=== PATIENT | male | born 1950 | race Caucasian/White ===

== ENCOUNTER → 2018-04-26 03:20 | Outpatient (CLI) | payer MEDICARE, BC, SELFPAY ==
[2018-04-26 08:28] LABS: ALT 39 U/L (12-78); AST 23 U/L (15-37); Albumin 3.5 g/dL (3.4-5.0); Alkaline Phosphatase 59 U/L (46-116); BUN 35 mg/dL (7-18); Bilirubin, Total 0.4 mg/dL (0.2-1.0); CREATININE 1.51 mg/dL (0.70-1.30); Calcium 8.7 mg/dL (8.5-10.1); Chloride 101 mmol/L (98-107); Estimated GFR 46.18 (mL/min/1.73m2); Glucose 217 mg/dL (70-100); Lipase 428 U/L (73-393); Sodium 137 mmol/L (136-145); Total Protein 6.6 g/dL (6.4-8.2)
== END ==
DX: E11.65 Type 2 diabetes mellitus with hyperglycemia (principal); E66.9 Obesity, unspecified; I10 Essential (primary) hypertension; K85.90 Acute pancreatitis without necrosis or infection, unspecified
CPT/HCPCS: 36415; 80053; 83690

== ENCOUNTER 2018-06-19 02:03 | Outpatient (CLI) | payer MEDICARE, BC, SELFPAY ==
[2018-06-19 08:38] LABS: Hemoglobin A1C 8.1 % (4.5-6.2)
== END 2018-06-19 02:23 ==
DX: E11.9 Type 2 diabetes mellitus without complications (principal)
CPT/HCPCS: 36415; 83036

== ENCOUNTER 2018-09-10 13:44 | Emergency (ER) | payer OTHER, MEDICARE, BC, SELFPAY ==
[2018-09-10 13:46] VITALS: BP 146/78; PULSE 76; RESP 16; TEMP 36.6; O2SAT 97
--- NOTE | 2018-09-10 13:51 | W.ED.GENAD ---
Discharge Plan Disposition Patient Disposition: HOME Condition: Stable Discharge Details Chief Complaint: Chest/Rib Clinical Impression: Left rib fracture, Closed fracture of greater tuberosity of left humerus Primary Care Provider: Sugar Kaur ED Provider: Zac Brian Home Meds and New Rx's Prescriptions: Continued pen needle, diabetic [Comfort EZ Pen [place]] 31 gauge x 1/4 needle .ROUTE .MEDSUPPLY Qty: 90 RF: 4 CPAP RF: 0 lancets [OneTouch Delica Lancets] 1 EACH misc 1 ea Miscellaneous AC& HS Qty: 400 RF: 4 amlodipine 5 MG tablet 5 mg PO DAILY RF: 0 blood sugar diagnostic [OneTouch Ultra Test] 1 EACH strip 1 strip Miscellaneous AC&HS Qty: 400 RF: 4 metformin 850 MG tablet 1 - 2 tab PO BID Qty: 270 RF: 4 paroxetine HCl 20 MG tablet 20 tab PO DAILY Qty: 90 RF: 4 losartan 100 MG tablet 100 mg PO DAILY Qty: 90 RF: 4 hydrochlorothiazide 12.5 MG tablet 12.5 mg PO DAILY Qty: 90 RF: 4 atorvastatin 80 MG tablet 80 mg PO PM Qty: 90 RF: 3 Xarelto 20 MG tablet 20 mg PO DAILY Qty: 30 RF: 11 Basaglar KwikPen U-100 Insulin 100 UNIT/1 ML insulin pen 60 - 80 unit SQ HS Qty: 3 RF: 3 metoprolol succinate 25 mg tablet extended release 24 hr 25 mg PO DAILY Qty: 90 RF: 3 nitroglycerin [Nitrostat] 0.4 MG tablet, sublingual 0.4 mg Sublingual Q5 MIN PRN X3 PRNQty: 100 RF: 0 Discharge Instructions Instructions: Arm Fracture in Adults (ED), Rib Fracture (ED) Additional Instructions: Your left shoulder xray showed a small broken bone. Your xray of your chest showed a possible broken 9th rib on the left Use the incentive spirometer every 1-2 hours while awake, this helps prevent pneumonias you can take 1000mg tylenol every 6 hours for pain as needed call orthopedics tomorrow for an appointment if you have severe worsening pain, difficulty breathing, headaches or abdominal pain return to the emergency department Referrals: Joshua Cuenca MD [ [facility] STAFF PHYSICIAN] - Medical Decision Making 67 yo male with hx of DM, afib on xarelto, who comes in with chief complaint of left upper arm pain, left sided chest pain after a fall. He states around 530am he slipped on ice and fell from standing landing on his outstretched left arm and left chest. Denies hitting head and has not had any vomit, headache, neck pain. He has no c spine pain even on rom. He has let upper humerus pain and limited rom due to the pain of the left shoulder. No pain on palpation of the elbow, forearm, wrist or hand. Has left lower chest wall discomfort on exam without findings of trauma, and has clera lungs. Has full rom of the left knee and walking without a limp, doubt fx and do not feel xray of knee indicated. Will xray the left shoulder and chest to eval for fx/dislocation. Given his fall happened 10 hours ago and has not had any headache do not feel head imaging indicated and has no neck pain even on rom so do not feel imaging of c spine indicated at this time xray shows left greater tuberosity fx, and ?9th rib fx. He was placed in a sling, he declines any pain medication at this time. Will have him f/u with ortho and return precautions given. Differential Diagnosis sprain, contusion, fx Imaging Data Radiologic Study: Attestation: I personally reviewed and interpreted this imaging study as follows: Imaging: X-Ray Radiologist's impression: Exam(s) a RAD:XR chest 2V PA & lateral a RAD:XR shoulder LT complete 2+V SYMPTOMS/DIAGNOSIS: LEFT-SIDED CHEST PAIN AND SHOULDER PAIN S/P FALL PA AND LATERAL CHEST: Comparison is made with March,. The heart is mildly enlarged, unchanged. The aorta appears normal in diameter. The lungs are clear. No pneumothorax is seen. There is a question of a nondisplaced fracture of the left 9th rib. The spine appears intact. IMPRESSION: Question of a left 9th rib fracture. No evidence of pneumothorax. LEFT SHOULDER: There is a nondisplaced fracture of the greater tuberosity. No additional fractures are seen. There is spurring at the AC joint. The AC joint is not widened. There are degenerative changes of the glenohumeral joint. IMPRESSION: Nondisplaced fracture of the greater tuberosi HPI General Mode of arrival: ambulatory. Date/Time Provider Initiated Documentation: 09/10/18 13:47. Limitations to Documentation: no limitations. Information obtained by: patient. History of Present Illness 67 year old M presents to the emergency department with the chief complaint of left arm pain, described as moderate, with intensity rated at 5. Quality is described as aching, and is localized to the left and upper extremity. Patient reports no radiation. Patient started experiencing this hour(s) (10) and it has been constant. Rest improves symptom(s), Movement worsens symptoms . Patient notes denies cough, diaphoresis and fever/chills. Patient did receive the following treatments prior to arrival, none Related Data Home Medications Medication Instructions Recorded Confirmed Cpap 09/26/13 06/24/18 lancets [OneTouch Delica Lancets] #400 ea 11/27/15 06/24/18 amlodipine 5 mg PO DAILY 06/14/17 09/10/18 blood sugar diagnostic [OneTouch #400 strip 08/23/17 06/24/18 Ultra Test] hydrochlorothiazide 12.5 mg PO DAILY #90 tab-cap 12/11/17 09/10/18 losartan 100 mg PO DAILY #90 tab-cap 12/11/17 09/10/18 metformin 1 - 2 tab PO BID #270 tab 12/11/17 09/10/18 paroxetine HCl 20 tab PO DAILY #90 tab 12/11/17 09/10/18 atorvastatin 80 mg PO PM #90 tab 01/10/18 09/10/18 Xarelto 20 mg PO DAILY #30 tab-cap 02/20/18 09/10/18 nitroglycerin [Nitrostat] 0.4 mg SUBLINGUAL Q5 MIN PRN X3 04/10/18 09/10/18 PRN #100 tab Shellieaglar RooseveltikPen U-100 Insulin 60 - 80 unit SQ HS #3 box 04/22/18 09/10/18 pen needle, diabetic 31 gauge x #90 each 06/24/18 06/24/18 1/4 metoprolol succinate ER 25 mg 25 mg PO DAILY #90 tab 09/05/18 09/10/18 tablet,extended release 24 hr Previous Rx's Medication Instructions Recorded blood sugar diagnostic [OneTouch #400 strip 08/23/17 Ultra Test] hydrochlorothiazide 12.5 mg PO DAILY #90 tab-cap 12/11/17 losartan 100 mg PO DAILY #90 tab-cap 12/11/17 metformin 1 - 2 tab PO BID #270 tab 12/11/17 paroxetine HCl 20 tab PO DAILY #90 tab 12/11/17 atorvastatin 80 mg PO PM #90 tab 01/10/18 Xarelto 20 mg PO DAILY #30 tab-cap 02/20/18 nitroglycerin [Nitrostat] 0.4 mg SUBLINGUAL Q5 MIN PRN X3 04/10/18 PRN #100 tab Basaglar KwikPen U-100 Insulin 60 - 80 unit SQ HS #3 box 04/22/18 pen needle, diabetic 31 gauge x #90 each 06/24/1808/30 metoprolol succinate ER 25 mg 25 mg PO DAILY #90 tab 09/05/18 tablet,extended release 24 hr Allergies Allergy/AdvReac Type Severity Reaction Status Date / Time No Known Allergies Allergy Unverified 09/10/18 14:01 General Stated Complaint: Chest/Rib MOJGAN: 3 Review of Systems Review of Systems All systems reviewed & are unremarkable except as noted in HPI and below Constitutional Denies chills, Denies fever(s) and Denies weakness Eyes Denies loss of vision Cardiovascular Denies dyspnea Respiratory Denies dyspnea Gastrointestinal Denies abdominal pain, Denies nausea and Denies vomiting Musculoskeletal Denies joint swelling Integumentary/Breasts Denies rash Neurologic Denies loss of vision and Denies weakness [facility] Surgical History Ankle Surgery Appendectomy Tonsillectomy Trigger Finger release Family History Mother Essential hypertension Neoplasm Father Alcohol abuse Essential hypertension Heart disease Hyperlipidemia Stroke Asthma Sister Essential hypertension Stroke Sister Essential hypertension Depression Hyperlipidemia Sister Substance abuse Essential hypertension Depression Hyperlipidemia Sister No problems noted. Sister Essential hypertension Hyperlipidemia Brother Substance abuse Alcohol abuse Essential hypertension Heart disease Hyperlipidemia Brother Substance abuse Alcohol abuse Hyperlipidemia Neoplasm Brother Substance abuse Essential hypertension Hyperlipidemia Grandfather Heart disease Hyperlipidemia Asthma Grandfather Heart disease Asthma Grandmother Diabetes Essential hypertension Heart disease Hyperlipidemia Grandmother Neoplasm Son Essential hypertension Hyperlipidemia Son Essential hypertension Hyperlipidemia Sister Essential hypertension Brother No problems noted. Social History Smoking/Tobacco Use Status: Former Tobacco Use Exam Const General: no acute distress Orientation: alert HENMT Head: normal to inspection Ears: external ears normal General nose exam: external nose normal Mouth: moist mucous membranes Eyes General: appearance normal, both eyes and all related structures Neck Neck: normal visual inspection Chest Chest: normal inspection of the chest Resp Effort & Inspection: normal respiratory effort and able to speak in complete sentences Cardio Rate: regular rate Skin General skin exam: no rashes or lesions noted Neuro General: alert and oriented x3 Extrem General: normal to inspection Psych Mental Status: mental status grossly normal Course Vital Signs Temperature 36.6 C 09/10/18 13:46 Pulse 76 09/10/18 13:46 Respiratory Rate 16 09/10/18 13:46 Blood Pressure 146/78 H 09/10/18 13:46 Pulse Oximetry 97 09/10/18 13:46 Temperature 36.6 C 09/10/18 13:46 Temperature Source Skin 09/10/18 13:46 Pulse 76 09/10/18 13:46 Respiratory Rate 16 09/10/18 13:46 Blood Pressure 146/78 H 09/10/18 13:46 Pulse Oximetry 97 09/10/18 13:46 Oxygen Delivery Method Room Air 09/10/18 13:46 Oxygen Flow Rate 0 09/10/18 13:46 Pain Level 3 09/10/18 13:46
--- NOTE | 2018-09-10 13:54 | DI.RAD_ITS ---
SYMPTOMS/DIAGNOSIS: LEFT-SIDED CHEST PAIN AND SHOULDER PAIN S/P FALL PA AND LATERAL CHEST: Comparison is made with March,. The heart is mildly enlarged, unchanged. The aorta appears normal in diameter. The lungs are clear. No pneumothorax is seen. There is a question of a nondisplaced fracture of the left 9th rib. The spine appears intact. IMPRESSION: Question of a left 9th rib fracture. No evidence of pneumothorax. LEFT SHOULDER: There is a nondisplaced fracture of the greater tuberosity. No additional fractures are seen. There is spurring at the AC joint. The AC joint is not widened. There are degenerative changes of the glenohumeral joint. IMPRESSION: Nondisplaced fracture of the greater tuberosity.
--- NOTE | 2018-09-10 14:18 | NUR.NOTE ---
pt stated that he fell this am before work hurting his left ribs knee and shoulder pain. pt stated every thing is working except for left shoulder pt stated limited movement Nursing Note:
[2018-09-10 14:26] VITALS: BP 135/85; PULSE 71; RESP 16; TEMP 37; O2SAT 95
[2018-09-10 14:37] VITALS: BP 135/85; PULSE 71; RESP 16; TEMP 37; O2SAT 95
== END 2018-09-10 14:42 | disposition home or self-care (01) ==
PROVIDERS: Emergency Provider Emergency Medicine
DX: S22.32XA Fracture of one rib, left side, initial encounter for closed fracture (principal); S42.255A Nondisplaced fracture of greater tuberosity of left humerus, initial encounter for closed fracture; E11.9 Type 2 diabetes mellitus without complications; I48.91 Unspecified atrial fibrillation; W00.0XXA Fall on same level due to ice and snow, initial encounter; Z79.01 Long term (current) use of anticoagulants
CPT/HCPCS: 99284; 71046; 73030; L3650

== ENCOUNTER 2018-09-23 10:07 | Outpatient (CLI) | payer MEDICARE, BC, SELFPAY ==
--- NOTE | 2018-09-23 10:01 | DI.RAD_ITS ---
SYMPTOM/DIAGNOSIS: F/U LT GREATER TUB FX LEFT SHOULDER: Comparison is made with 2018. There has been no change in the fracture fragments seen at the greater tuberosity. Degenerative changes of the glenohumeral joint and AC joint are again noted. No new abnormalities are seen.
== END 2018-09-23 10:27 ==
PROVIDERS: Visit Provider Student in an Organized Health Care Education/Training Program
DX: S42.255A Nondisplaced fracture of greater tuberosity of left humerus, initial encounter for closed fracture (principal); M19.012 Primary osteoarthritis, left shoulder; W19.XXXA Unspecified fall, initial encounter
CPT/HCPCS: 99203; 99214; 73030

== ENCOUNTER 2018-09-26 01:50 | Outpatient (CLI) | payer MEDICARE, BC, SELFPAY | END 2018-09-26 02:10 | DX: E11.9 Type 2 diabetes mellitus without complications (principal) | CPT/HCPCS: 36415; 83036 ==

== ENCOUNTER 2018-10-21 10:04 | Outpatient (CLI) | payer MEDICARE, BC, SELFPAY ==
--- NOTE | 2018-10-21 10:02 | DI.RAD_ITS ---
SYMPTOMS/DIAGNOSIS: F/U LT GREATER TUBEROSITY FX LEFT SHOULDER: Comparison is made with [id number]. There has been no change in the alignment of the fracture of the greater tuberosity which is not as well seen on the current exam due to differences in projection.
== END 2018-10-21 10:24 ==
PROVIDERS: Visit Provider Student in an Organized Health Care Education/Training Program
DX: S42.255D Nondisplaced fracture of greater tuberosity of left humerus, subsequent encounter for fracture with routine healing; W19.XXXD Unspecified fall, subsequent encounter
CPT/HCPCS: 99213; 73030

== ENCOUNTER 2018-12-02 09:57 | Outpatient (CLI) | payer MEDICARE, BC, SELFPAY ==
--- NOTE | 2018-12-02 09:55 | DI.RAD_ITS ---
SYMPTOMS/DIAGNOSIS: LT PROXIMAL HUMERUS FRACTURE LEFT SHOULDER: Three views. Comparison 10/21/15. There has been no change in alignment of the fracture involving the greater tuberosity. Degenerative changes are seen in the acromioclavicular joint. No new fracture or dislocation is seen. The soft tissues are unremarkable. IMPRESSION: Stable proximal left humeral fracture.
== END 2018-12-02 10:17 ==
PROVIDERS: Visit Provider Student in an Organized Health Care Education/Training Program
DX: S42.255D Nondisplaced fracture of greater tuberosity of left humerus, subsequent encounter for fracture with routine healing (principal); X58.XXXD Exposure to other specified factors, subsequent encounter
CPT/HCPCS: 99213; 73030

== ENCOUNTER 2018-12-23 02:14 | Outpatient (CLI) | payer MEDICARE, BC, SELFPAY ==
[2018-12-23 07:58] LABS: Hemoglobin A1C 10.2 % (4.5-6.2)
== END 2018-12-23 02:34 ==
DX: E11.9 Type 2 diabetes mellitus without complications (principal)
CPT/HCPCS: 36415; 83036

== ENCOUNTER 2019-01-08 02:12 | Outpatient (CLI) | payer MEDICARE, BC, SELFPAY ==
[2019-01-08 09:15] LABS: COMMENT (LAB VIEW ONLY) 68.06 mg/dL; Microalb ug/mg Crea 662.4 ug/mg Cr
[2019-01-08 10:43] LABS: ALT 39 U/L (12-78); AST 20 U/L (15-37); Albumin 3.5 g/dL (3.4-5.0); Alkaline Phosphatase 75 U/L (46-116); Anion Gap 9.4 mmol/L (3-11); BUN 23 mg/dL (7-18); Bilirubin, Total 0.5 mg/dL (0.2-1.0); CO2 27.6 mmol/L (21.0-32.0); CREATININE 1.34 mg/dL (0.70-1.30); Chloride 100 mmol/L (98-107); Estimated GFR 52.85 (mL/min/1.73m2); Glucose 351 mg/dL (70-100); Lipase 978 U/L (73-393); Potassium 3.8 mmol/L (3.5-5.1); Sodium 137 mmol/L (136-145); Total Protein 6.8 g/dL (6.4-8.2)
== END 2019-01-08 02:32 ==
DX: Z87.19 Personal history of other diseases of the digestive system (principal); D36.9 Benign neoplasm, unspecified site; E11.65 Type 2 diabetes mellitus with hyperglycemia; E11.8 Type 2 diabetes mellitus with unspecified complications; E66.9 Obesity, unspecified; E78.00 Pure hypercholesterolemia, unspecified; E78.5 Hyperlipidemia, unspecified; F33.0 Major depressive disorder, recurrent, mild; I10 Essential (primary) hypertension; I48.91 Unspecified atrial fibrillation; N28.9 Disorder of kidney and ureter, unspecified; G47.33 Obstructive sleep apnea (adult) (pediatric)
CPT/HCPCS: 36415; 80053; 83690; 82043; 82570

== ENCOUNTER 2019-06-20 07:51 | Outpatient (CLI) | payer MEDICARE, BC, SELFPAY ==
[2019-06-20 09:02] LABS: Hemoglobin A1C 9.1 % (4.5-6.2)
[2019-06-20 09:24] LABS: BUN 39 mg/dL (7-18); CREATININE 1.38 mg/dL (0.70-1.30); Chloride 102 mmol/L (98-107); Estimated GFR 51.09 (mL/min/1.73m2); Glucose 221 mg/dL (70-100); Lipase 225 U/L (73-393); Potassium 3.8 mmol/L (3.5-5.1); Sodium 139 mmol/L (136-145)
== END 2019-06-20 08:11 ==
DX: E11.65 Type 2 diabetes mellitus with hyperglycemia (principal); I48.91 Unspecified atrial fibrillation; I10 Essential (primary) hypertension; N28.9 Disorder of kidney and ureter, unspecified
CPT/HCPCS: 36415; 80048; 83690; 83036

== ENCOUNTER 2019-07-26 12:00 | Emergency (ER) | payer MEDICARE, BC, SELFPAY ==
[2019-07-26 12:02] VITALS: BP 154/74; PULSE 93; RESP 18; TEMP 36.1; O2SAT 97
--- NOTE | 2019-07-26 12:07 | W.ED.GENAD ---
Discharge Plan Disposition Patient Disposition: HOME Condition: Good Discharge Details Chief Complaint: EarProblem Clinical Impression: Otitis externa Primary Care Provider: Sugar Kaur ED Provider: Waleska Begum Hamilton Meds and New Rx's Prescriptions: New Ciprodex 0.3-0.1 % drops,suspension 4 drp OT BID 7 Days Qty: 7.5 RF: 0 Continued Ozempic 1 mg/dose (2 mg/1.5 mL) pen injector 0.5 mg SC QWEEK RF: 0 metformin 850 mg tablet 850 mg PO BID Qty: 270 RF: 4 Prevnar 13 (PF) 0.5 mL syringe 0.5 ml IM ONCE Qty: 0.5 RF: 0 (DME) pen needle, diabetic [Comfort EZ Pen [place]] 31 gauge x 1/4 needle See Dose Instructions .ROUTE .MEDSUPPLY Qty: 90 RF: 4 amlodipine 5 mg tablet 5 mg PO DAILY Qty: 90 RF: 3 atorvastatin 80 mg tablet 80 mg PO PM Qty: 90 RF: 3 hydrochlorothiazide 12.5 mg tablet 12.5 mg PO DAILY Qty: 90 RF: 4 losartan 100 mg tablet 100 mg PO DAILY Qty: 90 RF: 4 paroxetine HCl 20 mg tablet 20 mg PO DAILY Qty: 90 RF: 4 Xarelto 20 mg tablet 20 mg PO DAILY Qty: 30 RF: 11 CPAP RF: 0 (DME) lancets [OneTouch Delica Lancets] 1 EACH misc 1 ea Miscellaneous AC& HS Qty: 400 RF: 4 metoprolol succinate 25 mg tablet extended release 24 hr 25 mg PO DAILY Qty: 90 RF: 3 Basaglar KwikPen U-100 Insulin 100 unit/mL (3 mL) insulin pen 60 - 80 unit SC DAILY Qty: 135 RF: 3 (DME) FreeStyle Cecelia 14 Day [place] misc See Dose Instructions .ROUTE .MEDSUPPLY Qty: 1 RF: 0 (DME) FreeStyle [place] 14 Day Sensor kit See Dose Instructions .ROUTE .MEDSUPPLY Qty: 1 RF: 0 (DME) blood sugar diagnostic Strip 1 strip Miscellaneous AC&HS Qty: 400 RF: 4 nitroglycerin [Nitrostat] 0.4 MG tablet, sublingual 0.4 mg Sublingual Q5 MIN PRN X3 PRNQty: 100 RF: 0 Discharge Instructions Instructions: Otitis Externa (ED) Additional Instructions: Encourage hydration. Please use the eardrops as prescribed. Please follow-up with primary care next week for reevaluation. If you develop fevers chills, increased pain or other new/worsening symptoms please seek care urgently once again. Referrals: Sugar Kaur NP [Primary Care Provider] - Medical Decision Making Patient is a 68-year-old male presenting today with chief complaint of 4 days bilateral ear pain. Reports that this started insidiously. No fevers, chills, drainage. Endorses diminished hearing. Denies any other URI symptoms, no congestion, cough, sinus pain. No recent travel. On exam, his external canals appear swollen, left more than right making it difficult to visualize the tympanic membrane. The skin is dry and flaking in the canal also making it difficult to visualize completely. No mastoid tenderness. Patient does have pain with insertion of the otoscope into the external canal. No drainage is noted. Patient appears nontoxic. He has been using Bluetooth headset recently which is likely contributing to his symptoms. He does not use hearing started devices typically. Plan to treat with Ciprodex drops. He was given return precautions. Advise follow-up with primary care next week. I would like him to evaluate the tympanic membrane once the pain is more visible. Questions and concerns were addressed and he is in agreement this plan. HPI General Mode of arrival: ambulatory. Date/Time Provider Initiated Documentation: 07/26/19 12:07. Limitations to Documentation: no limitations. Information obtained by: patient and RN notes reviewed. History of Present Illness 68 year old M presents to the emergency department with the chief complaint of bilateral ear pain, described as moderate, with intensity rated at 6. Quality is described as aching, Patient reports no radiation. Patient started experiencing this day(s) (4) and it has been constant. No relieving factors improve symptom(s), No exacerbating factors reported . Patient notes no other symptoms.. Patient did receive the following treatments prior to arrival, none Related Data Home Medications Medication Instructions Recorded Confirmed Cpap 09/26/13 01/20/19 lancets [OneTouch Delica Lancets] #400 ea 11/27/15 01/20/19 nitroglycerin [Nitrostat] 0.4 mg SUBLINGUAL Q5 MIN PRN X3 04/10/18 07/26/19 PRN #100 tab pen needle, diabetic 31 gauge x #90 each 06/24/18 01/20/1908/30 metoprolol succinate 25 mg 25 mg PO DAILY #90 tab 09/05/18 07/26/19 tablet,extended release 24 hr insulin glargine 100 unit/mL (3 60 - 80 unit SC DAILY #135 ml 11/11/18 07/26/19 mL) subcutaneous pen amlodipine 5 mg tablet 5 mg PO DAILY #90 tab 12/25/18 07/26/19 atorvastatin 80 mg tablet 80 mg PO PM #90 tab 12/25/18 07/26/19 hydrochlorothiazide 12.5 mg tablet 12.5 mg PO DAILY #90 tab-cap 12/25/18 07/26/19 losartan 100 mg tablet 100 mg PO DAILY #90 tab-cap 12/25/18 07/26/19 paroxetine HCl 20 mg tablet 20 mg PO DAILY #90 tab 12/25/18 07/26/19 rivaroxaban 20 mg tablet 20 mg PO DAILY #30 tab-cap 12/25/18 07/26/19 semaglutide 1 mg/dose (2 mg/1.5 0.5 mg SC QWEEK 01/09/19 07/26/19 mL) subcutaneous pen injector metformin 850 mg tablet 850 mg PO BID #270 tab 01/20/19 07/26/19 flash glucose scanning reader #1 each 02/12/19 flash glucose sensor #1 each 02/12/19 blood sugar diagnostic #400 strip 05/08/19 pneumoc 13-carl conj-dip cr(PF) 0.5 0.5 ml IM ONCE #0.5 ml 06/24/19 07/26/19 mL IM syringe ciprofloxacin-dexamethasone 4 drp OT BID 7 Days #7.5 ml 07/26/19 [Ciprodex] Previous Rx's Medication Instructions Recorded nitroglycerin [Nitrostat] 0.4 mg SUBLINGUAL Q5 MIN PRN X3 04/10/18 PRN #100 tab pen needle, diabetic 31 gauge x #90 each 06/24/18 1 metoprolol succinate 25 mg 25 mg PO DAILY #90 tab 09/05/18 tablet,extended release 24 hr insulin glargine 100 unit/mL (3 60 - 80 unit SC DAILY #135 ml 11/11/18 mL) subcutaneous pen amlodipine 5 mg tablet 5 mg PO DAILY #90 tab 12/25/18 atorvastatin 80 mg tablet 80 mg PO PM #90 tab 12/25/18 hydrochlorothiazide 12.5 mg tablet 12.5 mg PO DAILY #90 tab-cap 12/25/18 losartan 100 mg tablet 100 mg PO DAILY #90 tab-cap 12/25/18 paroxetine HCl 20 mg tablet 20 mg PO DAILY #90 tab 12/25/18 rivaroxaban 20 mg tablet 20 mg PO DAILY #30 tab-cap 12/25/18 metformin 850 mg tablet 850 mg PO BID #270 tab 01/20/19 flash glucose sensor #1 each 02/12/19 blood sugar diagnostic #400 strip 05/08/19 pneumoc 13-carl conj-dip cr(PF) 0.5 0.5 ml IM ONCE #0.5 ml 06/24/19 mL IM syringe ciprofloxacin-dexamethasone 4 drp OT BID 7 Days #7.5 ml 07/26/19 [Ciprodex] Allergies Allergy/AdvReac Type Severity Reaction Status Date / Time No Known Allergies Allergy Verified 07/26/19 12:06 General Stated Complaint: EarProblem MOJGAN: 4 Review of Systems Constitutional Constitutional: Reports as per HPI, Denies chills, Denies fatigue, Denies fever(s), Denies headache(s) and Denies lethargy Eyes Eyes: Reports as per HPI, Denies eye discharge and Denies irritation ENT Ears, Nose, Mouth, and Throat: Reports as per HPI and Denies headache(s) Cardiovascular Cardiovascular: Reports as per HPI, Denies chest pain and Denies dyspnea Respiratory Respiratory: Reports as per HPI, Denies chest congestion, Denies cough and Denies dyspnea Gastrointestinal Gastrointestinal: Reports as per HPI, Denies abdominal pain, Denies change in bowel habits, Denies nausea and Denies vomiting Integumentary/Breasts Skin/Breast: Reports as per HPI and Denies rash Neurologic Neurologic: Reports as per HPI and Denies headache(s) Endocrine Endocrine: Denies fatigue [facility] Medical History Atrial fibrillation (Inactive) Atrial fibrillation (Chronic 09/11/17) Coronary artery disease (Chronic) Diverticulosis (Chronic 01/23/17) Fracture of greater tuberosity of left humerus (Resolved 09/10/18) Hypercholesterolemia (Inactive 01/08/09) Hyperlipidemia (Chronic) Hypertension (Chronic) Internal hemorrhoids (Chronic 01/23/17) 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) Obesity (Chronic 07/02/14) Obstructive sleep apnea (Chronic) Polyp of colon (Chronic 04/30/12) 06/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 06/07 repeat colo [facility] tubulovillous adenonma 02/05 FUENTES, TUBULOVILLOUS ADENOMA 2 CM Renal insufficiency, mild (Acute 12/07/15) Rotator cuff tendonitis (Chronic 04/09/15) Tubular adenoma (Chronic 12/15/16) [facility] Type 2 diabetes mellitus with hyperglycemia (Chronic) Surgical History Ankle Surgery Appendectomy Tonsillectomy Trigger Finger release LEFT MIDDLE, RIGHT MIDDLE, RIGHT RING FINGER Social History Smoking/Tobacco Use Status: Former Tobacco Use Quit Date: 01/30/89 Tobacco: How many years used: 22 Alcohol Intake: current Alcohol Intake frequency: holidays/special occasions only Drug use: Never Substance use type: does not use Caregiver/Support person: Yes Household members: spouse Housing: house Communication Needs: None Pets and animals: Yes Pets and animals: dog(s) Sexually active: No Current gender identity: decline to answer What is your relationship status?: How often do you talk on the phone with friends or family?: twice per week How often do you get together with friends or relatives?: once per week How often do you attend voodoo or restorationism services?: decline to answer Do you belong to any clubs or organized social groups?: no Panel score (0-1 are the most socially isolated patients): 2 What type of physical activity do you participate in: none Chuyita/Pentecostal: None Special chuyita needs: No Seatbelt use: always Helmet use: Yes Helmet use: always Drive intox or ride w/intox special education bus driver: No Do you feel safe at home: Yes Do you feel safe in your relationship?: Yes Exam Const General: cooperative, healthy appearing, comfortable, no acute distress, well developed and well groomed Nutritional Appearance: well nourished and overweight Orientation: alert and awake HENMT Head: normal to inspection, normocephalic and atraumatic Ears: hearing grossly normal bilaterally, external ears normal (canal is swollen and skin is flaking bilaterally, L>R, difficult to see TM) and mastoids normal General nose exam: external nose normal and nares normal Face and sinus: normal facial exam, sinuses nontender and face symmetric Mouth: oral mucosae normal, lip normal, tongue normal, oropharynx normal and moist mucous membranes Teeth and gingiva: dentition normal Throat: posterior oropharynx normal, tonsils normal and uvula midline Eyes General: appearance normal, both eyes and all related structures Neck Neck: normal visual inspection, full ROM, no lymphadenopathy and no meningeal signs Resp Effort & Inspection: normal respiratory effort, able to speak in complete sentences and no respiratory distress Auscultation: clear to auscultation bilaterally, no rales, no rhonchi and no wheezes Cardio Rate: regular rate Rhythm: regular rhythm Heart Sounds: S1 normal and S2 normal Skin General skin exam: no rashes or lesions noted Neuro General: alert and awake Cognition: normal cognition Speech: speech normal Gait: normal gait Psych Appearance: grossly normal and well kempt Mental Status: mental status grossly normal Speech and Movement: speech and movement normal Course Vital Signs Vital signs: Vital Signs Temperature 36.1 C L 07/26/19 12:02 Pulse 93 H 07/26/19 12:02 Respiratory Rate 18 07/26/19 12:02 Blood Pressure 154/74 H 07/26/19 12:02 Pulse Oximetry 97 07/26/19 12:02 Temperature 36.1 C L 07/26/19 12:02 Temperature Source Temporal Artery Scan 07/26/19 12:02 Pulse 93 H 07/26/19 12:02 Respiratory Rate 18 07/26/19 12:02 Respiratory Effort Non-Labored 07/26/19 12:04 Blood Pressure 154/74 H 07/26/19 12:02 Blood Pressure Position Sitting 07/26/19 12:02 Pulse Oximetry 97 07/26/19 12:02 Oxygen Delivery Method Room Air 07/26/19 12:02 Oxygen Flow Rate 0 07/26/19 12:02 Pain Level 6 07/26/19 12:02
== END 2019-07-26 12:28 | disposition home or self-care (01) ==
PROVIDERS: Emergency Provider Physician Assistant
DX: H60.503 Unspecified acute noninfective otitis externa, bilateral (principal); I10 Essential (primary) hypertension; E11.9 Type 2 diabetes mellitus without complications; Z79.4 Long term (current) use of insulin
CPT/HCPCS: 99283

== ENCOUNTER 2019-10-09 08:58 | Outpatient (REF) | payer MEDICARE, BC, SELFPAY | END 2019-10-09 09:18 | LOC: LBN 08:58 | PROVIDERS: Visit Provider Otolaryngology | DX: H60.331 Swimmer's ear, right ear (principal) | CPT/HCPCS: 87070 ==

== ENCOUNTER 2019-10-23 12:56 | Outpatient (REF) | payer MEDICARE, BC, SELFPAY ==
--- NOTE | 2019-10-23 08:58 | SKI_PTH ---
PATIENT: Vance Doe LOC: [facility] U#:[id number] AGE/SX: 68/M ROOM: RE10/23/[address]: Vladimir Huang MD : 1950 BED: DIS: 10/23/2019 SPEC #: [id number] RECD: 10/23/19 18:21 STATUS: CHIP REQ #: [id number] KAPIL: 10/23/19 08:[address]: Vladimir Huang DEPT: Surgical Specimen RECD BY: Lizzie Livingtson ENTERED: 10/23/19 18:22 SP TYPE: BRODY CORDON DR: Sugar Kaur APRN Tissues: 1 - SKIN BIOPSY(SHAVE/PUNCH) Procedures: GROSS AND MICRO LEVEL 4 SPECIAL STAIN 1 Comments: [id number]
== END 2019-10-23 13:16 ==
LOC: LBN 12:56
PROVIDERS: Visit Provider Otolaryngology
DX: H61.891 Other specified disorders of right external ear (principal); H93.8X1 Other specified disorders of right ear; H60.01 Abscess of right external ear
CPT/HCPCS: 88305; 88312

== ENCOUNTER 2019-11-03 01:51 | Outpatient (CLI) | payer MEDICARE, BC, SELFPAY ==
[2019-11-03 13:10] LABS: BUN 37 mg/dL (7-18); CREATININE 1.46 mg/dL (0.70-1.30); Estimated GFR 47.87 (mL/min/1.73m2)
== END 2019-11-03 02:11 ==
PROVIDERS: Visit Provider Otolaryngology
DX: Z01.812 Encounter for preprocedural laboratory examination (principal); R69 Illness, unspecified
CPT/HCPCS: 36415; 84520; 82565

== ENCOUNTER 2019-11-06 00:39 | Outpatient (CLI) | payer MEDICARE, BC, SELFPAY ==
[2019-11-06 09:39] LABS: Hemoglobin A1C 9.9 % (3.8-5.6)
== END 2019-11-06 00:59 ==
DX: E11.65 Type 2 diabetes mellitus with hyperglycemia (principal); Z79.4 Long term (current) use of insulin; M86.18 Other acute osteomyelitis, other site; H61.811 Exostosis of right external canal; M79.89 Other specified soft tissue disorders
CPT/HCPCS: 36415; 70480; 83036

== ENCOUNTER 2019-11-06 02:06 | Outpatient (CLI) | payer MEDICARE, BC, SELFPAY ==
--- NOTE | 2019-11-06 13:25 | DI.CT_ITS ---
EXAM: CT TEMPORAL BONE WO TECHNIQUE: Imaging Protocol: Axial computed tomography images with coronal and sagittal reformatted images were created and reviewed CONTRAST MATERIAL: Noncontrast COMPARISON: No exams were available for comparison FINDINGS: There is soft tissue swelling and thickening posterior to the pinna and adjacent to the right mastoi d. There is a soft tissue collection measuring 2.4 x 1.4 by 1.7 cm. There is adjacent destruction o f the inferior aspect of the right mastoid. There is opacification of inferior right mastoid air ce lls. There is some extension of inflammatory tissue into the external auditory canal. There is no e xtension into the middle or inner ear. There is mild sinus mucous retention. Left side is unremarka ble. The visualized portions of the brain are grossly normal. IMPRESSION: Soft tissue swelling around the inferior right mastoid with some bony destruction consistent with ost eomyelitis. DATA REPOSITORY: All CT scans at this facility are submitted to the National Radiology Data Registry (NRDR) Dose Index Registry (DIR) with the [employer] (ACR). RADIATION OPTIMIZATION: All CT scans at this facility use at least one of these dose optimization te chniques: automated exposure control; mA and/or kV adjustment per patient size (includes targeted exa ms where dose is matched to clinical indication); or iterative reconstruction.
== END 2019-11-06 02:26 ==
PROVIDERS: Visit Provider Otolaryngology
DX: M86.18 Other acute osteomyelitis, other site (principal); H61.811 Exostosis of right external canal; M79.89 Other specified soft tissue disorders
CPT/HCPCS: 70480

== ENCOUNTER 2020-01-08 01:48 | Outpatient (CLI) | payer MEDICARE, BC, SELFPAY ==
[2020-01-08 07:52] LABS: Hemoglobin A1C 8.8 % (3.8-5.6)
[2020-01-08 08:15] LABS: ALT 43 U/L (16-63); AST 26 U/L (15-37); Albumin 3.8 g/dL (3.4-5.0); Alkaline Phosphatase 60 U/L (46-116); Anion Gap 8.6 mmol/L (3-11); BUN 39 mg/dL (7-18); Bilirubin, Total 0.6 mg/dL (0.2-1.0); CO2 29.4 mmol/L (21.0-32.0); CREATININE 1.61 mg/dL (0.70-1.30); Calcium 9.1 mg/dL (8.5-10.1); Calculated LDL 69 mg/dL (<100); Chloride 100 mmol/L (98-107); Cholesterol 134 mg/dL (<200); Estimated GFR 42.64 (mL/min/1.73m2); Glucose 245 mg/dL (74-106); HDL Cholesterol 28 mg/dL (40-60); Potassium 4.1 mmol/L (3.5-5.1); Sodium 138 mmol/L (136-145); Triglyceride 189 mg/dL (<150)
== END 2020-01-08 02:08 ==
DX: E11.9 Type 2 diabetes mellitus without complications (principal); I10 Essential (primary) hypertension
CPT/HCPCS: 36415; 80053; 80061; 83036

== ENCOUNTER 2020-02-10 01:47 | Outpatient (CLI) | payer MEDICARE, BC, SELFPAY ==
[2020-02-10 09:32] LABS: COMMENT (LAB VIEW ONLY) 43.24 mg/dL; Microalb ug/mg Crea 388.5 ug/mg Cr
== END 2020-02-10 02:07 ==
DX: E11.65 Type 2 diabetes mellitus with hyperglycemia (principal); Z79.4 Long term (current) use of insulin
CPT/HCPCS: 82043; 82570

== ENCOUNTER 2020-03-03 03:01 | Outpatient (CLI) | payer MEDICARE, BC, SELFPAY ==
[2020-03-03 09:14] LABS: Anion Gap 13.2 mmol/L (3-11); BUN 45 mg/dL (7-18); CO2 22.8 mmol/L (21.0-32.0); Calcium 8.8 mg/dL (8.5-10.1); Chloride 101 mmol/L (98-107); Estimated GFR 42.95 (mL/min/1.73m2); Glucose 249 mg/dL (74-106); Potassium 3.5 mmol/L (3.5-5.1); Sodium 137 mmol/L (136-145)
== END 2020-03-03 03:21 ==
DX: E11.65 Type 2 diabetes mellitus with hyperglycemia (principal); I10 Essential (primary) hypertension; N28.9 Disorder of kidney and ureter, unspecified; Z79.4 Long term (current) use of insulin
CPT/HCPCS: 36415; 80048

== ENCOUNTER 2020-04-22 04:30 | Outpatient (CLI) | payer MEDICARE, BC, SELFPAY ==
[2020-04-22 08:19] LABS: Hemoglobin A1C 9.6 % (3.8-5.6)
[2020-04-22 08:50] LABS: Anion Gap 5.3 mmol/L (3-11); BUN 36 mg/dL (7-18); CO2 28.7 mmol/L (21.0-32.0); CREATININE 1.49 mg/dL (0.70-1.30); Calcium 9.1 mg/dL (8.5-10.1); Chloride 103 mmol/L (98-107); Estimated GFR 46.63 (mL/min/1.73m2); Glucose 360 mg/dL (74-106); Sodium 137 mmol/L (136-145)
== END 2020-04-22 04:50 ==
DX: E11.65 Type 2 diabetes mellitus with hyperglycemia (principal); Z79.4 Long term (current) use of insulin; I48.91 Unspecified atrial fibrillation; N28.9 Disorder of kidney and ureter, unspecified; I10 Essential (primary) hypertension
CPT/HCPCS: 36415; 80048; 83036

== ENCOUNTER 2020-08-13 03:38 | Outpatient (CLI) | payer MEDICARE, BC, SELFPAY ==
[2020-08-13 11:57] LABS: Hemoglobin A1C 9.7 % (<5.7)
== END 2020-08-13 03:58 ==
DX: E11.9 Type 2 diabetes mellitus without complications (principal)
CPT/HCPCS: 36415; 83036

== ENCOUNTER 2021-01-05 03:19 | Outpatient (CLI) | payer MEDICARE, BC, SELFPAY ==
[2021-01-05 09:33] LABS: Hemoglobin A1C 10.2 % (<5.7)
[2021-01-05 11:24] LABS: COMMENT (LAB VIEW ONLY) 76.77 mg/dL
[2021-01-05 11:26] LABS: Microalb ug/mg Crea 711.3 ug/mg Cr
[2021-01-05 11:42] LABS: ALT 49 U/L (16-63); AST 27 U/L (15-37); Albumin 3.9 g/dL (3.4-5.0); Alkaline Phosphatase 60 U/L (46-116); Anion Gap 7.1 mmol/L (3-11); BUN 29 mg/dL (7-18); Bilirubin, Total 0.9 mg/dL (0.2-1.0); CO2 32.9 mmol/L (21.0-32.0); CREATININE 1.5 mg/dL (0.70-1.30); Calcium 9.6 mg/dL (8.5-10.1); Calculated LDL 104 mg/dL (<100); Chloride 101 mmol/L (98-107); Cholesterol 181 mg/dL (<200); Estimated GFR 46.13 (mL/min/1.73m2); Glucose 162 mg/dL (74-106); HDL Cholesterol 32 mg/dL (40-60); Sodium 141 mmol/L (136-145); Total Protein 7.3 g/dL (6.4-8.2); Triglyceride 227 mg/dL (<150)
[2021-01-05 17:26] LABS: PSA, Screening 0.5 ng/mL (0.0-6.5)
== END 2021-01-05 03:20 | disposition home or self-care (01) ==
LOC: LBO 03:19
DX: E11.65 Type 2 diabetes mellitus with hyperglycemia (principal); Z79.4 Long term (current) use of insulin; E03.9 Hypothyroidism, unspecified; E66.9 Obesity, unspecified; N40.0 Benign prostatic hyperplasia without lower urinary tract symptoms; Z12.5 Encounter for screening for malignant neoplasm of prostate
CPT/HCPCS: 36415; 80053; 80061; 84153; 82043; 82570; 83036

== ENCOUNTER 2021-04-05 04:01 | Outpatient (CLI) | payer MEDICARE, BC, SELFPAY ==
[2021-04-05 10:00] LABS: Hemoglobin A1C 8.8 % (<5.7)
== END 2021-04-05 04:02 | disposition home or self-care (01) ==
DX: E11.65 Type 2 diabetes mellitus with hyperglycemia (principal); Z79.4 Long term (current) use of insulin
CPT/HCPCS: 36415; 83036

== ENCOUNTER 2021-07-06 02:52 | Outpatient (CLI) | payer MEDICARE, BC, SELFPAY ==
[2021-07-06 13:51] LABS: Hemoglobin A1C 9.1 % (<5.7)
== END 2021-07-06 02:53 | disposition home or self-care (01) ==
LOC: LBO 02:52
DX: E11.9 Type 2 diabetes mellitus without complications (principal)
CPT/HCPCS: 36415; 83036

== ENCOUNTER 2022-01-11 02:26 | Outpatient (CLI) | payer MEDICARE, BC, SELFPAY ==
[2022-01-11 11:13] LABS: Hemoglobin A1C 9.7 % (<5.7)
== END 2022-01-11 02:27 | disposition home or self-care (01) ==
LOC: LBO 02:26
DX: E11.9 Type 2 diabetes mellitus without complications (principal)
CPT/HCPCS: 36415; 83036

== ENCOUNTER 2022-04-19 02:42 | Outpatient (CLI) | payer MEDICARE, BC, SELFPAY ==
[2022-04-19 08:33] LABS: ALT 37 U/L (16-63); AST 19 U/L (15-37); Albumin 3.7 g/dL (3.4-5.0); Alkaline Phosphatase 72 U/L (46-116); Anion Gap 11.6 mmol/L (3-11); BUN 36 mg/dL (7-18); Bilirubin, Total 0.6 mg/dL (0.2-1.0); CO2 27.4 mmol/L (21.0-32.0); CREATININE 1.4 mg/dL (0.70-1.30); Calcium 8.9 mg/dL (8.5-10.1); Chloride 98 mmol/L (98-107); Cholesterol 172 mg/dL (<200); Estimated GFR 49.82 (mL/min/1.73m2); Glucose 304 mg/dL (74-106); HDL Cholesterol 33 mg/dL (40-60); Potassium 3.7 mmol/L (3.5-5.1); Sodium 137 mmol/L (136-145); Total Protein 7.8 g/dL (6.4-8.2); Triglyceride 580 mg/dL (<150)
[2022-04-19 08:40] LABS: Hemoglobin A1C 9.3 % (<5.7)
[2022-04-19 08:46] LABS: LDL CHOLESTEROL 50 mg/dL (<100)
[2022-04-19 18:28] LABS: Albumin ug/mg Crea 801 (<30); Albumin, Ur 34.7 mg/dL (See Note); Creatinine, Ur 43.3 mg/dL (See Note)
== END 2022-04-19 02:43 | disposition home or self-care (01) ==
LOC: LBO 02:42
DX: I10 Essential (primary) hypertension (principal); E78.5 Hyperlipidemia, unspecified; E11.65 Type 2 diabetes mellitus with hyperglycemia; Z79.4 Long term (current) use of insulin
CPT/HCPCS: 36415; 80053; 80061; 83721; 82043; 82570; 83036

== ENCOUNTER 2022-05-16 01:30 | Outpatient (CLI) | payer MEDICARE, BC, SELFPAY ==
[2022-05-16 13:39] LABS: Anion Gap 8.2 mmol/L (3-11); BUN 25 mg/dL (7-18); CO2 31.8 mmol/L (21.0-32.0); CREATININE 1.4 mg/dL (0.70-1.30); Calcium 9.5 mg/dL (8.5-10.1); Chloride 99 mmol/L (98-107); Glucose 305 mg/dL (74-106); Potassium 4.6 mmol/L (3.5-5.1); Sodium 139 mmol/L (136-145)
== END 2022-05-16 01:31 | disposition home or self-care (01) ==
LOC: LBO 01:30
PROVIDERS: Nurse Practitioner Family
DX: E11.65 Type 2 diabetes mellitus with hyperglycemia (principal); Z79.4 Long term (current) use of insulin
CPT/HCPCS: 36415; 80048

== ENCOUNTER → 2022-07-19 01:07 | Outpatient (CLI) | payer MEDICARE, BC, SELFPAY ==
--- NOTE | 2022-07-19 07:00 | DI.RAD_ITS ---
Exam(s) XR KNEE RT 3V AP,LAT,SANDEEP EXAM: XR KNEE RT 3V AP,LAT,SANDEEP CLINICAL HISTORY: right knee pain,m25.561. TECHNIQUE: 2D digital imaging was performed of the right knee. Three views obtained. AP, lateral an d PA tunnel views were obtained. COMPARISON: No priors for comparison. FINDINGS: BONES: No acute fracture is present. No bony destructive lesion is seen. JOINTS: There is mild narrowing of the medial femoral tibial joint space. There is periarticular spu rring seen at the posterior patella. There is a small joint effusion. SOFT TISSUE: Vascular calcifications are seen in the soft tissues. IMPRESSION: Degenerative changes of the right knee. DATA REPOSITORY: RADIATION DOSE DELIVERED:
--- NOTE | 2022-07-19 07:09 | DI.RAD_ITS ---
Exam(s) XR HIP PELVIS ADULT BL EXAM: XR HIP PELVIS ADULT BL CLINICAL HISTORY: chronic hip pain,M25.552,M25.551. TECHNIQUE: 2D digital imaging was performed of the pelvis and bilateral hips. Three images were obt ained. AP pelvis and lateral views of both hips were obtained. COMPARISON: No exams were available for comparison FINDINGS: BONES: No acute fracture is present. No bony destructive lesion is seen. JOINTS: No dislocation present. There are mild degenerative changes of the hips bilaterally. SOFT TISSUE: Vascular calcifications are present. IMPRESSION: Mild degenerative changes of the hips bilaterally. DATA REPOSITORY: RADIATION DOSE DELIVERED:
== END ==
PROVIDERS: PCP Nurse Practitioner Family; Visit Provider Nurse Practitioner Family
DX: M25.561 Pain in right knee (principal); M25.551 Pain in right hip; M25.552 Pain in left hip; M16.0 Bilateral primary osteoarthritis of hip; M25.461 Effusion, right knee; M17.11 Unilateral primary osteoarthritis, right knee; G89.29 Other chronic pain
CPT/HCPCS: 36415; 73521; 73562; 85025

== ENCOUNTER 2022-07-19 02:56 | Outpatient (CLI) | payer MEDICARE, BC, SELFPAY ==
[2022-07-19 15:50] LABS: Abs Immature Grans 0.05 10^3/uL (0.0-0.06); Absolute Basophil Count 0.12 10^3/uL (0.0-0.2); Absolute Eosinophil Count 0.25 10^3/uL (0.0-0.7); Absolute Lymphocyte Count 2.21 10^3/uL (1.2-3.4); Absolute Monocyte Count 0.64 10^3/uL (0.1-0.8); Absolute Neutrophil Count 4.02 10^3/uL (1.2-6.7); Basophils % 1.6; Eosinophils % 3.4; HCT 40.3 % (40.0-50.0); HGB 13.4 g/dL (13.5-17.5); Immature Grans % 0.7; Lymphocytes % 30.3; MCH 30.4 pg (27.0-33.0); MCHC 33.3 % (32.0-36.0); MCV 91 fL (80-95); MPV 11.1 fL (8.0-11.0); Monocytes % 8.8; Neutrophils % 55.2; Platelet Count 115 10^3/uL (130-400); RBC 4.41 10^6/uL (4.36-5.78); RDW 14.5 % (11.8-14.1); RDW-SD 48.6 fL; WBC 7.29 10^3/uL (4.4-10.8)
== END 2022-07-19 02:57 | disposition home or self-care (01) ==
LOC: LBO 02:56
PROVIDERS: PCP Nurse Practitioner Family; Visit Provider Nurse Practitioner Family
DX: I48.0 Paroxysmal atrial fibrillation (principal); I10 Essential (primary) hypertension
CPT/HCPCS: 36415; 85025

== ENCOUNTER 2022-08-30 05:06 | Outpatient (CLI) | payer MEDICARE, BC, SELFPAY ==
[2022-08-30 13:40] LABS: Abs Immature Grans 0.05 10^3/uL (0.0-0.06); Absolute Basophil Count 0.14 10^3/uL (0.0-0.2); Absolute Eosinophil Count 0.42 10^3/uL (0.0-0.7); Absolute Lymphocyte Count 2.82 10^3/uL (1.2-3.4); Absolute Monocyte Count 0.74 10^3/uL (0.1-0.8); Eosinophils % 5.9; HCT 41.2 % (40.0-50.0); HGB 13.1 g/dL (13.5-17.5); Immature Grans % 0.7; Lymphocytes % 39.9; MCH 29.6 pg (27.0-33.0); MCHC 31.8 % (32.0-36.0); MCV 93 fL (80-95); Monocytes % 10.5; Platelet Count 116 10^3/uL (130-400); RBC 4.42 10^6/uL (4.36-5.78); RDW 14.4 % (11.8-14.1); RDW-SD 49.2 fL; WBC 7.07 10^3/uL (4.4-10.8)
== END 2022-08-30 05:07 | disposition home or self-care (01) ==
PROVIDERS: PCP Nurse Practitioner Family; Visit Provider Nurse Practitioner Family
DX: D69.6 Thrombocytopenia, unspecified (principal)
CPT/HCPCS: 36415; 85025

== ENCOUNTER 2022-10-19 03:01 | Outpatient (CLI) | payer MEDICARE, BC, SELFPAY ==
[2022-10-19 11:56] LABS: Hemoglobin A1C 7.8 % (<5.7)
== END 2022-10-19 03:02 | disposition home or self-care (01) ==
PROVIDERS: PCP Nurse Practitioner Family; Visit Provider Nurse Practitioner Family
DX: E11.9 Type 2 diabetes mellitus without complications (principal)
CPT/HCPCS: 36415; 83036

== ENCOUNTER 2022-11-17 16:20 | Outpatient (REF) | payer MEDICARE, BC, SELFPAY ==
[2022-11-17 15:18] LABS: COMMENT (LAB VIEW ONLY) 77.73 mg/dL
== END 2022-11-17 16:21 | disposition home or self-care (01) ==
LOC: LBN 16:20
PROVIDERS: PCP Nurse Practitioner Family; Visit Provider Nurse Practitioner Family
DX: E11.319 Type 2 diabetes mellitus with unspecified diabetic retinopathy without macular edema (principal)
CPT/HCPCS: 82043; 82570

== ENCOUNTER 2023-01-12 02:23 | Outpatient (CLI) | payer MEDICARE, BC, SELFPAY ==
[2023-01-12 11:19] LABS: HCT 38.3 % (40.0-50.0); HGB 12.8 g/dL (13.5-17.5); MCH 30.7 pg (27.0-33.0); MCHC 33.4 % (32.0-36.0); MCV 92 fL (80-95); MPV 10.5 fL (8.0-11.0); Platelet Count 121 10^3/uL (130-400); RBC 4.17 10^6/uL (4.36-5.78); RDW 14.5 % (11.8-14.1); RDW-SD 49.1 fL
[2023-01-12 12:46] LABS: ALT 42 U/L (16-63); AST 27 U/L (15-37); Albumin 3.7 g/dL (3.4-5.0); Alkaline Phosphatase 50 U/L (46-116); Anion Gap 10.9 mmol/L (3-11); BUN 31 mg/dL (7-18); Bilirubin, Total 0.7 mg/dL (0.2-1.0); CO2 28.1 mmol/L (21.0-32.0); CREATININE 1.5 mg/dL (0.70-1.30); Calcium 9.1 mg/dL (8.5-10.1); Chloride 102 mmol/L (98-107); Estimated GFR 48.85 (mL/min/1.73m2); Glucose 194 mg/dL (74-106); Potassium 3.9 mmol/L (3.5-5.1); Sodium 141 mmol/L (136-145); Total Protein 7.6 g/dL (6.4-8.2)
[2023-01-15 05:48] LABS: Ferritin 125 ng/mL (26-388)
== END 2023-01-12 02:24 | disposition home or self-care (01) ==
PROVIDERS: PCP Nurse Practitioner Family; Visit Provider Nurse Practitioner Family
DX: D69.6 Thrombocytopenia, unspecified (principal); E11.319 Type 2 diabetes mellitus with unspecified diabetic retinopathy without macular edema; N18.30 Chronic kidney disease, stage 3 unspecified; I48.0 Paroxysmal atrial fibrillation
CPT/HCPCS: 36415; 80053; 85027; 82607; 82728; 82746; 83036

== ENCOUNTER 2023-04-17 04:27 | Outpatient (CLI) | payer MEDICARE, BC, SELFPAY ==
[2023-04-17 10:00] LABS: HCT 37.4 % (40.0-50.0); HGB 12.5 g/dL (13.5-17.5); MCH 30.6 pg (27.0-33.0); MCHC 33.4 % (32.0-36.0); MCV 92 fL (80-95); MPV 11.3 fL (8.0-11.0); Platelet Count 119 10^3/uL (130-400); RBC 4.08 10^6/uL (4.36-5.78); RDW 14.6 % (11.8-14.1); RDW-SD 49.4 fL; WBC 6.21 10^3/uL (4.4-10.8)
[2023-04-17 10:41] LABS: Hemoglobin A1C 8.1 % (<5.7)
[2023-04-17 10:53] LABS: Calculated LDL 67 mg/dL (<100); Cholesterol 129 mg/dL (<200); Folate > 20.0 ng/mL (8.6-20.0); HDL Cholesterol 34 mg/dL (40-60); Triglyceride 140 mg/dL (<150); Vitamin B12 717 pg/mL (193-986)
[2023-04-18 09:55] LABS: HIV-1/2 Ag & Ab Screen Negative (Negative)
[2023-04-18 10:15] LABS: Hepatitis C Ab w Rflx HCV PCR Negative (Negative)
== END 2023-04-17 04:28 | disposition home or self-care (01) ==
LOC: LBO 04:27
PROVIDERS: PCP Nurse Practitioner Family; Visit Provider Nurse Practitioner Family
DX: D69.6 Thrombocytopenia, unspecified (principal); D63.8 Anemia in other chronic diseases classified elsewhere; E78.5 Hyperlipidemia, unspecified; E11.319 Type 2 diabetes mellitus with unspecified diabetic retinopathy without macular edema; I25.10 Atherosclerotic heart disease of native coronary artery without angina pectoris; Z11.4 Encounter for screening for human immunodeficiency virus [HIV]; Z11.59 Encounter for screening for other viral diseases
CPT/HCPCS: 36415; 80061; 85027; 86803; 87389; 82607; 82746; 83036

== ENCOUNTER → 2023-06-19 10:21 | Outpatient (BNVA) | payer MEDICARE, BC, SELFPAY | PROVIDERS: PCP Nurse Practitioner Family; Referring Provider Nurse Practitioner Family; Visit Provider Psychiatry & Neurology Neurology | DX: R25.1 Tremor, unspecified (principal); I12.9 Hypertensive chronic kidney disease with stage 1 through stage 4 chronic kidney disease, or unspecified chronic kidney disease; E11.22 Type 2 diabetes mellitus with diabetic chronic kidney disease; N18.9 Chronic kidney disease, unspecified | CPT/HCPCS: 99204 ==

== ENCOUNTER → 2023-12-05 13:56 | Outpatient (BNVA) | payer MEDICARE, BC, SELFPAY | PROVIDERS: PCP Nurse Practitioner Family; Referring Provider Nurse Practitioner Family; Visit Provider Surgery | DX: L91.8 Other hypertrophic disorders of the skin (principal) | CPT/HCPCS: 99213 ==

== ENCOUNTER 2023-12-13 04:51 | Outpatient (CLI) | payer MEDICARE, BC, SELFPAY ==
[2023-12-13 19:10] LABS: PSA, Screening 0.7 ng/mL (<=6.5)
== END 2023-12-13 04:52 | disposition home or self-care (01) ==
PROVIDERS: PCP Nurse Practitioner Family; Visit Provider Nurse Practitioner Family
DX: Z12.5 Encounter for screening for malignant neoplasm of prostate (principal)
CPT/HCPCS: 36415; 84153

== ENCOUNTER → 2024-01-02 09:53 | Outpatient (BNVA) | payer MEDICARE, BC, SELFPAY | PROVIDERS: PCP Nurse Practitioner Family; Referring Provider Nurse Practitioner Family; Visit Provider Surgery | DX: L91.8 Other hypertrophic disorders of the skin (principal) | CPT/HCPCS: 11200 ==

== ENCOUNTER 2024-01-02 10:56 | Outpatient (REF) | payer MEDICARE, BC, SELFPAY ==
--- NOTE | 2024-01-02 10:50 | SKI_PTH ---
PATIENT: Vance Doe LOC: [facility] U#:[id number] AGE/SX: 73/M ROOM: RE01/02/[address]: Leif Ford MD : 1950 BED: DIS: 01/02/2024 SPEC #: [id number] RECD: 01/02/24 12:26 STATUS: CHIP REAngelika #: [id number] KAPIL: 01/02/24 10:[address]: Leif Ford DEPT: Surgical Specimen RECD BY: Lizzie Livingston ENTERED: 01/02/24 12:27 SP TYPE: BRODY CORDON DR: LALITO Singh Tissues: 1 - SKIN BIOPSY(SHAVE/PUNCH) Procedures: GROSS AND MICRO LEVEL 3 Comments: [id number]
== END 2024-01-02 10:57 | disposition home or self-care (01) ==
LOC: LBN 10:56
PROVIDERS: PCP Nurse Practitioner Family; Visit Provider Surgery
DX: L91.8 Other hypertrophic disorders of the skin
CPT/HCPCS: 88304; 88305

== ENCOUNTER → 2024-01-09 09:54 | Outpatient (BNVA) | payer MEDICARE, BC, SELFPAY | PROVIDERS: PCP Nurse Practitioner Family; Referring Provider Nurse Practitioner Family; Visit Provider Physical Therapy Assistant | DX: Z48.02 Encounter for removal of sutures (principal) ==

== ENCOUNTER 2024-01-22 01:33 | Outpatient (CLI) | payer MEDICARE, BC, SELFPAY ==
[2024-01-22 10:27] LABS: Abs Immature Grans 0.05 10^3/uL (0.0-0.06); Absolute Basophil Count 0.12 10^3/uL (0.0-0.2); Absolute Lymphocyte Count 2.14 10^3/uL (1.2-3.4); Absolute Monocyte Count 1.36 10^3/uL (0.1-0.8); Absolute Neutrophil Count 2.69 10^3/uL (1.2-6.7); Basophils % 1.9 %; Eosinophils % 1.5 %; HCT 37.3 % (40.0-50.0); Immature Grans % 0.8 %; Lymphocytes % 33.1 %; MCH 30.2 pg (27.0-33.0); MCHC 32.2 % (32.0-36.0); MCV 94 fL (80-95); MPV 12.1 fL (8.0-11.0); Monocytes % 21.1 %; Neutrophils % 41.6 %; Platelet Count 125 10^3/uL (130-400); RBC 3.98 10^6/uL (4.36-5.78); RDW 14.7 % (11.8-14.1); RDW-SD 50.9 fL; WBC 6.46 10^3/uL (4.4-10.8)
[2024-01-22 11:18] LABS: ALT 47 U/L (16-63); AST 40 U/L (15-37); Albumin 3.4 g/dL (3.4-5.0); Alkaline Phosphatase 56 U/L (46-116); Anion Gap 10.1 mmol/L (3-11); BUN 24 mg/dL (7-18); Bilirubin, Total 0.7 mg/dL (0.2-1.0); CO2 28.9 mmol/L (21.0-32.0); CREATININE 1.4 mg/dL (0.70-1.30); Chloride 99 mmol/L (98-107); Estimated GFR 52.74 (mL/min/1.73m2); Glucose 240 mg/dL (74-106); Sodium 138 mmol/L (136-145); Total Protein 7.3 g/dL (6.4-8.2)
[2024-01-22 15:27] LABS: Hemoglobin A1C 7.2 % (<5.7)
== END 2024-01-22 01:34 | disposition home or self-care (01) ==
LOC: LBO 01:33
PROVIDERS: PCP Nurse Practitioner Family; Visit Provider Nurse Practitioner Family
DX: E11.319 Type 2 diabetes mellitus with unspecified diabetic retinopathy without macular edema (principal); I10 Essential (primary) hypertension; E78.5 Hyperlipidemia, unspecified
CPT/HCPCS: 36415; 80053; 83036; 85025

== ENCOUNTER 2024-04-04 07:22 | Day surgery (SDC) | payer MEDICARE, BC, SELFPAY ==
[2024-04-04 07:52] VITALS: BP 141/73; PULSE 71; RESP 18; TEMP 36.6; O2SAT 97
[2024-04-04] MEDS: Tropicam./Phenyleph. (1/2.5%) 5 ML BTL ×3 (07:58→08:07)
--- NOTE | 2024-04-04 08:01 | ANES.PREOP_ITS ---
General Info Date of Service Date Performed: 04/04/24 Height: 5 ft 11 in Weight: 118.9 kg Body Mass Index (BMI): 36.5 Surgical Procedure: Operation Date: 04/04/24 09:40 Proposed Procedure Side Surgeon p Cataract Extraction with IOL Implant Left Corky Thrasher MD Meds Allergies and Home Medications Allergies Allergy/AdvReac Type Severity Reaction Status Date / Time empagliflozin (From AdvReac Mild Sandra Verified 04/04/24 07:49 Jardiance) infections Home Medication ?Medication ?Instructions ?Recorded lancets 33 gauge (OneTouch Delica #400 ea 11/27/15 Lancets) blood sugar diagnostic (OneTouch #200 ea 10/21/22 Ultra Test strips) mometasone 0.1 % topical ointment 1 applic topical DAILY PRN ear 06/11/23 eczema #45 grams blood-glucose meter,continuous #3 ea 07/02/23 (Dexcom G7 Automatic Coin Machine Mechanic) blood-glucose sensor (Dexcom G7 #9 ea 07/02/23 Sensor device) amlodipine 10 mg tablet 10 mg PO DAILY #90 tabs 07/23/23 atorvastatin 80 mg tablet 80 mg PO DAILY #90 tabs 07/23/23 losartan 100 mg tablet 100 mg PO DAILY #90 tab-caps 07/23/23 metoprolol succinate 25 mg 25 mg PO DAILY #90 tabs 07/23/23 tablet,extended release 24 hr paroxetine HCl 20 mg tablet 20 mg PO DAILY #90 tabs 07/23/23 rivaroxaban 20 mg tablet (Xarelto) 20 mg PO DAILY #90 tab-caps 07/23/23 glipizide 10 mg tablet, extended 20 mg (2 x 10 mg) PO DAILY #180 10/22/23 release 24 hr tabs hydrochlorothiazide 25 mg tablet 25 mg PO DAILY #90 tabs 10/22/23 metformin 1,000 mg tablet 1,000 mg PO BID #180 tabs 10/22/23 multivitamin (One Daily 1 tab PO DAILY 10/22/23 Multivitamin tablet) nitroglycerin 0.4 mg sublingual 0.4 mg sublingual Q5-15M PRN chest 10/22/23 tablet pain #25 tabs pen needle, diabetic 32 gauge x #500 ea 10/22/23 (BD Ultra-Fine Radha Pen Needle) tirzepatide 15 mg/0.5 mL 15 mg (0.5 mL) subcut QWEEK #2 mL 11/14/23 subcutaneous pen injector insulin glargine 100 unit/mL (3 90 unit subcut HS 04/01/24 mL) subcutaneous pen (Basaglar KwikPen U-100 Insulin) Current Visit Medications: Current Medications Generic Name Dose Route Start Last Admin Trade Name Freq PRN Reason Stop Dose Admin Acetaminophen 1,000 mg 04/04/24 06:00 Acetaminophen 500 Mg Tab PO 05/04/24 05:59 Q4H PRN PRN Balanced Salt Solution 500 ml 04/04/24 06:00 Balanced Salt Soln.-Plus 500 Ml Bag OP 05/04/24 05:59 DIRECTED [facility] Miscellaneous Medication 0 ml 04/04/24 06:00 Prednisolone 1%, Moxifloxacin 0.5%, Bromfenac 0.09% 5.6ml Btl OS 05/04/24 05:59 DIRECTED LEANN Miscellaneous Medication 0 ml 04/04/24 06:00 Tropicam./Phenyleph. 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 CKD (chronic kidney disease) stage 3, GFR 30-59 ml/min Chronic N18.30 Peripheral artery disease Chronic I73.9 Hypertension Chronic I10 Hyperlipidemia Chronic E78.5 Major depressive disorder, recurrent Chronic F33.9 Thrombocytopenia Chronic D69.6 Anemia of chronic disease Chronic D63.8 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 Tremor of both hands Chronic R25.1 Sigmoid diverticulosis Chronic K57.30 Obesity (BMI 30-39.9) Chronic E66.9 Medical History Medical History Tubular adenoma of colon On 2019 colonoscopy Myocardial infarction (01/30/89) Surgical History Surgical History Status post ORIF of fracture of ankle Left ankle S/P trigger finger release x4 S/P tonsillectomy S/P appendectomy Tobacco Smoking/Tobacco Use Status: Former Tobacco Use Second hand exposure: Yes Alcohol Alcohol Intake: current Alcohol intake frequency: holidays/special occasions only Alcohol type: beer Substance Use Substance use: Never Substance use type: does not use Vital Signs and Lab Results Vital Signs Most Recent Vital Signs in EMR: Most Recent Vital Signs Temp Pulse Resp BP Pulse Ox 36.6 C 71 18 141/73 H 97 04/04/24 07:52 04/04/24 07:52 04/04/24 07:52 04/04/24 07:52 04/04/24 07:52 Lab Results Blood Type / Crossmatch: No Data to Display Complete Blood Count: No Data to Display Complete Metabolic Panel: No Data to Display Liver Function Panel: No Data to Display Coagulation Panel: No Data to Display Cardiac Panel: No Data to Display Arterial Blood Gas: No Data to Display Venous Blood Gas: No Data to Display Pancreas Panel: No Data to Display Thyroid Panel: No Data to Display Infectious Disease: No Data to Display Blood Cultures: No Data to Display Toxicology Panel: No Data to Display Imaging and Studies Imaging and Studies Study information below may be from another EMR and interpreted by another provider. Please see original notes in EMR for more complete details. Stress Test Summary: Stress results: Maximal heart rate during stress was 176bpm (116% of maximal predicted heart rate). The maximal predicted heart rate was 152bpm. The target heart rate was achieved. The heart rate response to stress is exaggerated. There is a normal resting blood pressure with an appropriate response to stress. The rate-pressure product for the peak heart rate and blood pressure was 44099ab Hg/min. The patient experienced no chest pain during stress. Exercise capacity is reduced (5.5 METS). Stress ECG: EXCERCISE TESTING ENDED IN 3 MINS, 42 SECS DUE TO FATIGUE. MAX HR WAS 176, 115% OF TARGET. HYPERTENSIVE BLOOD PRESSURE RESPONSE, IN RECOVERY MAINLY. METS: 5.47 ECTOPY: OCASSIONAL VEB'S NOTED DURING TESTING, MUCH MORE FREQUENT IN RECOVERY STAGE- AT 2 MINS OF RECOVERY, 3B RUNS OF VT WERE NOTED FREQUENTLY. BY 9 MINS OF RECOVERY, VEB'S WERE BACK TO OCCASIONALLY NOTED. ANGINA: NO REPORTED CHEST PAIN OR PRESSURE. ISCHEMIA: NO ISCHEMIC CHANGES NOTED. FUNCTIONAL CAPACITY: MARKEDLY DIMINISHED CAPACITY. The stress ECG is negative. Frequent ventricular ectopy or aberrantly conducted Afib beats. Hawkins treadmill score: 4. This score predicts a moderate risk of cardiac events. Myocardial perfusion: Imaging information: gated. Image quality reduced due to subdiaphragmatic activity. The left ventricle is mildly dilated. There is a moderate sized, mildly intense, predominantly fixed defect involving the apical anterior and inferior wall(s). . There is a small sized, severely intense, fixed defect involving the apical wall(s). . Overall ischemia: minimal. Ventricular Function (Wall Motion): The calculated left ventricular ejection fraction after stress: 44%. LV global systolic function is mild to moderately reduced. Diffuse left ventricular regional motion abnormalities. There is hypokinesis involving the basal inferoseptal and basal inferior wall(s) of the left ventricle. 04/10/18 Echocardiogram Summary: 04/09/18 STUDY CONCLUSIONS* Impressions: The patient was in atrial fibrillation throughout study. This rhythm can interfere with accurate global and segmental wall motion analysis. Summary: 1. Procedure narrative: Intravenous contrast (Definity) was administered by annmarie to enhance delineation of left ventricular endocardial borders. 2. Left ventricle: The cavity size was normal. Wall thickness was increased in a pattern of mild LVH. Systolic function was normal. The estimated ejection fraction was 55-60%. Mild hypokinesis of the basalinferior and inferoseptal myocardium. 3. Aortic valve: There was trivial regurgitation. 4. Mitral valve: There was mild regurgitation. 5. Left atrium: The atrium was mildly to moderately dilated. 6. Right ventricle: The cavity size was normal. Wall thickness was normal. Systolic function was normal. 7. Right atrium: The atrium was mildly dilated. Anesthesia Assessment and Plan Anesthesia History Personal History: No History of Anesthesia Complications Family History: No Family History of Anesthesia Complications Exercise Tolerance Exercise Tolerance: Metabolic Equivalents>4 Pertinent Negatives Pertinent Negatives: No Symptoms of GERD, No Major Cardiovascular Symptoms or Complaints and No Major Pulmonary Symptoms or Complaints Cardiac & Pulmonary Exam Cardiac Exam: Normal S1/S2 Heart Sounds Pulmonary Exam: Clear Bilateral Breath Sounds Implantable Cardiac Device Does patient have a Pacemaker or an ICD?: No Airway Exam Known Difficult Airway: No Mallampati Class: 2 Mouth Opening: Normal (> 3cm) Thyromental Distance: Greater than 3 cm Neck Range of Motion: Full ROM Neck Circumference: Normal Teeth Condition: Normal Dentition ASA Classification ASA Score: ASA 3 Emergency Case?: No NPO Status NPO Status: NPO Clears >2 hours, Solids >8 hours Anesthesia Plan Resuscitation Status: Full Code Anesthesia Technique: MAC Anesthesia Airway Planned: Natural Airway Monitors Used: Standard Monitors
[2024-04-04 08:21] VITALS: BMI 36.5
[2024-04-04] MEDS: Duovisc Viscoelastic System EACH 1 EACH (09:20)
[2024-04-04] MEDS: Lidocaine 1% Pres-Free 5 ML VIAL (09:20)
[2024-04-04] MEDS: Balanced Salt Soln.-PLUS 500 ML BAG OP (09:22)
[2024-04-04] MEDS: Trypan Blue 0.06% 0.5 ML SYR (09:22)
[2024-04-04] MEDS: Povidone-Iodine Ophth 30 ML BTL (09:22)
[2024-04-04] MEDS: Prednisolone 1%, Moxifloxacin 0.5%, Bromfenac 0.09% 5.6ML BTL OS (09:23)
[2024-04-04] MEDS: Tetracaine 0.5% 4 ML BTL OS (09:23)
--- NOTE | 2024-04-04 09:45 | W.PM.DSUDISC ---
Date of service: 04/04/24 Time of Service: 09:45 Discharge Plan Disposition Patient Disposition: Home Discharge Details Attending Provider: Corky Thrasher Primary Care Provider: Heather Randolph Home Meds and New Rx's Prescriptions: No Action amlodipine 10 mg tablet 10 mg PO DAILY Qty: 90 3RF atorvastatin 80 mg tablet 80 mg PO DAILY Qty: 90 3RF losartan 100 mg tablet 100 mg PO DAILY Qty: 90 3RF metoprolol succinate 25 mg tablet extended release 24 hr 25 mg PO DAILY Qty: 90 3RF paroxetine HCl 20 mg tablet 20 mg PO DAILY Qty: 90 3RF Xarelto 20 mg tablet 20 mg PO DAILY Qty: 90 3RF multivitamin [One Daily Multivitamin] Tablet 1 tab PO DAILY hydrochlorothiazide 25 mg tablet 25 mg PO DAILY Qty: 90 3RF glipizide 10 mg tablet extended release 24hr 20 mg PO DAILY Qty: 180 3RF metformin 1,000 mg tablet 1,000 mg PO BID Qty: 180 3RF (DME) pen needle, diabetic [BD Ultra-Fine Radha Pen Needle] 32 gauge x 5/32 needle See Rx Instructions .Route Qty: 500 4RF Rx Instructions: Use with insulin pen and mounjaro pen nitroglycerin 0.4 mg tablet, sublingual 0.4 mg sublingual Q5-15M PRN (Reason: chest pain) Qty: 25 3RF Rx Instructions: 1 tablet every 5 minutes x 3 doses if needed for chest pain. Seek emergency services if not improving after first dose (DME) lancets [OneTouch Delica Lancets] 1 EACH misc 1 ea Miscellaneous AC& HS Qty: 400 Rx Instructions: DX: E11.65, ADJUSTING INSULINS (DME) OneTouch Ultra Test Strip 1 strip Miscellaneous AC&HS Qty: 200 3RF Rx Instructions: Check blood sugar twice a day mometasone 0.1 % ointment 1 applic topical DAILY PRN (Reason: ear eczema) Qty: 45 0RF (DME) Dexcom G7 Publishing Systems Analyst Misc See Rx Instructions .Route Qty: 3 3RF Rx Instructions: Continuous glucose monitor (DME) Dexcom G7 Sensor Device See Rx Instructions .Route Qty: 9 3RF Rx Instructions: Continuous glucose monitor tirzepatide 15 mg/0.5 mL pen injector 15 mg subcut QWEEK Qty: 2 12RF insulin glargine [Basaglar KwikPen U-100 Insulin] 100 unit/mL (3 mL) insulin pen 90 unit SC HS Discharge Instructions Stand Alone Forms: DSU Post-Op Cataract, Marcus Regalado (DSU) Discharge Orders Discharge Orders: Discharge Order (Routine); Ordered 04/04/24 Ordered By: Corky Thrasher DS: Diagnosis Discharge Diagnosis (1) Posterior subcapsular age-related cataract of left eye: Status: Resolved (2) Cortical age-related cataract, left eye: Status: Resolved (3) Nuclear age-related cataract, left eye: Status: Resolved
--- NOTE | 2024-04-04 09:46 | W.PM.OP ---
Date of service: 04/04/24 Time of Service: 09:46 Operative Note Operative Note DATE OF PROCEDURE: 04/04/24 PRE-OP DIAGNOSIS: Nuclear/cortical/posterior subcapsular cataract, left eye POST-OP DIAGNOSIS: same PROCEDURE: Cataract extraction using phacoemulsification with intraocular lens implant, left eye SURGEON: Corky Thrasher ANESTHESIA TYPE: Local By Surgeon and MAC Refer to Anesthesia Record PATHOLOGY: none sent COMPLICATIONS: None Patient was transported to: same day Patient's condition: stable Implants: Shelton Clareon [id number] Indications: Progressive decreased vision due to cataract, left eye Procedure Description: CATARACT SURGERY OPERATIVE REPORT PREOPERATIVE DIAGNOSIS: Nuclear/cortical/posterior subcapsular cataract, left eye POSTOPERATIVE DIAGNOSIS: Same OPERATION: Cataract extraction using phacoemulsification with posterior chamber intraocular lens implant, left eye. IOL: IOL Check Writer Salesperson/Model: Shelton Clareon [id number] IOL Power: + 19.0 diopters IOL Serial Number: [id number] Optic Diameter: 6.0mm Haptic/Overall Diameter: 13.0mm PHACO INFO: Shelton Channelinsighturion Vision System with OZil and Active Fluidics Cumulative Dispersed Energy (CDE): 10.30 seconds SURGEON: Corky Thrasher MD, SURJIT ANESTHESIA: Monitored Anesthesia Care (MAC), with local sub-tenon's anesthetic infiltration COMPLICATIONS: None SPECIMENS: None INDICATIONS FOR PROCEDURE: The patient is a 73-year-old male with history of diminished visual acuity in his left eye secondary to the development of significant nuclear/cortical/posterior subcapsular cataract. He is significantly symptomatic that he desires cataract surgery in attempt to improve and maximize his vision. The option of cataract surgery was offered to the patient and he wished to proceed. See office notes for detailed information. PROCEDURE: The correct surgical eye was identified and marked as the left eye and the pupil was dilated in the preoperative area using mydriatics and cycloplegics. The dilated pupil size was 7.0 mm. The patient elected to proceed without oral sedation. The patient was brought to the operating room where cardiopulmonary monitoring was instituted and surgical time-out was performed, confirming the correct operative eye and IOL power. Topical anesthesia was administered and ophthalmic povidone-iodine 5% was instilled into the conjunctival fornices. The fran-ocular area was prepped with Betadine 10% solution and draped in the usual sterile fashion for intraocular surgery, including an aperture drape. A Tegaderm transparent film dressing was cut in half and used to cover the lashes and lid margins. Care was taken to sequester the lashes and lid margins under the Tegaderm dressing. A lid speculum was placed between the lids of the operative eye and the Shelton LuxOR Revalia operating microscope was maneuvered into position. Meg scissors were then used to make a conjunctival buttonhole approximately 6mm posterior to the limbus in the inferonasal quadrant. Blunt dissection was carried out to expose bare sclera, and a blunt-tipped sub-tenon?s anesthesia cannula was introduced and passed posteriorly along the globe where non-preserved plain lidocaine was injected into posterior sub-Tenon?s space. A sideport knife was used to make a paracentesis port. Patient blue was injected into the anterior chamber and allowed to sit for 30 seconds. Intraocular phenylephrine/lidocaine was injected into the anterior chamber. The anterior chamber was then filled with viscoelastic. A keratome knife was used construct a two-plane clear corneal tunnel extending 2.0mm into clear cornea. A flap was raised on the anterior capsule and capsulorhexis forceps were used to complete a continuous curvilinear capsulorhexis of 5.0 mm. The anterior capsule was noted to be quite thin with some zonular laxity. Balanced salt solution was then used to perform cortical cleaving hydrodissection and nuclear hydrodelineation until the lens could be freely rotated within the capsular bag. The lens nucleus was then disassembled and removed within the capsular bag and iris plane using phacoemulsification. Residual cortical material was removed using the irrigation/aspiration handpiece. The posterior capsule was carefully polished to remove as much residual lens epithelial cells as safely possible. The capsular bag was then inflated and the anterior chamber deepened with viscoelastic. The lens implant described above was inserted into the capsular bag using the Shelton Autonome Injector. A Kuglen hook was used to dial the IOL into position. Residual viscoelastic was then removed first from posterior to the IOL, then from the anterior chamber using the I/A handpiece. The lens implant was noted to center nicely within the capsular bag. The incisions were stromally hydrated, and the anterior chamber was reformed using BSS. Then 0.5cc of moxifloxacin 1.0mg/ml were injected into the capsular bag and anterior chamber. The incisions were checked with a Weck spear and found to be secure. Several drops of ophthalmic povidone-iodine 5% were then applied to the eye followed by two drops of combination steroid/NSAID/antibiotic solution. The drapes were removed and a clear plastic protective eye shield was placed over the eye. The patient was then returned to Same Day Surgery in stable condition.
[2024-04-04 10:15] VITALS: BP 132/77; PULSE 77; RESP 16; TEMP 36.7; O2SAT 94
--- NOTE | 2024-04-04 10:35 | W.ANESPOSTOP ---
Postoperative Evaluation Date, Time and Location Date Performed: 04/04/24 Time Performed: 10:17 Patient Location: Day Surgery Unit Vital Signs Most Recent Imported Vital Signs: Most Recent Vital Signs Temp Pulse Resp BP Pulse Ox 36.7 C 77 16 132/77 94 04/04/24 10:15 04/04/24 10:15 04/04/24 10:15 04/04/24 10:15 04/04/24 10:15 Pain Score Most Recent Pain Score: Most Recent Pain Score Pain Level 0 04/04/24 10:15 Assessment Mental Status: Awake (Alert & Oriented to Patient Baseline) Airway and Respiratory Function: Patent airway with normal (patient baseline) respiratory exam Cardiovascular Function: Hemodynamically Stable Hydration Status: Adequately Hydrated Nausea & Vomiting: No Nausea or Vomiting Pain: Pt. Denies Any Pain Peripheral Nerve Block: Patient did not receive a nerve block
== END 2024-04-04 10:05 | disposition home or self-care (01) ==
LOC: SUR 07:22
PROVIDERS: PCP Nurse Practitioner Family; Visit Provider Ophthalmology
PROC: (CPT 66984; principal; 2024-04-04 09:30)
DX: H25.042 Posterior subcapsular polar age-related cataract, left eye (principal); H25.012 Cortical age-related cataract, left eye; H25.12 Age-related nuclear cataract, left eye
CPT/HCPCS: 66984; 00123; V2632; J2003

== ENCOUNTER 2024-04-18 06:50 | Day surgery (SDC) | payer MEDICARE, BC, SELFPAY ==
--- NOTE | 2024-04-18 06:59 | ANES.PREOP_ITS ---
General Info Date of Service Date Performed: 04/18/24 Height: 5 ft 11 in Weight: 118.9 kg Body Mass Index (BMI): 36.5 Surgical Procedure: Operation Date: 04/18/24 08:40 Proposed Procedure Side Surgeon p Cataract Extraction with IOL Implant Right Corky Thrasher MD Meds Allergies and Home Medications Allergies Allergy/AdvReac Type Severity Reaction Status Date / Time empagliflozin (From AdvReac Mild Sandra Verified 04/18/24 07:21 Jardiance) infections Home Medication ?Medication ?Instructions ?Recorded lancets 33 gauge (OneTouch Delica #400 ea 11/27/15 Lancets) blood sugar diagnostic (OneTouch #200 ea 10/21/22 Ultra Test strips) mometasone 0.1 % topical ointment 1 applic topical DAILY PRN ear 06/11/23 eczema #45 grams blood-glucose meter,continuous #3 ea 07/02/23 (Dexcom G7 Bleach Packer) blood-glucose sensor (Dexcom G7 #9 ea 07/02/23 Sensor device) amlodipine 10 mg tablet 10 mg PO DAILY #90 tabs 07/23/23 atorvastatin 80 mg tablet 80 mg PO DAILY #90 tabs 07/23/23 losartan 100 mg tablet 100 mg PO DAILY #90 tab-caps 07/23/23 metoprolol succinate 25 mg 25 mg PO DAILY #90 tabs 07/23/23 tablet,extended release 24 hr paroxetine HCl 20 mg tablet 20 mg PO DAILY #90 tabs 07/23/23 rivaroxaban 20 mg tablet (Xarelto) 20 mg PO DAILY #90 tab-caps 07/23/23 glipizide 10 mg tablet, extended 20 mg (2 x 10 mg) PO DAILY #180 10/22/23 release 24 hr tabs hydrochlorothiazide 25 mg tablet 25 mg PO DAILY #90 tabs 10/22/23 metformin 1,000 mg tablet 1,000 mg PO BID #180 tabs 10/22/23 multivitamin (One Daily 1 tab PO DAILY 10/22/23 Multivitamin tablet) nitroglycerin 0.4 mg sublingual 0.4 mg sublingual Q5-15M PRN chest 10/22/23 tablet pain #25 tabs pen needle, diabetic 32 gauge x #500 ea 10/22/23 (BD Ultra-Fine Radha Pen Needle) tirzepatide 15 mg/0.5 mL 15 mg (0.5 mL) subcut QWEEK #2 mL 11/14/23 subcutaneous pen injector insulin glargine 100 unit/mL (3 90 unit subcut HS 04/01/24 mL) subcutaneous pen (Basaglar KwikPen U-100 Insulin) Current Visit Medications: Current Medications Generic Name Dose Route Start Last Admin Trade Name Freq PRN Reason Stop Dose Admin Acetaminophen 1,000 mg 04/18/24 06:00 Acetaminophen 500 Mg Tab PO 05/18/24 05:59 Q4H PRN PRN Balanced Salt Solution 500 ml 04/18/24 06:00 Balanced Salt Soln.-Plus 500 Ml Bag OP 05/18/24 05:59 DIRECTED [facility] Miscellaneous Medication 0 ml 04/18/24 06:00 Prednisolone 1%, Moxifloxacin 0.5%, Bromfenac 0.09% 5.6ml Btl OD 05/18/24 05:59 DIRECTED [facility] Miscellaneous Medication 0 ml 04/18/24 06:00 Tropicam./Phenyleph. (1/2.5%) 10 Ml Btl OD 05/18/24 05:59 DIRECTED [facility] Tetracaine HCl 0 ml 04/18/24 06:00 Tetracaine 0.5% 4 Ml Btl OD 05/18/24 05:59 DIRECTED [facility] PFSH Active Problems Active Problems: Problem Status Onset Code Cortical age-related cataract, right eye Acute H25.011 Nuclear age-related cataract, right eye Acute H25.11 Posterior subcapsular age-related cataract of left eye Resolved H25.042 Cortical age-related cataract, left eye Resolved H25.012 Nuclear age-related cataract, left eye Resolved H25.12 Coronary artery disease Chronic I25.10 Atrial fibrillation Chronic I48.91 Obstructive sleep apnea Chronic G47.33 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 CKD (chronic kidney disease) stage 3, GFR 30-59 ml/min Chronic N18.30 Peripheral artery disease Chronic I73.9 Hypertension Chronic I10 Hyperlipidemia Chronic E78.5 Major depressive disorder, recurrent Chronic F33.9 Thrombocytopenia Chronic D69.6 Anemia of chronic disease Chronic D63.8 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 Tremor of both hands Chronic R25.1 Sigmoid diverticulosis Chronic K57.30 Obesity (BMI 30-39.9) Chronic E66.9 Medical History Medical History Tubular adenoma of colon On 2019 colonoscopy Myocardial infarction (01/30/89) Surgical History Surgical History Status post ORIF of fracture of ankle Left ankle S/P trigger finger release x4 S/P tonsillectomy S/P appendectomy Tobacco Smoking/Tobacco Use Status: Former Tobacco Use Second hand exposure: Yes Alcohol Alcohol Intake: current Alcohol intake frequency: holidays/special occasions only Alcohol type: beer Substance Use Substance use: Never Substance use type: does not use Vital Signs and Lab Results Vital Signs Most Recent Vital Signs in EMR: Temp Pulse Resp BP Pulse Ox 36.3 C L 76 18 129/67 97 04/18/24 07:25 04/18/24 07:25 04/18/24 07:25 04/18/24 07:25 04/18/24 07:25 Lab Results Blood Type / Crossmatch: No Data to Display Complete Blood Count: No Data to Display Complete Metabolic Panel: No Data to Display Liver Function Panel: No Data to Display Coagulation Panel: No Data to Display Cardiac Panel: No Data to Display Arterial Blood Gas: No Data to Display Venous Blood Gas: No Data to Display Pancreas Panel: No Data to Display Thyroid Panel: No Data to Display Infectious Disease: No Data to Display Blood Cultures: No Data to Display Toxicology Panel: No Data to Display Imaging and Studies Imaging and Studies Study information below may be from another EMR and interpreted by another provider. Please see original notes in EMR for more complete details. Stress Test Summary: Stress results: Maximal heart rate during stress was 176bpm (116% of maximal predicted heart rate). The maximal predicted heart rate was 152bpm. The target heart rate was achieved. The heart rate response to stress is exaggerated. There is a normal resting blood pressure with an appropriate response to stress. The rate-pressure product for the peak heart rate and blood pressure was 91580kl Hg/min. The patient experienced no chest pain during stress. Exercise capacity is reduced (5.5 METS). Stress ECG: EXCERCISE TESTING ENDED IN 3 MINS, 42 SECS DUE TO FATIGUE. MAX HR WAS 176, 115% OF TARGET. HYPERTENSIVE BLOOD PRESSURE RESPONSE, IN RECOVERY MAINLY. METS: 5.47 ECTOPY: OCASSIONAL VEB'S NOTED DURING TESTING, MUCH MORE FREQUENT IN RECOVERY STAGE- AT 2 MINS OF RECOVERY, 3B RUNS OF VT WERE NOTED FREQUENTLY. BY 9 MINS OF RECOVERY, VEB'S WERE BACK TO OCCASIONALLY NOTED. ANGINA: NO REPORTED CHEST PAIN OR PRESSURE. ISCHEMIA: NO ISCHEMIC CHANGES NOTED. FUNCTIONAL CAPACITY: MARKEDLY DIMINISHED CAPACITY. The stress ECG is negative. Frequent ventricular ectopy or aberrantly conducted Afib beats. Hawkins treadmill score: 4. This score predicts a moderate risk of cardiac events. Myocardial perfusion: Imaging information: gated. Image quality reduced due to subdiaphragmatic activity. The left ventricle is mildly dilated. There is a moderate sized, mildly intense, predominantly fixed defect involving the apical anterior and inferior wall(s). . There is a small sized, severely intense, fixed defect involving the apical wall(s). . Overall ischemia: minimal. Ventricular Function (Wall Motion): The calculated left ventricular ejection fraction after stress: 44%. LV global systolic function is mild to moderately reduced. Diffuse left ventricular regional motion abnormalities. There is hypokinesis involving the basal inferoseptal and basal inferior wall(s) of the left ventricle. 04/10/18 Echocardiogram Summary: 04/09/18 STUDY CONCLUSIONS* Impressions: The patient was in atrial fibrillation throughout study. This rhythm can interfere with accurate global and segmental wall motion analysis. Summary: 1. Procedure narrative: Intravenous contrast (Definity) was administered by annmarie to enhance delineation of left ventricular endocardial borders. 2. Left ventricle: The cavity size was normal. Wall thickness was increased in a pattern of mild LVH. Systolic function was normal. The estimated ejection fraction was 55-60%. Mild hypokinesis of the basalinferior and inferoseptal myocardium. 3. Aortic valve: There was trivial regurgitation. 4. Mitral valve: There was mild regurgitation. 5. Left atrium: The atrium was mildly to moderately dilated. 6. Right ventricle: The cavity size was normal. Wall thickness was normal. Systolic function was normal. 7. Right atrium: The atrium was mildly dilated. Anesthesia Assessment and Plan Anesthesia History Personal History: No History of Anesthesia Complications Family History: No Family History of Anesthesia Complications Exercise Tolerance Exercise Tolerance: Metabolic Equivalents>4 Pertinent Negatives Pertinent Negatives: No Symptoms of GERD Cardiac & Pulmonary Exam Cardiac Exam: Normal S1/S2 Heart Sounds Pulmonary Exam: Clear Bilateral Breath Sounds Implantable Cardiac Device Does patient have a Pacemaker or an ICD?: No Airway Exam Known Difficult Airway: No Mallampati Class: 2 Mouth Opening: Normal (> 3cm) Thyromental Distance: Greater than 3 cm Neck Range of Motion: Full ROM Neck Circumference: Normal Teeth Condition: Normal Dentition ASA Classification ASA Score: ASA 3 Emergency Case?: No NPO Status NPO Status: NPO Clears >2 hours, Solids >8 hours Anesthesia Plan Resuscitation Status: Full Code Anesthesia Technique: MAC Anesthesia Airway Planned: Natural Airway Monitors Used: Standard Monitors
[2024-04-18] MEDS: Tropicam./Phenyleph. (1/2.5%) 5 ML BTL (07:15)
[2024-04-18 07:25] VITALS: BP 129/67; PULSE 76; RESP 18; TEMP 36.3; O2SAT 97
[2024-04-18 07:41] VITALS: BMI 36.5
[2024-04-18] MEDS: Povidone-Iodine Ophth 30 ML BTL (08:14)
[2024-04-18] MEDS: Tetracaine 0.5% 4 ML BTL OD (08:15)
[2024-04-18] MEDS: Balanced Salt Soln.-PLUS 500 ML BAG OP (08:20)
[2024-04-18] MEDS: Lidocaine 1% Pres-Free 5 ML VIAL (08:20)
[2024-04-18] MEDS: Duovisc Viscoelastic System EACH 1 EACH (08:22)
[2024-04-18] MEDS: Prednisolone 1%, Moxifloxacin 0.5%, Bromfenac 0.09% 5.6ML BTL OD (08:40)
--- NOTE | 2024-04-18 08:43 | PDOC.DSDIS_ITS ---
Date of service: 04/18/24 Time of Service: 08:43 Discharge Plan Disposition Patient Disposition: Home Discharge Details Attending Provider: Corky Thrasher Primary Care Provider: Heather Randolph Home Meds and New Rx's Prescriptions: No Action amlodipine 10 mg tablet 10 mg PO DAILY Qty: 90 3RF atorvastatin 80 mg tablet 80 mg PO DAILY Qty: 90 3RF losartan 100 mg tablet 100 mg PO DAILY Qty: 90 3RF metoprolol succinate 25 mg tablet extended release 24 hr 25 mg PO DAILY Qty: 90 3RF paroxetine HCl 20 mg tablet 20 mg PO DAILY Qty: 90 3RF Xarelto 20 mg tablet 20 mg PO DAILY Qty: 90 3RF multivitamin [One Daily Multivitamin] Tablet 1 tab PO DAILY hydrochlorothiazide 25 mg tablet 25 mg PO DAILY Qty: 90 3RF glipizide 10 mg tablet extended release 24hr 20 mg PO DAILY Qty: 180 3RF metformin 1,000 mg tablet 1,000 mg PO BID Qty: 180 3RF (DME) pen needle, diabetic [BD Ultra-Fine Radha Pen Needle] 32 gauge x 5/32 needle See Rx Instructions .Route Qty: 500 4RF Rx Instructions: Use with insulin pen and mounjaro pen nitroglycerin 0.4 mg tablet, sublingual 0.4 mg sublingual Q5-15M PRN (Reason: chest pain) Qty: 25 3RF Rx Instructions: 1 tablet every 5 minutes x 3 doses if needed for chest pain. Seek emergency services if not improving after first dose (DME) lancets [OneTouch Delica Lancets] 1 EACH misc 1 ea Miscellaneous AC& HS Qty: 400 Rx Instructions: DX: E11.65, ADJUSTING INSULINS (DME) OneTouch Ultra Test Strip 1 strip Miscellaneous AC&HS Qty: 200 3RF Rx Instructions: Check blood sugar twice a day mometasone 0.1 % ointment 1 applic topical DAILY PRN (Reason: ear eczema) Qty: 45 0RF (DME) Dexcom G7 Central Supply Manager Misc See Rx Instructions .Route Qty: 3 3RF Rx Instructions: Continuous glucose monitor (DME) Dexcom G7 Sensor Device See Rx Instructions .Route Qty: 9 3RF Rx Instructions: Continuous glucose monitor tirzepatide 15 mg/0.5 mL pen injector 15 mg subcut QWEEK Qty: 2 12RF insulin glargine [Basaglar KwikPen U-100 Insulin] 100 unit/mL (3 mL) insulin pen 90 unit SC HS Patient Comments: 80 units Discharge Instructions Stand Alone Forms: DSU Post-Op Cataract, Marcus Regalado (DSU) Discharge Orders Discharge Orders: Discharge Order (Routine); Ordered 04/18/24 Ordered By: Corky Thrasher DS: Diagnosis Discharge Diagnosis (1) Cortical age-related cataract, right eye: Status: Resolved (2) Nuclear age-related cataract, right eye: Status: Resolved
--- NOTE | 2024-04-18 08:44 | ROE_ITS ---
Date of service: 04/18/24 Time of Service: 08:44 Operative Note Operative Note DATE OF PROCEDURE: 04/18/24 PRE-OP DIAGNOSIS: Nuclear/cortical cataract, right eye POST-OP DIAGNOSIS: same PROCEDURE: Cataract extraction using phacoemulsification with intraocular lens implant, right eye SURGEON: Corky Thrasher ANESTHESIA TYPE: Local By Surgeon and MAC Refer to Anesthesia Record ESTIMATED BLOOD LOSS: 0 PATHOLOGY: none sent COMPLICATIONS: None Patient was transported to: same day Patient's condition: stable Implants: Shelton Clareon [id number] Indications: Progressive decreased vision due to cataract, right eye Procedure Description: CATARACT SURGERY OPERATIVE REPORT PREOPERATIVE DIAGNOSIS: Nuclear/cortical cataract, right eye POSTOPERATIVE DIAGNOSIS: Same OPERATION: Cataract extraction using phacoemulsification with posterior chamber intraocular lens implant, right eye. IOL: IOL Diesel Pile Hammer Operator/Model: Shelton Clareon [id number] IOL Power: + 19.0 diopters IOL Serial Number: [id number] Optic Diameter: 6.0mm Haptic/Overall Diameter: 13.0mm PHACO INFO: [email or web address] Vision System with OZil and Active Fluidics Cumulative Dispersed Energy (CDE): 7.51 seconds SURGEON: Corky Thrasher MD, SURJIT ANESTHESIA: Monitored Anesthesia Care (MAC), with local sub-tenon's anesthetic infiltration COMPLICATIONS: None SPECIMENS: None INDICATIONS FOR PROCEDURE: The patient is a 73-year-old male with history of diminished visual acuity in both eyes secondary to the development of bilateral nuclear/cortical cataract. He has already undergone cataract surgery in the left eye and is doing well postoperatively. He now presents for cataract surgery in the right eye. See office notes for detailed information. PROCEDURE: The correct surgical eye was identified and marked as the right eye and the pupil was dilated in the preoperative area using mydriatics and cycloplegics. The dilated pupil size was 7.0 mm. The patient elected to proceed without oral sedation. The patient was brought to the operating room where cardiopulmonary monitoring was instituted and surgical time-out was performed, confirming the correct operative eye and IOL power. Topical anesthesia was administered and ophthalmic povidone-iodine 5% was instilled into the conjunctival fornices. The fran-ocular area was prepped with Betadine 10% solution and draped in the usual sterile fashion for intraocular surgery, including an aperture drape. A Tegaderm transparent film dressing was cut in half and used to cover the lashes and lid margins. Care was taken to sequester the lashes and lid margins under the Tegaderm dressing. A lid speculum was placed between the lids of the operative eye and the Shelton LuxOR Revalia operating microscope was maneuvered into position. Meg scissors were then used to make a conjunctival buttonhole approximately 6mm posterior to the limbus in the inferonasal quadrant. Blunt dissection was carried out to expose bare sclera, and a blunt-tipped sub-tenon?s anesthesia cannula was introduced and passed posteriorly along the globe where non- preserved plain lidocaine was injected into posterior sub-Tenon?s space. A sideport knife was used to make a paracentesis port. Intraocular phenylephrine/lidocaine was injected into the anterior chamber. The anterior chamber was then filled with viscoelastic. A keratome knife was used to construct a two--plane clear corneal tunnel extending 2.0mm into clear cornea. A flap was raised on the anterior capsule and capsulorhexis forceps were used to complete a continuous curvilinear capsulorhexis of 5.0 mm. Balanced salt solution was then used to perform cortical cleaving hydrodissection and nuclear hydrodelineation until the lens could be freely rotated within the capsular bag. The lens nucleus was then disassembled and removed within the capsular bag and iris plane using phacoemulsification. Residual cortical material was removed using the I/A handpiece. The posterior capsule was carefully polished to remove as much residual lens epithelial cells as safely possible. The capsular bag was then inflated and the anterior chamber deepened with cohesive viscoelastic. The lens implant described above was inserted into the capsular bag using the Shelton Autonome Injector. A Kuglen hook was used to dial the IOL into position. Residual viscoelastic was then removed first from posterior to the IOL, then from the anterior chamber using the I/A handpiece. The lens implant was noted to center nicely within the capsular bag. The incisions were stromally hydrated, and the anterior chamber was reformed using BSS. Then 0.5cc of moxifloxacin 1.0mg/ml were injected into the capsular bag and anterior chamber. The incisions were checked with a Weck spear and found to be secure. Several drops of ophthalmic povidone-iodine 5% were then applied to the eye followed by two drops of combination steroid/NSAID/antibiotic solution. The drapes were removed and a clear plastic protective eye shield was placed over the eye. The patient was then returned to Same Day Surgery in stable condition.
[2024-04-18 08:45] VITALS: BP 139/76; PULSE 66; RESP 18; TEMP 36.6; O2SAT 96
--- NOTE | 2024-04-18 09:12 | W.ANESPOSTOP ---
Postoperative Evaluation Date, Time and Location Date Performed: 04/18/24 Time Performed: 08:46 Patient Location: Day Surgery Unit Vital Signs Most Recent Imported Vital Signs: Most Recent Vital Signs Temp Pulse Resp BP Pulse Ox 36.6 C 66 18 139/76 96 04/18/24 08:45 04/18/24 08:45 04/18/24 08:45 04/18/24 08:45 04/18/24 08:45 Pain Score Most Recent Pain Score: Most Recent Pain Score Pain Level 0 04/18/24 08:45 Assessment Mental Status: Awake (Alert & Oriented to Patient Baseline) Airway and Respiratory Function: Patent airway with normal (patient baseline) respiratory exam Cardiovascular Function: Hemodynamically Stable Hydration Status: Adequately Hydrated Nausea & Vomiting: No Nausea or Vomiting Pain: Pt. Denies Any Pain Peripheral Nerve Block: Other (Local by Dr. Thrasher)
== END 2024-04-18 08:59 | disposition home or self-care (01) ==
LOC: SUR 06:51
PROVIDERS: PCP Nurse Practitioner Family; Visit Provider Ophthalmology
PROC: (CPT 66984; principal; 2024-04-18 08:30)
DX: H25.011 Cortical age-related cataract, right eye (principal); H25.11 Age-related nuclear cataract, right eye; Z98.42 Cataract extraction status, left eye
CPT/HCPCS: 66984; 00123; V2632; J2003

== ENCOUNTER 2024-04-29 04:40 | Outpatient (CLI) | payer MEDICARE, BC, SELFPAY ==
[2024-04-29 10:45] LABS: Hemoglobin A1C 7.5 % (<5.7)
[2024-04-30 10:50] LABS: HBs Antibody, Quant <3.1 mIU/mL (See Note); Hep B Surface Ab Negative (See Note); Hepatitis B Core Antibody Negative (Negative); Hepatitis B Surface Antigen Negative (Negative)
== END 2024-04-29 04:41 | disposition home or self-care (01) ==
LOC: LBO 04:40
PROVIDERS: PCP Nurse Practitioner Family; Visit Provider Nurse Practitioner Family
DX: Z11.59 Encounter for screening for other viral diseases (principal); E11.319 Type 2 diabetes mellitus with unspecified diabetic retinopathy without macular edema; Z00.00 Encounter for general adult medical examination without abnormal findings
CPT/HCPCS: 36415; 86704; 86706; 87340; 83036

== ENCOUNTER 2024-11-06 13:03 | Outpatient (CLI) | payer MEDICARE, BC, SELFPAY ==
--- NOTE | 2024-11-06 14:22 | DI.RAD_ITS ---
Exam(s) XR TOE LT FIFTH EXAM: XR TOE LT FIFTH CLINICAL HISTORY: S91.115A Laceration w/o foreign body left lesser toe w/o damage to nail. TECHNIQUE: 2D digital imaging was performed. COMPARISON: No exams were available for comparison FINDINGS: BONES: No acute fracture is present. No bony destructive lesion is seen. JOINTS: No dislocation present. SOFT TISSUE: No radiopaque foreign body is identified. There is irregularity of the soft tissue at t he tip of the toe which may represent a laceration. IMPRESSION: No acute fracture, dislocation or foreign body. DATA REPOSITORY: RADIATION DOSE DELIVERED:
== END 2024-11-06 13:23 ==
LOC: DI 13:03
PROVIDERS: PCP Nurse Practitioner Family; Visit Provider Physician Assistant Medical
DX: S91.115A Laceration without foreign body of left lesser toe(s) without damage to nail, initial encounter (principal); X58.XXXA Exposure to other specified factors, initial encounter
CPT/HCPCS: 73660

== ENCOUNTER → 2024-11-21 10:51 | Outpatient (BNVA) | payer MEDICARE, BC, SELFPAY | PROVIDERS: PCP Nurse Practitioner Family; Referring Provider Nurse Practitioner Family; Visit Provider Physical Therapy Assistant | DX: S90.935A Unspecified superficial injury of left lesser toe(s), initial encounter (principal); X58.XXXA Exposure to other specified factors, initial encounter | CPT/HCPCS: 99214; 11042; 97597 ==

== ENCOUNTER → 2024-11-28 13:48 | Outpatient (BNVA) | payer MEDICARE, BC, SELFPAY | PROVIDERS: PCP Nurse Practitioner Family; Referring Provider Nurse Practitioner Family; Visit Provider Physical Therapy Assistant | DX: L97.522 Non-pressure chronic ulcer of other part of left foot with fat layer exposed (principal); E11.9 Type 2 diabetes mellitus without complications; Z51.89 Encounter for other specified aftercare | CPT/HCPCS: 99214 ==

== ENCOUNTER 2024-12-02 15:21 | Outpatient (CLI) | payer MEDICARE, BC, SELFPAY ==
--- NOTE | 2024-12-02 14:45 | DI.RAD_ITS ---
Exam(s) XR TOE LT FIFTH EXAM: XR TOE LT FIFTH CLINICAL HISTORY: Ulcer to tip of 5th toe with fat layer exposed, L97.522; toe injury,. TECHNIQUE: 2D digital imaging was performed. Three views. COMPARISON: CR XR TOE LT FIFTH from 11/06/2024 FINDINGS: BONES: Chronic appearing deformity of the proximal phalanx likely related to an old fracture. No acu te fracture is present. No bony destructive lesion is seen. JOINTS: No dislocation present. SOFT TISSUE: Soft tissue tissue swelling and small ulcer. No abnormal soft tissue air or foreign bod y. Vascular calcifications. IMPRESSION: No evidence of bony erosion or foreign body. DATA REPOSITORY: RADIATION DOSE DELIVERED:
== END 2024-12-02 15:41 ==
LOC: DI 15:22
PROVIDERS: PCP Nurse Practitioner Family; Visit Provider Podiatrist
DX: L97.522 Non-pressure chronic ulcer of other part of left foot with fat layer exposed
CPT/HCPCS: 73660

== ENCOUNTER → 2024-12-03 07:58 | Outpatient (BNVA) | payer MEDICARE, BC, SELFPAY | PROVIDERS: PCP Nurse Practitioner Family; Referring Provider Nurse Practitioner Family; Visit Provider Podiatrist | DX: L97.522 Non-pressure chronic ulcer of other part of left foot with fat layer exposed (principal); I73.89 Other specified peripheral vascular diseases; N18.30 Chronic kidney disease, stage 3 unspecified; E11.319 Type 2 diabetes mellitus with unspecified diabetic retinopathy without macular edema; E11.42 Type 2 diabetes mellitus with diabetic polyneuropathy | CPT/HCPCS: 11042 ==

== ENCOUNTER → 2024-12-31 07:52 | Outpatient (BNVA) | payer MEDICARE, BC, SELFPAY | PROVIDERS: PCP Nurse Practitioner Family; Referring Provider Nurse Practitioner Family; Visit Provider Podiatrist | DX: Z51.89 Encounter for other specified aftercare (principal); L97.522 Non-pressure chronic ulcer of other part of left foot with fat layer exposed; I73.89 Other specified peripheral vascular diseases; N18.30 Chronic kidney disease, stage 3 unspecified; E11.319 Type 2 diabetes mellitus with unspecified diabetic retinopathy without macular edema; E11.42 Type 2 diabetes mellitus with diabetic polyneuropathy | CPT/HCPCS: 11042 ==

== ENCOUNTER → 2025-01-14 07:53 | Outpatient (BNVA) | payer MEDICARE, BC, SELFPAY | PROVIDERS: PCP Nurse Practitioner Family; Referring Provider Nurse Practitioner Family; Visit Provider Podiatrist | DX: Z51.89 Encounter for other specified aftercare; L97.522 Non-pressure chronic ulcer of other part of left foot with fat layer exposed; I73.9 Peripheral vascular disease, unspecified; N18.30 Chronic kidney disease, stage 3 unspecified; E11.319 Type 2 diabetes mellitus with unspecified diabetic retinopathy without macular edema; E11.42 Type 2 diabetes mellitus with diabetic polyneuropathy | CPT/HCPCS: 99213 ==

== ENCOUNTER → 2025-01-27 08:03 | Outpatient (BNVA) | payer MEDICARE, BC, SELFPAY | PROVIDERS: PCP Nurse Practitioner Family; Referring Provider Nurse Practitioner Family; Visit Provider Podiatrist | DX: Z51.89 Encounter for other specified aftercare (principal); L97.522 Non-pressure chronic ulcer of other part of left foot with fat layer exposed; I73.89 Other specified peripheral vascular diseases; N18.30 Chronic kidney disease, stage 3 unspecified; E11.319 Type 2 diabetes mellitus with unspecified diabetic retinopathy without macular edema; E11.42 Type 2 diabetes mellitus with diabetic polyneuropathy | CPT/HCPCS: 11042 ==

== ENCOUNTER 2025-01-27 09:05 | Outpatient (CLI) | payer MEDICARE, BC, SELFPAY ==
[2025-01-27 09:43] LABS: Anion Gap 10.1 mmol/L (3-11); BUN 24 mg/dL (7-18); CO2 28.9 mmol/L (21.0-32.0); CREATININE 1.4 mg/dL (0.70-1.30); Calcium 9.3 mg/dL (8.5-10.1); Chloride 100 mmol/L (98-107); Estimated GFR 52.41 (mL/min/1.73m2); Glucose 193 mg/dL (74-106); Potassium 3.9 mmol/L (3.5-5.1); Sodium 139 mmol/L (136-145)
[2025-01-27 10:00] LABS: Calculated LDL 54 mg/dL (<100); Cholesterol 117 mg/dL (<200); HDL Cholesterol 33 mg/dL (>or=40); Triglyceride 150 mg/dL (<150)
[2025-01-27 19:01] LABS: PSA, Screening 0.6 ng/mL (<=6.5)
== END 2025-01-27 09:06 | disposition home or self-care (01) ==
LOC: LBO 09:06
PROVIDERS: PCP Nurse Practitioner Family; Visit Provider Nurse Practitioner Family
DX: Z13.1 Encounter for screening for diabetes mellitus (principal); Z13.6 Encounter for screening for cardiovascular disorders; Z12.5 Encounter for screening for malignant neoplasm of prostate
CPT/HCPCS: 11042; 36415; 80048; 80061; 84153

== ENCOUNTER → 2025-01-29 10:05 | Outpatient (BNVA) | payer MEDICARE, BC, SELFPAY | PROVIDERS: PCP Nurse Practitioner Family; Referring Provider Nurse Practitioner Family; Visit Provider Physical Therapy Assistant | DX: Z12.11 Encounter for screening for malignant neoplasm of colon (principal); Z86.0101 Personal history of adenomatous and serrated colon polyps | CPT/HCPCS: S0285 ==

== ENCOUNTER 2025-02-09 09:37 | Day surgery (SDC) | payer MEDICARE, BC, SELFPAY ==
--- NOTE | 2025-02-08 20:57 | W.PM.DSUDISC ---
Date of service: 02/09/25 Discharge Plan Disposition Patient Disposition: Home Condition: Good Discharge Details Reason For Visit: screening colonoscopy Attending Provider: Leif Ford Primary Care Provider: Heather Randolph Home Meds and New Rx's Prescriptions: Continued multivitamin [One Daily Multivitamin] Tablet 1 tab PO DAILY amlodipine 10 mg tablet 10 mg PO DAILY Qty: 90 3RF atorvastatin 80 mg tablet 80 mg PO DAILY Qty: 90 3RF (DME) Dexcom G7 Ancillary Services Manager Therapy Misc See Rx Instructions .Route Qty: 3 3RF Rx Instructions: Continuous glucose monitor (DME) Dexcom G7 Sensor Device See Rx Instructions .Route Qty: 9 3RF Rx Instructions: Continuous glucose monitor losartan 100 mg tablet 100 mg PO DAILY Qty: 90 3RF paroxetine HCl 20 mg tablet 20 mg PO DAILY Qty: 90 3RF metoprolol succinate 25 mg tablet extended release 24 hr 25 mg PO DAILY Qty: 90 3RF hydrochlorothiazide 25 mg tablet 25 mg PO DAILY Qty: 90 3RF metformin 1,000 mg tablet 1,000 mg PO BID Qty: 180 3RF tirzepatide 15 mg/0.5 mL pen injector 15 mg subcut QWEEK Qty: 2 12RF glipizide 10 mg tablet extended release 24hr 20 mg PO DAILY Qty: 180 3RF insulin glargine [Basaglar KwikPen U-100 Insulin] 100 unit/mL (3 mL) insulin pen 90 - 100 unit subcut DAILY Qty: 30 12RF (DME) blood-glucose meter [[facility]2 Meter[facility] See Rx Instructions .Route Qty: 1 3RF Rx Instructions: Check blood sugar twice a day nitroglycerin 0.4 mg tablet, sublingual 0.4 mg sublingual Q5-15M PRN (Reason: chest pain) Qty: 25 3RF Rx Instructions: 1 tablet every 5 minutes x 3 doses if needed for chest pain. Seek emergency services if not improving after first dose ketoconazole 2 % cream 1 applic topical DAILY Qty: 120 6RF Rx Instructions: Apply to toenails once daily (DME) lancets [OneTouch Delica Lancets] 1 EACH misc 1 ea Miscellaneous AC& HS Qty: 400 Rx Instructions: DX: E11.65, ADJUSTING INSULINS (DME) OneTouch Ultra Test Strip 1 strip Miscellaneous AC&HS Qty: 200 3RF Rx Instructions: Check blood sugar twice a day mometasone 0.1 % ointment 1 applic topical DAILY PRN (Reason: ear eczema) Qty: 45 0RF (DME) pen needle, diabetic 32 gauge x 5/32 needle See Rx Instructions .Route Qty: 500 4RF Rx Instructions: Use with insulin pen and mounjaro pen urea 40 % lotion 1 applic topical ONCE Held Xarelto 20 mg tablet 20 mg PO DAILY Qty: 90 3RF Hold Instructions: Resume on 02/10/25. Discontinued bisacodyl [Dulcolax (bisacodyl)] 5 mg tablet,delayed release (DR/EC) 5 mg PO ONCE Qty: 4 0RF Rx Instructions: Take per colonoscopy instructions provided by ordering providers office polyethylene glycol 3350 17 gram/dose powder 17 g PO ONCE Qty: 238 0RF Rx Instructions: Take per colonoscopy instructions provided by ordering providers office Discharge Instructions Instructions: Colon polyps, Diverticulosis Additional Instructions: Corky was good seeing you today, and I hope you feel well after the procedure. In total, I found and removed 6 polyps today. All of these polyps will be sent off for testing since polyps, different varieties, we use that information to help guide the timing of future colonoscopies. However, based on the quality of the prep, and the size of the polyps today, my inclination is to probably repeat your colonoscopy about 1 year from now. Just to be safe. The results from the polyp analysis will take about a week or 2 to get back, once I have all that information, my office will be in touch with final recommendations. If you need anything, or have any questions in the meantime, please do not hesitate to call. Incidentally, you also have quite a bit of diverticulosis. These are weak spots in the muscular layer of the colon wall. I have attached some basic information here about colon and rectal polyps, as well as diverticulosis. 1. If tolerated, consume a soft, low fiber diet for 1-2 days. 2[address] Do not drive, drink alcohol, operate machinery, make critical decisions, or do activities that require coordination or balance for 24 hours. 3. Because air was put into your colon during the procedure, expelling air from your rectum (passing gas or farting) is normal. 4. You may not have a bowel movement for 1-3 days because of the colonoscopy prep. This is normal. 5. Go directly to the emergency room if you notice any of the following: Develop chills (warm to touch), or if you have a thermometer and your temperature is above 101 Difficulty breathing or difficultly swallowing Persistent vomiting Severe abdominal pain, other than gas cramps Severe chest pain Black, tarry stools Any bleeding ? exceeding one tablespoon 6. Call your physician if the site where your intravenous was started becomes red, swollen, painful, and warm to touch. 7. Your physician has reviewed your pre-procedure medications. Please continue to take those medications as previously ordered. You will be given specific information/education regarding any changes to your medications before leaving. Activity:: Activity as Tolerated Diet:: As Tolerated Discharge Orders Discharge Orders: Discharge Order (Routine); Ordered 02/08/25 Ordered By: Leif Ford DS: Diagnosis Discharge Diagnosis (1) Encounter for screening colonoscopy: Status: Acute Asessment and Plan: Follow-up on polypectomy results
--- NOTE | 2025-02-08 20:59 | W.COLOREPORT ---
Date of service: 02/09/25 Time of Service: 13:26 Colonoscopy Report Date of procedure: 02/09/25 Pre-op diagnosis general: screening colonoscopy Post-op diagnosis procedure note: other (Colon polyps, diverticulosis) Procedure: colonoscopy with polypectomy Surgeon: Leif Ford Anesthesia Type: General:No Airway Estimated blood loss (mL): 10 Pathology: other (Greater than 1 cm rectal polyp, polyps in the ascending colon, 140 cm, 90 cm x 2, and greater than 1 cm polyp at 40 cm) Complications: None Disposition: same day Indications: Shamar is a 74 year old man who needs a screening colonoscopy Prep: Miralax/Dulcolax Procedure Start Time: 12:02 Procedure End Time: 13:05 Retraction Time: 43 Findings: Extensive sigmoid diverticulosis, Greater than 1 cm rectal polyp, polyps in the ascending colon, 140 cm, 90 cm x 2, and greater than 1 cm polyp at 40 cm Procedure Description: After the induction of anesthesia, are, and with the patient in left lateral decubitus position, I began by performing an external anorectal exam.? Perineum and skin were normal, as was the anal verge.? This was normal. Emorrhoids.? Next, I performed a digital rectal exam.? I did not appreciate any abnormal findings.? Next, I advanced a colonoscope into the rectal vault.? I performed retroflexion. There is a bilobed pedunculated rectal polyp. This is about 1 cm in size. I removed this with a energize snare polypectomy. I continued advancing the colonoscope towards the cecum using combination of irrigation and insufflation. The scope was noted to be in the cecum by identification of the appendiceal orifice and the ileocecal valve. I then began withdrawing the colonoscope using repeated irrigation as necessary for full evaluation of the colonic mucosa. ?Within the ascending colon was a 0.75 cm flat polyp. This was removed with a energize snare polypectomy. Another mostly flat polyp was found around 140 cm from the anal verge. This was also removed with a energize snare polypectomy. At 90 cm from the anal verge were 2 polyps. These were more pedunculated. Each was about 0.5 cm, and each was removed with a energize snare. As mentioned previously, there is extensive sigmoid diverticulosis, making evaluation of the sigmoid segment quite challenging. There was 1 large polyp here, around 40 cm from the anal verge. This was greater than 1 cm in size. And the energized snare was used to resect this completely. Once the scope was withdrawn to the level of the rectum, great care was taken to examine portions of the rectal folds.? Finally, the scope was withdrawn and the patient was brought to the same-day surgery recovery unit as the anesthetic wore off. ?The findings and instructions were shared with the patient prior to discharge. [place] Bowel Prep [place] Bowel Prep Right Colon: 1 Left Colon: 2 Transverse Colon: 2 Total Score: 5
[2025-02-09 09:50] VITALS: BP 142/81; PULSE 74; RESP 18; TEMP 36.3; O2SAT 99
[2025-02-09] MEDS: Lactated Ringers 1,000 ML 80 ML IV (10:24)
--- NOTE | 2025-02-09 10:58 | W.ANESPRE ---
General Info Date of Service Date Performed: 02/09/25 Height: 5 ft 11.25 in Weight: 114.4 kg Body Mass Index (BMI): 34.9 Surgical Procedure: Operation Date: 02/09/25 11:50 Proposed Procedure Side Surgeon akilah Ford MD Meds Allergies and Home Medications Allergies Allergy/AdvReac Type Severity Reaction Status Date / Time empagliflozin (From AdvReac Mild Sandra Verified 02/09/25 09:52 Jardiance) infections Home Medication ?Medication ?Instructions ?Recorded lancets 33 gauge (OneTouch Delica #400 ea 11/27/15 Lancets) blood sugar diagnostic (OneTouch #200 ea 10/21/22 Ultra Test strips) mometasone 0.1 % topical ointment 1 applic topical DAILY PRN ear 06/11/23 eczema #45 grams multivitamin (One Daily 1 tab PO DAILY 10/22/23 Multivitamin tablet) amlodipine 10 mg tablet 10 mg PO DAILY #90 tabs 07/30/24 atorvastatin 80 mg tablet 80 mg PO DAILY #90 tabs 07/30/24 blood-glucose sensor (Dexcom G7 #9 ea 07/30/24 Sensor device) blood-glucose,outside sales account manager,cont #3 ea 07/30/24 (Dexcom G7 Caddymaster) losartan 100 mg tablet 100 mg PO DAILY #90 tabs 07/30/24 metoprolol succinate 25 mg 25 mg PO DAILY #90 tabs 07/30/24 tablet,extended release 24 hr paroxetine HCl 20 mg tablet 20 mg PO DAILY #90 tabs 07/30/24 rivaroxaban 20 mg tablet (Xarelto) 20 mg PO DAILY #90 tabs 07/30/24 blood-glucose meter (OneTouch #1 ea 10/31/24 Ultra2 Meter) glipizide 10 mg tablet, extended 20 mg (2 x 10 mg) PO DAILY #180 10/31/24 release 24 hr tabs hydrochlorothiazide 25 mg tablet 25 mg PO DAILY #90 tabs 10/31/24 insulin glargine 100 unit/mL (3 90 - 100 unit (0.9 - 1 mL) subcut 10/31/24 mL) subcutaneous pen (Basaglar DAILY #30 mL KwikPen U-100 Insulin) metformin 1,000 mg tablet 1,000 mg PO BID #180 tabs 03/07/25 tirzepatide 15 mg/0.5 mL 15 mg (0.5 mL) subcut QWEEK #2 mL 10/31/24 subcutaneous pen injector nitroglycerin 0.4 mg sublingual 0.4 mg sublingual Q5-15M PRN chest 01/26/25 tablet pain #25 tabs ketoconazole 2 % topical cream 1 applic topical DAILY #120 grams 01/27/25 pen needle, diabetic 32 gauge x #500 ea 02/02/25 5/32 urea 40 % lotion 1 applic topical ONCE 02/09/25 Current Visit Medications: Current Medications Generic Name Dose Route Start Last Admin Trade Name Freq PRN Reason Stop Dose Admin Ringer's Solution 1,000 mls @ 80 mls/hr 02/09/25 06:00 02/09/25 10:24 IV 02/09/25 23:59 80 mls/hr INFUSION LEANN Administration IV Miscellaneous Supplies 1 each 02/09/25 06:00 Iv Access IV 02/09/25 23:59 DIRECTED LEANN Ondansetron HCl 4 mg 02/08/25 21:02 Ondansetron 4 Mg/2 Ml Vial IVP 03/10/25 21:01 Q4H PRN PRN Nausea / Vomiting Sodium Chloride 0 ml 02/09/25 06:00 Normal Saline Flush 10 Ml Syr IV 02/09/25 23:59 PRN PRN Sodium Chloride 0 ml 02/09/25 06:00 Normal Saline 10 Ml Vial IJ 02/09/25 23:59 DIRECTED PRN Sterile Water 0 ml 02/09/25 06:00 Water,Injection,Sterile 10 Ml Vial IJ 02/09/25 23:59 DIRECTED PRN PFSH Active Problems Active Problems: Problem Status Onset Code Encounter for screening colonoscopy Acute Z12.11 Type 2 diabetes mellitus with peripheral neuropathy Acute E11.42 Ulcer of left foot with fat layer exposed Acute L97.522 Toe injury Acute S99.929A Obesity (BMI 30-39.9) Chronic E66.9 Tremor of both hands Chronic R25.1 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 Anemia of chronic disease Chronic D63.8 Peripheral artery disease Chronic I73.9 Thrombocytopenia Chronic D69.6 CKD (chronic kidney disease) stage 3, GFR 30-59 ml/min Chronic N18.30 Sigmoid diverticulosis Chronic K57.30 Major depressive disorder, recurrent Chronic F33.9 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 Atrial fibrillation Chronic I48.91 Hyperlipidemia Chronic E78.5 Hypertension Chronic I10 Obstructive sleep apnea Chronic G47.33 Coronary artery disease Chronic I25.10 Medical History Medical History Tubular adenoma of colon On 2019 colonoscopy Myocardial infarction (01/30/89) Surgical History Surgical History History of ankle surgery left S/P colonoscopic polypectomy History of cataract surgery Status post ORIF of fracture of ankle Left ankle S/P trigger finger release x4 S/P tonsillectomy S/P appendectomy Tobacco Smoking/Tobacco Use Status: Former Tobacco Use Passive smoking exposure: Yes Second hand exposure: Yes Alcohol Alcohol Intake: current Alcohol intake frequency: other Alcohol type: beer Substance Use Substance use: Never Substance use type: does not use Vital Signs and Lab Results Vital Signs Most Recent Vital Signs in EMR: Most Recent Vital Signs Temp Pulse Resp BP Pulse Ox 36.3 C L 74 18 142/81 H 99 02/09/25 09:50 02/09/25 09:50 02/09/25 09:50 02/09/25 09:50 02/09/25 09:50 Lab Results Complete Metabolic Panel: Sodium, (136-145) 139 mmol/L 01/27/25, 08:51 Potassium, (3.5-5.1) 3.9 mmol/L 01/27/25, 08:51 Chloride, (98-107) 100 mmol/L 01/27/25, 08:51 Carbon Dioxide, (21.0-32.0) 28.9 mmol/L 01/27/25, 08:51 BUN, (7-18) 24 mg/dL H 01/27/25, 08:51 Creatinine, (0.70-1.30) 1.4 mg/dL H 01/27/25, 08:51 Est GFR (CKD-EPI 2020), (mL/min/1.73m2) 52.41 01/27/25, 08:51 Calcium, (8.5-10.1) 9.3 mg/dL 01/27/25, 08:51 Glucose, (74-106) 193 mg/dL H 01/27/25, 08:51 Hemoglobin A1c, (4.5-5.7) 7.4 % H 01/26/25, 09:43 Imaging and Studies Imaging and Studies Study information below may be from another EMR and interpreted by another provider. Please see original notes in EMR for more complete details. Stress Test Summary: Stress results: Maximal heart rate during stress was 176bpm (116% of maximal predicted heart rate). The maximal predicted heart rate was 152bpm. The target heart rate was achieved. The heart rate response to stress is exaggerated. There is a normal resting blood pressure with an appropriate response to stress. The rate-pressure product for the peak heart rate and blood pressure was 40386zl Hg/min. The patient experienced no chest pain during stress. Exercise capacity is reduced (5.5 METS). Stress ECG: EXCERCISE TESTING ENDED IN 3 MINS, 42 SECS DUE TO FATIGUE. MAX HR WAS 176, 115% OF TARGET. HYPERTENSIVE BLOOD PRESSURE RESPONSE, IN RECOVERY MAINLY. METS: 5.47 ECTOPY: OCASSIONAL VEB'S NOTED DURING TESTING, MUCH MORE FREQUENT IN RECOVERY STAGE- AT 2 MINS OF RECOVERY, 3B RUNS OF VT WERE NOTED FREQUENTLY. BY 9 MINS OF RECOVERY, VEB'S WERE BACK TO OCCASIONALLY NOTED. ANGINA: NO REPORTED CHEST PAIN OR PRESSURE. ISCHEMIA: NO ISCHEMIC CHANGES NOTED. FUNCTIONAL CAPACITY: MARKEDLY DIMINISHED CAPACITY. The stress ECG is negative. Frequent ventricular ectopy or aberrantly conducted Afib beats. Hawkins treadmill score: 4. This score predicts a moderate risk of cardiac events. Myocardial perfusion: Imaging information: gated. Image quality reduced due to subdiaphragmatic activity. The left ventricle is mildly dilated. There is a moderate sized, mildly intense, predominantly fixed defect involving the apical anterior and inferior wall(s). . There is a small sized, severely intense, fixed defect involving the apical wall(s). . Overall ischemia: minimal. Ventricular Function (Wall Motion): The calculated left ventricular ejection fraction after stress: 44%. LV global systolic function is mild to moderately reduced. Diffuse left ventricular regional motion abnormalities. There is hypokinesis involving the basal inferoseptal and basal inferior wall(s) of the left ventricle. 04/10/18 Echocardiogram Summary: 04/09/18 STUDY CONCLUSIONS* Impressions: The patient was in atrial fibrillation throughout study. This rhythm can interfere with accurate global and segmental wall motion analysis. Summary: 1. Procedure narrative: Intravenous contrast (Definity) was administered by annmarie to enhance delineation of left ventricular endocardial borders. 2. Left ventricle: The cavity size was normal. Wall thickness was increased in a pattern of mild LVH. Systolic function was normal. The estimated ejection fraction was 55-60%. Mild hypokinesis of the basalinferior and inferoseptal myocardium. 3. Aortic valve: There was trivial regurgitation. 4. Mitral valve: There was mild regurgitation. 5. Left atrium: The atrium was mildly to moderately dilated. 6. Right ventricle: The cavity size was normal. Wall thickness was normal. Systolic function was normal. 7. Right atrium: The atrium was mildly dilated. Anesthesia Assessment and Plan Anesthesia History Personal History: No History of Anesthesia Complications Family History: No Family History of Anesthesia Complications Exercise Tolerance Exercise Tolerance: Metabolic Equivalents>4 Cardiac & Pulmonary Exam Cardiac Exam: Normal S1/S2 Heart Sounds Pulmonary Exam: Clear Bilateral Breath Sounds Implantable Cardiac Device Does patient have a Pacemaker or an ICD?: No Airway Exam Known Difficult Airway: No Mallampati Class: 2 Mouth Opening: Normal (> 3cm) Thyromental Distance: Greater than 3 cm Neck Range of Motion: Full ROM Neck Circumference: Normal Teeth Condition: Normal Dentition ASA Classification ASA Score: ASA 3 Emergency Case?: No NPO Status NPO Status: NPO Clears >2 hours, Solids >8 hours Anesthesia Plan Resuscitation Status: Full Code Anesthesia Technique: General Anesthesia Airway Planned: Natural Airway Monitors Used: Standard Monitors Preoperative Comments:: 74 yo male for colo. Sig PMHx: CAD/SD (1979', doesn't get chest pain with exertion, does not use his NTG), HTN (amlodipine, metoprolol), a fib (xarelto), SEPIDEH (CPAP), DM2 (neuropathy. glipizide, glargine, metformin, tirzepatide), PAD, CKDIII. Denies GERD. Appropriately NPO, currently hungry. Last dose of Xarelto was Sunday. ECHO: LVEF 55-60% stress: LVEF 44%, moderate reduction of LV fxn. 5 METS. fixed defect.
[2025-02-09 11:07] VITALS: BMI 34.9
--- NOTE | 2025-02-09 12:05 | BOWEL_PTH ---
PATIENT: Vance Doe LOC: [facility] U#:[id number] AGE/SX: 74/M ROOM: RE02/09/[address]: Leif Ford MD : 1950 BED: DIS: 02/09/2025 SPEC #: [id number] RECD: 02/09/25 17:00 STATUS: [facility] #: [id number] KAPIL: 02/09/25 12:[address]: Leif Ford DEPT: Surgical Specimen RECD BY: Lizzie Livingston ENTERED: 02/09/25 17:04 SP TYPE: Bowel OTHR DR: Heather Randolph, LALITO Tissues: 1 - BIOPSY BOWEL 2 - BIOPSY BOWEL 3 - BIOPSY BOWEL 4 - BIOPSY BOWEL 5 - BIOPSY BOWEL 6 - BIOPSY BOWEL Procedures: GROSS AND MICRO LEVEL 4 Comments: [id number]
[2025-02-09 13:13] VITALS: BP 126/77; PULSE 81; RESP 16; TEMP 36.4; O2SAT 95
[2025-02-09 13:43] VITALS: BP 135/78; PULSE 67; RESP 16; TEMP 36.2; O2SAT 98
--- NOTE | 2025-02-09 13:53 | W.ANESPOSTOP ---
Postoperative Evaluation Date, Time and Location Date Performed: 02/09/25 Time Performed: 13:53 Patient Location: Day Surgery Unit Vital Signs Most Recent Imported Vital Signs: Most Recent Vital Signs Temp Pulse Resp BP Pulse Ox 36.2 C L 67 16 135/78 98 02/09/25 13:43 02/09/25 13:43 02/09/25 13:43 02/09/25 13:43 02/09/25 13:43 Pain Score Most Recent Pain Score: Most Recent Pain Score Pain Level 0 02/09/25 13:43 Assessment Mental Status: Awake (Alert & Oriented to Patient Baseline) Airway and Respiratory Function: Patent airway with normal (patient baseline) respiratory exam Cardiovascular Function: Hemodynamically Stable Hydration Status: Adequately Hydrated Nausea & Vomiting: No Nausea or Vomiting Pain: Pt. Denies Any Pain Peripheral Nerve Block: Patient did not receive a nerve block Teaching Patient Teaching: Discussed the importance of using CPAP/BiPAP during any sleep period
== END 2025-02-09 14:02 | disposition home or self-care (01) ==
LOC: SUR 09:37
PROVIDERS: PCP Nurse Practitioner Family; Visit Provider Surgery
PROC: 0DJD8ZZ Inspection of Lower Intestinal Tract, Via Natural or Artificial Opening Endoscopic (ICD-10-PCS; CPT 45378; principal; 2025-02-09 11:45)
DX: Z12.11 Encounter for screening for malignant neoplasm of colon (principal); D12.8 Benign neoplasm of rectum; D12.2 Benign neoplasm of ascending colon; D12.5 Benign neoplasm of sigmoid colon; D12.3 Benign neoplasm of transverse colon; E11.9 Type 2 diabetes mellitus without complications; G47.33 Obstructive sleep apnea (adult) (pediatric); I12.9 Hypertensive chronic kidney disease with stage 1 through stage 4 chronic kidney disease, or unspecified chronic kidney disease; N18.30 Chronic kidney disease, stage 3 unspecified; K57.30 Diverticulosis of large intestine without perforation or abscess without bleeding
CPT/HCPCS: 45385; 88305; J2003; J2704

== ENCOUNTER 2025-02-11 04:39 | Emergency (ER) | payer MEDICARE, BC, SELFPAY ==
[2025-02-11 04:43] VITALS: BP 146/66; PULSE 85; RESP 18; TEMP 36.2; O2SAT 96
--- NOTE | 2025-02-11 04:53 | W.ED.GENAD ---
Discharge Plan Disposition Patient Disposition: Home Discharge Details Clinical Impression: Right-sided epistaxis Primary Care Provider: Heather Randolph ED Provider: Krystian Hawkins [place] Meds and New Rx's Prescriptions: Continued multivitamin [One Daily Multivitamin] Tablet 1 tab PO DAILY amlodipine 10 mg tablet 10 mg PO DAILY Qty: 90 3RF atorvastatin 80 mg tablet 80 mg PO DAILY Qty: 90 3RF (DME) Dexcom G7 Community Outreach Specialist Misc See Rx Instructions .Route Qty: 3 3RF Rx Instructions: Continuous glucose monitor (DME) Dexcom G7 Sensor Device See Rx Instructions .Route Qty: 9 3RF Rx Instructions: Continuous glucose monitor losartan 100 mg tablet 100 mg PO DAILY Qty: 90 3RF paroxetine HCl 20 mg tablet 20 mg PO DAILY Qty: 90 3RF Xarelto 20 mg tablet 20 mg PO DAILY Qty: 90 3RF metoprolol succinate 25 mg tablet extended release 24 hr 25 mg PO DAILY Qty: 90 3RF hydrochlorothiazide 25 mg tablet 25 mg PO DAILY Qty: 90 3RF metformin 1,000 mg tablet 1,000 mg PO BID Qty: 180 3RF tirzepatide 15 mg/0.5 mL pen injector 15 mg subcut QWEEK Qty: 2 12RF glipizide 10 mg tablet extended release 24hr 20 mg PO DAILY Qty: 180 3RF insulin glargine [Basaglar KwikPen U-100 Insulin] 100 unit/mL (3 mL) insulin pen 90 - 100 unit subcut DAILY Qty: 30 12RF (DME) blood-glucose meter [OneTouch Ultra2 Meter] Misc See Rx Instructions .Route Qty: 1 3RF Rx Instructions: Check blood sugar twice a day nitroglycerin 0.4 mg tablet, sublingual 0.4 mg sublingual Q5-15M PRN (Reason: chest pain) Qty: 25 3RF Rx Instructions: 1 tablet every 5 minutes x 3 doses if needed for chest pain. Seek emergency services if not improving after first dose ketoconazole 2 % cream 1 applic topical DAILY Qty: 120 6RF Rx Instructions: Apply to toenails once daily (DME) lancets [OneTouch Delica Lancets] 1 EACH misc 1 ea Miscellaneous AC& HS Qty: 400 Rx Instructions: DX: E11.65, ADJUSTING INSULINS (DME) OneTouch Ultra Test Strip 1 strip Miscellaneous AC&HS Qty: 200 3RF Rx Instructions: Check blood sugar twice a day mometasone 0.1 % ointment 1 applic topical DAILY PRN (Reason: ear eczema) Qty: 45 0RF (DME) pen needle, diabetic 32 gauge x 5/32 needle See Rx Instructions .Route Qty: 500 4RF Rx Instructions: Use with insulin pen and mounjaro pen urea 40 % lotion 1 applic topical ONCE Discharge Instructions Instructions: Nosebleeds ED Additional Instructions: You are seen in the emergency department for your nosebleeding. A topical vasoconstriction agent was used called oxymetazoline. This improves your symptoms. You may use the spray at home as we discussed. If you begin bleeding again. Please use to squirts of the spray and the nasal clamp. Please sit down. If this stops your bleeding you may discontinue the clamp after 10 minutes. If your bleeding continues please return to the emergency department. Please refrain from vigorous activity today. Please continue taking your blood pressure medicine and your blood thinner as previously directed. Please return to the emergency department if you develop recurrent nosebleeding, if you pass out, or if you have any other concerns. Otherwise please follow-up with your primary care provider as needed. Discharge Data Discharge Date/Time-TO BE ENTERED AT DEPARTURE: 02/11/25 06:09 HPI General Date/Time Provider Initiated Documentation: 02/11/25 04:53. HPI Narrative: MDM This is an overall very well-appearing afebrile and not tachycardic 34-year-old male with anterior right epistaxis improved with instillation of topical vasoconstrictor using oxymetazoline. No trauma to suggest benefit from CT scan. Given rivaroxaban use and age with prior history of epistaxis who I am not concerned for coagulopathy. No obvious nasal tumor on exam. No active arterial bleeding to suggest AVM. Patient was monitored in the emergency department using a nasal clamp. 6:02 AM Patient in no recurrent bleeding following oxymetazoline with nasal clamp. He and I discussed that he should take oxymetazoline home and use it as needed if he began bleeding again. We discussed that he use 2 sprays uses nasal clamp onset. If he had continued bleeding he should return to the emergency department. Otherwise if his bleeding stopped he could take off his nasal clamp and continue monitoring at home. He understood his return indications and was discharged with an empiric trial of expectant outpatient management. HPI This is a patient with a history of atrial fibrillation presenting with a nosebleed. The patient experienced a right-sided nosebleed that began at approximately 3:15 a.m., which disrupted his sleep. He reports no trauma to the nose prior to the onset of the nosebleed. He also reports no systemic symptoms such as fever, cough, or trouble breathing. He does not report any current posterior nasal drainage and believes the bleeding may have ceased as he has not needed to replace the rolled-up toilet paper in his nostril every 5 minutes. He has Afrin nasal spray at home but did not use it during this episode. He is currently on anticoagulant therapy for atrial fibrillation. He has a history of recurrent epistaxis on the same side, with a previous episode occurring earlier this year. Despite undergoing nasal cauterization at [facility], the bleeding persisted. Exam General: Well-appearing in no acute distress speaking in complete sentences. Head: Normocephalic, atraumatic. Eye: Extraocular eye movements intact. No conjunctival injection. No scleral icterus. Ear, nose, mouth, throat: Right-sided anterior epistaxis. Minor venous oozing. No posterior oropharynx erythema. Neck: Trachea midline. Cardiovascular: Well-perfused distal extremities. Respiratory: Nonlabored respiration. Gastrointestinal: Nondistended abdomen. Musculoskeletal: No edema. Moving all 4 extremities spontaneously. Skin: Normal for age and race, grossly normal temperature and turgor. No acute rash. Neurologic: Alert and appropriate, no apparent acute deficits. Psychiatric: Mood and manner are appropriate. Grooming and personal hygiene are appropriate. Related Data Home Medications ?Medication ?Instructions ?Recorded ?Confirmed lancets 33 gauge ([employer] Delica #400 ea 11/27/15 01/27/25 Lancets) blood sugar diagnostic ([employer] #200 ea 10/21/22 01/27/25 Ultra Test strips) mometasone 0.1 % topical ointment 1 applic topical DAILY PRN ear 06/11/23 02/11/25 eczema #45 grams multivitamin (One Daily 1 tab PO DAILY 10/22/23 02/11/25 Multivitamin tablet) amlodipine 10 mg tablet 10 mg PO DAILY #90 tabs 07/30/24 02/11/25 atorvastatin 80 mg tablet 80 mg PO DAILY #90 tabs 07/30/24 02/11/25 blood-glucose sensor (Dexcom G7 #9 ea 07/30/24 01/27/25 Sensor device) blood-glucose,electronic equipment repairer,cont #3 ea 07/30/24 01/27/25 (Dexcom G7 Community Outreach Specialist) losartan 100 mg tablet 100 mg PO DAILY #90 tabs 07/30/24 02/11/25 metoprolol succinate 25 mg 25 mg PO DAILY #90 tabs 07/30/24 02/11/25 tablet,extended release 24 hr paroxetine HCl 20 mg tablet 20 mg PO DAILY #90 tabs 07/30/24 02/11/25 rivaroxaban 20 mg tablet (Xarelto) 20 mg PO DAILY #90 tabs 07/30/24 02/11/25 blood-glucose meter (OneTouch #1 ea 10/31/24 01/27/25 Ultra2 Meter) glipizide 10 mg tablet, extended 20 mg (2 x 10 mg) PO DAILY #180 10/31/24 02/11/25 release 24 hr tabs hydrochlorothiazide 25 mg tablet 25 mg PO DAILY #90 tabs 10/31/24 02/11/25 insulin glargine 100 unit/mL (3 90 - 100 unit (0.9 - 1 mL) subcut 10/31/24 02/11/25 mL) subcutaneous pen (Basaglar DAILY #30 mL KwikPen U-100 Insulin) metformin 1,000 mg tablet 1,000 mg PO BID #180 tabs 10/31/24 02/11/25 tirzepatide 15 mg/0.5 mL 15 mg (0.5 mL) subcut QWEEK #2 mL 10/31/24 02/11/25 subcutaneous pen injector nitroglycerin 0.4 mg sublingual 0.4 mg sublingual Q5-15M PRN chest 01/26/25 02/11/25 tablet pain #25 tabs ketoconazole 2 % topical cream 1 applic topical DAILY #120 grams 01/27/25 02/11/25 pen needle, diabetic 32 gauge x #500 ea 02/02/25 5/32 urea 40 % lotion 1 applic topical ONCE 02/09/25 02/11/25 Previous Rx's ?Medication ?Instructions ?Recorded blood sugar diagnostic (OneTouch #200 ea 10/21/22 Ultra Test strips) mometasone 0.1 % topical ointment 1 applic topical DAILY PRN ear 06/11/23 eczema #45 grams amlodipine 10 mg tablet 10 mg PO DAILY #90 tabs 07/30/24 atorvastatin 80 mg tablet 80 mg PO DAILY #90 tabs 07/30/24 blood-glucose sensor (Dexcom G7 #9 ea 07/30/24 Sensor device) blood-glucose,electronic equipment repairer,cont #3 ea 07/30/24 (Dexcom G7 Community Outreach Specialist) losartan 100 mg tablet 100 mg PO DAILY #90 tabs 07/30/24 metoprolol succinate 25 mg 25 mg PO DAILY #90 tabs 07/30/24 tablet,extended release 24 hr paroxetine HCl 20 mg tablet 20 mg PO DAILY #90 tabs 07/30/24 rivaroxaban 20 mg tablet (Xarelto) 20 mg PO DAILY #90 tabs 07/30/24 blood-glucose meter (OneTouch #1 ea 10/31/24 Ultra2 Meter) glipizide 10 mg tablet, extended 20 mg (2 x 10 mg) PO DAILY #180 10/31/24 release 24 hr tabs hydrochlorothiazide 25 mg tablet 25 mg PO DAILY #90 tabs 10/31/24 insulin glargine 100 unit/mL (3 90 - 100 unit (0.9 - 1 mL) subcut 10/31/24 mL) subcutaneous pen (Basaglar DAILY #30 mL KwikPen U-100 Insulin) metformin 1,000 mg tablet 1,000 mg PO BID #180 tabs 10/31/24 tirzepatide 15 mg/0.5 mL 15 mg (0.5 mL) subcut QWEEK #2 mL 10/31/24 subcutaneous pen injector nitroglycerin 0.4 mg sublingual 0.4 mg sublingual Q5-15M PRN chest 01/26/25 tablet pain #25 tabs ketoconazole 2 % topical cream 1 applic topical DAILY #120 grams 01/27/25 pen needle, diabetic 32 gauge x #500 ea 02/02/25 Allergies Allergy/AdvReac Type Severity Reaction Status Date / Time empagliflozin (From AdvReac Mild Sandra Verified 02/11/25 04:47 Jardiance) infections General Stated Complaint: Epistaxis MOJGAN: 3 Course Vital Signs Vital signs: Vital Signs Temperature 36.2 C L 02/11/25 04:43 Pulse 85 02/11/25 04:43 Respiratory Rate 18 02/11/25 04:43 Blood Pressure 146/66 H 02/11/25 04:43 Pulse Oximetry 96 02/11/25 04:43 Temperature 36.2 C L 02/11/25 04:43 Temperature Source Oral 02/11/25 04:43 Pulse 85 02/11/25 04:43 Respiratory Rate 18 02/11/25 04:43 Blood Pressure 146/66 H 02/11/25 04:43 Pulse Oximetry 96 02/11/25 04:43 Pain Level 0 02/11/25 04:43 Procedure Epistaxis Control Date of Procedure: 02/11/25 Time of Procedure: 05:11 Provider that performed the procedure: Krystian Hawkins Patient Consented: Verbally Nose prepped with: oxymetazoline Direct Inspection: yes Clots Removed by: blowing nose Cautery Used: none PFSH All Active Problems (Updated 02/11/25 @ 05:12 by Krystian Hawkins MD) Right-sided epistaxis (Acute) Type 2 diabetes mellitus with peripheral neuropathy (Acute) Ulcer of left foot with fat layer exposed (Acute) Toe injury (Acute) Obesity (BMI 30-39.9) (Chronic) Tremor of both hands (Chronic) [facility] neurology consulted 05/2023, CTM Nail dystrophy (Chronic) Anemia of chronic disease (Chronic) Peripheral artery disease (Chronic) Mild on ABIs Thrombocytopenia (Chronic) CKD (chronic kidney disease) stage 3, GFR 30-59 ml/min (Chronic) Sigmoid diverticulosis (Chronic) Major depressive disorder, recurrent (Chronic) Type 2 diabetes mellitus with retinopathy (Chronic) Atrial fibrillation (Chronic) Hyperlipidemia (Chronic) Hypertension (Chronic) Obstructive sleep apnea (Chronic) CPAP Coronary artery disease (Chronic) Hx of [place] 1988 Medical History (Updated 02/11/25 @ 05:12 by Krystian Hawkins MD) Tubular adenoma of colon On 2019 colonoscopy Myocardial infarction (01/30/89) Surgical History (Updated 02/10/25 @ 08:45 by Stacia Joseph) History of ankle surgery left S/P colonoscopic polypectomy (~01/2025) History of cataract surgery Status post ORIF of fracture of ankle Left ankle S/P trigger finger release x4 S/P tonsillectomy S/P appendectomy Family History Mother Essential hypertension Lung cancer Father Alcohol abuse Essential hypertension Heart disease Hyperlipidemia Stroke Asthma Sister Essential hypertension Stroke Sister Essential hypertension Depression Hyperlipidemia Sister Substance abuse Essential hypertension Depression Hyperlipidemia Sister No problems noted. Sister Essential hypertension Hyperlipidemia Brother Substance abuse Alcohol abuse Essential hypertension Heart disease Hyperlipidemia Brother Substance abuse Alcohol abuse Hyperlipidemia Lung cancer Brother Substance abuse Essential hypertension Hyperlipidemia Maternal Grandfather , TRAIN ACCIDENT at age 55. Heart disease Hyperlipidemia Asthma Paternal Grandfather Heart disease Asthma Maternal Grandmother Diabetes Essential hypertension Heart disease Hyperlipidemia Paternal Grandmother Colon cancer Pancreatic cancer Son Essential hypertension Hyperlipidemia Son Essential hypertension Hyperlipidemia Sister Essential hypertension Brother No problems noted. Social History Smoking/Tobacco Use Status: Former Tobacco Use tobacco type: cigarettes Quit Date: 01/30/89 Pack-years: 66 Tobacco: How many years used: 22 Second Hand Exposure: Yes Smoking risk assessment performed?: Yes Alcohol Intake: current Alcohol Intake frequency: other Alcohol type: beer Drug use: Never Substance use type: does not use Caregiver/Support person: No Household members: spouse Housing: house Communication Needs: None Do you need help understanding health information?: Never Pets and animals: Yes Pets and animals: dog(s) Sexually active: No Do you think of yourself as: straight/heterosexual Current gender identity: male and decline to answer What is your relationship status?: How often do you talk on the phone with friends or family?: three or more times per week How often do you get together with friends or relatives?: once per week How often do you attend judaism or yarsanism services?: decline to answer Do you belong to any clubs or organized social groups?: yes Panel score (0-1 are the most socially isolated patients): 3 What type of physical activity do you participate in: walking Duration: 15-30 minutes/day Frequency: 3-4 times per week Chuyita/Cheondoism: None Special chuyita needs: No Seatbelt use: always Helmet use: Yes Helmet use: always Drive intox or ride w/intox transit driver: No Do you feel safe at home: Yes Do you feel safe in your relationship?: Yes
[2025-02-11] MEDS: Oxymetazolone 0.05% SPRAY 15 ML BTL NS (04:58)
[2025-02-11 05:50] VITALS: BP 139/64; PULSE 72; RESP 18; O2SAT 94
[2025-02-11 06:08] VITALS: RESP 18
== END 2025-02-11 06:09 | disposition home or self-care (01) ==
LOC: ER 05:19
PROVIDERS: Emergency Provider Emergency Medicine; PCP Nurse Practitioner Family
DX: R04.0 Epistaxis (principal)
CPT/HCPCS: 30906

== ENCOUNTER 2025-02-11 08:22 | Emergency (ER) | payer MEDICARE, BC, SELFPAY ==
[2025-02-11 08:28] VITALS: BP 172/82; PULSE 76; RESP 16; TEMP 35.3; O2SAT 100
--- NOTE | 2025-02-11 09:20 | ED.GENADUL_ITS ---
Discharge Plan Disposition Patient Disposition: Home Condition: Good Discharge Details Clinical Impression: Right-sided epistaxis Primary Care Provider: Heather Randolph ED Provider: Waleska Begum Home Meds and New Rx's Prescriptions: Continued multivitamin [One Daily Multivitamin] Tablet 1 tab PO DAILY amlodipine 10 mg tablet 10 mg PO DAILY Qty: 90 3RF atorvastatin 80 mg tablet 80 mg PO DAILY Qty: 90 3RF (DME) Dexcom G7 Appointment Specialist Misc See Rx Instructions .Route Qty: 3 3RF Rx Instructions: Continuous glucose monitor (DME) Dexcom G7 Sensor Device See Rx Instructions .Route Qty: 9 3RF Rx Instructions: Continuous glucose monitor losartan 100 mg tablet 100 mg PO DAILY Qty: 90 3RF paroxetine HCl 20 mg tablet 20 mg PO DAILY Qty: 90 3RF Xarelto 20 mg tablet 20 mg PO DAILY Qty: 90 3RF metoprolol succinate 25 mg tablet extended release 24 hr 25 mg PO DAILY Qty: 90 3RF hydrochlorothiazide 25 mg tablet 25 mg PO DAILY Qty: 90 3RF metformin 1,000 mg tablet 1,000 mg PO BID Qty: 180 3RF tirzepatide 15 mg/0.5 mL pen injector 15 mg subcut QWEEK Qty: 2 12RF glipizide 10 mg tablet extended release 24hr 20 mg PO DAILY Qty: 180 3RF insulin glargine [Basaglar KwikPen U-100 Insulin] 100 unit/mL (3 mL) insulin pen 90 - 100 unit subcut DAILY Qty: 30 12RF (DME) blood-glucose meter [OneTouch Ultra2 Meter] Misc See Rx Instructions .Route Qty: 1 3RF Rx Instructions: Check blood sugar twice a day nitroglycerin 0.4 mg tablet, sublingual 0.4 mg sublingual Q5-15M PRN (Reason: chest pain) Qty: 25 3RF Rx Instructions: 1 tablet every 5 minutes x 3 doses if needed for chest pain. Seek emergency services if not improving after first dose ketoconazole 2 % cream 1 applic topical DAILY Qty: 120 6RF Rx Instructions: Apply to toenails once daily (DME) lancets [OneTouch Delica Lancets] 1 EACH misc 1 ea Miscellaneous AC& HS Qty: 400 Rx Instructions: DX: E11.65, ADJUSTING INSULINS (DME) OneTouch Ultra Test Strip 1 strip Miscellaneous AC&HS Qty: 200 3RF Rx Instructions: Check blood sugar twice a day mometasone 0.1 % ointment 1 applic topical DAILY PRN (Reason: ear eczema) Qty: 45 0RF (DME) pen needle, diabetic 32 gauge x 5/32 needle See Rx Instructions .Route Qty: 500 4RF Rx Instructions: Use with insulin pen and mounjaro pen urea 40 % lotion 1 applic topical ONCE Discharge Instructions Instructions: Nosebleeds ED Additional Instructions: The area that was bleeding has been cauterized today. Please try to prevent nasal trauma to the area such as picking or sneezing. With your CPAP, your recurrent nose bleeds are likely associated with dry mucous membranes. I encourage you to try nasal saline or [place] gel spray (non-medicated) prior to bed and when you wake to moisten the nose. You can use this throughout the day if needed. If you have recurrent bleed, please use the Afrin and nasal clamp as previously advised. If you have persistent bleeding, please seek care emergently once again. Please follow up with primary care in 1 week for reevaluation. Referrals: Heather Randolph NP [Primary Care Provider, Medicine] Discharge Data Discharge Date/Time-TO BE ENTERED AT DEPARTURE: 02/11/25 10:06 [facility] General Date/Time Provider Initiated Documentation: 02/11/25 08:30 . Limitations to Documentation: no limitations . Information obtained by: patient, RN notes reviewed and old records reviewed . History of Present Illness 74 year old M presents to the emergency department with the chief complaint of recurrent right sided epistaxis, described as mild, Patient started experiencing this hour(s) and it has been intermittent. other things that improve symptom(s), (clamp) No exacerbating factors reported . Patient notes no other symptoms.. Patient did receive the following treatments prior to arrival, other (afrin and nasal clamp) Related Data Home Medications ?Medication ?Instructions ?Recorded ?Confirmed lancets 33 gauge (OneTouch Delica #400 ea 11/27/15 Lancets) blood sugar diagnostic (Night ZookeeperTouch #200 ea 10/21/2201/25 Ultra Test strips) mometasone 0.1 % topical ointment 1 applic topical MACKENZIE LY PRN ear 06/11/23 02/11/25 eczema #45 grams multivitamin (One Daily 1 tab PO DAILY 10/22/2301/25 Multivitamin tablet) amlodipine 10 mg tablet 10 mg PO DAILY #90 tabs 12/1802/11/25 atorvastatin 80 mg tablet 80 mg PO DAILY #90 tabs 12/1802/11/25 blood-glucose sensor (Dexcom G7 #9 ea 07/30/24 5 Sensor device) blood-glucose,emergency management consultant,cont #3 ea 07/30/24 02/11/25 (Dexcom G7 Appointment Specialist) losartan 100 mg tablet 100 mg PO DAILY #90 tabs 12/1802/11/25 metoprolol succinate 25 mg 25 mg PO DAILY #90 tabs 12/1802/11/25 tablet,extended release 24 hr paroxetine HCl 20 mg tablet 20 mg PO DAILY #90 tabs 02/11/25 rivaroxaban 20 mg tablet (Xarelto) 20 mg PO DAILY #90 tabs 07/30/24 02/11/25 blood-glucose meter (OneTouch #1 ea 10/31/24 02/11/25 Ultra2 Meter) glipizide 10 mg tablet, extended 20 mg (2 x 10 mg) PO DAILY #180 10/31/24 02/11/25 release 24 hr tabs hydrochlorothiazide 25 mg tablet 25 mg PO DAILY #90 ta bs 10/31/24 02/11/25 insulin glargine 100 unit/mL (3 90 - 100 unit (0.9 - 1 mL) subcut 10/31/24 02/11/25 mL) subcutaneous pen (Basaglar DAILY #30 mL KwikPen U-100 Insulin) metformin 1,000 mg tablet 1,000 mg PO BID #180 tabs 02/11/25 tirzepatide 15 mg/0.5 mL 15 mg (0.5 mL) subcut QWEEK #2 mL 10/31/24 02/11/25 subcutaneous pen injector nitroglycerin 0.4 mg sublingual 0.4 mg sublingual Q5-1 5M PRN chest 01/26/25 02/11/25 tablet pain #25 tabs ketoconazole 2 % topical cream 1 applic topical DAILY #120 grams 01/27/25 02/11/25 pen needle, diabetic 32 gauge x #500 ea 02/02/2502/11 urea 40 % lotion 1 applic topical ONCE 02/11/25 Previous Rx's ?Medication ?Instructions ?Recorded blood sugar diagnostic (OneTouch #200 ea 10/21/22 Ultra Test strips) mometasone 0.1 % topical ointment 1 applic topical MACKENZIE LY PRN ear 06/11/23 eczema #45 grams amlodipine 10 mg tablet 10 mg PO DAILY #90 tabs 12/18 atorvastatin 80 mg tablet 80 mg PO DAILY #90 tabs 12/18 blood-glucose sensor (Dexcom G7 #9 ea 07/30/24 Sensor device) blood-glucose,emergency management consultant,cont #3 ea 07/30/24 (Dexcom G7 Appointment Specialist) losartan 100 mg tablet 100 mg PO DAILY #90 tabs 12/18 metoprolol succinate 25 mg 25 mg PO DAILY #90 tabs 12/18 tablet,extended release 24 hr paroxetine HCl 20 mg tablet 20 mg PO DAILY #90 tabs rivaroxaban 20 mg tablet (Xarelto) 20 mg PO DAILY #90 tabs 07/30/24 blood-glucose meter (OneTouch #1 ea 10/31/24 Ultra2 Meter) glipizide 10 mg tablet, extended 20 mg (2 x 10 mg) PO DAILY #180 10/31/24 release 24 hr tabs hydrochlorothiazide 25 mg tablet 25 mg PO DAILY #90 ta bs 10/31/24 insulin glargine 100 unit/mL (3 90 - 100 unit (0.9 - 1 mL) subcut 10/31/24 mL) subcutaneous pen (Basaglar DAILY #30 mL KwikPen U-100 Insulin) metformin 1,000 mg tablet 1,000 mg PO BID #180 tabs tirzepatide 15 mg/0.5 mL 15 mg (0.5 mL) subcut QWEEK #2 mL 10/31/24 subcutaneous pen injector nitroglycerin 0.4 mg sublingual 0.4 mg sublingual Q5-1 5M PRN chest 01/26/25 tablet pain #25 tabs ketoconazole 2 % topical cream 1 applic topical DAILY #120 grams 01/27/25 pen needle, diabetic 32 gauge x #500 ea 02/02/25 Allergies Allergy/AdvReac Type Severity Reaction Status Date / Time empagliflozin (From AdvReac Mild Sandra Verified 02/11/25 08:32 Jardiance) infections General Stated Complaint: Recheck MOJGAN: 4 Review of Systems Constitutional Constitutional: Reports as per HPI and Denies fever(s) ENT Ears, Nose, Mouth, and Throat: Reports as per HPI and Denies bleeding gums Cardiovascular Cardiovascular: Reports as per HPI, Denies chest pain and Denies dyspnea Respiratory Respiratory: Reports as per HPI, Denies hemoptysis and Denies dyspnea Gastrointestinal Gastrointestinal: Reports as per HPI, Denies melena and Denies hematochezia Integumentary/Breasts Skin/Breast: Denies unusual bruising Hematologic/Lymphatic Hematologic/Lymphatic: Reports as per HPI, Denies easy bleeding and Denies easy bruising Exam Const General: cooperative, healthy appearing, comfortable, no acute distress and well developed Nutritional Appearance: average body habitus and well nourished Orientation: alert and awake [facility] General nose exam: external nose normal, no nasal polyps and epistaxis on the right anterior source (able to visualize small vessel along the septum) and dried blood present; no posterior source noted; not on the left Face and sinus: normal facial exam, sinuses nontender and no edema Eyes General: appearance normal, both eyes and all related structures Resp Effort & Inspection: normal respiratory effort, able to speak in complete sentences and no respiratory distress Cardio Rate: regular rate Rhythm: regular rhythm Skin General skin exam: no rashes or lesions noted Neuro General: patient alert and patient awake Cognition: normal cognition Speech: speech normal Gait: normal gait Course Vital Signs Vital signs: Vital Signs Temperature 35.3 C L 02/11/25 08:28 Pulse 76 02/11/25 08:28 Respiratory Rate 16 02/11/25 08:28 Blood Pressure 172/82 H 02/11/25 08:28 Pulse Oximetry 100 02/11/25 08:28 Temperature 35.3 C L 02/11/25 08:28 Pulse 76 02/11/25 08:28 Respiratory Rate 16 02/11/25 08:28 Blood Pressure 172/82 H 02/11/25 08:28 Blood Pressure Position Sitting 02/11/25 08:28 Pulse Oximetry 100 02/11/25 08:28 Oxygen Delivery Method Room Air 02/11/25 08:28 Oxygen Flow Rate 0 02/11/25 08:28 Medical Decision Making Patient is a pleasant 74-year-old anticoagulated gentleman presenting with chief complaint of epistaxis. He was seen here this morning about 4 hours prior to arrival for the same. At that time, he was treated with Afrin and clamp, sent home with the same. Developed recurrent bleeding shortly after leaving. Used the Afrin and clamp once again. left clamp on for 30 minutes and still had difficulty controlling bleed. Remains in the right nares, atraumatic. On exam, patient appears nontoxic. He does have a clamp on is not actively bleeding through the clamp, no evidence to suggest posterior bleed such as blood in the posterior oropharynx although patient does state that he did spit out bloody sputum earlier. He is not hypotensive or tachycardic to suggest significant blood loss. Does sound like he quickly was able to control this despite not having any lasting control. Exam in the nose reveals a small anterior bleed consistent with a vessel at Dany box plexus. Hemodynamics and exam are not consistent with large volume blood loss. Patient I discussed risk and benefits of using silver nitrate to help with hemostasis in the observed area and patient agreed. He reports that he has had this done in the past. Bleeding was able to be controlled with 2 silver nitrate sticks. Will continue observe the patient. If this is insufficient, we discussed using Gelfoam and TXA. If possible, patient would like to avoid larger packing. After cauterizing the visible bleeding vessel, bleeding has stopped, remains controlled almost one hour into stay. This is despite patient sneezing and drinking. He feels comfortable to go home at this time with continued plan for afrin and clamp should this recur. Return precautions discussed. All of his questions and concerns were addressed, he is in agreement with this plan. [facility] All Active Problems (Updated 02/11/25 @ 09:54 by JANEEN Cho) Right-sided epistaxis (Acute) Type 2 diabetes mellitus with peripheral neuropathy (Acute) Ulcer of left foot with fat layer exposed (Acute) Toe injury (Acute) Obesity (BMI 30-39.9) (Chronic) Tremor of both hands (Chronic) [facility] neurology consulted 05/2023, CTM Nail dystrophy (Chronic) Anemia of chronic disease (Chronic) Peripheral artery disease (Chronic) Mild on ABIs Thrombocytopenia (Chronic) CKD (chronic kidney disease) stage 3, GFR 30-59 ml/min (Chronic) Sigmoid diverticulosis (Chronic) Major depressive disorder, recurrent (Chronic) Type 2 diabetes mellitus with retinopathy (Chronic) Atrial fibrillation (Chronic) Hyperlipidemia (Chronic) Hypertension (Chronic) Obstructive sleep apnea (Chronic) CPAP Coronary artery disease (Chronic) Hx of [place] 1988 Medical History (Updated 02/11/25 @ 09:54 by JANEEN Cho) Tubular adenoma of colon On 2019 colonoscopy Myocardial infarction (01/30/89) Surgical History (Updated 02/10/25 @ 08:45 by Stacia Joseph) History of ankle surgery left S/P colonoscopic polypectomy (~01/2025) History of cataract surgery Status post ORIF of fracture of ankle Left ankle S/P trigger finger release x4 S/P tonsillectomy S/P appendectomy Family History Mother Essential hypertension Lung cancer Father Alcohol abuse Essential hypertension Heart disease Hyperlipidemia Stroke Asthma Sister Essential hypertension Stroke Sister Essential hypertension Depression Hyperlipidemia Sister Substance abuse Essential hypertension Depression Hyperlipidemia Sister No problems noted. Sister Essential hypertension Hyperlipidemia Brother Substance abuse Alcohol abuse Essential hypertension Heart disease Hyperlipidemia Brother Substance abuse Alcohol abuse Hyperlipidemia Lung cancer Brother Substance abuse Essential hypertension Hyperlipidemia Maternal Grandfather , TRAIN ACCIDENT at age 55. Heart disease Hyperlipidemia Asthma Paternal Grandfather Heart disease Asthma Maternal Grandmother Diabetes Essential hypertension Heart disease Hyperlipidemia Paternal Grandmother Colon cancer Pancreatic cancer Son Essential hypertension Hyperlipidemia Son Essential hypertension Hyperlipidemia Sister Essential hypertension Brother No problems noted. Social History Smoking/Tobacco Use Status: Former Tobacco Use tobacco type: cigarettes Quit Date: 01/30/89 Pack-years: 65 Tobacco: How many years used: 22 Second Hand Exposure: Yes Smoking risk assessment performed?: Yes Alcohol Intake: current Alcohol Intake frequency: other Alcohol type: beer Drug use: Never Substance use type: does not use Caregiver/Support person: No Household members: spouse Housing: house Communication Needs: None Do you need help understanding health information?: Never Pets and animals: Yes Pets and animals: dog(s) Sexually active: No Do you think of yourself as: straight/heterosexual Current gender identity: male and decline to answer What is your relationship status?: How often do you talk on the phone with friends or family?: three or more times per week How often do you get together with friends or relatives?: once per week How often do you attend confucianism or pentecostalism services?: decline to answer Do you belong to any clubs or organized social groups?: yes Panel score (0-1 are the most socially isolated patients): 3 What type of physical activity do you participate in: walking Duration: 15-30 minutes/day Frequency: 3-4 times per week Chuyita/Baptist: None Special chuyita needs: No Seatbelt use: always Helmet use: Yes Helmet use: always Drive intox or ride w/intox rear load truck driver: No Do you feel safe at home: Yes Do you feel safe in your relationship?: Yes
[2025-02-11] MEDS: Silver Nitrate Stick 1 EACH TP (10:05)
== END 2025-02-11 10:06 | disposition home or self-care (01) ==
PROVIDERS: Emergency Provider Physician Assistant; PCP Nurse Practitioner Family
DX: R04.0 Epistaxis (principal); E11.22 Type 2 diabetes mellitus with diabetic chronic kidney disease; I12.9 Hypertensive chronic kidney disease with stage 1 through stage 4 chronic kidney disease, or unspecified chronic kidney disease; N18.30 Chronic kidney disease, stage 3 unspecified; I25.10 Atherosclerotic heart disease of native coronary artery without angina pectoris; I25.2 Old myocardial infarction; I48.91 Unspecified atrial fibrillation; E11.40 Type 2 diabetes mellitus with diabetic neuropathy, unspecified; Z79.01 Long term (current) use of anticoagulants; Z79.4 Long term (current) use of insulin; Z79.84 Long term (current) use of oral hypoglycemic drugs
CPT/HCPCS: 30906; 99283

== ENCOUNTER 2025-02-19 11:27 | Inpatient (IN) | payer MEDICARE, BC, SELFPAY ==
[2025-02-19] VITALS (28 sets, daily range): BP systolic 112–144; BP diastolic 58–92; PULSE 78–108; RESP 18–35; TEMP 31–36.9; O2SAT 80–97
--- NOTE | 2025-02-19 11:30 | RT.EKG_ITS ---
APPROVED REPORT Exam: Resting ECG Reason for Exam: Dyspnea Patient Location: E HR:98 bpm ECG Measurements Heart Rate 98 AXIS NE [id number] P [id number] QRSd 106 QRS 28 QT 369 T 189 QTc 471 Conclusion Atrial fibrillation...V-rate 82-116, irreg A-activity Repol abnrm suggests ischemia, lateral leads...ST dep, T neg, I aVL V5 V6
--- NOTE | 2025-02-19 11:45 | ED.GENADUL_ITS ---
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[facility] [place] .Route Qty: 3 3RF Rx Instructions: Continuous glucose monitor (DME) Dexcom G7 Sensor Device See Rx Instructions .Route Qty: 9 3RF Rx Instructions: Continuous glucose monitor losartan 100 mg tablet 100 mg PO DAILY Qty: 90 3RF paroxetine HCl 20 mg tablet 20 mg PO DAILY Qty: 90 3RF Xarelto 20 mg tablet 20 mg PO DAILY Qty: 90 3RF metoprolol succinate 25 mg tablet extended release 24 hr 25 mg PO DAILY Qty: 90 3RF hydrochlorothiazide 25 mg tablet 25 mg PO DAILY Qty: 90 3RF metformin 1,000 mg tablet 1,000 mg PO BID Qty: 180 3RF tirzepatide 15 mg/0.5 mL pen injector 15 mg subcut QWEEK Qty: 2 12RF glipizide 10 mg tablet extended release 24hr 20 mg PO DAILY Qty: 180 3RF insulin glargine [Basaglar KwikPen U-100 Insulin] 100 unit/mL (3 mL) insulin pen 90 - 100 unit subcut DAILY Qty: 30 12RF (DME) blood-glucose meter [ABFIT ProductsTouch Ultra2 Meter] [facility] [place] .Route Qty: 1 3RF Rx Instructions: Check blood sugar twice a day nitroglycerin 0.4 mg tablet, sublingual 0.4 mg sublingual Q5-15M PRN (Reason: chest pain) Qty: 25 3RF Patient Comments: never needed Rx Instructions: 1 tablet every 5 minutes x 3 doses if needed for chest pain. Seek emergency services if not improving after first dose ketoconazole 2 % cream 1 applic topical DAILY Qty: 120 6RF Rx Instructions: Apply to toenails once daily (DME) lancets [OneTouch Delica Lancets] 1 EACH misc 1 ea Miscellaneous AC& HS Qty: 400 Rx Instructions: DX: E11.65, ADJUSTING INSULINS (DME) OneTouch Ultra Test Strip 1 strip Miscellaneous AC&HS Qty: 200 3RF Rx Instructions: Check blood sugar twice a day mometasone 0.1 % ointment 1 applic topical DAILY PRN (Reason: ear eczema) Qty: 45 0RF (DME) pen needle, diabetic 32 gauge x 5/32 needle See Rx Instructions .Route Qty: 500 4RF Rx Instructions: Use with insulin pen and mounjaro pen urea 40 % lotion 1 applic topical ONCE HPI General Date/Time Provider Initiated Documentation: 02/19/25 11:36 . HPI Narrative: 74-year-old male with a past medical history of previous tobacco abuse, myocardial infarction's without stenting in the 80s, atrial fibrillation on xarelto, high cholesterol, hypertension, diabetes mellitus, chronic kidney disease, presents today for shortness of breath. Patient states that for the last week or 2 he has had mild worsening shortness of breath, usually exertional. No associated chest pain. And then for the last 6 hours after waking up he was notably short of breath, both at rest and with exertion. He does not use supplemental oxygen at baseline. He has felt slightly dizzy. He admits to cough, runny nose, upper respiratory-like symptoms, mild productivity with his cough. He denies any hemoptysis. He does admit to swelling and edema in his lower extremities which he states is slightly worse compared to normal. No other complaints at this time. Related Data Home Medications ?Medication ?Instructions ?Recorded ?Confirmed lancets 33 gauge (OneTouch Delica #400 ea 11/27/15 Lancets) blood sugar diagnostic (OneTouch #200 ea 10/21/2201/26 Ultra Test strips) mometasone 0.1 % topical ointment 1 applic topical MACKENZIE LY PRN ear 06/11/23 02/19/25 eczema #45 grams multivitamin (One Daily 1 tab PO DAILY 10/22/2301/26 Multivitamin tablet) amlodipine 10 mg tablet 10 mg PO DAILY #90 tabs 12/0 12/1802/19/25 atorvastatin 80 mg tablet 80 mg PO DAILY #90 tabs 12/0 12/1802/19/25 blood-glucose sensor (Dexcom G7 #9 ea 07/30/24 5 Sensor device) blood-glucose,catering truck driver,cont #3 ea 07/30/24 02/19/25 (Dexcom G7 Construction Supervisor/Carpenter) losartan 100 mg tablet 100 mg PO DAILY #90 tabs 12/1802/19/25 metoprolol succinate 25 mg 25 mg PO DAILY #90 tabs 12/1802/19/25 tablet,extended release 24 hr paroxetine HCl 20 mg tablet 20 mg PO DAILY #90 tabs 02/19/25 rivaroxaban 20 mg tablet (Xarelto) 20 mg PO DAILY #90 tabs 07/30/24 02/19/25 blood-glucose meter (Flypaduch #1 ea 10/31/24 02/19/25 Ultra2 Meter) glipizide 10 mg tablet, extended 20 mg (2 x 10 mg) PO DAILY #180 10/31/24 02/19/25 release 24 hr tabs hydrochlorothiazide 25 mg tablet 25 mg PO DAILY #90 ta bs 10/31/24 02/19/25 insulin glargine 100 unit/mL (3 90 - 100 unit (0.9 - 1 mL) subcut 10/31/24 02/19/25 mL) subcutaneous pen (Basaglar DAILY #30 mL KwikPen U-100 Insulin) metformin 1,000 mg tablet 1,000 mg PO BID #180 tabs 02/19/25 tirzepatide 15 mg/0.5 mL 15 mg (0.5 mL) subcut QWEEK #2 mL 10/31/24 02/19/25 subcutaneous pen injector nitroglycerin 0.4 mg sublingual 0.4 mg sublingual Q5-1 5M PRN chest 01/26/25 02/19/25 tablet pain #25 tabs ketoconazole 2 % topical cream 1 applic topical DAILY #120 grams 01/27/25 02/19/25 pen needle, diabetic 32 gauge x #500 ea 02/02/2502/19 urea 40 % lotion 1 applic topical ONCE 02/19/25 Previous Rx's ?Medication ?Instructions ?Recorded blood sugar diagnostic (ABFIT ProductsTouch #200 ea 02/25/23 Ultra Test strips) mometasone 0.1 % topical ointment 1 applic topical MACKENZIE LY PRN ear 06/11/23 eczema #45 grams amlodipine 10 mg tablet 10 mg PO DAILY #90 tabs 12/18 atorvastatin 80 mg tablet 80 mg PO DAILY #90 tabs 12/18 blood-glucose sensor (Dexcom G7 #9 ea 07/30/24 Sensor device) blood-glucose,catering truck driver,cont #3 ea 07/30/24 (Dexcom G7 Construction Supervisor/Carpenter) losartan 100 mg tablet 100 mg PO DAILY #90 tabs 12/18 metoprolol succinate 25 mg 25 mg PO DAILY #90 tabs 12/18 tablet,extended release 24 hr paroxetine HCl 20 mg tablet 20 mg PO DAILY #90 tabs rivaroxaban 20 mg tablet (Xarelto) 20 mg PO DAILY #90 tabs 07/30/24 blood-glucose meter (OneTouch #1 ea 10/31/24 Ultra2 Meter) glipizide 10 mg tablet, extended 20 mg (2 x 10 mg) PO DAILY #180 10/31/24 release 24 hr tabs hydrochlorothiazide 25 mg tablet 25 mg PO DAILY #90 ta bs 10/31/24 insulin glargine 100 unit/mL (3 90 - 100 unit (0.9 - 1 mL) subcut 10/31/24 mL) subcutaneous pen (Basaglar DAILY #30 mL KwikPen U-100 Insulin) metformin 1,000 mg tablet 1,000 mg PO BID #180 tabs tirzepatide 15 mg/0.5 mL 15 mg (0.5 mL) subcut QWEEK #2 mL 10/31/24 subcutaneous pen injector nitroglycerin 0.4 mg sublingual 0.4 mg sublingual Q5-1 5M PRN chest 01/26/25 tablet pain #25 tabs ketoconazole 2 % topical cream 1 applic topical DAILY #120 grams 01/27/25 pen needle, diabetic 32 gauge x #500 ea 02/02/25 Allergies Allergy/AdvReac Type Severity Reaction Status Date / Time empagliflozin (From AdvReac Mild Sandra Verified 02/19/25 12:00 Jardiance) infections General Stated Complaint: RespSymp MOJGAN: 3 Exam Narrative Exam Narrative: 1.Const: Well-nourished, Well-developed, appearing stated age 2.Eyes: PERRL, no conjunctival injection, and symmetrical lids. 3.ENT: Atraumatic external nose and ears. Moist MM. Neck: Symmetric, trachea midline, No thyromegaly. 4.CVS: +S1/S2, Peripheral pulses 2+ and equal in all extremities. Brisk capillary refill in all extremities. 5.RESP: Unlabored respiratory effort. Slightly diminished breath sounds 6.GI: Soft, Nontender/Nondistended, No hepatosplenomegaly. No guarding or rebound. 7.MSK: Normocephalic/Atraumatic, Extremities w/o deformity or ttp No cyanosis or clubbing, Normal movement of all extremities, plus +2 edema 8.Skin: Warm, Dry. No rashes or lesions. 9.Neuro: nut sheller II-XII grossly intact. Sensation grossly intact, no focal neurologic deficits. 10.Psych: (AAO) x3. Appropriate mood and affect Course Vital Signs Vital signs: Vital Signs Temperature 36.9 C 02/19/25 11:30 Pulse 90 02/19/25 11:30 Respiratory Rate 18 02/19/25 11:30 Blood Pressure 144/77 H 02/19/25 11:30 Pulse Oximetry 97 02/19/25 11:30 Temperature 36.9 C 02/19/25 11:33 Pulse 90 02/19/25 11:33 Respiratory Rate 18 02/19/25 11:33 Blood Pressure 144/77 H 02/19/25 11:33 Pulse Oximetry 88 L 02/19/25 11:44 Oxygen Delivery Method Room Air 02/19/25 11:44 Oxygen Flow Rate 0 02/19/25 11:44 Pain Level 0 02/19/25 11:33 Procedure EJ/Peripheral IV/Phlebotomy Date of Procedure: 02/19/25 Time of Procedure: 12:19 Indication: Nursing/tech could not get IV and Difficult IV access Skin Cleansed in Sterile Fashion: Yes Laterality: Right Insertion Site: Brachial Size & Type: 18 ga. Number ofAttempts(See previous attempts in note section): 1 Dressing: IV Dressing Placed and Tegaderm Applied Ultrasound: Used/Image Saved Estimated Blood Loss: minimal Reason for Blood Draw by Provider: RN/lab unable and MD to place line Obtained Bloods via: peripheral vein stick Estimated cc's Blood Obtained: 10 Procedure Tolerated: No Complications and Patient tolerated well Procedure Outcome: Successful Medical Decision Making 74-year-old male with a past medical history of previous tobacco abuse, myocardial infarction's without stenting in the 80s, atrial fibrillation on xarelto, high cholesterol, hypertension, diabetes mellitus, chronic kidney disease, presents today for shortness of breath. Patient states that for the last week or 2 he has had mild worsening shortness of breath, usually exertional. No associated chest pain. And then for the last 6 hours after waking up he was notably short of breath, both at rest and with exertion. He does not use supplemental oxygen at baseline. He has felt slightly dizzy. He admits to cough, runny nose, upper respiratory-like symptoms, mild productivity with his cough. He denies any hemoptysis. He does admit to swelling and edema in his lower extremities which he states is slightly worse compared to normal. No other complaints at this time. Exam demonstrates a well-appearing male, +2 pitting edema both lower extremities, slightly diminished breath sounds, oxygen is between 86 and 89%. Lung sounds demonstrate no rhonchi or wheeze otherwise though. Concern for potential congestive heart failure, less likely pneumonia. Will get x-ray, give 20 of Lasix, PE unlikely given his continued Eliquis use. Pneumothorax and COPD exacerbation less likely given lung findings. Will monitor closely and reassess. 2:51 PM Laboratory workup returned, patient has a white count of 18, moderate left shift, no bandemia. VBG relatively stable, electrolytes stable, proBNP is high at 4250, initial troponin is 1500, repeat troponin is now 1800. COVID flu and RSV are negative. Chest x-ray shows evidence of right-sided pneumonia. Due to the concern for community-acquired pneumonia patient will be given ceftriaxone and doxycycline. With the climbing troponin, we will heparinize the patient and hold his Xarelto. Patient remains around 88% on 2 to 3 L of supplemental oxygen. We will transition to humidified warmed high flow for a small amount of additional PEEP and increased oxygen benefit. I did contact [facility] cardiology and discussed the case with Dr. Schwab, she agrees with the assessment and plan and recommends transfer. They are currently holding for 24 to 48 hours, with an expected bed availability on Sunday. In the meantime we will admit here, continue heparinization, and plan for echo if available. Discussed the case with hospitalist Dr. Dahl, he agrees with the assessment and plan. I have extensively reviewed the treatment plan with the patient. I have addressed all patient concerns at this time. I have also discussed the plan with the admitting physician and they agree with the current assessment and plan and have agreed to assume responsibility for the patient. All parties demonstrate verbal understanding and agreement with our assessment and plan at this time. The documentation in this chart was dictated using CompleteSet dictation software. Please excuse any dictation errors. FINDINGS: LUNGS: There is an infiltrate in the right mid and lower lung jimenez. There is minimal blunting at the costophrenic angle consistent with tiny effusion. Left lung appears grossly clear. HEART: Normal size. AORTA: Normal diameter. BONES: Unremarkable for age. Soft tissues: Unremarkable. IMPRESSION: Right-sided pneumonia. Critical Care Time Critical Care Time Critical Care Time: Yes Total Critical Care Time: 45 Attestation: Upon my evaluation, this patient had a high probability of imminent or life- threatening deterioration, which required my direct attention, intervention, and personal management. I have personally provided 45 minutes of critical care time exclusive of time spent on separately billable procedures. Time includes review of laboratory data, radiology results, discussion with consultants, and mo nitoring for potential decompensation. Interventions were performed as documented. PFSH All Active Problems (Updated 02/19/25 @ 14:57 by Spike Redman DO) Acute hypoxic respiratory failure (Acute) Community acquired pneumonia (Acute) Non-ST elevation MT (NSTEMI) (Acute) Right-sided epistaxis (Acute) Type 2 diabetes mellitus with peripheral neuropathy (Acute) Ulcer of left foot with fat layer exposed (Acute) Toe injury (Acute) Obesity (BMI 30-39.9) (Chronic) Tremor of both hands (Chronic) [facility] neurology consulted 05/2023, CTM Nail dystrophy (Chronic) Anemia of chronic disease (Chronic) Peripheral artery disease (Chronic) Mild on ABIs Thrombocytopenia (Chronic) CKD (chronic kidney disease) stage 3, GFR 30-59 ml/min (Chronic) Sigmoid diverticulosis (Chronic) Major depressive disorder, recurrent (Chronic) Type 2 diabetes mellitus with retinopathy (Chronic) Atrial fibrillation (Chronic) Hyperlipidemia (Chronic) Hypertension (Chronic) Obstructive sleep apnea (Chronic) CPAP Coronary artery disease (Chronic) Hx of MT 1988 Medical History (Updated 02/19/25 @ 14:57 by Spike Redman DO) Tubular adenoma of colon On 2020 colonoscopy Myocardial infarction (01/30/89) Surgical History (Updated 02/10/25 @ 08:45 by Stacia Joseph) History of ankle surgery left S/P colonoscopic polypectomy (~01/2025) History of cataract surgery Status post ORIF of fracture of ankle Left ankle S/P trigger finger release x4 S/P tonsillectomy S/P appendectomy Family History Mother Essential hypertension Lung cancer Father Alcohol abuse Essential hypertension Heart disease Hyperlipidemia Stroke Asthma Sister Essential hypertension Stroke Sister Essential hypertension Depression Hyperlipidemia Sister Substance abuse Essential hypertension Depression Hyperlipidemia Sister No problems noted. Sister Essential hypertension Hyperlipidemia Brother Substance abuse Alcohol abuse Essential hypertension Heart disease Hyperlipidemia Brother Substance abuse Alcohol abuse Hyperlipidemia Lung cancer Brother Substance abuse Essential hypertension Hyperlipidemia Maternal Grandfather , TRAIN ACCIDENT at age 55. Heart disease Hyperlipidemia Asthma Paternal Grandfather Heart disease Asthma Maternal Grandmother Diabetes Essential hypertension Heart disease Hyperlipidemia Paternal Grandmother Colon cancer Pancreatic cancer Son Essential hypertension Hyperlipidemia Son Essential hypertension Hyperlipidemia Sister Essential hypertension Brother No problems noted. Social History Smoking/Tobacco Use Status: Former Tobacco Use tobacco type: cigarettes Quit Date: 01/30/89 Pack-years: 66 Tobacco: How many years used: 22 Second Hand Exposure: Yes Smoking risk assessment performed?: Yes Alcohol Intake: current Alcohol Intake frequency: other Alcohol type: beer Drug use: Never Substance use type: does not use Caregiver/Support person: No Household members: spouse Housing: house Communication Needs: None Do you need help understanding health information?: Never Pets and animals: Yes Pets and animals: dog(s) Sexually active: No Do you think of yourself as: straight/heterosexual Current gender identity: male and decline to answer What is your relationship status?: How often do you talk on the phone with friends or family?: three or more times per week How often do you get together with friends or relatives?: once per week How often do you attend synagogue or orthodoxy services?: decline to answer Do you belong to any clubs or organized social groups?: yes Panel score (0-1 are the most socially isolated patients): 3 What type of physical activity do you participate in: walking Duration: 15-30 minutes/day Frequency: 3-4 times per week Chuyita/Temple: None Special chuyita needs: No Seatbelt use: always Helmet use: Yes Helmet use: always Drive intox or ride w/intox lumber stacker driver: No Do you feel safe at home: Yes Do you feel safe in your relationship?: Yes
[2025-02-19] MEDS: Furosemide 20 MG/2 ML VIAL IVP (12:31)
[2025-02-19 12:35] LABS: BE (Venous) -3 mmol/L (-2-3); HCO3 (Venous) 22 mmol/L (23-28); O2 Sat (Venous) 67 %; TCO2 (Venous) 21 mmol/L (24-29); pCO2 (Venous) 33 mmHg (41-51); pH (Venous) 7.42 (7.31-7.41); pO2 (Venous) 38 mmHg
[2025-02-19 12:36] LABS: HCT 27.6 % (40.0-50.0); HGB 8.9 g/dL (13.5-17.5); MCH 26.6 pg (27.0-33.0); MCHC 32.2 % (32.0-36.0); MCV 82 fL (80-95); MPV 12.3 fL (8.0-11.0); Platelet Count 204 10^3/uL (130-400); RBC 3.35 10^6/uL (4.36-5.78); RDW 21.3 % (11.8-14.1); WBC 18.02 10^3/uL (4.4-10.8)
[2025-02-19 12:51] LABS: INR 1.7 (0.9-1.1); PTT Activated 41.7 sec (20.6-30.2); Prothrombin Time 16.6 sec (9.1-11.1)
--- NOTE | 2025-02-19 12:56 | DI.RAD_ITS ---
Exam(s) XR PORTABLE CHEST AP EXAM: XR PORTABLE CHEST AP CLINICAL HISTORY: SOB, suspect CHF TECHNIQUE: 2D digital imaging was performed. COMPARISON: CR XR CHEST 2V PA LATERAL from 09/10/2018 CR XR shoulder LT complete 2+V from 09/10/2018 FINDINGS: LUNGS: There is an infiltrate in the right mid and lower lung jimenez. There is minimal blunting at the costophrenic angle consistent with tiny effusion. Left lung appears grossly clear. HEART: Normal size. AORTA: Normal diameter. BONES: Unremarkable for age. Soft tissues: Unremarkable. IMPRESSION: Right-sided pneumonia. DATA REPOSITORY: RADIATION DOSE DELIVERED:
[2025-02-19 13:06] LABS: ALT 46 U/L (16-63); AST 51 U/L (15-37); Albumin 2.7 g/dL (3.4-5.0); Alkaline Phosphatase 60 U/L (46-116); Anion Gap 11.9 mmol/L (3-11); BUN 43 mg/dL (7-18); CO2 22.1 mmol/L (21.0-32.0); CREATININE 1.6 mg/dL (0.70-1.30); Calcium 7.9 mg/dL (8.5-10.1); Chloride 100 mmol/L (98-107); Estimated GFR 44.65 (mL/min/1.73m2); Glucose 261 mg/dL (74-106); NT-proBNP 4250 pg/mL (<300); Potassium 3.4 mmol/L (3.5-5.1); Sodium 134 mmol/L (136-145); Total Protein 6.3 g/dL (6.4-8.2)
[2025-02-19 13:10] LABS: Absolute Eosinophil Count 0.18 10^3/uL (0.0-0.7); Absolute Monocyte Count 2.88 10^3/uL (0.1-0.8); Absolute Neutrophil Count 12.25 10^3/uL (1.2-6.7); Atypical Lymphocytes % 0 %; Bands % 0 %; Troponin I 1593 ng/L (<or=76)
[2025-02-19 13:11] LABS: Anisocytosis 2+; Diff Comment Manual Differential; Hypochromasia 1+; Polychromasia Present
[2025-02-19 13:18] LABS: COVID-19 PCR Negative (Negative); Influenza A PCR Negative (Negative); Influenza B PCR Negative (Negative); RSV PCR Negative (Negative)
[2025-02-19 13:35] LABS: Source Nasopharynx
[2025-02-19] MEDS: Aspirin 81 MG CHEW 324 MG CH (13:36)
[2025-02-19 14:36] LABS: Troponin I 1806 ng/L (<or=76)
[2025-02-19] MEDS: DOXYCYCLINE 100 MG in Normal Saline 100 ML IVPB (14:38)
[2025-02-19] MEDS: cefTRIAXone 2 GM/50 ML BAG IVPB (14:38)
[2025-02-19] MEDS: Heparin in 0.45% NaCl 25,000 UNIT/250 ML BAG 10 UNIT IVINF (15:07)
--- NOTE | 2025-02-19 15:14 | W.PM.HP.N ---
Date of service: 02/19/25 Time of Service: 15:15 Assessment and Plan Assessment and plan (1) Non-ST elevation MS (NSTEMI): Status: Acute Assessment and plan: Significant elevation of troponin associated with SOB/hypoxia in setting of pneumonia EKG c/w some ischemia, but no STEMI Level of troponin elevation hard to attribute to his breathing, as he is not uncomfortable at rest. I agree with concern for ACS/unstable plaque component He is on heparin, loaded on aspirin, holding DOAC, already on high intensity statin. No clopidogrel. Admit to [facility] pending bed at for catheterization. (2) Community acquired pneumonia: Status: Acute Assessment and plan: Presenting symptoms, CXR are all attributable to his pneumonia. Started on ceftriaxone and doxy, will continue. (3) Acute hypoxic respiratory failure: Status: Acute Assessment and plan: Secondary to pneumonia STEMI and worse anemia may also be contributing. Had been stable on airvo at 40%, but dropped with increased activity after my exam around 5:30pm. Some rales in both bases (not just right) at that point, decided to give 40mg IV furosemide. If this isn't helping, consider CPAP/BiPAP (4) Atrial fibrillation: Status: Chronic Assessment and plan: Holding rivaroxaban on heparin drip continue metoprolol (5) Type 2 diabetes mellitus with peripheral neuropathy: Status: Acute Assessment and plan: Reasonable control with A1c 7.4% on 01/27/25. He didn't get a contrast study, will continue outpatient meds including metformin for now. However change glipizide to short acting as he is also on glargine. Cut glargine dose by ~25% as he will be on controlled diet here. ISS prn. He is on GLP-1 as appropriate for patient with CAD. He may benefit from SGLT2i, He does have PAD but mild. Would benefit CKD and obesity. (6) CKD (chronic kidney disease) stage 3, GFR 30-59 ml/min: Status: Chronic Assessment and plan: Near baselin GFR, follow (7) Anemia: Status: Chronic Assessment and plan: I am concerned about the drop in H/h from previous baseline mild anemia. By history Will follow h/h this evening. occult blood stools, start on PPI to prevent gastric bleed. (8) Hyperlipidemia: Status: Chronic Assessment and plan: LDL <70, lipids at goal when tested 01/27/25 (9) Hypertension: Status: Chronic Assessment and plan: continue outpatient therapy (10) Obesity (BMI 30-39.9): Status: Chronic Assessment and plan: on GLP-1/GIP (11) Elevated AST (SGOT): Status: Acute Assessment and plan: Noted in past year. EtOH level negative today. With chronic low platelets (though normal today with acute infection), risk factors for MASLD, I am concerned he may have advanced liver fibrosis/cirrhosis. He should have elastography on outpatient f/u. (12) Major depressive disorder, recurrent: Status: Chronic (13) Obstructive sleep apnea: Status: Chronic Assessment and plan: home CPAP (14) DVT prophylaxis: Status: Acute Assessment and plan: on heparin drip (15) Discharge planning issues: Status: Acute Assessment and plan: He has been accepted to cardiology for non-emergent catheterization, likely 02/21 History of Present Illness History of Present Illness Chief Complaint: SOB, cough Narrative: 74 yo M with CAD, type 2 DM, CKD3a, SEPIDEH, atrial fibrillation on rivaroxaban, HTN who presented with about a week of runny nose, sore throat, and cough with 2-3 days of worsening dyspnea on exertion. Symptoms started about a week ago with some sore throat and runny nose. He has had a cough that is productive of thick sputum orangish sputum, no blood. For the past 2-3 days he has become increasingly short of breath. It is worse with exertion, especially climbing stairs, but he is SOB even walking from room to room. This brought him in today. He has felt a little lightheaded at times with his symptoms. No chest pain or pressure, no pain in neck/arm/back/shoulder. No nausea or diaphoresis. He hasn't had fevers or chills. No abdominal pain or diarrhea. Of note he had a colonscopy 02/09 during which 6 polyps were removed. He had blood in his stool for a week after this. He also had a bad nose bleed 02/11 that needed cautery. No bleeding noted in the past few days. Review of Systems All systems reviewed & are unremarkable except as noted in HPI and below PFSH All Active Problems Discharge planning issues (Acute) DVT prophylaxis (Acute) Elevated AST (SGOT) (Acute) Anemia (Chronic) Acute hypoxic respiratory failure (Acute) Community acquired pneumonia (Acute) Non-ST elevation MS (NSTEMI) (Acute) Right-sided epistaxis (Acute) Type 2 diabetes mellitus with peripheral neuropathy (Acute) Ulcer of left foot with fat layer exposed (Acute) Toe injury (Acute) Obesity (BMI 30-39.9) (Chronic) Tremor of both hands (Chronic) [facility] neurology consulted 05/2023, CTM Nail dystrophy (Chronic) Anemia of chronic disease (Chronic) Peripheral artery disease (Chronic) Mild on ABIs Thrombocytopenia (Chronic) CKD (chronic kidney disease) stage 3, GFR 30-59 ml/min (Chronic) Sigmoid diverticulosis (Chronic) Major depressive disorder, recurrent (Chronic) Type 2 diabetes mellitus with retinopathy (Chronic) Atrial fibrillation (Chronic) Hyperlipidemia (Chronic) Hypertension (Chronic) Obstructive sleep apnea (Chronic) CPAP Coronary artery disease (Chronic) Hx of MS 1988 Medical History Myocardial infarction (01/30/89) Tubular adenoma of colon On 2019 colonoscopy Surgical History History of ankle surgery left S/P colonoscopic polypectomy (~01/2025) History of cataract surgery Status post ORIF of fracture of ankle Left ankle S/P trigger finger release x4 S/P tonsillectomy S/P appendectomy Family History Mother Essential hypertension Lung cancer Father Alcohol abuse Essential hypertension Heart disease Hyperlipidemia Stroke Asthma Sister Essential hypertension Stroke Sister Essential hypertension Depression Hyperlipidemia Sister Substance abuse Essential hypertension Depression Hyperlipidemia Sister No problems noted. Sister Essential hypertension Hyperlipidemia Brother Substance abuse Alcohol abuse Essential hypertension Heart disease Hyperlipidemia Brother Substance abuse Alcohol abuse Hyperlipidemia Lung cancer Brother Substance abuse Essential hypertension Hyperlipidemia Maternal Grandfather , TRAIN ACCIDENT at age 55. Heart disease Hyperlipidemia Asthma Paternal Grandfather Heart disease Asthma Maternal Grandmother Diabetes Essential hypertension Heart disease Hyperlipidemia Paternal Grandmother Colon cancer Pancreatic cancer Son Essential hypertension Hyperlipidemia Son Essential hypertension Hyperlipidemia Sister Essential hypertension Brother No problems noted. Social History (Updated 02/19/25 @ 18:01 by Krystian Correia) Smoking/Tobacco Use Status: Former Tobacco Use tobacco type: cigarettes Quit Date: 01/30/89 Pack-years: 66 Tobacco: How many years used: 22 Second Hand Exposure: Yes Smoking risk assessment performed?: Yes Alcohol Intake: current Alcohol Intake frequency: other Alcohol type: beer Details: non recently Drug use: Never Substance use type: does not use Caregiver/Support person: No Household members: spouse Housing: house Communication Needs: None Do you need help understanding health information?: Never Pets and animals: Yes Pets and animals: dog(s) Sexually active: No Do you think of yourself as: straight/heterosexual Current gender identity: male and decline to answer What is your relationship status?: How often do you talk on the phone with friends or family?: three or more times per week How often do you get together with friends or relatives?: once per week How often do you attend latter day or hoahaoism services?: decline to answer Do you belong to any clubs or organized social groups?: yes Panel score (0-1 are the most socially isolated patients): 3 What type of physical activity do you participate in: walking Duration: 15-30 minutes/day Frequency: 3-4 times per week Chuyita/Adventist: None Special chuyita needs: No Seatbelt use: always Helmet use: Yes Helmet use: always Drive intox or ride w/intox mixer driver: No Do you feel safe at home: Yes Do you feel safe in your relationship?: Yes Additional Social history: Lives with Mary on [address] in [facility] Allergies and Home Medications Allergies Allergy/AdvReac Type Severity Reaction Status Date / Time empagliflozin (From AdvReac Mild Sandra Verified 02/19/25 12:00 Jardiance) infections Home Medications ?Medication ?Instructions ?Recorded ?Confirmed ?Type lancets 33 gauge (OneTouch Delica #400 ea 11/27/15 02/19/25 History Lancets) blood sugar diagnostic (Topsy LabsTouch #200 ea 10/21/22 02/19/25 Rx Ultra Test strips) mometasone 0.1 % topical ointment 1 applic topical DAILY PRN ear 06/11/23 02/19/25 Rx eczema #45 grams multivitamin (One Daily 1 tab PO DAILY 10/22/23 02/19/25 History Multivitamin tablet) amlodipine 10 mg tablet 10 mg PO DAILY #90 tabs 12/04/24 06/26/25 Rx atorvastatin 80 mg tablet 80 mg PO DAILY #90 tabs 07/30/24 02/19/25 Rx blood-glucose sensor (Dexcom G7 #9 ea 07/30/24 02/19/25 Rx Sensor device) blood-glucose,service order clerk,cont #3 ea 07/30/24 02/19/25 Rx (Dexcom G7 Services Tech) losartan 100 mg tablet 100 mg PO DAILY #90 tabs 07/30/24 02/19/25 Rx metoprolol succinate 25 mg 25 mg PO DAILY #90 tabs 07/30/24 02/19/25 Rx tablet,extended release 24 hr paroxetine HCl 20 mg tablet 20 mg PO DAILY #90 tabs 07/30/24 02/19/25 Rx rivaroxaban 20 mg tablet (Xarelto) 20 mg PO DAILY #90 tabs 07/30/24 02/19/25 Rx blood-glucose meter (OneTouch #1 ea 10/31/24 02/19/25 Rx Ultra2 Meter) glipizide 10 mg tablet, extended 20 mg (2 x 10 mg) PO DAILY #180 10/31/24 02/19/25 Rx release 24 hr tabs hydrochlorothiazide 25 mg tablet 25 mg PO DAILY #90 tabs 10/31/24 02/19/25 Rx insulin glargine 100 unit/mL (3 90 - 100 unit (0.9 - 1 mL) subcut 10/31/24 02/19/25 Rx mL) subcutaneous pen (Basaglar DAILY #30 mL KwikPen U-100 Insulin) metformin 1,000 mg tablet 1,000 mg PO BID #180 tabs 10/31/24 02/19/25 Rx tirzepatide 15 mg/0.5 mL 15 mg (0.5 mL) subcut QWEEK #2 mL 10/31/24 02/19/25 Rx subcutaneous pen injector nitroglycerin 0.4 mg sublingual 0.4 mg sublingual Q5-15M PRN chest 01/26/25 02/19/25 Rx tablet pain #25 tabs ketoconazole 2 % topical cream 1 applic topical DAILY #120 grams 01/27/25 02/19/25 Rx pen needle, diabetic 32 gauge x #500 ea 02/02/25 02/19/25 Rx urea 40 % lotion 1 applic topical ONCE 02/09/25 02/19/25 History Exam Narrative Exam Narrative: GEN: Alert and oriented x 4, pleasant and cooperative, gives linear history. No acute distress at rest sitting up in bed with Airvo in nose at 40% FiO2 HEENT: Head atraumatic. Conjunctiva clear, no icterus. PEERL, EOMI. no rhinorrhea. MMM, OP benign. Neck is supple with no masses or lymphadenopathy, trachea midline LUNGS: Breathing in 20s, but appears comfortable, rales right mid lung field with slight wheeze in that area. CV: RRR with no murmurs, gallops, or rubs. ABD: active bowel sounds, soft, nontender and nondistended. No masses. EXT: no cyanosis, clubbing. Warm. 2+ pitting edema jose guadalupe LE MSK: No joint redness or swelling NEURO: CN 2-12 grossly intact. Normal movement of 4 extremities. Normal speech and coordination. No tremor SKIN: No rashes or open wounds. Venous stasis changes in lower legs PSYCH: normal mood and affect, normal thought process Results Imaging Chest x-ray: report reviewed (Right-sided pneumonia.) and image reviewed EKG: report reviewed (Atrial fibrillation...V-rate 82-116, irreg A-activity Repol abnrm suggests ischemia, lateral leads...ST dep, T neg, I aVL V5 V6) Labs 02/19/25 12:28 02/19/25 12:28 Labs: Laboratory Results - last 24 hr 02/19/25 02/19/25 02/19/25 11:59 12:28 12:28 WBC 18.02 H RBC 3.35 L Hgb 8.9 L Hct 27.6 L MCV 82 MCH 26.6 L MCHC 32.2 RDW 21.3 H Plt Count 204 MPV 12.3 H Immature Gran % 0.0 Neutrophils % 68.0 Band Neutrophils % 0 Lymphocytes % 15.0 Atypical Lymphs % 0 Monocytes % 16.0 Eosinophils % 1.0 Basophils % 0.0 Nucleated RBC % 0.0 Absolute Neutrophils 12.25 H Absolute Lymphocytes 2.70 Absolute Monocytes 2.88 H Absolute Eosinophils 0.18 Absolute Basophils 0.00 RBC Morphology See Below Polychromasia Present Hypochromasia 1+ Anisocytosis 2+ PT 16.6 H INR 1.7 H APTT 41.7 H VBG pH 7.42 H VBG pCO2 33 L VBG pO2 38 VBG HCO3 22 L VBG Total CO2 21 L VBG O2 Saturation 67 VBG Base Excess -3 L Sodium 134 L Potassium 3.4 L Chloride 100 Carbon Dioxide 22.1 Anion Gap 11.9 H BUN 43 H Creatinine 1.6 H Est GFR (CKD-EPI 2020) 44.65 Glucose 261 H Calcium 7.9 L Total Bilirubin 1.0 AST 51 H ALT 46 Alkaline Phosphatase 60 Troponin I 1593 H* NT-Pro-B Natriuret Pep 4250 H Cancelled Total Protein 6.3 L Albumin 2.7 L COVID-19 Source Nasopharynx SARS-CoV-2 (PCR) Negative Influenza Type A (PCR) Negative Influenza Type B (PCR) Negative RSV (PCR) Negative 02/19/25 02/19/25 13:39 17:00 WBC RBC Hgb Cancelled Hct Cancelled MCV MCH MCHC RDW Plt Count MPV Immature Gran % Neutrophils % Band Neutrophils % Lymphocytes % Atypical Lymphs % Monocytes % Eosinophils % Basophils % Nucleated RBC % Absolute Neutrophils Absolute Lymphocytes Absolute Monocytes Absolute Eosinophils Absolute Basophils RBC Morphology Polychromasia Hypochromasia Anisocytosis PT INR APTT VBG pH VBG pCO2 VBG pO2 VBG HCO3 VBG Total CO2 VBG O2 Saturation VBG Base Excess Sodium Potassium Chloride Carbon Dioxide Anion Gap BUN Creatinine Est GFR (CKD-EPI 2020) Glucose Calcium Total Bilirubin AST ALT Alkaline Phosphatase Troponin I 1806 H* NT-Pro-B Natriuret Pep Total Protein Albumin COVID-19 Source SARS-CoV-2 (PCR) Influenza Type A (PCR) Influenza Type B (PCR) RSV (PCR) Last Vital Signs Temp 36.9 C 02/19/25 11:33 Pulse 90 02/19/25 15:01 Resp 31 H 02/19/25 15:01 BP 122/68 02/19/25 15:01 Pulse Ox 91 L 02/19/25 15:01 Time Spent Time spent with Patient: >75 minutes Time was spent: preparing to see the patient(eg.review tests), obtaining and/or reviewing separately otained hiistory, ordering medications,tests, procedures, referring, communicating with other health healthcare administration intern, indepentently interpreting results, counseling the patient and care coordination
[2025-02-19 15:26] LABS: Lab Add On Test DONE
--- NOTE | 2025-02-19 15:33 | W.PC.ACHO ---
Registration Status: REG ER Primary Language: Preferred Language: Slovenian ED Information & Data Chief Complaint RespSymp 02/19/25 11:48 Triage Note pt started feeling SOB on 02/19/25 11:30 sunday and has gotten worse since. walking makes him extremely SOB. pt reporting cough and post nasal drip had a heart attack in the 80 's, but reports no toher cardiac hx. Medical / Surgical History (Last Reviewed 02/09/25 @ 10:12 by Yolis Morales RN) Tubular adenoma of colon Myocardial infarction (01/30/89) (Last Updated 02/10/25 @ 08:45 by Stacia Joseph) History of ankle surgery S/P colonoscopic polypectomy (~01/2025) History of cataract surgery Status post ORIF of fracture of ankle S/P trigger finger release S/P tonsillectomy S/P appendectomy Most Recent Vital Signs Temperature 36.9 C 02/19/25 11:33 Pulse 90 02/19/25 15:01 Pulse 89 02/19/25 15:01 Respiratory Rate 31 H 02/19/25 15:01 Respiratory Effort Short of Breath 02/19/25 12:37 Respiratory Depth Shallow 02/19/25 12:37 Blood Pressure 122/68 02/19/25 15:01 Blood Pressure Mean 85 02/19/25 15:01 Pulse Oximetry 91 L 02/19/25 15:01 Oxygen Delivery Method Room Air 02/19/25 11:44 Oxygen Flow Rate 45 02/19/25 13:46 Fraction of Inspired Oxygen (FIO2) 41 02/19/25 13:46 Pain Level 0 02/19/25 11:33 Comment Hi flow O2 02/19/25 14:30 Allergies empagliflozin (From Jardiance) Adverse Reaction (Mild, Verified 02/19/25 12:00) Sandra infections Yeast infections Active Medications Generic Name Dose Route Start Last Admin Trade Name Freq PRN Reason Stop Dose Admin Heparin Sodium/Sodium Chloride 25,000 unit in 250 mls @ 0 mls/hr 02/19/25 14:30 02/19/25 15:07 IVINF 10 mls/hr INFUSION LEANN 10 mls/hr Protocol Administration Per Protocol IV IV Catheter Type [Right Upper Saline Lock arm] IV Catheter Gauge [Right Upper 18 arm] Diet Orders Category Date Time Status Diabetes Consistent CHO/Heart Healthy [DIET] Nutrition 02/19/25 Dinner Active Diagnostics 02/19/25 02/19/25 02/19/25 Range/Units 19:00 17:00 15:09 WBC (4.4-10.8) 10^3/uL RBC (4.36-5.78) 10^6/uL Hgb Pending Cancelled (13.5-17.5) g/dL Hct Pending Cancelled (40.0-50.0) % MCV (80-95) fL MCH (27.0-33.0) pg MCHC (32.0-36.0) % RDW (11.8-14.1) % Plt Count (130-400) 10^3/uL MPV (8.0-11.0) fL Immature Gran % % Neutrophils % % Band Neutrophils % % Lymphocytes % % Atypical Lymphs % % Monocytes % % Eosinophils % % Basophils % % Nucleated RBC % (0.0-0.3) % Absolute Neutrophils (1.2-6.7) 10^3/uL Absolute Lymphocytes (1.2-3.4) 10^3/uL Absolute Monocytes (0.1-0.8) 10^3/uL Absolute Eosinophils (0.0-0.7) 10^3/uL Absolute Basophils (0.0-0.2) 10^3/uL RBC Morphology Polychromasia Hypochromasia Anisocytosis PT (9.1-11.1) sec INR (0.9-1.1) APTT (20.6-30.2) sec VBG pH (7.31-7.41) VBG pCO2 (41-51) mmHg VBG pO2 mmHg VBG HCO3 (23-28) mmol/L VBG Total CO2 (24-29) mmol/L VBG O2 Saturation % VBG Base Excess (-2-3) mmol/L Sodium (136-145) mmol/L Potassium (3.5-5.1) mmol/L Chloride (98-107) mmol/L Carbon Dioxide (21.0-32.0) mmol/L Anion Gap (3-11) mmol/L BUN (7-18) mg/dL Creatinine (0.70-1.30) mg/dL Est GFR (CKD-EPI 2020) (mL/min/1.73m2) Glucose (74-106) mg/dL Calcium (8.5-10.1) mg/dL Total Bilirubin (0.2-1.0) mg/dL AST (15-37) U/L ALT (16-63) U/L Alkaline Phosphatase (46-116) U/L Troponin I Pending Pending (<or=76) ng/L NT-Pro-B Natriuret Pep (<300) pg/mL Total Protein (6.4-8.2) g/dL Albumin (3.4-5.0) g/dL Ethyl Alcohol COVID-19 Source SARS-CoV-2 (PCR) (Negative) Influenza Type A (PCR) (Negative) Influenza Type B (PCR) (Negative) RSV (PCR) (Negative) Add-On Test Request 02/19/25 02/19/25 02/19/25 Range/Units 13:39 12:28 12:28 WBC 18.02 H (4.4-10.8) 10^3/uL RBC 3.35 L (4.36-5.78) 10^6/uL Hgb 8.9 L (13.5-17.5) g/dL Hct 27.6 L (40.0-50.0) % MCV 82 (80-95) fL MCH 26.6 L (27.0-33.0) pg MCHC 32.2 (32.0-36.0) % RDW 21.3 H (11.8-14.1) % Plt Count 204 (130-400) 10^3/uL MPV 12.3 H (8.0-11.0) fL Immature Gran % 0.0 % Neutrophils % 68.0 % Band Neutrophils % 0 % Lymphocytes % 15.0 % Atypical Lymphs % 0 % Monocytes % 16.0 % Eosinophils % 1.0 % Basophils % 0.0 % Nucleated RBC % 0.0 (0.0-0.3) % Absolute Neutrophils 12.25 H (1.2-6.7) 10^3/uL Absolute Lymphocytes 2.70 (1.2-3.4) 10^3/uL Absolute Monocytes 2.88 H (0.1-0.8) 10^3/uL Absolute Eosinophils 0.18 (0.0-0.7) 10^3/uL Absolute Basophils 0.00 (0.0-0.2) 10^3/uL RBC Morphology See Below Polychromasia Present Hypochromasia 1+ Anisocytosis 2+ PT 16.6 H (9.1-11.1) sec INR 1.7 H (0.9-1.1) APTT 41.7 H (20.6-30.2) sec VBG pH 7.42 H (7.31-7.41) VBG pCO2 33 L (41-51) mmHg VBG pO2 38 mmHg VBG HCO3 22 L (23-28) mmol/L VBG Total CO2 21 L (24-29) mmol/L VBG O2 Saturation 67 % VBG Base Excess -3 L (-2-3) mmol/L Sodium 134 L (136-145) mmol/L Potassium 3.4 L (3.5-5.1) mmol/L Chloride 100 (98-107) mmol/L Carbon Dioxide 22.1 (21.0-32.0) mmol/L Anion Gap 11.9 H (3-11) mmol/L BUN 43 H (7-18) mg/dL Creatinine 1.6 H (0.70-1.30) mg/dL Est GFR (CKD-EPI 2020) 44.65 (mL/min/1.73m2) Glucose 261 H (74-106) mg/dL Calcium 7.9 L (8.5-10.1) mg/dL Total Bilirubin 1.0 (0.2-1.0) mg/dL AST 51 H (15-37) U/L ALT 46 (16-63) U/L Alkaline Phosphatase 60 (46-116) U/L Troponin I 1806 H* 1593 H* (<or=76) ng/L NT-Pro-B Natriuret Pep Cancelled 4250 H (<300) pg/mL Total Protein 6.3 L (6.4-8.2) g/dL Albumin 2.7 L (3.4-5.0) g/dL Ethyl Alcohol Pending COVID-19 Source SARS-CoV-2 (PCR) (Negative) Influenza Type A (PCR) (Negative) Influenza Type B (PCR) (Negative) RSV (PCR) (Negative) Add-On Test Request DONE 02/19/25 Range/Units 11:59 WBC (4.4-10.8) 10^3/uL RBC (4.36-5.78) 10^6/uL Hgb (13.5-17.5) g/dL Hct (40.0-50.0) % MCV (80-95) fL MCH (27.0-33.0) pg MCHC (32.0-36.0) % RDW (11.8-14.1) % Plt Count (130-400) 10^3/uL MPV (8.0-11.0) fL Immature Gran % % Neutrophils % % Band Neutrophils % % Lymphocytes % % Atypical Lymphs % % Monocytes % % Eosinophils % % Basophils % % Nucleated RBC % (0.0-0.3) % Absolute Neutrophils (1.2-6.7) 10^3/uL Absolute Lymphocytes (1.2-3.4) 10^3/uL Absolute Monocytes (0.1-0.8) 10^3/uL Absolute Eosinophils (0.0-0.7) 10^3/uL Absolute Basophils (0.0-0.2) 10^3/uL RBC Morphology Polychromasia Hypochromasia Anisocytosis PT (9.1-11.1) sec INR (0.9-1.1) APTT (20.6-30.2) sec VBG pH (7.31-7.41) VBG pCO2 (41-51) mmHg VBG pO2 mmHg VBG HCO3 (23-28) mmol/L VBG Total CO2 (24-29) mmol/L VBG O2 Saturation % VBG Base Excess (-2-3) mmol/L Sodium (136-145) mmol/L Potassium (3.5-5.1) mmol/L Chloride (98-107) mmol/L Carbon Dioxide (21.0-32.0) mmol/L Anion Gap (3-11) mmol/L BUN (7-18) mg/dL Creatinine (0.70-1.30) mg/dL Est GFR (CKD-EPI 2020) (mL/min/1.73m2) Glucose (74-106) mg/dL Calcium (8.5-10.1) mg/dL Total Bilirubin (0.2-1.0) mg/dL AST (15-37) U/L ALT (16-63) U/L Alkaline Phosphatase (46-116) U/L Troponin I (<or=76) ng/L NT-Pro-B Natriuret Pep (<300) pg/mL Total Protein (6.4-8.2) g/dL Albumin (3.4-5.0) g/dL Ethyl Alcohol COVID-19 Source Nasopharynx SARS-CoV-2 (PCR) Negative (Negative) Influenza Type A (PCR) Negative (Negative) Influenza Type B (PCR) Negative (Negative) RSV (PCR) Negative (Negative) Add-On Test Request Intake and Output - 24 Hour Total 02/19/25 11:27 thru 02/19/25 14:57 Intake Total 150 Output Total 350 Balance -200 Weight 119.295 kg Intake: IV 150 Output: Urine 350 Falls Risk Assessment History of Falls No History 02/19/25 12:37 Contributing Factors No Factors 02/19/25 12:37 Ambulatory Aids Independent 02/19/25 12:37 Tubes/Lines None 02/19/25 12:37 Gait Evaluation No gait disturbance 02/19/25 12:37 Cognition No cognitive impairment 02/19/25 12:37 Fall Total Score 0 02/19/25 12:37 Level of Risk Standard/Low Risk 02/19/25 12:37 v v v v v v v v v Sending and/or Receiving Nurses: Please use comment section below to note any information pertinent to the patient hand-off not included above. Information / Comments: pt transfers to rm [id number] from ED Report received from: Abdon Cain @ [phone]
[2025-02-19 15:44] LABS: Troponin I 1913 ng/L (<or=76)
[2025-02-19 15:47] LABS: ETHANOL BLOOD < 3.0 mg/dL (<10)
--- NOTE | 2025-02-19 16:31 | RESPIRATORY ---
Spoke with patient about SEPIDEH diagnosis and patient advised he has a home CPAP machine through [employer] but unsure of settings. Pt's will bring CPAP tomorrow when she comes back as he hasn't been able to wear it the last 3 nights due to SOB and doesn't think he could handle it tonight.
[2025-02-19] MEDS: metFORMIN 500 MG TAB 1000 MG PO (17:59)
[2025-02-19] MEDS: Furosemide 40 MG/4 ML VIAL IVP (17:59)
[2025-02-19] MEDS: Normal Saline Flush 10 ML SYR ×2 (18:14→22:40)
[2025-02-19] MEDS: Pantoprazole 40 MG VIAL IVP (18:15)
[2025-02-19 21:06] LABS: Troponin I 1546 ng/L (<or=76)
--- NOTE | 2025-02-19 21:49 | DI.RAD_ITS ---
Exam(s) XR PORTABLE CHEST AP EXAM: XR PORTABLE CHEST AP CLINICAL HISTORY: worse hypoxia TECHNIQUE: 2D digital imaging was performed of the chest. One image was obtained. An AP view was obtained. COMPARISON: CR XR PORTABLE CHEST AP from 02/19/2025 FINDINGS: MEDIASTINUM: Normal. HEART: Cardiac silhouette is stable. PULMONARY VASCULATURE: Normal. LUNGS: Slight progression of the pulmonary infiltrates compared to the examination from earlier in the day. PLEURAL SPACE: There is a right pleural effusion. No definite left pleural effusion is seen. No pneumothorax is present. BONE:Within normal limits for the patient's age. OTHER FINDINGS:Normal. IMPRESSION: 1. Slight progression of the pulmonary opacities compared to earlier in the day. This may represent worsening pulmonary edema or pneumonia. 2. The preliminary [facility] report was reviewed. DATA REPOSITORY: RADIATION DOSE DELIVERED:
[2025-02-19] MEDS: Doxycycline Hyclate 100 MG CAP PO (22:17)
--- NOTE | 2025-02-19 22:26 | DI.[facility]_ITS ---
PROCEDURE INFORMATION: Exam: XR Chest Exam date and time: 02/19/2025 9:46 PM Age: 74 years old Clinical indication: Other: Worse hypoxia TECHNIQUE: Imaging protocol: Radiologic exam of the chest. Views: 1 view. COMPARISON: CR XR PORTABLE CHEST AP 02/19/2025 12:42 PM FINDINGS: Lungs: Bilateral pulmonary infiltrates with differential considerations including pulmonary edema and bilateral pneumonia. Pleural spaces: Small pleural effusions. Heart/Mediastinum: Unremarkable. No cardiomegaly. Bones/joints: Unremarkable. IMPRESSION: 1. Pulmonary edema versus bilateral pneumonia. 2. Small pleural effusions. Dictated and Authenticated by: Ayan Tejeda MD. Orderin Masood Boland MD
--- NOTE | 2025-02-19 22:45 | RT.EKG_ITS ---
APPROVED REPORT Exam: Resting ECG Reason for Exam: NSTEMI, worse hypoxia Patient Location: I HR:93 bpm ECG Measurements Heart Rate 93 AXIS [place] [id number] P [id number] QRSd 109 QRS 67 QT 380 T -53 QTc 473 Conclusion Atrial fibrillation...V-rate 68-127, irreg A-activity Artifact in lead(s) I,II,III,aVL,aVF,V3,V4,V5,V6
--- NOTE | 2025-02-19 22:49 | CE_ITS ---
Date of service: 02/19/25 Time of Service: 22:49 Event Note: I have evaluated Mr. Doe multiple times since initial evaluation as his oxygen continues to run around 88% depsite the high flow. He was on BiPAP and was in the low 90s but he doesn't tolerate it well. He continues to deny chest pain and speaking comfortably. On my initial re-evaluation his lungs sounded wetter and I ordered 40mg furosemide IV. This worked better than the previous 20mg and he states he has urinated multiple times since. The x-ray did look more congested. On repeat lung exam now, lungs are more clear, but hypoxia hasn't improved a lot. Fortunately troponins are trending down. I am concerned for anemia contributing to hypoxia. In the setting of STEMI I would use 9 as a transfusion cut off. In acute illness with NSTEMI I'm not sure of idea cut of but will transfuse a unit if hgb trending down below 8.5%. Repea t was actually slightly increased, suggesting no active bleed with anticoagulation. We are moving him to ICU. He is willing to try back on BiPAP with some zolpidem to help him sleep. Now short runs of V-tac noted on tele. Repeat EKG without deveoping STEMI. Time Spent with Patient Time spent in critical care(minutes): 45 Time Spent Included: Coordination of care, Chart review, Documenting critically ill care, Time at immediate bedside and Discussing critically ill care with other medical staff
[2025-02-19 23:30] LABS: HCT 28.8 % (40.0-50.0); HGB 9.1 g/dL (13.5-17.5)
[2025-02-19 23:44] LABS: PTT Activated 37.9 sec (20.6-30.2)
[2025-02-20] VITALS (135 sets, daily range): BP systolic 100–122; BP diastolic 66–96; PULSE 71–113; RESP 13–55; TEMP 31–36.8; O2SAT 82–96
[2025-02-20] MEDS: Zolpidem 5 MG TAB PO (00:32)
[2025-02-20 05:59] LABS: Abs Immature Grans 0.79 10^3/uL (0.0-0.06); Absolute Lymphocyte Count 2.48 10^3/uL (1.2-3.4); HCT 25.7 % (40.0-50.0); HGB 8.2 g/dL (13.5-17.5); MCH 26.4 pg (27.0-33.0); MCHC 31.9 % (32.0-36.0); MCV 83 fL (80-95); MPV 12.1 fL (8.0-11.0); Platelet Count 237 10^3/uL (130-400); RBC 3.11 10^6/uL (4.36-5.78); RDW 21.5 % (11.8-14.1); RDW-SD 62.9 fL; WBC 24.81 10^3/uL (4.4-10.8)
[2025-02-20 06:01] LABS: BE (Venous) -4 mmol/L (-2-3); HCO3 (Venous) 21 mmol/L (23-28); O2 Sat (Venous) 79 %; TCO2 (Venous) 20 mmol/L (24-29); pCO2 (Venous) 34 mmHg (41-51); pH (Venous) 7.39 (7.31-7.41); pO2 (Venous) 47 mmHg
[2025-02-20 06:25] LABS: PTT Activated 64.3 sec (20.6-30.2)
[2025-02-20 06:31] LABS: Absolute Monocyte Count 4.22 10^3/uL (0.1-0.8); Absolute Neutrophil Count 17.62 10^3/uL (1.2-6.7); Anisocytosis 2+; Diff Comment Manual Differential; Hypochromasia 1+
[2025-02-20 06:32] LABS: Polychromasia Present
[2025-02-20 06:37] LABS: Anion Gap 13.5 mmol/L (3-11); BUN 50 mg/dL (7-18); CO2 23.5 mmol/L (21.0-32.0); CREATININE 1.9 mg/dL (0.70-1.30); Calcium 8.8 mg/dL (8.5-10.1); Chloride 90 mmol/L (98-107); Estimated GFR 36.33 (mL/min/1.73m2); Glucose 321 mg/dL (74-106); Magnesium 1.4 mg/dL (1.8-2.4); Potassium 3.9 mmol/L (3.5-5.1); Sodium 127 mmol/L (136-145); TSH (W/Ref FT4) 1.94 uIU/mL (0.36-3.74)
[2025-02-20 06:41] LABS: Troponin I 1493 ng/L (<or=76)
[2025-02-20] MEDS: amLODIPine 10 MG TAB PO (07:45)
[2025-02-20] MEDS: Multivitamin TAB 1 TAB PO (07:45)
[2025-02-20] MEDS: Metoprolol CR 25 MG TABCR PO (07:45)
[2025-02-20] MEDS: hydroCHLOROthiazide 25 MG TAB PO (07:45)
[2025-02-20] MEDS: Atorvastatin 40 MG TAB 80 MG PO (07:46)
[2025-02-20] MEDS: Aspirin 81 MG CHEW PO (07:46)
[2025-02-20] MEDS: Doxycycline Hyclate 100 MG CAP PO (07:46)
[2025-02-20] MEDS: Losartan 50 MG TAB 100 MG PO (07:46)
[2025-02-20] MEDS: PARoxetine 20 MG TAB PO (08:24)
[2025-02-20] MEDS: MAGNESIUM SULFATE 2 GM/50 ML BAG IV_INF (08:24)
[2025-02-20] MEDS: metFORMIN 500 MG TAB 1000 MG PO (08:24)
[2025-02-20] MEDS: glipiZIDE 10 MG TAB PO (08:24)
[2025-02-20] MEDS: Heparin in 0.45% NaCl 25,000 UNIT/250 ML BAG 12.5 UNIT IVINF (08:39)
--- NOTE | 2025-02-20 08:50 | PDOC.CMIN ---
Date of service: 02/20/25 Time of Service: 08:50 Care Management Initial Assmt Initial Assessment Reason for Hospitalization: pneumonia, STEMI Functional Status/Living Situation Patient Presentation: Shamar presented to the ED yesterday morning with c/o worsening shortness of breath over the last week or 2, and yesterday he was notably short of breath, even at rest. He was found to have pneumonia and significantly elevated troponins. He will be transferred to [facility] for a cardiac catheterization when a bed is available. Shamar was sitting up in the bedside chair, visiting with his and son, when CM met with him early this afternoon. He was still wearing high flow nc, but per his RN, he is much improved when sitting in the chair as opposed to even sitting in the bed. Shamar and his family were very pleasant. He is feeling a little anxious about his transfer because he was told it would likely not happen until tomorrow afternoon. Town of Residence: [facility] Resides with: Spouse (Mary) Significant Other/Family: Local (sons Lalo and Antoni and their families.) Natural Supports: family Employment Status: Retired Instrumental Activities of Daily Living (ADLs): Independent Advance Directives Advance Directives: Do you have an Advance Directive: Y 08/20, 18:55 AD On File at [facility]: Y 04/04/24, 08:22 Date Asked AD Date Reviewed 02/11/25 02/11/25, 05:18 COLST On File at [facility] COLST Date Scanned Code Status Resuscitation Status Full Code Insurance Coverage/Financial Issues Insurance: Medicare Part A & B /[facility] Care Team Visit Care Team Role Provider Type Isaías Gomez MD MD [facility] STAFF PHYSICIAN Heather Randolph NP Primary Care Provider NURSE PRACTITIONER Spike Redman DO Emergency Provider [facility] STAFF PHYSICIAN Krystian Correia Admit Provider [facility] STAFF PHYSICIAN Attending Provider Discharge Potential Discharge Needs: Other (transfer to [facility] for cardiac cath) Anticipated Barriers to Discharge: None Identified Patient/Family Education Needs: Review discharge instructions, discuss Ask Me Three Transportation: EMS Plan: Shamar is currently waiting for an available bed at [facility] where he will have a cardiac cath. He has been told by the transfer center that this would not happen before tomorrow afternoon. He will transfer via EMS. CM will continue to follow. Social Determinants of Health Screening Social Determinants of health last assessed in clinic: 02/20/25 Will the Patient Participate in the Screening?: Yes Do you worry about having a steady place to live?: no Problems where you live: no known problems In the past 12 months, have you had to go without electric, gas, oil or water in your home?: no 1. Within the past 12 months, we worried whether our food would run out before we got money to buy more.: Don't know/refused 2. Within the past 12 months, the food we bought just didn't last and we didn't have money to get more.: Don't know/refused Has lack of transportation kept you from medical appointments or from doing things needed for daily living?: no Has anyone in your life made you feel unsafe or unsupported?: no How hard is it for you to pay for the very basics like food, housing, medical care, and heating? Would you say it is:: Not hard at all Do you want help finding or keeping work or a job?: I do not need or want help If for any reason you need help with day-to-day activities such as bathing, preparing meals, shopping, managing finances, etc., do you get the help you need?: I don?t need any help How often do you feel lonely or isolated from those around you?: Never Do you speak a language other than Uzbek at home?: No Does the patient want assistance with any of the above?: No PFSH All Active Problems Discharge planning issues (Acute) DVT prophylaxis (Acute) Elevated AST (SGOT) (Acute) Anemia (Chronic) Acute hypoxic respiratory failure (Acute) Community acquired pneumonia (Acute) Non-ST elevation [place] (NSTEMI) (Acute) Right-sided epistaxis (Acute) Type 2 diabetes mellitus with peripheral neuropathy (Acute) Ulcer of left foot with fat layer exposed (Acute) Toe injury (Acute) Obesity (BMI 30-39.9) (Chronic) Tremor of both hands (Chronic) [facility] neurology consulted 05/2023, CTM Nail dystrophy (Chronic) Anemia of chronic disease (Chronic) Peripheral artery disease (Chronic) Mild on ABIs Thrombocytopenia (Chronic) CKD (chronic kidney disease) stage 3, GFR 30-59 ml/min (Chronic) Sigmoid diverticulosis (Chronic) Major depressive disorder, recurrent (Chronic) Type 2 diabetes mellitus with retinopathy (Chronic) Atrial fibrillation (Chronic) Hyperlipidemia (Chronic) Hypertension (Chronic) Obstructive sleep apnea (Chronic) CPAP Coronary artery disease (Chronic) Hx of [place] 1988 Medical History Myocardial infarction (01/30/89) Tubular adenoma of colon On 2019 colonoscopy Surgical History History of ankle surgery left S/P colonoscopic polypectomy (~01/2025) History of cataract surgery Status post ORIF of fracture of ankle Left ankle S/P trigger finger release x4 S/P tonsillectomy S/P appendectomy Family History Mother Essential hypertension Lung cancer Father Alcohol abuse Essential hypertension Heart disease Hyperlipidemia Stroke Asthma Sister Essential hypertension Stroke Sister Essential hypertension Depression Hyperlipidemia Sister Substance abuse Essential hypertension Depression Hyperlipidemia Sister No problems noted. Sister Essential hypertension Hyperlipidemia Brother Substance abuse Alcohol abuse Essential hypertension Heart disease Hyperlipidemia Brother Substance abuse Alcohol abuse Hyperlipidemia Lung cancer Brother Substance abuse Essential hypertension Hyperlipidemia Maternal Grandfather , TRAIN ACCIDENT at age 55. Heart disease Hyperlipidemia Asthma Paternal Grandfather Heart disease Asthma Maternal Grandmother Diabetes Essential hypertension Heart disease Hyperlipidemia Paternal Grandmother Colon cancer Pancreatic cancer Son Essential hypertension Hyperlipidemia Son Essential hypertension Hyperlipidemia Sister Essential hypertension Brother No problems noted. Social History (Updated 02/19/25 @ 18:01 by Krystain Correia) Smoking/Tobacco Use Status: Former Tobacco Use tobacco type: cigarettes Quit Date: 01/30/89 Pack-years: 66 Tobacco: How many years used: 22 Second Hand Exposure: Yes Smoking risk assessment performed?: Yes Alcohol Intake: current Alcohol Intake frequency: other Alcohol type: beer Details: non recently Drug use: Never Substance use type: does not use Caregiver/Support person: No Household members: spouse Housing: house Communication Needs: None Do you need help understanding health information?: Never Pets and animals: Yes Pets and animals: dog(s) Sexually active: No Do you think of yourself as: straight/heterosexual Current gender identity: male and decline to answer What is your relationship status?: How often do you talk on the phone with friends or family?: three or more times per week How often do you get together with friends or relatives?: once per week How often do you attend mormon or evangelical services?: decline to answer Do you belong to any clubs or organized social groups?: yes Panel score (0-1 are the most socially isolated patients): 3 What type of physical activity do you participate in: walking Duration: 15-30 minutes/day Frequency: 3-4 times per week Chuyita/Orthodox: None Special chuyita needs: No Seatbelt use: always Helmet use: Yes Helmet use: always Drive intox or ride w/intox auto [place]ula[place] driver: No Do you feel safe at home: Yes Do you feel safe in your relationship?: Yes Additional Social history: Lives with Mary on [address] in [facility]
[2025-02-20] MEDS: Insulin Glargine 300 UNITS/3 ML PEN 60 UNITS SC (09:58)
[2025-02-20] MEDS: Insulin Aspart 300 UNITS/3 ML PEN SC ×2 (09:59→12:42)
--- NOTE | 2025-02-20 10:00 | DI.US_ITS ---
APPROVED REPORT EXAM: Comprehensive 2D, Doppler, and color-flow Echocardiogram Patient Location: In-Patient Room/Bed: 221 [employer] Body Artist: Vasiliy Navarro RDCS (AE) Indications: NSTEMI, THOMPSON Other Information Study Quality: Fair Conclusion Technically difficult and limited study Left ventricle is mildly hypertrophied and dilated. Ejection fraction is approximately 25%. Study is not adequate to assess segmental wall motion Normal right ventricular size and function Both atria are moderately enlarged Aortic valve is sclerotic and trileaflet with trace regurgitation Mild mitral annular calcification. Trace to mild mitral regurgitation Ascending aorta measures 3.73 cm Right ventricular systolic pressure could not be estimated due to inadequate tricuspid regurgitation jet Wall motion Left Ventricle Left ventricle is mildly dilated. Left ventricular systolic function is severely decreased. Mild concentric left ventricular hypertrophy. There is global hypokinesis of the left ventricle. There is no ventricular septal defect visualized. LVEF is 25%. Right Ventricle The right ventricle is normal size. The right ventricular systolic function is normal. Atria Left atrium is moderately dilated. Right atrium is moderately dilated. The interatrial septum is intact with no evidence for an atrial septal defect. Aortic Valve The aortic valve is sclerotic. Aortic valve is trileaflet. There is no aortic valvular stenosis. Trace aortic regurgitation. Mitral Valve Mild mitral annular calcification. No evidence of mitral valve stenosis. Trace to mild mitral regurgitation. Tricuspid Valve The tricuspid valve is normal in structure. There is no tricuspid valve stenosis. Trace tricuspid regurgitation. Pulmonic Valve The pulmonary valve is normal in structure. There is no pulmonic valvular stenosis. There is no pulmonic valvular regurgitation. Great Vessels Aortic root is mildly dilated. The ascending aorta is mildly dilated. Aortic arch is not well visualized. The IVC collapses <50% with inspiration. Pericardium There is no pericardial effusion. 2D Dimensions IVSD d PLAX 1.28 cm M: 0.6-1.2 Ao Root d 3.80 cm M: 3.1 - 3.7 LVPW d PLAX 1.19 cm M: 0.6 - 1.2 Ao Asc Diam d 3.73 cm M: 2.6 - 3.4 LVID d PLAX 6.04 cm M: 4.2 - 5.8 LVDs 5.32 cm M: 2.5 - 4.0 LV EF Teichholz 25.3 % FS 11.93 % LV EDV (Teich) 182.7 mL LV ESV (Teich) 136.5 mL Stroke Vol Index (Teich) 19.36 M-Mode TAPSE 1.76 cm (M/F) >1.7 Auto EF LV EDV A4C 142.1 mL LV EDV A2C 87.2 mL LV EDV BP 113.7 mL LV ESV A4C 107.5 mL LV ESV A2C 65.4 mL LV ESV BP 83.5 mL LVEF(%) A4C 24.4 % LVEF(%) A2C 25.0 % LVEF(%) BP 26.5 % LV SV A4C 34.6 ml LV SV A2C 21.8 ml LV SV BP 30.2 ml LV CO A4C 4.3 L/min LV CO A2C 2.5 L/min LV CO BP 3.4 L/min HR A4C 124.56 BPM HR A2C 113.21 BPM LV EDV Index (BP) LA Volume LA Length A4C 6.5 cm LA Length A2C 5.9 cm LA Area A4C s 20.29 cm2 LA Area A2C s 15.84 cm2 LA Vol A4C A-L 54.09 mL LA Vol A2C A-L 36.31 mL LA Vol Biplane A-L 46.5 mL LA Vol/BSA A4C A-L LA Vol/BSA A2C A-L LA Vol/BSA BP A-L 19.5 mL/m2 LA Vol A4C MOD 53.9 mL LA Vol A2C MOD 36.1 mL LA Vol BP MOD 46.1 mL RA Volume RA Area A4C 17.5 cm2 RA ESV A4C (A-L) 46.9mL RA Vol/BSA A4C A-L RA Length A4C 5.6 cm RA ESV A4C (MOD) 44.8mL LV Diastology MV E' medial 0.089 (>0.07 m/s) MV E Vmax 1.14 (0.4-1.3 m/s) MV E/E' MED 12.79 (<14) MV E' lateral 0.121 (>0.1 m/s) MV E/E' LAT 9.40 (<14) MV E' Average 0.105 m/s MV E/E'(average) 10.84 Aortic Valve AoV Vmax 1.68 m/s LVOT Vmax 0.67 m/s AoV Peak Grad 11.4 mmHg LVOT Peak Grad 1.8 mmHg AoV Area (Vmax) 0.95 cm2 LVOT VTI 0.127 m AoV VTI 0.264 m LVOT Mean Grad 0.9 mmHg AoV Mean Selvin. 1.03 m/s LVOT SV 30.39 mL AoV Mean Grad 4.9 mmHg LVOT Diam s 1.70 cm AoV Area (VTI) 1.15 cm2 AV Regurg Peak Gr. 11.35 mmHg Velocity Ratio 0.40 Mitral Valve MV DT 143 (160-240 msec) Pulmonary Valve PV Vmax 0.86 (0.5-1.5 m/s) RVOT Vmax 0.63 m/s PV Peak Grad 2.9 mmHg RVOT Peak Gr. 1.6 mmHg PV Mean Selvin 0.58 m/s RVOT VTI 0.102 m PV Mean Grad 1.5 mmHg RVOT Mean Gr. 0.9 mmHg
[2025-02-20] MEDS: Ketoconazole 2% CREAM 15 GM TUBE TP (10:24)
--- NOTE | 2025-02-20 11:53 | PGE_ITS ---
Date of Service Date of service: 02/20/25 Time of Service: 11:54 Assessment and Plan Assessment and plan (1) Non-ST elevation [place] (NSTEMI): Status: Acute Assessment and plan: -Significant elevation of troponin associated with SOB/hypoxia in setting of pneumonia -EKG c/w some ischemia, but no STEMI -trop peaked at 1913 overnight 02/19, has since been downtrending -started on heparin and ASA, will continue -continue high dose statin -[place]ed [place] [facility] [place] heart cath, bed not available likely until 02/21 (2) Community acquired pneumonia: Status: Acute Assessment and plan: -Presenting symptoms, CXR are all attributable to his pneumonia. -Started on ceftriaxone and doxy, will continue. (3) Acute hypoxic respiratory failure: Status: Acute Assessment and plan: -Secondary to pneumonia -Had been stable on HFNC at 40%, but dropped with increased activity after my exam around 5:30pm 02/19 - Some rales in both bases (not just right) at that point, decided to give 40mg IV furosemide with improvement in work of breathing -HFNC candice kdonw to 40% as of late AM 02/20 (4) Atrial fibrillation: Status: Chronic Assessment and plan: -Holding rivaroxaban on heparin drip -continue metoprolol (5) Type 2 diabetes mellitus with peripheral neuropathy: Status: Acute Assessment and plan: -Reasonable control with A1c 7.4% on 01/27/25. -However change glipizide to short acting as he is also on glargine. Cut glargine dose by ~25% as he will be on controlled diet here. ISS prn. -He is on GLP-1 as appropriate for patient with CAD. -He may benefit from SGLT2i, He does have PAD but mild. Would benefit CKD and obesity. (6) CKD (chronic kidney disease) stage 3, GFR 30-59 ml/min: Status: Chronic Assessment and plan: -Near baselin GFR, follow (7) Anemia: Status: Chronic Assessment and plan: -concerned about the drop in H/h from previous baseline mild anemia. -Hb down to 8.2 AM 02/20 though without signs of bleeding -given concurrent NSTEMI, will transfuse 1U PRBCs and give additional 1x dose 40mg IV lasix with transfusion (8) Hyperlipidemia: Status: Chronic Assessment and plan: -LDL <70, lipids at goal when tested 01/27/25 (9) Hypertension: Status: Chronic Assessment and plan: -continue outpatient therapy (10) Obesity (BMI 30-39.9): Status: Chronic Assessment and plan: -on GLP-1/GIP (11) Elevated AST (SGOT): Status: Acute Assessment and plan: -Noted in past year. -EtOH level negative on admission, alsi with chronic low platelets (though normal today with acute infection); risk factors for MASLD -rec outpatient RUQ US (12) Major depressive disorder, recurrent: Status: Chronic (13) Obstructive sleep apnea: Status: Chronic Assessment and plan: home CPAP (14) DVT prophylaxis: Status: Acute Assessment and plan: on heparin drip Subjective Subjective Interval history since last seen: Patient states that he is feeling better as compared to admission though he continues to experience exertional shortness of breath. Otherwise he understands plan to continue current therapy and transferred to [facility] once a bed is available likely not until tomorrow 02/21/2025. Exam Narrative Exam Narrative: Fatigued but otherwise well-appearing older gentleman sitting up in the chair in no acute distress, high flow nasal cannula in place, heart regular rate rhythm, lungs diffuse crackles throughout bilateral lung jimenez, abdomen obese, soft, nontender, nondistended Objective Last Vital Signs Temp 97.3 F L 02/20/25 10:01 Pulse 72 02/20/25 10:01 Resp 25 H 02/20/25 11:30 BP 105/69 02/20/25 10:01 Pulse Ox 88 L 02/20/25 11:30 Laboratory Results - last 24 hr 02/19/25 02/19/25 02/19/25 11:59 12:28 12:28 WBC 18.02 H RBC 3.35 L Hgb 8.9 L Hct 27.6 L MCV 82 MCH 26.6 L MCHC 32.2 RDW 21.3 H Plt Count 204 MPV 12.3 H Immature Gran % 0.0 Neutrophils % 68.0 Band Neutrophils % 0 Lymphocytes % 15.0 Atypical Lymphs % 0 Monocytes % 16.0 Eosinophils % 1.0 Basophils % 0.0 Nucleated RBC % 0.0 Absolute Neutrophils 12.25 H Absolute Lymphocytes 2.70 Absolute Monocytes 2.88 H Absolute Eosinophils 0.18 Absolute Basophils 0.00 RBC Morphology See Below Polychromasia Present Hypochromasia 1+ Anisocytosis 2+ PT 16.6 H INR 1.7 H APTT 41.7 H VBG pH 7.42 H VBG pCO2 33 L VBG pO2 38 VBG HCO3 22 L VBG Total CO2 21 L VBG O2 Saturation 67 VBG Base Excess -3 L Sodium 134 L Potassium 3.4 L Chloride 100 Carbon Dioxide 22.1 Anion Gap 11.9 H BUN 43 H Creatinine 1.6 H Est GFR (CKD-EPI 2020) 44.65 Glucose 261 H Calcium 7.9 L Magnesium Total Bilirubin 1.0 AST 51 H ALT 46 Alkaline Phosphatase 60 Troponin I 1593 H* NT-Pro-B Natriuret Pep 4250 H Cancelled Total Protein 6.3 L Albumin 2.7 L TSH Ethyl Alcohol < 3.0 COVID-19 Source Nasopharynx SARS-CoV-2 (PCR) Negative Influenza Type A (PCR) Negative Influenza Type B (PCR) Negative RSV (PCR) Negative Add-On Test Request DONE ABO/Rh Blood Type Recheck Antibody Screen Crossmatch 02/19/25 02/19/25 02/19/25 13:39 15:09 17:00 WBC RBC Hgb Cancelled Hct Cancelled MCV MCH MCHC RDW Plt Count MPV Immature Gran % Neutrophils % Band Neutrophils % Lymphocytes % Atypical Lymphs % Monocytes % Eosinophils % Basophils % Nucleated RBC % Absolute Neutrophils Absolute Lymphocytes Absolute Monocytes Absolute Eosinophils Absolute Basophils RBC Morphology Polychromasia Hypochromasia Anisocytosis PT INR APTT VBG pH VBG pCO2 VBG pO2 VBG HCO3 VBG Total CO2 VBG O2 Saturation VBG Base Excess Sodium Potassium Chloride Carbon Dioxide Anion Gap BUN Creatinine Est GFR (CKD-EPI 2020) Glucose Calcium Magnesium Total Bilirubin AST ALT Alkaline Phosphatase Troponin I 1806 H* 1913 H* NT-Pro-B Natriuret Pep Total Protein Albumin TSH Ethyl Alcohol COVID-19 Source SARS-CoV-2 (PCR) Influenza Type A (PCR) Influenza Type B (PCR) RSV (PCR) Add-On Test Request ABO/Rh Blood Type Recheck Antibody Screen Crossmatch 02/19/25 02/19/25 02/20/25 20:30 23:25 05:50 WBC 24.81 H RBC 3.11 L Hgb 9.1 L 8.2 L Hct 28.8 L 25.7 L MCV 83 MCH 26.4 L MCHC 31.9 L RDW 21.5 H Plt Count 237 MPV 12.1 H Immature Gran % See Differential Neutrophils % 71.0 Band Neutrophils % Lymphocytes % 10.0 Atypical Lymphs % Monocytes % 17.0 Eosinophils % 2.0 Basophils % 0.0 Nucleated RBC % 2.0 H Absolute Neutrophils 17.62 H Absolute Lymphocytes 2.48 Absolute Monocytes 4.22 H Absolute Eosinophils 0.50 Absolute Basophils 0.00 RBC Morphology See Below Polychromasia Present Hypochromasia 1+ Anisocytosis 2+ PT INR APTT 37.9 H 64.3 H VBG pH 7.39 VBG pCO2 34 L VBG pO2 47 VBG HCO3 21 L VBG Total CO2 20 L VBG O2 Saturation 79 VBG Base Excess -4 L Sodium 127 L Potassium 3.9 Chloride 90 L Carbon Dioxide 23.5 Anion Gap 13.5 H BUN 50 H Creatinine 1.9 H Est GFR (CKD-EPI 2020) 36.33 Glucose 321 H Calcium 8.8 Magnesium 1.4 L Total Bilirubin AST ALT Alkaline Phosphatase Troponin I 1546 H* 1493 H* NT-Pro-B Natriuret Pep Total Protein Albumin TSH 1.94 Ethyl Alcohol COVID-19 Source SARS-CoV-2 (PCR) Influenza Type A (PCR) Influenza Type B (PCR) RSV (PCR) Add-On Test Request ABO/Rh Blood Type Recheck Antibody Screen Crossmatch 02/20/25 02/20/25 08:30 08:40 WBC RBC Hgb Hct MCV MCH MCHC RDW Plt Count MPV Immature Gran % Neutrophils % Band Neutrophils % Lymphocytes % Atypical Lymphs % Monocytes % Eosinophils % Basophils % Nucleated RBC % Absolute Neutrophils Absolute Lymphocytes Absolute Monocytes Absolute Eosinophils Absolute Basophils RBC Morphology Polychromasia Hypochromasia Anisocytosis PT INR APTT VBG pH VBG pCO2 VBG pO2 VBG HCO3 VBG Total CO2 VBG O2 Saturation VBG Base Excess Sodium Potassium Chloride Carbon Dioxide Anion Gap BUN Creatinine Est GFR (CKD-EPI 2020) Glucose Calcium Magnesium Total Bilirubin AST ALT Alkaline Phosphatase Troponin I NT-Pro-B Natriuret Pep Total Protein Albumin TSH Ethyl Alcohol COVID-19 Source SARS-CoV-2 (PCR) Influenza Type A (PCR) Influenza Type B (PCR) RSV (PCR) Add-On Test Request ABO/Rh O Positive Blood Type Recheck O Positive Antibody Screen NEGATIVE Crossmatch See Detail Time Spent with Patient Time Spent with Patient: >50 minutes Time was spent: preparing to see the patient(eg.review tests), obtaining and/or reviewing separately otained hiistory, ordering medications,tests, procedures, referring, communicating with other health healthcare recruiter, indepentently interpreting results, counseling the patient and care coordination
[2025-02-20] MEDS: Furosemide 40 MG/4 ML VIAL IVP (13:43)
--- NOTE | 2025-02-20 13:58 | DSE_ITS ---
Date of service: 02/20/25 Time of Service: 13:58 DS: Diagnosis Discharge Diagnosis (1) Non-ST elevation DC (NSTEMI): Status: Acute (2) Community acquired pneumonia: Status: Acute (3) Acute hypoxic respiratory failure: Status: Acute (4) Atrial fibrillation: Status: Chronic (5) Type 2 diabetes mellitus with peripheral neuropathy: Status: Acute (6) CKD (chronic kidney disease) stage 3, GFR 30-59 ml/min: Status: Chronic (7) Anemia: Status: Chronic (8) Hyperlipidemia: Status: Chronic (9) Hypertension: Status: Chronic (10) Obesity (BMI 30-39.9): Status: Chronic (11) Elevated AST (SGOT): Status: Acute (12) Major depressive disorder, recurrent: Status: Chronic (13) Obstructive sleep apnea: Status: Chronic (14) DVT prophylaxis: Status: Acute Discharge Plan Disposition Patient Disposition: Transfer-Acute Inpatient Care Specific Acute Inpt Facility: [facility] Condition: Fair Discharge Details Reason For Visit: NSTEMI, pneumonia Admit Date/Time: 02/19/25 14:55 Admit Provider: Krystian Correia Attending Provider: Krystian Correia [facility] Course: Patient initially presented with signs and symptoms consistent with what initially appeared to be community-acquired pneumonia resulting in acute hypoxic respiratory failure. However, patient also had significantly elevated troponin concerning for NSTEMI for which [facility] cardiology was consulted and agreed patient should be treated for NSTEMI with heparin drip and aspirin. He was accepted to [facility] cardiology for left heart catheterization. While hospitalized at [facility] his oxygen requirement improved to decreasing down to 40% FiO2 on high flow nasal cannula, this was after concern for pulmonary edema for which patient was given 40 mg IV Lasix and did have significant urine output. Ultimately, is determined the patient was stable for transfer to [facility]. Home Meds and New Rx's Prescriptions: No Action multivitamin [One Daily Multivitamin] Tablet 1 tab PO DAILY amlodipine 10 mg tablet 10 mg PO DAILY Qty: 90 3RF atorvastatin 80 mg tablet 80 mg PO DAILY Qty: 90 3RF (DME) Dexcom G7 Ruling Machine Set Up Operator Misc See Rx Instructions .Route Qty: 3 3RF Rx Instructions: Continuous glucose monitor (DME) Dexcom G7 Sensor Device See Rx Instructions .Route Qty: 9 3RF Rx Instructions: Continuous glucose monitor losartan 100 mg tablet 100 mg PO DAILY Qty: 90 3RF paroxetine HCl 20 mg tablet 20 mg PO DAILY Qty: 90 3RF Xarelto 20 mg tablet 20 mg PO DAILY Qty: 90 3RF metoprolol succinate 25 mg tablet extended release 24 hr 25 mg PO DAILY Qty: 90 3RF hydrochlorothiazide 25 mg tablet 25 mg PO DAILY Qty: 90 3RF metformin 1,000 mg tablet 1,000 mg PO BID Qty: 180 3RF tirzepatide 15 mg/0.5 mL pen injector 15 mg subcut QWEEK Qty: 2 12RF glipizide 10 mg tablet extended release 24hr 20 mg PO DAILY Qty: 180 3RF insulin glargine [Basaglar KwikPen U-100 Insulin] 100 unit/mL (3 mL) insulin pen 90 - 100 unit subcut DAILY Qty: 30 12RF (DME) blood-glucose meter [U-Play StudiosTouch Ultra2 Meter] Mis See Rx Instructions .Route Qty: 1 3RF Rx Instructions: Check blood sugar twice a day nitroglycerin 0.4 mg tablet, sublingual 0.4 mg sublingual Q5-15M PRN (Reason: chest pain) Qty: 25 3RF Patient Comments: never needed Rx Instructions: 1 tablet every 5 minutes x 3 doses if needed for chest pain. Seek emergency services if not improving after first dose ketoconazole 2 % cream 1 applic topical DAILY Qty: 120 6RF Rx Instructions: Apply to toenails once daily (DME) lancets [OneTouch Delica Lancets] 1 E[facility] 1 ea Miscellaneous AC& HS Qty: 400 Rx Instructions: DX: E11.65, ADJUSTING INSULINS (DME) OneTouch Ultra Test Strip 1 strip Miscellaneous AC&HS Qty: 200 3RF Rx Instructions: Check blood sugar twice a day mometasone 0.1 % ointment 1 applic topical DAILY PRN (Reason: ear eczema) Qty: 45 0RF (DME) pen needle, diabetic 32 gauge x 5/32 needle See Rx Instructions .Route Qty: 500 4RF Rx Instructions: Use with insulin pen and mounjaro pen urea 40 % lotion 1 applic topical ONCE Discharge Instructions Activity:: Activity as Tolerated Equipment/Supplies:: No Equipment Needed Diet:: As Tolerated Discharge Orders Discharge Orders: Discharge Order (Routine); Ordered 02/20/25 Ordered By: Isaías Gomez DS: Summary Time Spent with Patient providing and/or coordinating discharge services: Less than 30 minutes Status at Discharge Functional status at discharge: independent ambulation Overall status at discharge: patient is not back to baseline Mental Status: mental status grossly normal Speech and Movement: speech and movement normal Mood: congruent mood Affect: normal affect Exam Narrative Exam Narrative: Fatigued but otherwise well-appearing older gentleman sitting up in the chair in no acute distress, high flow nasal cannula in place, heart regular rate rhythm, lungs diffuse crackles throughout bilateral lung jimenez, abdomen obese, soft, nontender, nondistended Psych Mental Status: mental status grossly normal Speech and Movement: speech and movement normal Mood: congruent mood Affect: normal affect DS: Data Vitals/I&O Vitals and I&O: Vital Signs Temperature 97.3 F L 02/20/25 13:35 Temperature Source Temporal Artery Scan 02/20/25 00:00 Pulse 90 02/20/25 13:35 Pulse Rhythm Irregular 02/19/25 16:16 Pulse 106 H 02/20/25 11:30 Respiratory Rate 29 H 02/20/25 13:35 Respiratory Effort Short of Breath 02/20/25 00:00 Respiratory Depth Deep 02/20/25 00:00 Respiratory Pattern Irregular 02/20/25 00:00 Blood Pressure 111/76 02/20/25 13:35 Blood Pressure Mean 81 02/20/25 10:01 Pulse Oximetry 91 L 02/20/25 13:35 Oxygen Delivery Method High Flow Nasal Cannula 02/20/25 13:35 Oxygen Flow Rate 60 02/20/25 13:35 Fraction of Inspired Oxygen (FIO2) 53 02/20/25 12:19 Pain Level 0 02/19/25 19:36 Comment [id number] 02/19/25 19:36 Comment Hi flow O2 02/19/25 14:30 Intake & Output 02/19/25 02/20/25 02/20/25 17:59 05:59 17:59 Intake Total 150 / 150 69.500 / 219.500 874.167 / 874.167 Output Total 550 / 550 850 / 1400 500 / 500 Balance -400 / -400 -780.500 / -1180.500 374.167 / 374.167 Weight 263 lb Intake: IV 150 / 150 69.500 / 219.500 154.167 / 154.167 Oral 720 / 720 Output: Urine 550 / 550 850 / 1400 500 / 500 Other: Urine Color Yellow Yellow Yellow Urine Appearance Clear Clear Clear Urine Odor None None Data Completed and Pending Labs on day of discharge: Labs from last 24 hours 02/20/25 02/20/25 02/20/25 08:40 08:30 05:50 WBC 24.81 H RBC 3.11 L Hgb 8.2 L Hct 25.7 L MCV 83 MCH 26.4 L MCHC 31.9 L RDW 21.5 H Plt Count 237 MPV 12.1 H Immature Gran % See Differential Neutrophils % 71.0 Lymphocytes % 10.0 Monocytes % 17.0 Eosinophils % 2.0 Basophils % 0.0 Nucleated RBC % 2.0 H Absolute Neutrophils 17.62 H Absolute Lymphocytes 2.48 Absolute Monocytes 4.22 H Absolute Eosinophils 0.50 Absolute Basophils 0.00 RBC Morphology See Below Polychromasia Present Hypochromasia 1+ Anisocytosis 2+ APTT 64.3 H VBG pH 7.39 VBG pCO2 34 L VBG pO2 47 VBG HCO3 21 L VBG Total CO2 20 L VBG O2 Saturation 79 VBG Base Excess -4 L Sodium 127 L Potassium 3.9 Chloride 90 L Carbon Dioxide 23.5 Anion Gap 13.5 H BUN 50 H Creatinine 1.9 H Est GFR (CKD-EPI 2020) 36.33 Glucose 321 H Calcium 8.8 Magnesium 1.4 L Troponin I 1493 H* TSH 1.94 Ethyl Alcohol Add-On Test Request ABO/Rh O Positive Blood Type Recheck O Positive Antibody Screen NEGATIVE Crossmatch See Detail 02/19/25 02/19/25 02/19/25 23:25 20:30 17:00 WBC RBC Hgb 9.1 L Cancelled Hct 28.8 L Cancelled MCV MCH MCHC RDW Plt Count MPV Immature Gran % Neutrophils % Lymphocytes % Monocytes % Eosinophils % Basophils % Nucleated RBC % Absolute Neutrophils Absolute Lymphocytes Absolute Monocytes Absolute Eosinophils Absolute Basophils RBC Morphology Polychromasia Hypochromasia Anisocytosis APTT 37.9 H VBG pH VBG pCO2 VBG pO2 VBG HCO3 VBG Total CO2 VBG O2 Saturation VBG Base Excess Sodium Potassium Chloride Carbon Dioxide Anion Gap BUN Creatinine Est GFR (CKD-EPI 2020) Glucose Calcium Magnesium Troponin I 1546 H* TSH Ethyl Alcohol Add-On Test Request ABO/Rh Blood Type Recheck Antibody Screen Crossmatch 02/19/25 02/19/25 02/19/25 15:09 13:39 12:28 WBC RBC Hgb Hct MCV MCH MCHC RDW Plt Count MPV Immature Gran % Neutrophils % Lymphocytes % Monocytes % Eosinophils % Basophils % Nucleated RBC % Absolute Neutrophils Absolute Lymphocytes Absolute Monocytes Absolute Eosinophils Absolute Basophils RBC Morphology Polychromasia Hypochromasia Anisocytosis APTT VBG pH VBG pCO2 VBG pO2 VBG HCO3 VBG Total CO2 VBG O2 Saturation VBG Base Excess Sodium Potassium Chloride Carbon Dioxide Anion Gap BUN Creatinine Est GFR (CKD-EPI 2020) Glucose Calcium Magnesium Troponin I 1913 H* 1806 H* TSH Ethyl Alcohol < 3.0 Add-On Test Request DONE ABO/Rh Blood Type Recheck Antibody Screen Crossmatch [facility] All Active Problems Discharge planning issues (Acute) DVT prophylaxis (Acute) Elevated AST (SGOT) (Acute) Anemia (Chronic) Acute hypoxic respiratory failure (Acute) Community acquired pneumonia (Acute) Non-ST elevation DC (NSTEMI) (Acute) Right-sided epistaxis (Acute) Type 2 diabetes mellitus with peripheral neuropathy (Acute) Ulcer of left foot with fat layer exposed (Acute) Toe injury (Acute) Obesity (BMI 30-39.9) (Chronic) Tremor of both hands (Chronic) [facility] neurology consulted 05/2023, CTM Nail dystrophy (Chronic) Anemia of chronic disease (Chronic) Peripheral artery disease (Chronic) Mild on ABIs Thrombocytopenia (Chronic) CKD (chronic kidney disease) stage 3, GFR 30-59 ml/min (Chronic) Sigmoid diverticulosis (Chronic) Major depressive disorder, recurrent (Chronic) Type 2 diabetes mellitus with retinopathy (Chronic) Atrial fibrillation (Chronic) Hyperlipidemia (Chronic) Hypertension (Chronic) Obstructive sleep apnea (Chronic) CPAP Coronary artery disease (Chronic) Hx of DC 1988 Medical History Myocardial infarction (01/30/89) Tubular adenoma of colon On 2019 colonoscopy Surgical History History of ankle surgery left S/P colonoscopic polypectomy (~01/2025) History of cataract surgery Status post ORIF of fracture of ankle Left ankle S/P trigger finger release x4 S/P tonsillectomy S/P appendectomy Family History Mother Essential hypertension Lung cancer Father Alcohol abuse Essential hypertension Heart disease Hyperlipidemia Stroke Asthma Sister Essential hypertension Stroke Sister Essential hypertension Depression Hyperlipidemia Sister Substance abuse Essential hypertension Depression Hyperlipidemia Sister No problems noted. Sister Essential hypertension Hyperlipidemia Brother Substance abuse Alcohol abuse Essential hypertension Heart disease Hyperlipidemia Brother Substance abuse Alcohol abuse Hyperlipidemia Lung cancer Brother Substance abuse Essential hypertension Hyperlipidemia Maternal Grandfather , TRAIN ACCIDENT at age 55. Heart disease Hyperlipidemia Asthma Paternal Grandfather Heart disease Asthma Maternal Grandmother Diabetes Essential hypertension Heart disease Hyperlipidemia Paternal Grandmother Colon cancer Pancreatic cancer Son Essential hypertension Hyperlipidemia Son Essential hypertension Hyperlipidemia Sister Essential hypertension Brother No problems noted. Social History (Updated 02/19/25 @ 18:01 by Krystian Correia) Smoking/Tobacco Use Status: Former Tobacco Use tobacco type: cigarettes Quit Date: 01/30/89 Pack-years: 66 Tobacco: How many years used: 22 Second Hand Exposure: Yes Smoking risk assessment performed?: Yes Alcohol Intake: current Alcohol Intake frequency: other Alcohol type: beer Details: non recently Drug use: Never Substance use type: does not use Caregiver/Support person: No Household members: spouse Housing: house Communication Needs: None Do you need help understanding health information?: Never Pets and animals: Yes Pets and animals: dog(s) Sexually active: No Do you think of yourself as: straight/heterosexual Current gender identity: male and decline to answer What is your relationship status?: How often do you talk on the phone with friends or family?: three or more times per week How often do you get together with friends or relatives?: once per week How often do you attend episcopal or christianity services?: decline to answer Do you belong to any clubs or organized social groups?: yes Panel score (0-1 are the most socially isolated patients): 3 What type of physical activity do you participate in: walking Duration: 15-30 minutes/day Frequency: 3-4 times per week Chuyita/Jainism: None Special chuyita needs: No Seatbelt use: always Helmet use: Yes Helmet use: always Drive intox or ride w/intox wheelchair van driver: No Do you feel safe at home: Yes Do you feel safe in your relationship?: Yes Additional Social history: Lives with Mary [address] in [facility] Time Spent with Patient Time Spent with Patient: <45 minutes Time was spent: preparing to see the patient(eg.review tests), obtaining and/or reviewing separately otained hiistory, ordering medications,tests, procedures, referring, communicating with other health urgent care nurse practitioner, indepentently interpreting results, counseling the patient and care coordination
[2025-02-20] MEDS: cefTRIAXone 2 GM/50 ML BAG IVPB (14:01)
--- NOTE | 2025-02-20 14:43 | PDOC.CMDIS ---
Date of service: 02/20/25 Time of Service: 14:43 LACE Index Scoring Tool Questions: Length of Stay (in days): 1 Was the patient admitted via the E.D.?: Yes Comorbidities: Previous M.I., Diabetes w/o Complication and Mild Liver/Renal Disease E.D. Visits: 3 Answers: Total Score: 12 Risk of Readmission: High Risk Care Management Discharge Plan Reason for Hospitalization: NSTEMI and pneumonia Discharge Plan: Shamar is being transferred to [facility] [place] further workup and likely cardiac catheter. He is very pleased that he did not have to stay at [facility] another night, as it was only causing anxiety. Shamar will transport via EMS. Patient/Family Education Needs: Review of discharge instructions, activity, limitations, and discuss Ask me 3.
== END 2025-02-20 15:30 | disposition short-term general hospital (02) | DRG 280 ==
LOC: ER 14:57 → MS 15:53 → ICU 02-20 00:02
PROVIDERS: Admitting Provider Family Medicine; Emergency Provider Student in an Organized Health Care Education/Training Program; PCP Nurse Practitioner Family; Responsible Provider Family Medicine; Visit Provider Family Medicine
DX: I21.4 Non-ST elevation (NSTEMI) myocardial infarction (principal); J96.01 Acute respiratory failure with hypoxia; J18.9 Pneumonia, unspecified organism; I48.0 Paroxysmal atrial fibrillation; E11.42 Type 2 diabetes mellitus with diabetic polyneuropathy; F33.9 Major depressive disorder, recurrent, unspecified; D64.9 Anemia, unspecified; E78.5 Hyperlipidemia, unspecified; I12.9 Hypertensive chronic kidney disease with stage 1 through stage 4 chronic kidney disease, or unspecified chronic kidney disease; E66.9 Obesity, unspecified; R74.01 Elevation of levels of liver transaminase levels; G47.33 Obstructive sleep apnea (adult) (pediatric); I25.10 Atherosclerotic heart disease of native coronary artery without angina pectoris; Z79.85 Long-term (current) use of injectable non-insulin antidiabetic drugs; N18.31 Chronic kidney disease, stage 3a; E11.22 Type 2 diabetes mellitus with diabetic chronic kidney disease; Z68.36 Body mass index [BMI] 36.0-36.9, adult
CPT/HCPCS: 00123; 36415; 36430; 76942; 80048; 80053; 82805; 86850; 86900; 86901; 86920; 87637; 93005; 93306; 96365; 96367; 96368; 96375; 99291; 36410; 71045; 80320; 83735; 83880; 84443; 84484; 85014; 85018; 85025; 85610; 85730; 93010; 94660; 99223; 99238; J0696; J1644; J1815; J1938; J2470; J3475; J3490; P9016

== ENCOUNTER 2025-03-23 11:00 | Outpatient (RCR) | payer MEDICARE, BC, SELFPAY ==
--- NOTE | 2025-03-23 11:00 | RT.EKG_ITS ---
APPROVED REPORT Exam: Resting ECG Reason for Exam: CR Intake - Baseline EKG Patient Location: O HR:83 bpm ECG Measurements Heart Rate 83 AXIS AL 215 P 123 QRSd 106 QRS 75 QT 394 T 258 QTc 463 Conclusion Sinus rhythm...normal P axis, V-rate 50- 99 Borderline prolonged AL interval...AL >212, V-rate 50- 90
== END 2025-03-26 23:59 | disposition home or self-care (01) ==
LOC: CR 11:00
PROVIDERS: PCP Nurse Practitioner Family; Visit Provider Internal Medicine Cardiovascular Disease
DX: I21.4 Non-ST elevation (NSTEMI) myocardial infarction (principal); Z51.89 Encounter for other specified aftercare; I25.10 Atherosclerotic heart disease of native coronary artery without angina pectoris
CPT/HCPCS: S9472

== ENCOUNTER → 2025-04-16 11:19 | Outpatient (BNVA) | payer MEDICARE, BC, SELFPAY | PROVIDERS: PCP Nurse Practitioner Family; Referring Provider Nurse Practitioner Family; Visit Provider Internal Medicine Cardiovascular Disease | DX: I25.810 Atherosclerosis of coronary artery bypass graft(s) without angina pectoris (principal); I48.0 Paroxysmal atrial fibrillation; I10 Essential (primary) hypertension | CPT/HCPCS: 99214 ==

== ENCOUNTER 2025-04-24 13:00 | Outpatient (RCR) | payer MEDICARE, BC, SELFPAY ==
--- NOTE | 2025-04-24 13:15 | RT.EKG_ITS ---
APPROVED REPORT Exam: Resting ECG Reason for Exam: Increased SOB Patient Location: O HR:97 bpm ECG Measurements Heart Rate 97 AXIS [place] 205 P 28 QRSd 102 QRS 79 QT 368 T -52 QTc 468 Conclusion Sinus rhythm...normal P axis, V-rate 50- 99 Nonspecific T abnormalities, diffuse leads...T <-0.10mV, ant/lat/inf
== END 2025-04-26 23:59 | disposition home or self-care (01) ==
LOC: CR 13:00
PROVIDERS: PCP Nurse Practitioner Family; Visit Provider Internal Medicine Cardiovascular Disease
DX: I21.9 Acute myocardial infarction, unspecified (principal); Z51.89 Encounter for other specified aftercare
CPT/HCPCS: S9472

== ENCOUNTER 2025-04-27 10:50 | Inpatient (IN) | payer MEDICARE, BC, SELFPAY ==
[2025-04-27] VITALS (89 sets, daily range): BP systolic 140–174; BP diastolic 77–104; PULSE 88–103; RESP 12–36; TEMP 35.8–36.3; O2SAT 91–100
--- NOTE | 2025-04-27 10:45 | RT.EKG_ITS ---
APPROVED REPORT Exam: Resting ECG Reason for Exam: SOB Patient Location: E HR:98 bpm ECG Measurements Heart Rate 98 AXIS [place] 224 P 29 QRSd 101 QRS 66 QT 345 T -64 QTc 440 Conclusion Sinus rhythm...normal P axis, V-rate 60- 99 Prolonged NY interval...NY >215, V-rate 91-120 Anterior infarct, old...Q >40mS, abnormal ST-T, V2-V5 No Occlusion SD
--- NOTE | 2025-04-27 11:15 | DI.RAD_ITS ---
Exam(s) XR PORTABLE CHEST AP EXAM: XR PORTABLE CHEST AP CLINICAL HISTORY: Chest pain TECHNIQUE: 2D digital imaging was performed of the chest. One image was obtained. An AP view was obtained. COMPARISON: CR,XR XR PORTABLE CHEST AP from 02/19/2025 CR XR PORTABLE CHEST AP from 02/19/2025 FINDINGS: MEDIASTINUM: Normal. HEART: The heart is at the upper limits of normal in size. PULMONARY VASCULATURE: There is pulmonary venous congestion. LUNGS: There are bilateral basilar opacities, left greater than right. PLEURAL SPACE: There is blunting of the costophrenic angles bilaterally suggesting small pleural effusions. BONE:Within normal limits for the patient's age. Sternal wires are in place. OTHER FINDINGS:Normal. IMPRESSION: 1. Pulmonary venous congestion and small pleural effusions. The findings raise a question of fluid overload. 2. Bilateral basilar opacities. This may represent atelectasis or pneumonia. Please correlate clinically. DATA REPOSITORY: RADIATION DOSE DELIVERED:
[2025-04-27 11:29] LABS: Abs Immature Grans 0.07 10^3/uL (0.0-0.06); HCT 33.3 % (40.0-50.0); HGB 10.0 g/dL (13.5-17.5); Immature Grans % 0.9 %; MCH 25.8 pg (27.0-33.0); MCHC 30.0 % (32.0-36.0); MCV 86 fL (80-95); MPV 11.0 fL (8.0-11.0); Platelet Count 141 10^3/uL (130-400); RBC 3.87 10^6/uL (4.36-5.78); RDW 20.2 % (11.8-14.1); RDW-SD 63.7 fL; WBC 7.97 10^3/uL (4.4-10.8)
--- NOTE | 2025-04-27 11:41 | W.EDPROG ---
Date of service: 04/27/25 Time of Service: 11:41 Discharge Plan Discharge Details Chief Complaint: SOB Primary Care Provider: Heather Randolph ED Provider: Lizzie Queen Home Meds and New Rx's Prescriptions: No Action insulin glargine [Basaglar KwikPen U-100 Insulin] 100 unit/mL (3 mL) insulin pen 50 unit subcut DAILY Qty: 15 3RF Mounjaro 5 mg/0.5 mL pen injector 5 mg subcut QWEEK Qty: 2 0RF apixaban 5 mg tablet 5 mg PO BID Qty: 180 3RF aspirin 81 mg tablet,chewable 81 mg PO DAILY atorvastatin 80 mg tablet 80 mg PO DAILY Qty: 90 3RF (DME) lancets [OneTouch Delica Lancets] 33 gauge misc See Rx Instructions Miscellaneous AC& HS Qty: 400 metformin 1,000 mg tablet 1,000 mg PO BID Qty: 180 3RF metoprolol succinate 25 mg tablet extended release 24 hr 25 mg PO DAILY Qty: 90 3RF paroxetine HCl 20 mg tablet 20 mg PO DAILY Qty: 90 3RF nitroglycerin 0.4 mg tablet, sublingual 0.4 mg sublingual ONCE Qty: 30 8RF Rx Instructions: as a single dose; administer 5-10 minutes before situation known to precipitate angina attack multivitamin [One Daily Multivitamin] Tablet 1 tab PO DAILY (DME) Dexcom G7 Microbiology Instructor Misc See Rx Instructions .Route Qty: 3 3RF Rx Instructions: Continuous glucose monitor (DME) Dexcom G7 Sensor Device See Rx Instructions .Route Qty: 9 3RF Rx Instructions: Continuous glucose monitor ketoconazole 2 % cream 1 applic topical DAILY Qty: 120 6RF Rx Instructions: Apply to toenails once daily (DME) OneTouch Ultra Test Strip 1 strip Miscellaneous AC&HS Qty: 200 3RF Rx Instructions: Check blood sugar twice a day mometasone 0.1 % ointment 1 applic topical DAILY PRN (Reason: ear eczema) Qty: 45 0RF (DME) pen needle, diabetic 32 gauge x 5/32 needle See Rx Instructions .Route Qty: 500 4RF Rx Instructions: Use with insulin pen daily and mounjaro pen weekly urea 40 % lotion 1 applic topical ONCE POCUS Exam (ED) Limited Cardiac Exam DATE OF EXAM: 04/27/25 TIME OF EXAM: 11:54 PROVIDER THAT PERFORMED THE STUDY: Krystian Hawkins IS THIS A REPEAT EXAM DURING THIS ENCOUNTER: no REASON FOR EXAM: Dyspnea VISUALIZED STRUCTURES: Four Chambers, Left ventricle and LVOT VIEW OBTAINED: Apical 4-Chamber, Parasternal long-axis and Subxiphoid PERTINENT FINDINGS/IMPRESSION: No pericardial effusion and No RV dilation DIFFERENTIAL DIAGNOSES: Aortic outflow approximately 4 cm, moderate squeeze, RV less than LV, no significant pericardial effusion. Bilateral B-lines. Exam complete
[2025-04-27 11:50] LABS: ALT 26 U/L (16-63); AST 27 U/L (15-37); Albumin 3.0 g/dL (3.4-5.0); Alkaline Phosphatase 99 U/L (46-116); Anion Gap 9.1 mmol/L (3-11); BUN 20 mg/dL (7-18); Bilirubin, Total 0.6 mg/dL (0.2-1.0); CO2 28.9 mmol/L (21.0-32.0); Calcium 9.0 mg/dL (8.5-10.1); Chloride 99 mmol/L (98-107); Estimated GFR 57.29 (mL/min/1.73m2); Glucose 353 mg/dL (74-106); Magnesium 1.4 mg/dL (1.8-2.4); Potassium 3.6 mmol/L (3.5-5.1); Sodium 137 mmol/L (136-145); Total Protein 7.5 g/dL (6.4-8.2); Troponin I 42 ng/L (<or=76)
[2025-04-27 11:52] LABS: Anisocytosis 2+; Polychromasia Present
[2025-04-27 12:00] LABS: D-Dimer 3614 ng/mlFEU (<500)
--- NOTE | 2025-04-27 12:00 | DI.CT_ITS ---
Exam(s) CT CHEST PE CTA EXAM: CT CHEST PE CTA CLINICAL HISTORY: elevated ddimer dyspnea. TECHNIQUE: Imaging Protocol: Axial CT angiography was performed with multi- slice acquisition and multi-planar and/or 3D reconstructions. Lung Computer Aided Detection (CAD) was utilized. CONTRAST MATERIAL: Intravenous: Omnipaque 350 contrast volume:100 mL COMPARISON: CR XR PORTABLE CHEST AP from 04/27/2025 FINDINGS: Tracheobronchial tree: There is mucous plugging in the left lower lobe. No bronchiectasis. Pulmonary parenchyma: There are ground-glass opacities throughout the lungs bilaterally. There are areas of consolidation in the lower lobes bilaterally. There is also consolidation in the left lingula with air bronchograms. Pulmonary Arteries: No evidence of filling defect to suggest pulmonary emboli. Mediastinum and [place]: No dominant adenopathy or fluid collection. The esophagus is unremarkable. Visualized thyroid gland: Unremarkable. Pleura: There are large bilateral pleural effusions. There is no pneumothorax. Heart: The heart is enlarged. Marked three-vessel coronary artery calcification is present. There is a small pericardial effusion. Aorta: The ascending thoracic aorta measures 4.4 x 4.4 cm. There is atherosclerotic calcification present. Upper abdomen: Unremarkable. Soft tissues: Unremarkable. Bones: Within normal limits for the patient's age.There are old healed rib fractures. Sternal wires are in place. IMPRESSION: 1. There is no evidence of a pulmonary embolism. 2. The ascending thoracic aorta measures 4.4 x 4.4 cm. 3. Cardiomegaly, ground-glass opacities and bilateral pleural effusions suspicious for congestive heart failure/fluid overload. 4. Bilateral basilar opacities. Superimposed pneumonia should also be considered. 5. The preliminary [facility] report was reviewed. RADIATION DOSE DELIVERED: 106.04 mGy.cm Total DLP DATA REPOSITORY: All CT scans at this facility are submitted to the National Radiology Data Registry (NRDR) Dose Index Registry (DIR) with the [employer] (ACR). RADIATION OPTIMIZATION: All CT scans at this facility use at least one of these dose optimization techniques: automated exposure control; mA and/or kV adjustment per patient size (includes targeted exams where dose is matched to clinical indication); or iterative reconstruction.
[2025-04-27 12:39] LABS: Troponin I 38 ng/L (<or=76)
[2025-04-27] MEDS: Furosemide 40 MG/4 ML VIAL IVP ×2 (13:25→22:26)
[2025-04-27] MEDS: MAGNESIUM SULFATE 1 GM/100 ML BAG IV_INF ×2 (13:28→17:55)
[2025-04-27 14:38] LABS: Troponin I 39 ng/L (<or=76)
--- NOTE | 2025-04-27 15:46 | W.ED.GENAD ---
Discharge Plan Discharge Details Chief Complaint: SOB Primary Care Provider: Heather Randolph ED Provider: Lizzie Queen Home Meds and New Rx's Prescriptions: No Action insulin glargine [Basaglar KwikPen U-100 Insulin] 100 unit/mL (3 mL) insulin pen 50 unit subcut DAILY Qty: 15 3RF Mounjaro 5 mg/0.5 mL pen injector 5 mg subcut QWEEK Qty: 2 0RF apixaban 5 mg tablet 5 mg PO BID Qty: 180 3RF aspirin 81 mg tablet,chewable 81 mg PO DAILY atorvastatin 80 mg tablet 80 mg PO DAILY Qty: 90 3RF (DME) lancets [OneTouch Delica Lancets] 33 gauge misc See Rx Instructions Miscellaneous AC& HS Qty: 400 metformin 1,000 mg tablet 1,000 mg PO BID Qty: 180 3RF metoprolol succinate 25 mg tablet extended release 24 hr 25 mg PO DAILY Qty: 90 3RF paroxetine HCl 20 mg tablet 20 mg PO DAILY Qty: 90 3RF nitroglycerin 0.4 mg tablet, sublingual 0.4 mg sublingual ONCE Qty: 30 8RF Rx Instructions: as a single dose; administer 5-10 minutes before situation known to precipitate angina attack multivitamin [One Daily Multivitamin] Tablet 1 tab PO DAILY (DME) Dexcom G7 Blunger Misc See Rx Instructions .Route Qty: 3 3RF Rx Instructions: Continuous glucose monitor (DME) Dexcom G7 Sensor Device See Rx Instructions .Route Qty: 9 3RF Rx Instructions: Continuous glucose monitor ketoconazole 2 % cream 1 applic topical DAILY Qty: 120 6RF Rx Instructions: Apply to toenails once daily (DME) OneTouch Ultra Test Strip 1 strip Miscellaneous AC&HS Qty: 200 3RF Rx Instructions: Check blood sugar twice a day mometasone 0.1 % ointment 1 applic topical DAILY PRN (Reason: ear eczema) Qty: 45 0RF (DME) pen needle, diabetic 32 gauge x 5/32 needle See Rx Instructions .Route Qty: 500 4RF Rx Instructions: Use with insulin pen daily and mounjaro pen weekly urea 40 % lotion 1 applic topical ONCE HPI General Date/Time Provider Initiated Documentation: 04/27/25 11:12. HPI Narrative: This 74-year-old male presents with recent triple-vessel bypass in February past medical history of atrial fibrillation diabetes hypertension peripheral arterial disease thrombocytopenia presenting with worsening shortness of breath over the past week. States has had some increased swelling in his extremities 2. He is not currently on any diuretics but was in the past. He denies any pain in his chest or new calf discomfort. Denies prior history of coagulopathy. States his symptoms are worsened when he lays flat and with exertion. Denies any upper respiratory symptoms. Related Data Home Medications ?Medication ?Instructions ?Recorded ?Confirmed blood sugar diagnostic ([employer]ango[employer] #200 ea 10/21/22 04/16/25 Ultra Test strips) mometasone 0.1 % topical ointment 1 applic topical DAILY PRN ear 06/11/23 04/27/25 eczema #45 grams multivitamin (One Daily 1 tab PO DAILY 10/22/23 04/27/25 Multivitamin tablet) blood-glucose sensor (Dexcom G7 #9 ea 07/30/24 04/16/25 Sensor device) blood-glucose,clean up supervisor,cont #3 ea 07/30/24 04/16/25 (Dexcom G7 Blunger) ketoconazole 2 % topical cream 1 applic topical DAILY #120 grams 01/27/25 04/27/25 urea 40 % lotion 1 applic topical ONCE 02/09/25 04/27/25 apixaban 5 mg tablet 5 mg PO BID #180 tabs 04/16/25 04/27/25 aspirin 81 mg chewable tablet 81 mg PO DAILY 04/16/25 04/27/25 atorvastatin 80 mg tablet 80 mg PO DAILY #90 tabs 04/16/25 04/27/25 insulin glargine 100 unit/mL (3 50 unit (0.5 mL) subcut DAILY #15 04/16/25 04/27/25 mL) subcutaneous pen (Basaglar DOUGLAS KwikPen U-100 Insulin) lancets 33 gauge ([employer] Delica #400 ea 04/16/25 04/16/25 Lancets) metformin 1,000 mg tablet 1,000 mg PO BID #180 tabs 04/16/25 04/27/25 metoprolol succinate 25 mg 25 mg PO DAILY #90 tabs 04/16/25 04/27/25 tablet,extended release 24 hr nitroglycerin 0.4 mg sublingual 0.4 mg sublingual ONCE #30 tabs 04/16/25 04/27/25 tablet paroxetine HCl 20 mg tablet 20 mg PO DAILY #90 tabs 04/16/25 04/27/25 tirzepatide 5 mg/0.5 mL 5 mg (0.5 mL) subcut QWEEK #2 mL 04/16/25 04/27/25 subcutaneous pen injector (Mounjaro) pen needle, diabetic 32 gauge x #500 ea 04/22/25 Previous Rx's ?Medication ?Instructions ?Recorded blood sugar diagnostic (OneTouch #200 ea 10/21/22 Ultra Test strips) mometasone 0.1 % topical ointment 1 applic topical DAILY PRN ear 06/11/23 eczema #45 grams blood-glucose sensor (Dexcom G7 #9 ea 07/30/24 Sensor device) blood-glucose,clean up supervisor,cont #3 ea 07/30/24 (Dexcom G7 Blunger) ketoconazole 2 % topical cream 1 applic topical DAILY #120 grams 01/27/25 apixaban 5 mg tablet 5 mg PO BID #180 tabs 04/16/25 atorvastatin 80 mg tablet 80 mg PO DAILY #90 tabs 04/16/25 insulin glargine 100 unit/mL (3 50 unit (0.5 mL) subcut DAILY #15 04/16/25 mL) subcutaneous pen (Basaglar DOUGLAS KwjohnPen U-100 Insulin) metformin 1,000 mg tablet 1,000 mg PO BID #180 tabs 04/16/25 metoprolol succinate 25 mg 25 mg PO DAILY #90 tabs 04/16/25 tablet,extended release 24 hr nitroglycerin 0.4 mg sublingual 0.4 mg sublingual ONCE #30 tabs 04/16/25 tablet paroxetine HCl 20 mg tablet 20 mg PO DAILY #90 tabs 04/16/25 tirzepatide 5 mg/0.5 mL 5 mg (0.5 mL) subcut QWEEK #2 mL 04/16/25 subcutaneous pen injector (Mounjaro) pen needle, diabetic 32 gauge x #500 ea 04/22/25 Allergies Allergy/AdvReac Type Severity Reaction Status Date / Time empagliflozin (From AdvReac Mild Sandra Verified 04/27/25 10:58 Jardiance) infections General Stated Complaint: SOB MOJGAN: 3 Exam Narrative Exam Narrative: Alert and oriented gentleman in no acute distress at rest, dyspneic with any sort of exertion. Crackles left greater than right no murmur normal sinus rhythm no abdominal tenderness distal pulses intact 3+ edema bilaterally to lower extremities Course Vital Signs Vital signs: Vital Signs Temperature 36.3 C L 04/27/25 10:55 Pulse 97 H 04/27/25 10:55 Respiratory Rate 12 04/27/25 10:55 Blood Pressure 168/93 H 04/27/25 10:55 Pulse Oximetry 97 04/27/25 10:55 Temperature 36.3 C L 04/27/25 11:16 Temperature Source Oral 04/27/25 11:16 Pulse 94 H 04/27/25 14:31 Pulse 91 H 04/27/25 14:20 Respiratory Rate 18 04/27/25 14:20 Respiratory Effort Normal, Non-Labored 04/27/25 11:17 Blood Pressure 166/86 H 04/27/25 14:31 Blood Pressure Mean 112 04/27/25 14:31 Blood Pressure Position Sitting 04/27/25 11:16 Pulse Oximetry 97 04/27/25 14:31 Oxygen Delivery Method Room Air 04/27/25 14:31 Oxygen Flow Rate 0 04/27/25 14:31 Lab/Test Results Lab/Test Results: Laboratory Tests Range/Units 04/27/25 04/27/25 04/27/25 11:13 12:13 14:15 WBC (4.4-10.8) 10^3/uL 7.97 RBC (4.36-5.78) 10^6/uL 3.87 L Hgb (13.5-17.5) g/dL 10.0 L Hct (40.0-50.0) % 33.3 L MCV (80-95) fL 86 MCH (27.0-33.0) pg 25.8 L MCHC (32.0-36.0) % 30.0 L RDW (11.8-14.1) % 20.2 H Plt Count (130-400) 10^3/uL 141 MPV (8.0-11.0) fL 11.0 Immature Gran % % 0.9 Neutrophils % % 66.6 Lymphocytes % % 18.6 Monocytes % % 12.0 Eosinophils % % 0.8 Basophils % % 1.1 Nucleated RBC % (0.0-0.3) % 0.0 Absolute Neutrophils (1.2-6.7) 10^3/uL 5.31 Absolute Lymphocytes (1.2-3.4) 10^3/uL 1.48 Absolute Monocytes (0.1-0.8) 10^3/uL 0.96 H Absolute Eosinophils (0.0-0.7) 10^3/uL 0.06 Absolute Basophils (0.0-0.2) 10^3/uL 0.09 RBC Morphology See Below Polychromasia Present Anisocytosis 2+ D-Dimer (<500) ng/mlFEU 3614 H Sodium (136-145) mmol/L 137 Potassium (3.5-5.1) mmol/L 3.6 Chloride (98-107) mmol/L 99 Carbon Dioxide (21.0-32.0) mmol/L 28.9 Anion Gap (3-11) mmol/L 9.1 BUN (7-18) mg/dL 20 H Creatinine (0.70-1.30) mg/dL 1.3 Est GFR (CKD-EPI 2020) (mL/min/1.73m2) 57.29 Glucose (74-106) mg/dL 353 H Calcium (8.5-10.1) mg/dL 9.0 Magnesium (1.8-2.4) mg/dL 1.4 L Total Bilirubin (0.2-1.0) mg/dL 0.6 AST (15-37) U/L 27 ALT (16-63) U/L 26 Alkaline Phosphatase (46-116) U/L 99 Troponin I (<or=76) ng/L 42 38 39 Total Protein (6.4-8.2) g/dL 7.5 Albumin (3.4-5.0) g/dL 3.0 L Medical Decision Making 74-year-old male status post triple-vessel bypass at [facility] on Eliquis and clopidogrel presenting with worsening dyspnea on exertion has a chest x-ray that shows evidence of volume overload with pulmonary congestion. attending's note for reduction in ejection fraction without obvious pericardial effusion or valvular abnormalities POCUS. Diagnostic labs show improved flat troponin. Hemoglobin hematocrit stable at 10 and 33 when compared to prior D-dimer of 3614, pending CTA, unfortunately patient was unable to tolerate CTA and so there was a delay in performance glucose 353 consistent with patient's history of diabetes magnesium 1.4 supplemented with 1 g of magnesium IV EKG without evidence of acute ischemia or electrolyte related dysrhythmia. Assessment and plan. Patient at rest is in no acute distress with any sort of exertion he desats to about 80%. I did attempt to have CTA PE, and he was unable to tolerate this even with oxygen so he was brought back to the emergency department and given 40 mg of IV Lasix has had approximately 900 cc of output and is now able to likely tolerate CTA he is pending CT at this time. I have a call out to [facility] cardiology to review patient's recommendations given he is status post triple bypass in February. He has been taking all medications as prescribed although is not currently on a diuretic. I think at this time given his recent triple bypass he warrants admission to the hospital for observation and diuresis plus minus echocardiogram at the discretion of the hospitalist. He will maintain remain on telemetry monitoring Spoke with [facility] and recommends diuresis. no need to tx at this time - Case discussed with Dr. Zamarripa hospitalist pending transition to [facility]: CTA PE PFSH All Active Problems (Updated 04/16/25 @ 11:55 by Robyn Hilario MD) Coronary artery disease (Chronic) [place] 1988, NSTEMI 2024 s/p CABG X 3 Atrial fibrillation (Chronic) S/p MAZE 03/04/25 Mitral valve regurgitation (Chronic) Moderate to severe on RAZ 2024 Obstructive sleep apnea (Chronic) CPAP CKD (chronic kidney disease) stage 3, GFR 30-59 ml/min (Chronic) Type 2 diabetes mellitus with retinopathy (Chronic) Diabetic nephropathy (Chronic) Hypertension (Chronic) Peripheral artery disease (Chronic) Mild on ABIs Thrombocytopenia (Chronic) Anemia of chronic disease (Chronic) Major depressive disorder, recurrent (Chronic) Hyperlipidemia (Chronic) Ulcer of left foot with fat layer exposed (Chronic) Obesity (BMI 30-39.9) (Chronic) Tremor of both hands (Chronic) [facility] neurology consulted 05/2023, CTM Nail dystrophy (Chronic) Sigmoid diverticulosis (Chronic) Medical History Non-ST elevation [place] (NSTEMI) (~01/2025) Tubular adenoma of colon On 2019 colonoscopy Myocardial infarction (01/30/89) Surgical History S/P Maze operation for atrial fibrillation (03/04/25) and IAIN S/P CABG x 3 (03/04/25) S/P colonoscopic polypectomy (03/02/25) History of cataract surgery Status post ORIF of fracture of ankle Left ankle S/P trigger finger release x4 S/P tonsillectomy S/P appendectomy Family History Mother Essential hypertension Lung cancer Father Alcohol abuse Essential hypertension Heart disease Hyperlipidemia Stroke Asthma Sister Essential hypertension Stroke Sister Essential hypertension Depression Hyperlipidemia Sister Substance abuse Essential hypertension Depression Hyperlipidemia Sister No problems noted. Sister Essential hypertension Hyperlipidemia Brother Substance abuse Alcohol abuse Essential hypertension Heart disease Hyperlipidemia Brother Substance abuse Alcohol abuse Hyperlipidemia Lung cancer Brother Substance abuse Essential hypertension Hyperlipidemia Maternal Grandfather , TRAIN ACCIDENT at age 55. Heart disease Hyperlipidemia Asthma Paternal Grandfather Heart disease Asthma Maternal Grandmother Diabetes Essential hypertension Heart disease Hyperlipidemia Paternal Grandmother Colon cancer Pancreatic cancer Son Essential hypertension Hyperlipidemia Son Essential hypertension Hyperlipidemia Sister Essential hypertension Brother No problems noted. Social History Smoking/Tobacco Use Status: Former Tobacco Use tobacco type: cigarettes Quit Date: 01/30/89 Pack-years: 66 Tobacco: How many years used: 22 Second Hand Exposure: Yes Smoking risk assessment performed?: Yes Alcohol Intake: current Alcohol Intake frequency: holidays/special occasions only Alcohol type: beer Details: non recently Drug use: Never Substance use type: does not use Caregiver/Support person: No Household members: spouse Housing: house Communication Needs: None Do you need help understanding health information?: Never Pets and animals: Yes Pets and animals: dog(s) Sexually active: No Do you think of yourself as: straight/heterosexual Current gender identity: male and decline to answer What is your relationship status?: How often do you talk on the phone with friends or family?: three or more times per week How often do you get together with friends or relatives?: once per week How often do you attend yazdanism or faith services?: decline to answer Do you belong to any clubs or organized social groups?: yes Panel score (0-1 are the most socially isolated patients): 3 What type of physical activity do you participate in: walking Duration: 15-30 minutes/day Frequency: 3-4 times per week Chuyita/Zoroastrian: None Special chuyita needs: No Seatbelt use: always Helmet use: Yes Helmet use: always Drive intox or ride w/intox construction driver: No Do you feel safe at home: Yes Do you feel safe in your relationship?: Yes Additional Social history: Lives with Mary on [address] in [facility]
[2025-04-27 16:07] LABS: Lab Add On Test DONE
[2025-04-27 17:07] LABS: NT-proBNP 2220 pg/mL (<300)
--- NOTE | 2025-04-27 17:46 | DI.VRAD_ITS ---
PROCEDURE INFORMATION: Exam: CTA Chest With Contrast Exam date and time: 04/27/2025 12:33 PM Age: 74 years old Clinical indication: Abnormal findings; Abnormal diagnostic tests; Elevated d-dimer; Prior surgery; Surgery date: 1-6 months; Surgery type: Heart; Dyspnea, elevated ddimer TECHNIQUE: Imaging protocol: Computed tomographic angiography of the chest with contrast. Exam focused on the arteries. 3D rendering (Not supervised by radiologist): MIP and/or 3D reconstructed images were created by the technologist. Total images: [id number] COMPARISON: CR XR PORTABLE CHEST AP 04/27/2025 11:35 AM FINDINGS: Pulmonary arteries: No filling defect in the pulmonary arterial tree. Aorta: No aortic aneurysm or dissection. Lungs: Mosaic attenuation consistent with air trapping. Bibasilar atelectasis. Pleural spaces: Moderate right and large left pleural effusions. Heart: No pericardial effusion. Coronary arteries: Severe coronary calcification. Lymph nodes: Small likely reactive mediastinal nodes. Bones/joints: Median sternotomy. Soft tissues: No significant finding. IMPRESSION: 1. Bilateral pleural effusions. 2. No PE. Dictated and Authenticated by: Duran Sosa MD. Orderin Bernice Samuel MD
--- NOTE | 2025-04-27 19:35 | HPE_ITS ---
Date of service: 05/27/25 Time of Service: 19:30 Assessment and Plan Assessment and plan (1) Acute on chronic heart failure with preserved ejection fraction (HFpEF): Status: Acute Assessment and plan: February 20 TTE here had EF 25% prior to [facility] [place] for CABG February 25 pre-op limited TTE showed EF 53% March 03 RAZ showed EF 50%. Moderate to severe mitral regurgitation noted. Small pleural effusions noted in post-op clinic visits, mild SOB Now with large left and moderate right pleural effusions and bilateral 3+ pitting edema in both legs. Per [facility] advise, will diurese and do echo Patient given furosemide 40 mg IV in ED Giving another furosemide 40 mg IV on admission, will order 3rd dose for the morning Continue beta kevin, statin, aspirin Echo and repeat CXR ordered for the morning (2) Bilateral pleural effusion: Status: Acute Assessment and plan: Thoracentesis deferred in ED and on admission pending diuresis Consider pulmonology consult pending improvement (3) Paroxysmal A-fib: Status: Chronic Assessment and plan: S/p Maze and IAIN closure during CABG hospitalization Continue apixaban (4) Uncontrolled diabetes mellitus with hyperglycemia, with long-term current use of insulin: Status: Chronic Assessment and plan: Last known A1C 8.4 on February 20. Poor control. Will defer recheck of A1C to the outpatient setting Home regimen: basal insulin 50u daily, metformin, tirzepatide Continue basal 50u with resistant correctional. Hold metformin, tirzepatide. (5) Hypertension: Status: Chronic Assessment and plan: Continue home metoprolol succinate Losartan stopped during CABG hospitalization (6) Hyperlipidemia: Status: Chronic Assessment and plan: Continue home statin (7) Major depressive disorder, recurrent: Status: Chronic Assessment and plan: Continue home paroxetine History of Present Illness History of Present Illness Chief Complaint: shortness of breath Narrative: Vance Doe is a 74 year old man presenting in the ED April 27 with shortness of breath worsening for a week. March 04 CABGx3 and Maze at [facility] with pre-operative EF 25% and post-operative EF 50%, started on apixaban. Patient reports that he noticed difficulty breathing while ambulating, which got worse daily until he felt he could not catch his breath while walking and was unable to lie flat. He also is noticing swelling in both legs, which he has not had in a while and reports that his lasix was stopped at [facility]. No recent illness, no sick contacts. He has been participating in cardiac rehab and going to clinic visits. No chest pain, no abdominal pain, no N/V/D. PMH: CAD with MD in 1988 and CABGx3 in 2024, paroxysmal afib s/p 2024 Maze and IAIN closure, former tobacco smoker, DM on insulin and tirzepatide, HTN, HLD, CKD Mitral valve regurgitation seen on post-CABG RAZ. Last EF 53% Tirzepatide, glipizide, losartan discontinued at [facility] February 2025 Off furosemide and amiodarone as of April 13 [facility] clinic visit. Small bilateral pleural effusions noted on CXR at that visit. Continuing apixaban per Dr Stein's April 16 clinic note. He was able to walk to clinic from the parking lot on that date. Restarted tirzepatide per PCP April 16 clinic note In the ED he was afebrile and on room air, tachycardic to 101, hypertensive to 174/100, tachypneic to 41. EKG with sinus rhythm, no STEMI. POCUS showed no pericardial effusion, no RV dilation. CXR with small bilateral pleural effusions and bilateral bibasilar opacities. Negative troponin. BNP 2220. Ddimer 3614. BG 353, Mg 1.4. Mild anemia. CTA showed no PE, no major artery defects; large left pleural effusion, moderate right pleural effusion, bibasilar atelectasis, air trapping. [facility] cardiology was consulted and advised hospitalization for echo and diuresis. PFSH All Active Problems (Updated 04/28/25 @ 02:05 by Jose Morales MD) Paroxysmal A-fib (Chronic) Uncontrolled diabetes mellitus with hyperglycemia, with long-term current use of insulin (Chronic) History of left atrial appendage closure (Acute) History of coronary artery bypass graft x 3 (Acute) Bilateral pleural effusion (Acute) Acute on chronic heart failure with preserved ejection fraction (HFpEF) (Acute) CHF exacerbation (Acute) Coronary artery disease (Chronic) MD 1988, NSTEMI 2024 s/p CABG X 3 Atrial fibrillation (Chronic) S/p MAZE 03/04/25 Mitral valve regurgitation (Chronic) Moderate to severe on RAZ 2024 Obstructive sleep apnea (Chronic) CPAP CKD (chronic kidney disease) stage 3, GFR 30-59 ml/min (Chronic) Type 2 diabetes mellitus with retinopathy (Chronic) Diabetic nephropathy (Chronic) Hypertension (Chronic) Peripheral artery disease (Chronic) Mild on ABIs Thrombocytopenia (Chronic) Anemia of chronic disease (Chronic) Major depressive disorder, recurrent (Chronic) Hyperlipidemia (Chronic) Ulcer of left foot with fat layer exposed (Chronic) Obesity (BMI 30-39.9) (Chronic) Tremor of both hands (Chronic) [facility] neurology consulted 05/2023, CTM Nail dystrophy (Chronic) Sigmoid diverticulosis (Chronic) Medical History Non-ST elevation MD (NSTEMI) (~01/2025) Tubular adenoma of colon On 2019 colonoscopy Myocardial infarction (01/30/89) Surgical History S/P Maze operation for atrial fibrillation (03/04/25) and IAIN S/P CABG x 3 (03/04/25) S/P colonoscopic polypectomy (03/02/25) History of cataract surgery Status post ORIF of fracture of ankle Left ankle S/P trigger finger release x4 S/P tonsillectomy S/P appendectomy Family History Mother Essential hypertension Lung cancer Father Alcohol abuse Essential hypertension Heart disease Hyperlipidemia Stroke Asthma Sister Essential hypertension Stroke Sister Essential hypertension Depression Hyperlipidemia Sister Substance abuse Essential hypertension Depression Hyperlipidemia Sister No problems noted. Sister Essential hypertension Hyperlipidemia Brother Substance abuse Alcohol abuse Essential hypertension Heart disease Hyperlipidemia Brother Substance abuse Alcohol abuse Hyperlipidemia Lung cancer Brother Substance abuse Essential hypertension Hyperlipidemia Maternal Grandfather , TRAIN ACCIDENT at age 55. Heart disease Hyperlipidemia Asthma Paternal Grandfather Heart disease Asthma Maternal Grandmother Diabetes Essential hypertension Heart disease Hyperlipidemia Paternal Grandmother Colon cancer Pancreatic cancer Son Essential hypertension Hyperlipidemia Son Essential hypertension Hyperlipidemia Sister Essential hypertension Brother No problems noted. Social History Smoking/Tobacco Use Status: Former Tobacco Use tobacco type: cigarettes Quit Date: 01/30/89 Pack-years: 66 Tobacco: How many years used: 22 Second Hand Exposure: Yes Smoking risk assessment performed?: Yes Alcohol Intake: current Alcohol Intake frequency: holidays/special occasions only Alcohol type: beer Details: non recently Drug use: Never Substance use type: does not use Caregiver/Support person: No Household members: spouse Housing: house Communication Needs: None Do you need help understanding health information?: Never Pets and animals: Yes Pets and animals: dog(s) Sexually active: No Do you think of yourself as: straight/heterosexual Current gender identity: male and decline to answer What is your relationship status?: How often do you talk on the phone with friends or family?: three or more times per week How often do you get together with friends or relatives?: once per week How often do you attend evangelical or jehovah's witness services?: decline to answer Do you belong to any clubs or organized social groups?: yes Panel score (0-1 are the most socially isolated patients): 3 What type of physical activity do you participate in: walking Duration: 15-30 minutes/day Frequency: 3-4 times per week Chuyita/Congregation: None Special chuyita needs: No Seatbelt use: always Helmet use: Yes Helmet use: always Drive intox or ride w/intox 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 Do you feel safe at home: Yes Do you feel safe in your relationship?: Yes Additional Social history: Lives with Mary on [address] in [facility] Allergies and Home Medications Allergies Allergy/AdvReac Type Severity Reaction Status Date / Time empagliflozin (From AdvReac Mild Sandra Verified 04/27/25 10:58 Jardiance) infections Home Medications ?Medication ?Instructions ?Recorded ?Confirmed ?Type blood sugar diagnostic (OneTouch #200 ea 10/21/2209/20 Rx Ultra Test strips) mometasone 0.1 % topical ointment 1 applic topical MACKENZIE LY PRN ear 06/11/23 04/27/25 Rx eczema #45 grams multivitamin (One Daily 1 tab PO DAILY 10/22/2309/20 History Multivitamin tablet) blood-glucose sensor (Dexcom G7 #9 ea 07/30/24 5 Rx Sensor device) blood-glucose,universal grinder operator,cont #3 ea 07/30/24 04/27/25 Rx (Dexcom G7 Formulator) ketoconazole 2 % topical cream 1 applic topical DAILY #120 grams 01/27/25 04/27/25 Rx urea 40 % lotion 1 applic topical ONCE 04/27/25 History apixaban 5 mg tablet 5 mg PO BID #180 tabs 04/27/25 Rx aspirin 81 mg chewable tablet 81 mg PO DAILY 04/16/25 04/27/25 History atorvastatin 80 mg tablet 80 mg PO DAILY #90 tabs 08/09/2004/27/25 Rx insulin glargine 100 unit/mL (3 50 unit (0.5 mL) subcu t DAILY #15 04/16/25 04/27/25 Rx mL) subcutaneous pen (Basaglar CHRISTOPHERGS KwikPen U-100 Insulin) lancets 33 gauge ([facility]400 ea 04/16/2509/20 History Lancets) metformin 1,000 mg tablet 1,000 mg PO BID #180 tabs 04/27/25 Rx metoprolol succinate 25 mg 25 mg PO DAILY #90 tabs 04/27/25 Rx tablet,extended release 24 hr nitroglycerin 0.4 mg sublingual 0.4 mg sublingual ONCE #30 tabs 04/16/25 04/27/25 Rx tablet paroxetine HCl 20 mg tablet 20 mg PO DAILY #90 tabs 04/27/25 Rx tirzepatide 5 mg/0.5 mL 5 mg (0.5 mL) subcut QWEEK # 2 mL 04/16/25 04/27/25 Rx subcutaneous pen injector (Mason) pen needle, diabetic 32 gauge x #500 ea 04/22/2504/27 Rx /32 Exam Narrative Exam Narrative: General: This is a pleasant man in no acute distress HEENT: Normocephalic, atraumatic CV: RRR. Sternal incision c/d/i. BLE 3+ pitting edema. Resp: Diminished bibasilar breath sounds worse on the left. Increased work of breathing but SpO2 100% on room air. Abd: NTND, +NBS MSK: voluntary motion x4 Neuro: Awake, alert, no focal deficits Results Labs 04/27/25 11:13 04/27/25 11:13 Labs: Laboratory Results - last 24 hr 04/27/25 04/27/25 04/27/25 11:13 12:13 14:15 WBC 7.97 RBC 3.87 L Hgb 10.0 L Hct 33.3 L MCV 86 MCH 25.8 L MCHC 30.0 L RDW 20.2 H Plt Count 141 MPV 11.0 Immature Gran % 0.9 Neutrophils % 66.6 Lymphocytes % 18.6 Monocytes % 12.0 Eosinophils % 0.8 Basophils % 1.1 Nucleated RBC % 0.0 Absolute Neutrophils 5.31 Absolute Lymphocytes 1.48 Absolute Monocytes 0.96 H Absolute Eosinophils 0.06 Absolute Basophils 0.09 RBC Morphology See Below Polychromasia Present Anisocytosis 2+ D-Dimer 3614 H Sodium 137 Potassium 3.6 Chloride 99 Carbon Dioxide 28.9 Anion Gap 9.1 BUN 20 H Creatinine 1.3 Est GFR (CKD-EPI 2020) 57.29 Glucose 353 H Calcium 9.0 Magnesium 1.4 L Total Bilirubin 0.6 AST 27 ALT 26 Alkaline Phosphatase 99 Troponin I 42 38 39 NT-Pro-B Natriuret Pep 2220 H Total Protein 7.5 Albumin 3.0 L Add-On Test Request DONE Last Vital Signs Temp 36.3 C L 04/27/25 11:16 Pulse 89 04/27/25 19:10 Resp 17 04/27/25 19:10 BP 163/92 H 04/27/25 19:01 Pulse Ox 100 04/27/25 19:10 Time Spent Time spent with Patient: 55-74 minutes Time was spent: preparing to see the patient(eg.review tests), obtaining and/or reviewing separately otained hiistory, ordering medications,tests, procedures, referring, communicating with other health healthcare facility administrator, indepentently interpreting results, counseling the patient and care coordination
[2025-04-27] MEDS: Normal Saline Flush 10 ML SYR IVP (22:28)
[2025-04-27] MEDS: Insulin Aspart 300 UNITS/3 ML PEN SC (22:50)
--- NOTE | 2025-04-27 23:40 | W.PC.ACHO ---
Registration Status: ADM IN Primary Language: Preferred Language: Azeri ED Information & Data Chief Complaint SOB 04/27/25 15:50 Triage Note Patient here with sob for 04/27/25 10:55 two weeks, worse since sunday. Had a hard time during cardiac rehab. triple bypass in February. Medical / Surgical History (Last Reviewed 04/16/25 @ 11:26 by Robyn Hilario MD) Non-ST elevation MA (NSTEMI) (~01/2025) Tubular adenoma of colon Myocardial infarction (01/30/89) (Last Reviewed 04/16/25 @ 11:26 by Robyn Hilario MD) S/P Maze operation for atrial fibrillation (03/04/25) S/P CABG x 3 (03/04/25) S/P colonoscopic polypectomy (03/02/25) History of cataract surgery Status post ORIF of fracture of ankle S/P trigger finger release S/P tonsillectomy S/P appendectomy Most Recent Vital Signs Temperature 35.8 C L 04/27/25 21:16 Temperature Source Tympanic 04/27/25 21:14 Pulse 98 H 04/27/25 21:16 Pulse Rhythm Regular 04/27/25 21:16 Pulse 91 H 04/27/25 20:50 Respiratory Rate 18 04/27/25 21:16 Respiratory Effort Normal, Non-Labored, Short of Breath 04/27/25 21:16 Respiratory Depth Normal 04/27/25 21:16 Respiratory Pattern Normal 04/27/25 21:16 Blood Pressure 140/92 H 04/27/25 21:16 Blood Pressure Mean 106 04/27/25 21:14 Blood Pressure Position Sitting 04/27/25 11:16 Pulse Oximetry 99 04/27/25 21:16 Oxygen Delivery Method Nasal Cannula 04/27/25 21:16 Oxygen Flow Rate 1 04/27/25 21:16 Pain Level 0 04/27/25 21:16 Allergies empagliflozin (From Jardiance) Adverse Reaction (Mild, Verified 04/27/25 10:58) Sandra infections Yeast infections Active Medications Generic Name Dose Route Start Last Admin Trade Name Freq PRN Reason Stop Dose Admin Insulin Aspart 0 units 04/27/25 22:00 04/27/25 22:50 Insulin Aspart 300 Units/3 Ml Pen SC 9 units 0800,1200,1700,2200 LEANN Administration Protocol Sodium Chloride 0 ml 04/27/25 20:00 04/27/25 22:28 Normal Saline Flush 10 Ml Syr IVP 10 ml BID LEANN Administration IV IV Catheter Type [Right Saline Lock Antecubital] IV Catheter Gauge [Right 18 Antecubital] Diet Orders Category Date Time Status Diabetes Consistent CHO [DIET] Nutrition 04/28/25 Breakfast Ordered Diagnostics 04/27/25 04/27/25 04/27/25 Range/Units 14:15 12:13 11:13 WBC 7.97 (4.4-10.8) 10^3/uL RBC 3.87 L (4.36-5.78) 10^6/uL Hgb 10.0 L (13.5-17.5) g/dL Hct 33.3 L (40.0-50.0) % MCV 86 (80-95) fL MCH 25.8 L (27.0-33.0) pg MCHC 30.0 L (32.0-36.0) % RDW 20.2 H (11.8-14.1) % Plt Count 141 (130-400) 10^3/uL MPV 11.0 (8.0-11.0) fL Immature Gran % 0.9 % Neutrophils % 66.6 % Lymphocytes % 18.6 % Monocytes % 12.0 % Eosinophils % 0.8 % Basophils % 1.1 % Nucleated RBC % 0.0 (0.0-0.3) % Absolute Neutrophils 5.31 (1.2-6.7) 10^3/uL Absolute Lymphocytes 1.48 (1.2-3.4) 10^3/uL Absolute Monocytes 0.96 H (0.1-0.8) 10^3/uL Absolute Eosinophils 0.06 (0.0-0.7) 10^3/uL Absolute Basophils 0.09 (0.0-0.2) 10^3/uL RBC Morphology See Below Polychromasia Present Anisocytosis 2+ D-Dimer 3614 H (<500) ng/mlFEU Sodium 137 (136-145) mmol/L Potassium 3.6 (3.5-5.1) mmol/L Chloride 99 (98-107) mmol/L Carbon Dioxide 28.9 (21.0-32.0) mmol/L Anion Gap 9.1 (3-11) mmol/L BUN 20 H (7-18) mg/dL Creatinine 1.3 (0.70-1.30) mg/dL Est GFR (CKD-EPI 2020) 57.29 (mL/min/1.73m2) Glucose 353 H (74-106) mg/dL Calcium 9.0 (8.5-10.1) mg/dL Magnesium 1.4 L (1.8-2.4) mg/dL Total Bilirubin 0.6 (0.2-1.0) mg/dL AST 27 (15-37) U/L ALT 26 (16-63) U/L Alkaline Phosphatase 99 (46-116) U/L Troponin I 39 38 42 (<or=76) ng/L NT-Pro-B Natriuret Pep 2220 H (<300) pg/mL Total Protein 7.5 (6.4-8.2) g/dL Albumin 3.0 L (3.4-5.0) g/dL Add-On Test Request DONE [id number] Documentation Fingerstick Glucose Start: 04/27/25 21:59 Freq: AC & HS Status: Active Protocol: Activity Type Activity Date Activity User E-sign Co-sign Detail Recorded Client Recorded Date Recorded By Document 04/27/25 22:28 SUSHILA DAKEVIN(3) [id number] 04/27/25 22:29 TAIG DAAMARISON(4) Intake and Output - 24 Hour Total 04/27/25 10:50 thru 04/27/25 21:16 Intake Total 210 Output Total 1675 Balance -1465 Weight 112.2 kg Intake: IV 210 Output: Urine 1675 Other: Urine Appearance Clear Falls Risk Assessment History of Falls Previous History 04/27/25 21:16 Contributing Factors No Factors 04/27/25 11:15 Ambulatory Aids Independent 04/27/25 21:16 Tubes/Lines None 04/27/25 21:16 Gait Evaluation No gait disturbance 04/27/25 21:16 Cognition No cognitive impairment 04/27/25 21:16 Fall Total Score 15 04/27/25 21:16 Level of Risk Standard/Low Risk 04/27/25 21:16 Problems (Last Reviewed 04/16/25 @ 11:26 by Robyn Hilario MD) CHF exacerbation (Acute) v v v v v v v v v Sending and/or Receiving Nurses: Please use comment section below to note any information pertinent to the patient hand-off not included above. Information / Comments: pt. transfer from ED to 216. Via wheelchair. Alert and Oriented , pleasant cooperated , calm , VSS, O2 1L/min . SOB , denied chest pain , N/V , ABd pain telemonitor on HR Sinus Tach . Ambulated indep . contininent both last BM 04/27 Report received from:Barry
[2025-04-28 04:37] VITALS: BP 155/84; PULSE 97; RESP 22; TEMP 36.3; O2SAT 99
[2025-04-28 06:48] LABS: Abs Immature Grans 0.03 10^3/uL (0.0-0.06); HCT 32.0 % (40.0-50.0); HGB 9.6 g/dL (13.5-17.5); Immature Grans % 0.4 %; MCH 25.5 pg (27.0-33.0); MCHC 30.0 % (32.0-36.0); MCV 85 fL (80-95); MPV 11.0 fL (8.0-11.0); Platelet Count 129 10^3/uL (130-400); RBC 3.77 10^6/uL (4.36-5.78); RDW 20.0 % (11.8-14.1); RDW-SD 62.5 fL; WBC 7.58 10^3/uL (4.4-10.8)
[2025-04-28 07:10] LABS: ALT 23 U/L (16-63); AST 25 U/L (15-37); Albumin 2.7 g/dL (3.4-5.0); Alkaline Phosphatase 91 U/L (46-116); Anion Gap 5.4 mmol/L (3-11); BUN 19 mg/dL (7-18); Bilirubin, Total 0.6 mg/dL (0.2-1.0); CO2 33.6 mmol/L (21.0-32.0); Calcium 8.7 mg/dL (8.5-10.1); Chloride 101 mmol/L (98-107); Estimated GFR 52.41 (mL/min/1.73m2); Glucose 208 mg/dL (74-106); Magnesium 1.7 mg/dL (1.8-2.4); Potassium 3.3 mmol/L (3.5-5.1); Sodium 140 mmol/L (136-145); Total Protein 6.9 g/dL (6.4-8.2)
[2025-04-28 07:29] VITALS: BP 147/84; PULSE 90; RESP 18; TEMP 37; O2SAT 98
[2025-04-28 07:35] LABS: Hypochromasia 1+
--- NOTE | 2025-04-28 08:00 | DI.US_ITS ---
APPROVED REPORT EXAM: Comprehensive 2D, Doppler, and color-flow Echocardiogram Patient Location: In-Patient Room/Bed: 216 [employer] Coordination Specialist: Vasiliy Navarro RDCS (AE) Indications: HF exacerbation Other Information Study Quality: Fair Conclusion Technically limited study Normal left ventricular wall thickness and chamber size. Ejection fraction is 45 to 50%. Septal motion is consistent with prior cardiac surgery. There is otherwise mild generalized hypokinesis Mildly enlarged right ventricle Both atria are moderately dilated There are no structural valvular abnormalities Mild to moderate tricuspid regurgitation. Estimated right ventricular systolic pressure is 41 mmHg Left pleural effusion Wall motion Left Ventricle The left ventricle is normal size. Left ventricular systolic function is mildly decreased. There is normal left ventricular wall thickness. Paradoxical septal motion consistent with post-operative state. LVEF is 45-50%. Right Ventricle Right ventricle is mildly dilated. Right ventricular systolic function is grossly normal. Atria Left atrium is moderately dilated. Right atrium is moderately dilated. Aortic Valve The aortic valve is normal in structure. Mitral Valve The mitral valve is normal in structure. Tricuspid Valve Mild to moderate tricuspid regurgitation. The RVSP is 40.7 mmHg. Great Vessels IVC is normal in size and collapses >50% with inspiration. Pericardium There is no pericardial effusion. Left pleural effusion. 2D Dimensions IVSD d PLAX 1.20 cm M: 0.6-1.2 LVPW d PLAX 1.21 cm M: 0.6 - 1.2 LVID d PLAX 5.41 cm M: 4.2 - 5.8 LVDs 4.33 cm M: 2.5 - 4.0 LV EF Teichholz 40.3 % FS 19.85 % LV EDV (Teich) 141.7 mL LV ESV (Teich) 84.6 mL Stroke Vol Index (Teich) 24.73 Auto EF LV EDV A4C 132.3 mL LV EDV A2C 112.7 mL LV EDV BP LV ESV A4C 78.9 mL LV ESV A2C 73.0 mL LV ESV BP LVEF(%) A4C 40.4 % LVEF(%) A2C 35.2 % LVEF(%) BP LV SV A4C 53.4 ml LV SV A2C 39.7 ml LV SV BP LV CO A4C 4.9 L/min LV CO A2C 3.6 L/min LV CO BP HR A4C 91.84 BPM HR A2C 91.61 BPM LV EDV Index (BP) LA Volume LA Length A4C 6.4 cm LA Length A2C 5.8 cm LA Area A4C s 28.88 cm2 LA Area A2C s 22.35 cm2 LA Vol A4C A-L 110.37 mL LA Vol A2C A-L 72.89 mL LA Vol Biplane A- L 94.2 mL LA Vol/BSA A4C A-L LA Vol/BSA A2C A-L LA Vol/BSA BP A-L 40.8 mL/m2 LA Vol A4C MOD 106.0 mL LA Vol A2C MOD 70.1 mL LA Vol BP MOD 90.3 mL RA Volume RA Area A4C 21.9 cm2 RA ESV A4C (A-L) 77.0mL RA Vol/BSA A4C A-L RA Length A4C 5.3 cm RA ESV A4C (MOD) 73.4mL Tricuspid Valve RA Pressure 3.00 mmHg TR Vmax 3.07 m/s TR Peak Grad 37.7 mmHg RVSP (TR) 40.7 mmHg
--- NOTE | 2025-04-28 08:13 | W.PULMCON ---
General Date Of Service Date of service: 04/28/25 Time of Service: 08:00 Requesting physician: Jose Morales Reason for Consult: Pleural effusions Recommendations: Assessment: 1. Bilateral pleural effusions - cardiogenic vs post-operative from recent CABG. No clinical evidence of active pneumonia at this time. Had mod-severe MR on recent RAZ 2. Dyspnea - suspect due to pleural effusions and pulmonary edema - improved with diuresis 3. Pulmonary infiltrates - suspect due to atelectasis and pulmonary edema. Low suspicion for active pneumonia 4. CAD - s/p CABG 5. SEPIDEH - normally on CPAP 6. Afib - on eliquis - last dose 04/26. Left atrial appendage closed during CABG 7. CKD - baseline Cr ~1.4 Recommendations: - agree with continued duresis - plan for POCUS US in the AM. If significant pleural effusions are still present, will plan for thoracentesis tomorrow - do not see any clinical evidence of active pneumonia, so can hold off on antibiotics from a pulmonary standpoint - can use Home CPAP if available - hold anticoagulation for now for possible thoracentesis in the AM Discussed with Dr. Zamarripa History of Present Illness History of Present Illness Chief Complaint: Pleural effusions Narrative: Patient is a 74 yo with a history of CAD and valvular heart disease who was admitted for increased dyspnea. Underwent CABG in 02/2025 at [facility] [place]. Reported having chest tubes in for ~ 1 week post-op due to bloody output. Denied any history of pleural effusion prior to CABG. Denied any fevers or chest pain. Has had gradually worsening dyspnea with exertion over the past week. Has had increased LE swelling as well. Chest imaging showed bialteral pleural effusions (left > right). He has been diuresed since admission with improved dyspnea. Currently on 1 L O2. Denied significant cough. No purulent sputum production or hemotpysis. No chest pain overnight. Family history: Mother - lung cancer Smoking history: 66 pack year. Quit 1988 ROS: 10 pt ROS negative except as in HPI PFSH All Active Problems (Updated 04/28/25 @ 02:05 by Jose Morales MD) Paroxysmal A-fib (Chronic) Uncontrolled diabetes mellitus with hyperglycemia, with long-term current use of insulin (Chronic) History of left atrial appendage closure (Acute) History of coronary artery bypass graft x 3 (Acute) Bilateral pleural effusion (Acute) Acute on chronic heart failure with preserved ejection fraction (HFpEF) (Acute) CHF exacerbation (Acute) Coronary artery disease (Chronic) [place] 1988, NSTEMI 2024 s/p CABG X 3 Atrial fibrillation (Chronic) S/p MAZE 03/04/25 Mitral valve regurgitation (Chronic) Moderate to severe on RAZ 2024 Obstructive sleep apnea (Chronic) CPAP CKD (chronic kidney disease) stage 3, GFR 30-59 ml/min (Chronic) Type 2 diabetes mellitus with retinopathy (Chronic) Diabetic nephropathy (Chronic) Hypertension (Chronic) Peripheral artery disease (Chronic) Mild on ABIs Thrombocytopenia (Chronic) Anemia of chronic disease (Chronic) Major depressive disorder, recurrent (Chronic) Hyperlipidemia (Chronic) Ulcer of left foot with fat layer exposed (Chronic) Obesity (BMI 30-39.9) (Chronic) Tremor of both hands (Chronic) [place] neurology consulted 05/2023, CTM Nail dystrophy (Chronic) Sigmoid diverticulosis (Chronic) Medical History Non-ST elevation [place] (NSTEMI) (~01/2025) Tubular adenoma of colon On 2019 colonoscopy Myocardial infarction (01/30/89) Surgical History S/P Maze operation for atrial fibrillation (03/04/25) and IAIN S/P CABG x 3 (03/04/25) S/P colonoscopic polypectomy (03/02/25) History of cataract surgery Status post ORIF of fracture of ankle Left ankle S/P trigger finger release x4 S/P tonsillectomy S/P appendectomy Family History Mother Essential hypertension Lung cancer Father Alcohol abuse Essential hypertension Heart disease Hyperlipidemia Stroke Asthma Sister Essential hypertension Stroke Sister Essential hypertension Depression Hyperlipidemia Sister Substance abuse Essential hypertension Depression Hyperlipidemia Sister No problems noted. Sister Essential hypertension Hyperlipidemia Brother Substance abuse Alcohol abuse Essential hypertension Heart disease Hyperlipidemia Brother Substance abuse Alcohol abuse Hyperlipidemia Lung cancer Brother Substance abuse Essential hypertension Hyperlipidemia Maternal Grandfather , TRAIN ACCIDENT at age 55. Heart disease Hyperlipidemia Asthma Paternal Grandfather Heart disease Asthma Maternal Grandmother Diabetes Essential hypertension Heart disease Hyperlipidemia Paternal Grandmother Colon cancer Pancreatic cancer Son Essential hypertension Hyperlipidemia Son Essential hypertension Hyperlipidemia Sister Essential hypertension Brother No problems noted. Social History Smoking/Tobacco Use Status: Former Tobacco Use tobacco type: cigarettes Quit Date: 01/30/89 Pack-years: 66 Tobacco: How many years used: 22 Second Hand Exposure: Yes Smoking risk assessment performed?: Yes Alcohol Intake: current Alcohol Intake frequency: holidays/special occasions only Alcohol type: beer Details: non recently Drug use: Never Substance use type: does not use Caregiver/Support person: No Household members: spouse Housing: house Communication Needs: None Do you need help understanding health information?: Never Pets and animals: Yes Pets and animals: dog(s) Sexually active: No Do you think of yourself as: straight/heterosexual Current gender identity: male and decline to answer What is your relationship status?: How often do you talk on the phone with friends or family?: three or more times per week How often do you get together with friends or relatives?: once per week How often do you attend anglican or pentecostal services?: decline to answer Do you belong to any clubs or organized social groups?: yes Panel score (0-1 are the most socially isolated patients): 3 What type of physical activity do you participate in: walking Duration: 15-30 minutes/day Frequency: 3-4 times per week Chuyita/Yarsani: None Special chuyita needs: No Seatbelt use: always Helmet use: Yes Helmet use: always Drive intox or ride w/intox driver manager: No Do you feel safe at home: Yes Do you feel safe in your relationship?: Yes Additional Social history: Lives with Mary [address] in [facility] Visit Medication and Allergies Active Medications Generic Name Dose Route Start Last Admin Trade Name Freq PRN Reason Stop Dose Admin Acetaminophen 650 mg 04/27/25 18:19 Acetaminophen 325 Mg Tab PO Q4H PRN PRN Albuterol/Ipratropium 3 ml 04/27/25 19:25 Albuterol/Ipratropium 3 Ml Upd Vial UPD Q6H PRN PRN Apixaban 5 mg 04/28/25 08:30 Apixaban 5 Mg Tab PO BID [facility] Aspirin 81 mg 04/28/25 08:30 Aspirin 81 Mg Chew PO DAILY [facility] Atorvastatin Calcium 80 mg 04/28/25 08:30 Atorvastatin 40 Mg Tab PO DAILY [facility] Dextrose 0 gm 04/27/25 21:57 Glucose Oral Gel 15 Gm/37.5 Gm Tube PO DIRECTED PRN Dextrose/Water 0 gm 04/27/25 21:57 Dextrose 50%-Water 25 Gm/50 Ml Syr IVP DIRECTED PRN Furosemide 40 mg 04/28/25 08:00 Furosemide 40 Mg/4 Ml Vial IVP BID@0800,1600 [facility] IV Miscellaneous Supplies 1 each 04/27/25 11:30 Iv Access-Emergency Dept IV DIRECTED [facility] Insulin Aspart 0 units 04/27/25 22:00 04/27/25 22:50 Insulin Aspart 300 Units/3 Ml Pen SC 9 units 0800,1200,1700,2200 [facility] Administration Protocol Insulin Glargine 50 units 04/28/25 08:30 Insulin Glargine 300 Units/3 Ml Pen SC DAILY [facility] Iohexol 100 ml 04/27/25 12:30 Omnipaque 350 Mg/Ml 100 Ml Btl IJ 05/27/25 23:59 DIRECTED [facility] Metoprolol Succinate 25 mg 04/28/25 08:30 Metoprolol Cr 25 Mg Tabcr PO DAILY [facility] Paroxetine HCl 20 mg 04/28/25 08:30 Paroxetine 20 Mg Tab PO DAILY [facility] Polyethylene Glycol 17 gm 04/27/25 18:19 Polyethylene Glycol 3350 17 Gm Packet PO DAILY PRN PRN Constipation Sodium Chloride 0 ml 04/27/25 11:20 Normal Saline Flush 10 Ml Syr IVP PRN PRN Sodium Chloride 0 ml 04/27/25 20:00 04/27/25 22:28 Normal Saline Flush 10 Ml Syr IVP 10 ml BID [facility] Administration Sodium Chloride 0 ml 04/27/25 11:20 Normal Saline 10 Ml Vial IJ DIRECTED PRN Sodium Chloride 0 ml 04/27/25 12:28 Normal Saline Flush 10 Ml Syr IVP PRN PRN Sodium Chloride 50 ml 04/27/25 12:30 Normal Saline - Diluent 50 Ml Vial IJ DIRECTED [facility] Allergies empagliflozin (From Jardiance) Adverse Reaction (Mild, Verified 04/27/25 10:58) Sandra infections Exam Narrative Exam Narrative: General: alert, no acute distress Head: normocephalic ENT: no stridor, trachea midline CV: normal rate, regular rhythm Respiratory: no wheezing, no crackles, no rhonchi, no prolonged expiration GI: abd soft, non-tender, non-distended Skin: no rashes Extremities: +1 edema, no digital clubbing Psych: normal affect Results Last Vital Signs Temp 37.0 C 04/28/25 07:29 Pulse 90 04/28/25 07:29 Resp 18 04/28/25 07:29 BP 147/84 H 04/28/25 07:29 Pulse Ox 98 04/28/25 07:29 Labs 04/28/25 06:40 04/28/25 06:40 Labs: Laboratory Results - last 24 hr 04/27/25 04/27/25 04/27/25 11:13 12:13 14:15 WBC 7.97 RBC 3.87 L Hgb 10.0 L Hct 33.3 L MCV 86 MCH 25.8 L MCHC 30.0 L RDW 20.2 H Plt Count 141 MPV 11.0 Immature Gran % 0.9 Neutrophils % 66.6 Lymphocytes % 18.6 Monocytes % 12.0 Eosinophils % 0.8 Basophils % 1.1 Nucleated RBC % 0.0 Absolute Neutrophils 5.31 Absolute Lymphocytes 1.48 Absolute Monocytes 0.96 H Absolute Eosinophils 0.06 Absolute Basophils 0.09 RBC Morphology See Below Polychromasia Present Hypochromasia Anisocytosis 2+ D-Dimer 3614 H Sodium 137 Potassium 3.6 Chloride 99 Carbon Dioxide 28.9 Anion Gap 9.1 BUN 20 H Creatinine 1.3 Est GFR (CKD-EPI 2020) 57.29 Glucose 353 H Calcium 9.0 Magnesium 1.4 L Total Bilirubin 0.6 AST 27 ALT 26 Alkaline Phosphatase 99 Troponin I 42 38 39 NT-Pro-B Natriuret Pep 2220 H Total Protein 7.5 Albumin 3.0 L Add-On Test Request DONE 04/28/25 06:40 WBC 7.58 RBC 3.77 L Hgb 9.6 L Hct 32.0 L MCV 85 MCH 25.5 L MCHC 30.0 L RDW 20.0 H Plt Count 129 L MPV 11.0 Immature Gran % 0.4 Neutrophils % 50.9 Lymphocytes % 22.6 Monocytes % 23.6 Eosinophils % 1.3 Basophils % 1.2 Nucleated RBC % 0.0 Absolute Neutrophils 3.86 Absolute Lymphocytes 1.71 Absolute Monocytes 1.79 H Absolute Eosinophils 0.10 Absolute Basophils 0.09 RBC Morphology See Below Polychromasia Hypochromasia 1+ Anisocytosis D-Dimer Sodium 140 Potassium 3.3 L Chloride 101 Carbon Dioxide 33.6 H Anion Gap 5.4 BUN 19 H Creatinine 1.4 H Est GFR (CKD-EPI 2020) 52.41 Glucose 208 H Calcium 8.7 Magnesium 1.7 L Total Bilirubin 0.6 AST 25 ALT 23 Alkaline Phosphatase 91 Troponin I NT-Pro-B Natriuret Pep Total Protein 6.9 Albumin 2.7 L Add-On Test Request Imaging CT scan - chest: report reviewed and image reviewed
[2025-04-28] MEDS: Metoprolol CR 25 MG TABCR PO (08:31)
[2025-04-28] MEDS: Normal Saline Flush 10 ML SYR IVP ×2 (08:31→20:46)
[2025-04-28] MEDS: Atorvastatin 40 MG TAB 80 MG PO (08:31)
[2025-04-28] MEDS: Furosemide 40 MG/4 ML VIAL IVP ×2 (08:31→17:37)
[2025-04-28] MEDS: PARoxetine 20 MG TAB PO (08:31)
[2025-04-28] MEDS: Insulin Aspart 300 UNITS/3 ML PEN SC ×3 (08:32→17:37)
--- NOTE | 2025-04-28 09:17 | DI.RAD_ITS ---
Exam(s) XR CHEST 2V PA LATERAL EXAM: XR CHEST 2V PA LATERAL CLINICAL HISTORY: query improvement BL pleural effusions TECHNIQUE: 2D digital imaging was performed. Two views. COMPARISON: CR,XR XR PORTABLE CHEST AP from 02/19/2025 CR XR PORTABLE CHEST AP from 04/27/[address] CHEST PE CTA from 04/27/2025 FINDINGS: Exam is limited by poor pulmonary inflation. HEART: Normal enlarged. Cardiac silhouette is partially obscured. Aorta: Not dilated. PULMONARY VASCULATURE: Normal. MEDIASTINUM: Unremarkable. LUNGS: The lungs are poorly inflated and not well evaluated. There is linear atelectasis at the left lung base. No overt pulmonary edema. PLEURAL SPACE: No small bilateral pleural effusions, left greater than right. Left effusion appears have decreased in size mildly BONE:Unremarkable for age. SOFT TISSUES: Unremarkable. IMPRESSION: Mild improvement in left pleural effusion. Improvement in pulmonary edema. DATA REPOSITORY: RADIATION DOSE DELIVERED:
[2025-04-28 11:16] VITALS: BP 140/88; PULSE 86; RESP 18; TEMP 36.5; O2SAT 96
--- NOTE | 2025-04-28 17:37 | W.PM.PROGNOT ---
Date of Service Date of service: 04/28/25 Time of Service: 17:37 Assessment and Plan Assessment and plan (1) Acute on chronic heart failure with preserved ejection fraction (HFpEF): Status: Acute Assessment and plan: February 20 TTE here had EF 25% prior to [facility] transfer for CABG February 25 pre-op limited TTE showed EF 53% March 03 RAZ showed EF 50%. Moderate to severe mitral regurgitation noted. Small pleural effusions noted in post-op clinic visits, mild SOB Now with large left and moderate right pleural effusions and bilateral 3+ pitting edema in both legs. Per [facility] advise, will diurese and do echo Patient given furosemide 40 mg IV in ED Giving another furosemide 40 mg IV on admission, will order 3rd dose for the morning Continue beta kevin, statin, aspirin Echo and repeat CXR ordered for the morning 04/28/25 possible cause of pleural effusion (2) Bilateral pleural effusion: Status: Acute Assessment and plan: Thoracentesis deferred in ED and on admission pending diuresis Consider pulmonology consult pending improvement 04/28/25 Pulm consult reviewed. Possible thoracentesis in am (3) Paroxysmal A-fib: Status: Chronic Assessment and plan: S/p Maze and IAIN closure during CABG hospitalization Continue apixaban (4) Uncontrolled diabetes mellitus with hyperglycemia, with long-term current use of insulin: Status: Chronic Assessment and plan: Last known A1C 8.4 on February 20. Poor control. Will defer recheck of A1C to the outpatient setting Home regimen: basal insulin 50u daily, metformin, tirzepatide Continue basal 50u with resistant correctional. Hold metformin, tirzepatide. (5) Hypertension: Status: Chronic Assessment and plan: Continue home metoprolol succinate Losartan stopped during CABG hospitalization (6) Hyperlipidemia: Status: Chronic Assessment and plan: Continue home statin (7) Major depressive disorder, recurrent: Status: Chronic Assessment and plan: Continue home paroxetine Subjective Subjective Interval history since last seen: no new complaints. POC d/w pt//Pulm. Possible thoracentesis in am Exam Narrative Exam Narrative: General: alert, no acute distress Head: normocephalic ENT: no stridor, trachea midline CV: normal rate, regular rhythm Respiratory: no wheezing, no crackles, no rhonchi, no prolonged expiration GI: abd soft, non-tender, non-distended Skin: no rashes Extremities: +1 edema, no digital clubbing Psych: normal affect Objective Last Vital Signs Temp 36.5 C 04/28/25 11:16 Pulse 86 04/28/25 11:16 Resp 18 04/28/25 11:16 BP 140/88 04/28/25 11:16 Pulse Ox 96 04/28/25 11:16 Laboratory Results - last 24 hr 04/28/25 06:40 WBC 7.58 RBC 3.77 L Hgb 9.6 L Hct 32.0 L MCV 85 MCH 25.5 L MCHC 30.0 L RDW 20.0 H Plt Count 129 L MPV 11.0 Immature Gran % 0.4 Neutrophils % 50.9 Lymphocytes % 22.6 Monocytes % 23.6 Eosinophils % 1.3 Basophils % 1.2 Nucleated RBC % 0.0 Absolute Neutrophils 3.86 Absolute Lymphocytes 1.71 Absolute Monocytes 1.79 H Absolute Eosinophils 0.10 Absolute Basophils 0.09 RBC Morphology See Below Hypochromasia 1+ Sodium 140 Potassium 3.3 L Chloride 101 Carbon Dioxide 33.6 H Anion Gap 5.4 BUN 19 H Creatinine 1.4 H Est GFR (CKD-EPI 2020) 52.41 Glucose 208 H Calcium 8.7 Magnesium 1.7 L Total Bilirubin 0.6 AST 25 ALT 23 Alkaline Phosphatase 91 Total Protein 6.9 Albumin 2.7 L Time Spent with Patient Time Spent with Patient: 25-34 minutes Time was spent: preparing to see the patient(eg.review tests), obtaining and/or reviewing separately otained hiistory, ordering medications,tests, procedures, referring, communicating with other health continuum of care manager, indepentently interpreting results, counseling the patient, care coordination and other
--- NOTE | 2025-04-28 18:36 | PDOC.CMIN ---
Date of service: 04/28/25 Time of Service: 15:00 Care Management Initial Assmt Initial Assessment Reason for Hospitalization: bilateral pleural effusions Functional Status/Living Situation Patient Presentation: Shamar presented to the ED yesterday morning at the prompting of his cardiac rehab team. He was very short of breath, and could not exercise to the level that he had achieved last week. He was found to have bilateral pleural effusions. Shamar is s/p NSTEMI and CABG last month. Today Shamar was sitting on the edge of the bed, visiting with his , Mary, when CM met with him. Both he and his were very pleasant, but both stated that they wish Shamar could just stay out of the hospital. Shamar has not yet achieved his pre-heart attack stamina, and has been enjoying going to cardiac rehab and watching his improvements. He is worried that he will now be starting from the beginning. He is very willing to put in the work, he intends to be around for a good long time. Town of Residence: [facility] Resides with: Spouse (Mary) Significant Other/Family: Local (2 sons and their families. 1 son in [place], the other in [place]) Natural Supports: , friends Employment Status: Retired (worked many jobs I'm retired from a lot of things.) Instrumental Activities of Daily Living (ADLs): Independent Advance Directives Advance Directives: Do you have an Advance Directive: Y 04/27/25, 10:50 AD On File at [facility]: Y 04/27/25, 10:50 Date Asked AD Date Reviewed 02/11/25 02/11/25, 05:18 COLST On File at [facility] COLST Date Scanned Code Status Resuscitation Status Full Code Portal Pt does not currently have a portal and education provided: Yes Insurance Coverage/Financial Issues Insurance: Medicare Part A & B - [place] [place] Team Visit Care Team Role Provider Type Yoseph Zamarripa MD MD [facility] STAFF PHYSICIAN Heather Randolph NP Primary Care Provider NURSE PRACTITIONER Shantel Clayton RDN, [facility] Other Providers [employer] Rodríguez Cintron MD Other Providers [facility] STAFF PHYSICIAN Joel Jerome RDN Other Providers [employer] JANEEN Whitten Emergency Provider PHYSICIANS ASSISTANT Jose Morales MD Admit Provider MD [facility] STAFF PHYSICIAN Attending Provider Discharge Potential Discharge Needs: PCP F/U Appt (cardiology f/u) Anticipated Barriers to Discharge: None Identified Patient/Family Education Needs: Review discharge instructions, discuss Ask Me Three Transportation: Private vehicle Plan: Shamar will discharge home with no new services once he is medically cleared. He yahir f/u with his PCP and with cardiology and pulmonology and continue per his plan of care. He will transport home in a private vehicle. CM will continue to follow. Social Determinants of Health Screening Social Determinants of health last assessed in clinic: 04/28/25 Will the Patient Participate in the Screening?: Yes Do you worry about having a steady place to live?: yes What is your living situation today?: I have housing today, but am worried about losing it Problems where you live: no known problems In the past 12 months, have you had to go without electric, gas, oil or water in your home?: no 1. Within the past 12 months, we worried whether our food would run out before we got money to buy more.: Don't know/refused 2. Within the past 12 months, the food we bought just didn't last and we didn't have money to get more.: Don't know/refused Has lack of transportation kept you from medical appointments or from doing things needed for daily living?: no Has anyone in your life made you feel unsafe or unsupported?: no How hard is it for you to pay for the very basics like food, housing, medical care, and heating? Would you say it is:: Not hard at all Do you want help finding or keeping work or a job?: I do not need or want help If for any reason you need help with day-to-day activities such as bathing, preparing meals, shopping, managing finances, etc., do you get the help you need?: I don?t need any help How often do you feel lonely or isolated from those around you?: Never Do you speak a language other than Romanian at home?: No Does the patient want assistance with any of the above?: No Health Related Social Needs Health related social needs: housing instability, housed, with risk of homelessness (Z59.811) Health related social needs details: pt doesn't need it PFSH All Active Problems (Updated 04/28/25 @ 02:05 by Jose Morales MD) Paroxysmal A-fib (Chronic) Uncontrolled diabetes mellitus with hyperglycemia, with long-term current use of insulin (Chronic) History of left atrial appendage closure (Acute) History of coronary artery bypass graft x 3 (Acute) Bilateral pleural effusion (Acute) Acute on chronic heart failure with preserved ejection fraction (HFpEF) (Acute) CHF exacerbation (Acute) Coronary artery disease (Chronic) LA 1988, NSTEMI 2024 s/p CABG X 3 Atrial fibrillation (Chronic) S/p MAZE 03/04/25 Mitral valve regurgitation (Chronic) Moderate to severe on RAZ 2024 Obstructive sleep apnea (Chronic) CPAP CKD (chronic kidney disease) stage 3, GFR 30-59 ml/min (Chronic) Type 2 diabetes mellitus with retinopathy (Chronic) Diabetic nephropathy (Chronic) Hypertension (Chronic) Peripheral artery disease (Chronic) Mild on ABIs Thrombocytopenia (Chronic) Anemia of chronic disease (Chronic) Major depressive disorder, recurrent (Chronic) Hyperlipidemia (Chronic) Ulcer of left foot with fat layer exposed (Chronic) Obesity (BMI 30-39.9) (Chronic) Tremor of both hands (Chronic) [facility] neurology consulted 05/2023, CTM Nail dystrophy (Chronic) Sigmoid diverticulosis (Chronic) Medical History Non-ST elevation LA (NSTEMI) (~01/2025) Tubular adenoma of colon On 2019 colonoscopy Myocardial infarction (01/30/89) Surgical History S/P Maze operation for atrial fibrillation (03/04/25) and IAIN S/P CABG x 3 (03/04/25) S/P colonoscopic polypectomy (03/02/25) History of cataract surgery Status post ORIF of fracture of ankle Left ankle S/P trigger finger release x4 S/P tonsillectomy S/P appendectomy Family History Mother Essential hypertension Lung cancer Father Alcohol abuse Essential hypertension Heart disease Hyperlipidemia Stroke Asthma Sister Essential hypertension Stroke Sister Essential hypertension Depression Hyperlipidemia Sister Substance abuse Essential hypertension Depression Hyperlipidemia Sister No problems noted. Sister Essential hypertension Hyperlipidemia Brother Substance abuse Alcohol abuse Essential hypertension Heart disease Hyperlipidemia Brother Substance abuse Alcohol abuse Hyperlipidemia Lung cancer Brother Substance abuse Essential hypertension Hyperlipidemia Maternal Grandfather , TRAIN ACCIDENT at age 55. Heart disease Hyperlipidemia Asthma Paternal Grandfather Heart disease Asthma Maternal Grandmother Diabetes Essential hypertension Heart disease Hyperlipidemia Paternal Grandmother Colon cancer Pancreatic cancer Son Essential hypertension Hyperlipidemia Son Essential hypertension Hyperlipidemia Sister Essential hypertension Brother No problems noted. Social History Smoking/Tobacco Use Status: Former Tobacco Use tobacco type: cigarettes Quit Date: 01/30/89 Pack-years: 66 Tobacco: How many years used: 22 Second Hand Exposure: Yes Smoking risk assessment performed?: Yes Alcohol Intake: current Alcohol Intake frequency: holidays/special occasions only Alcohol type: beer Details: non recently Drug use: Never Substance use type: does not use Caregiver/Support person: No Household members: spouse Housing: house Communication Needs: None Do you need help understanding health information?: Never Pets and animals: Yes Pets and animals: dog(s) Sexually active: No Do you think of yourself as: straight/heterosexual Current gender identity: male and decline to answer What is your relationship status?: How often do you talk on the phone with friends or family?: three or more times per week How often do you get together with friends or relatives?: once per week How often do you attend mandaen or religion services?: decline to answer Do you belong to any clubs or organized social groups?: yes Panel score (0-1 are the most socially isolated patients): 3 What type of physical activity do you participate in: walking Duration: 15-30 minutes/day Frequency: 3-4 times per week Chuyita/Voodoo: None Special chuyita needs: No Seatbelt use: always Helmet use: Yes Helmet use: always Drive intox or ride w/intox dedicated truck driver: No Do you feel safe at home: Yes Do you feel safe in your relationship?: Yes Additional Social history: Lives with Mary on [address] in [facility]
[2025-04-28 18:51] VITALS: BP 146/84; PULSE 92; RESP 16; TEMP 36.6; O2SAT 95
--- NOTE | 2025-04-28 19:17 | RESPIRATORY ---
04/28/2025 Pt has his own auto CPAP MIN 15 MAX 20 [employer] H2O chamber filled
[2025-04-28] MEDS: Insulin Glargine 300 UNITS/3 ML PEN 50 UNITS SC (20:41)
[2025-04-28 23:08] VITALS: BP 149/75; PULSE 87; RESP 19; TEMP 36.7; O2SAT 98
[2025-04-29 03:09] VITALS: BP 146/80; PULSE 83; RESP 17; TEMP 36; O2SAT 97
[2025-04-29 06:25] LABS: Abs Immature Grans 0.02 10^3/uL (0.0-0.06); HCT 32.9 % (40.0-50.0); HGB 10.0 g/dL (13.5-17.5); Immature Grans % 0.3 %; MCH 25.4 pg (27.0-33.0); MCHC 30.4 % (32.0-36.0); MCV 84 fL (80-95); MPV 10.6 fL (8.0-11.0); Platelet Count 128 10^3/uL (130-400); RBC 3.93 10^6/uL (4.36-5.78); RDW 19.9 % (11.8-14.1); RDW-SD 61.3 fL; WBC 6.20 10^3/uL (4.4-10.8)
[2025-04-29 06:49] LABS: RBC Morphology Normal
[2025-04-29 06:53] LABS: ALT 21 U/L (16-63); AST 25 U/L (15-37); Albumin 2.8 g/dL (3.4-5.0); Alkaline Phosphatase 90 U/L (46-116); Anion Gap 6.1 mmol/L (3-11); BUN 25 mg/dL (7-18); Bilirubin, Total 0.6 mg/dL (0.2-1.0); CO2 31.9 mmol/L (21.0-32.0); Calcium 8.9 mg/dL (8.5-10.1); Chloride 102 mmol/L (98-107); Estimated GFR 48.25 (mL/min/1.73m2); Glucose 120 mg/dL (74-106); Magnesium 1.9 mg/dL (1.8-2.4); Potassium 3.3 mmol/L (3.5-5.1); Sodium 140 mmol/L (136-145); Total Protein 7.2 g/dL (6.4-8.2)
[2025-04-29 07:45] VITALS: BP 150/88; PULSE 86; RESP 17; TEMP 37; O2SAT 98
--- NOTE | 2025-04-29 07:45 | PGE_ITS ---
General Date Of Service Date of service: 04/29/25 Time of Service: 07:30 Requesting physician: Jose Morales Reason for Consult: Pleural effusions Recommendations: Assessment: 1. Bilateral pleural effusions - likely cardiogenic / 3rd spacing. POCUS US today showed small bilateral pleural effusions. No septations on US. Have improved with diuresis. No clear evidence of active pneumonia at this time. Had mod-severe MR on recent RAZ 2. Dyspnea - suspect due to pleural effusions and pulmonary edema - improved with diuresis 3. Pulmonary infiltrates - suspect due to atelectasis and pulmonary edema. Low suspicion for active pneumonia 4. CAD - s/p CABG 5. SEPIDEH - normally on CPAP 6. Afib - on eliquis - last dose 04/26. Left atrial appendage closed during CABG 7. CKD - baseline Cr ~1.4 Recommendations: - recommend PO diuretics upon discharge. Lasix 20 mg or 40 mg daily seems reasonable, with close monitoring of body weight - discussed the option of thoracentesis to drain the remaining fluid. Given the decrease in size with diuretics and improvement of symptoms, he would prefer avoiding additional procedures at this time. I feel this is reasonable. - will see in clinic next week to re-evaluate his pleural effusions - resume CPAP upon discharge - can resume anticoagulation - I will sign off Discussed with Dr. Zamarripa Subjective 24 Hour Events: Dyspnea has largely resolved. Ambulating in the halls without difficulty. Denied chest pain and cough. No fevers. Currently on room air Note Note: Patient is a 74 yo with a history of CAD and valvular heart disease who was admitted for increased dyspnea. Underwent CABG in 02/2025 at [facility] [place]. Reported having chest tubes in for ~ 1 week post-op due to bloody output. Denied any history of pleural effusion prior to CABG. Denied any fevers or chest pain. Has had gradually worsening dyspnea with exertion over the past week. Has had increased LE swelling as well. Chest imaging showed bialteral pleural effusions (left > right). Family history: Mother - lung cancer Smoking history: 66 pack year. Quit 1988 ROS: 6 pt ROS negative except as in HPI Exam Narrative Exam Narrative: General: alert, no acute distress Head: normocephalic ENT: no stridor, trachea midline CV: normal rate, regular rhythm Respiratory: no wheezing, no crackles, no rhonchi, no prolonged expiration GI: abd soft, non-tender, non-distended Skin: no rashes Extremities: +1 edema, no digital clubbing Psych: normal affect Objective Last Vital Signs Temp 36.0 C L 04/29/25 03:09 Pulse 83 04/29/25 03:09 Resp 17 04/29/25 03:09 BP 146/80 H 04/29/25 03:09 Pulse Ox 97 04/29/25 03:09 Laboratory Results - last 24 hr 04/29/25 06:03 WBC 6.20 RBC 3.93 L Hgb 10.0 L Hct 32.9 L MCV 84 MCH 25.4 L MCHC 30.4 L RDW 19.9 H Plt Count 128 L MPV 10.6 Immature Gran % 0.3 Neutrophils % 40.6 Lymphocytes % 29.7 Monocytes % 26.3 Eosinophils % 1.3 Basophils % 1.8 Nucleated RBC % 0.0 Absolute Neutrophils 2.52 Absolute Lymphocytes 1.84 Absolute Monocytes 1.63 H Absolute Eosinophils 0.08 Absolute Basophils 0.11 RBC Morphology Normal Sodium 140 Potassium 3.3 L Chloride 102 Carbon Dioxide 31.9 Anion Gap 6.1 BUN 25 H Creatinine 1.5 H Est GFR (CKD-EPI 2020) 48.25 Glucose 120 H Calcium 8.9 Magnesium 1.9 Total Bilirubin 0.6 AST 25 ALT 21 Alkaline Phosphatase 90 Total Protein 7.2 Albumin 2.8 L Results Medications Medications: Active Medications Generic Name Dose Route Start Last Admin Trade Name Freq PRN Reason Stop Dose Admin Acetaminophen 650 mg 04/27/25 18:19 Acetaminophen 325 Mg Tab PO Q4H PRN PRN Albuterol/Ipratropium 3 ml 04/27/25 19:25 Albuterol/Ipratropium 3 Ml Upd Vial UPD Q6H PRN PRN Aspirin 81 mg 04/28/25 08:30 04/28/25 08:36 Aspirin 81 Mg Chew PO Not Given DAILY LEANN Atorvastatin Calcium 80 mg 04/28/25 08:30 04/28/25 08:31 Atorvastatin 40 Mg Tab PO 80 mg DAILY LEANN Administration Dextrose 0 gm 04/27/25 21:57 Glucose Oral Gel 15 Gm/37.5 Gm Tube PO DIRECTED PRN Dextrose/Water 0 gm 04/27/25 21:57 Dextrose 50%-Water 25 Gm/50 Ml Syr IVP DIRECTED PRN Furosemide 40 mg 04/28/25 08:00 04/28/25 17:37 Furosemide 40 Mg/4 Ml Vial IVP 40 mg BID@0800,1600 LEANN Administration IV Miscellaneous Supplies 1 each 04/29/25 07:45 Iv Access IV DIRECTED LEANN Insulin Aspart 0 units 04/27/25 22:00 04/28/25 22:22 Insulin Aspart 300 Units/3 Ml Pen SC Not Given 0800,1200,1700,2200 [facility] Protocol Insulin Glargine 50 units 04/28/25 20:00 04/28/25 20:41 Insulin Glargine 300 Units/3 Ml Pen SC 50 units HS LEANN Administration Metoprolol Succinate 25 mg 04/28/25 08:30 04/28/25 08:31 Metoprolol Cr 25 Mg Tabcr PO 25 mg DAILY LEANN Administration Paroxetine HCl 20 mg 04/28/25 08:30 04/28/25 08:31 Paroxetine 20 Mg Tab PO 20 mg DAILY LEANN Administration Polyethylene Glycol 17 gm 04/27/25 18:19 Polyethylene Glycol 3350 17 Gm Packet PO DAILY PRN PRN Constipation Sodium Chloride 0 ml 04/27/25 11:20 Normal Saline Flush 10 Ml Syr IVP PRN PRN Sodium Chloride 0 ml 04/27/25 20:00 04/28/25 20:46 Normal Saline Flush 10 Ml Syr IVP 10 ml BID LEANN Administration Sodium Chloride 0 ml 04/27/25 11:20 Normal Saline 10 Ml Vial IJ DIRECTED PRN Allergies empagliflozin (From [employer]) Adverse Reaction (Mild, Verified 04/27/25 10:58) Sandra infections Labs 04/29/25 06:03 04/29/25 06:03 Labs: Laboratory Tests Range/Units 04/27/25 04/27/25 04/27/25 11:13 12:13 14:15 WBC (4.4-10.8) 10^3/uL 7.97 RBC (4.36-5.78) 10^6/uL 3.87 L Hgb (13.5-17.5) g/dL 10.0 L Hct (40.0-50.0) % 33.3 L MCV (80-95) fL 86 MCH (27.0-33.0) pg 25.8 L MCHC (32.0-36.0) % 30.0 L RDW (11.8-14.1) % 20.2 H Plt Count (130-400) 10^3/uL 141 MPV (8.0-11.0) fL 11.0 Immature Gran % % 0.9 Neutrophils % % 66.6 Lymphocytes % % 18.6 Monocytes % % 12.0 Eosinophils % % 0.8 Basophils % % 1.1 Nucleated RBC % (0.0-0.3) % 0.0 Absolute Neutrophils (1.2-6.7) 10^3/uL 5.31 Absolute Lymphocytes (1.2-3.4) 10^3/uL 1.48 Absolute Monocytes (0.1-0.8) 10^3/uL 0.96 H Absolute Eosinophils (0.0-0.7) 10^3/uL 0.06 Absolute Basophils (0.0-0.2) 10^3/uL 0.09 RBC Morphology See Below Polychromasia Present Hypochromasia Anisocytosis 2+ D-Dimer (<500) ng/mlFEU 3614 H Sodium (136-145) mmol/L 137 Potassium (3.5-5.1) mmol/L 3.6 Chloride (98-107) mmol/L 99 Carbon Dioxide (21.0-32.0) mmol/L 28.9 Anion Gap (3-11) mmol/L 9.1 BUN (7-18) mg/dL 20 H Creatinine (0.70-1.30) mg/dL 1.3 Est GFR (CKD-EPI 2020) (mL/min/1.73m2) 57.29 Glucose (74-106) mg/dL 353 H Calcium (8.5-10.1) mg/dL 9.0 Magnesium (1.8-2.4) mg/dL 1.4 L Total Bilirubin (0.2-1.0) mg/dL 0.6 AST (15-37) U/L 27 ALT (16-63) U/L 26 Alkaline Phosphatase (46-116) U/L 99 Troponin I (<or=76) ng/L 42 38 39 NT-Pro-B Natriuret Pep (<300) pg/mL 2220 H Total Protein (6.4-8.2) g/dL 7.5 Albumin (3.4-5.0) g/dL 3.0 L Add-On Test Request DONE Range/Units 04/28/25 04/29/25 06:40 06:03 WBC (4.4-10.8) 10^3/uL 7.58 6.20 RBC (4.36-5.78) 10^6/uL 3.77 L 3.93 L Hgb (13.5-17.5) g/dL 9.6 L 10.0 L Hct (40.0-50.0) % 32.0 L 32.9 L MCV (80-95) fL 85 84 MCH (27.0-33.0) pg 25.5 L 25.4 L MCHC (32.0-36.0) % 30.0 L 30.4 L RDW (11.8-14.1) % 20.0 H 19.9 H Plt Count (130-400) 10^3/uL 129 L 128 L MPV (8.0-11.0) fL 11.0 10.6 Immature Gran % % 0.4 0.3 Neutrophils % % 50.9 40.6 Lymphocytes % % 22.6 29.7 Monocytes % % 23.6 26.3 Eosinophils % % 1.3 1.3 Basophils % % 1.2 1.8 Nucleated RBC % (0.0-0.3) % 0.0 0.0 Absolute Neutrophils (1.2-6.7) 10^3/uL 3.86 2.52 Absolute Lymphocytes (1.2-3.4) 10^3/uL 1.71 1.84 Absolute Monocytes (0.1-0.8) 10^3/uL 1.79 H 1.63 H Absolute Eosinophils (0.0-0.7) 10^3/uL 0.10 0.08 Absolute Basophils (0.0-0.2) 10^3/uL 0.09 0.11 RBC Morphology See Below Normal Polychromasia Hypochromasia 1+ Anisocytosis D-Dimer (<500) ng/mlFEU Sodium (136-145) mmol/L 140 140 Potassium (3.5-5.1) mmol/L 3.3 L 3.3 L Chloride (98-107) mmol/L 101 102 Carbon Dioxide (21.0-32.0) mmol/L 33.6 H 31.9 Anion Gap (3-11) mmol/L 5.4 6.1 BUN (7-18) mg/dL 19 H 25 H Creatinine (0.70-1.30) mg/dL 1.4 H 1.5 H Est GFR (CKD-EPI 2020) (mL/min/1.73m2) 52.41 48.25 Glucose (74-106) mg/dL 208 H 120 H Calcium (8.5-10.1) mg/dL 8.7 8.9 Magnesium (1.8-2.4) mg/dL 1.7 L 1.9 Total Bilirubin (0.2-1.0) mg/dL 0.6 0.6 AST (15-37) U/L 25 25 ALT (16-63) U/L 23 21 Alkaline Phosphatase (46-116) U/L 91 90 Troponin I (<or=76) ng/L NT-Pro-B Natriuret Pep (<300) pg/mL Total Protein (6.4-8.2) g/dL 6.9 7.2 Albumin (3.4-5.0) g/dL 2.7 L 2.8 L Add-On Test Request Imaging Chest x-ray: report reviewed and image reviewed POCUS Pulmonology Limited thoracic lung Exam DATE OF EXAM: 04/29/25 TIME OF EXAM: 07:30 PROVIDER THAT PERFORMED THE STUDY: Rodríguez Cintron IS THIS A REPEAT STUDY: No REASON FOR EXAM: Pleural Effusion Visualized structures: right lateral, left lateral, right posterior and left posterior PERTINENT FINDINGS/IMPRESSION: Present Left pleural effusion (small) and Right pleural effusion (small) Exam complete
[2025-04-29] MEDS: Metoprolol CR 25 MG TABCR PO (07:56)
[2025-04-29] MEDS: Aspirin 81 MG CHEW PO (07:56)
[2025-04-29] MEDS: Furosemide 40 MG/4 ML VIAL IVP (07:56)
[2025-04-29] MEDS: PARoxetine 20 MG TAB PO (07:56)
[2025-04-29] MEDS: Atorvastatin 40 MG TAB 80 MG PO (07:56)
[2025-04-29] MEDS: Normal Saline Flush 10 ML SYR IVP (07:57)
[2025-04-29 08:01] VITALS: O2SAT 96
--- NOTE | 2025-04-29 10:18 | W.PM.DS.N ---
Date of service: 04/29/25 Time of Service: 10:18 DS: Diagnosis Discharge Diagnosis (1) Acute on chronic heart failure with preserved ejection fraction (HFpEF): Status: Acute (2) Bilateral pleural effusion: Status: Acute (3) Paroxysmal A-fib: Status: Chronic (4) Uncontrolled diabetes mellitus with hyperglycemia, with long-term current use of insulin: Status: Chronic (5) Hypertension: Status: Chronic (6) Hyperlipidemia: Status: Chronic (7) Major depressive disorder, recurrent: Status: Chronic Discharge Plan Disposition Patient Disposition: Home Condition: Stable Discharge Details Reason For Visit: pleural effusion Admit Date/Time: 04/27/25 18:24 Admit Provider: Jose Morales Attending Provider: Jose Morales Primary Care Provider: Heather Randolph Hospital Course Hospital Course: Patient was admitted on 27 April for shortness of breath. While he was in the hospital he did get a CT scan as well as repeat chest x-rays that showed a pleural effusion which was improving. He was also seen in consultation with pulmonology and that consult was attached below. On the third he was cleared for discharge by pulmonology after his bedside echo did indicate improving pleural effusions as well as improving symptoms. Patient was very anxious to be discharged home. I will send him home with his prior medications and including a new prescription for Lasix. Chest CT did show a ascending thoracic aorta measuring 4 by 4 x 4 x 4 cm. Patient will need follow-up in the outpatient setting. In regards to his laboratory data he was noted to have mild anemia with a hemoglobin of 10 hematocrit of 32.9. He also was noted to have mild thrombocytopenia cytopenia with platelets at 128. His D-dimer on admission was 3614. He was noted to have mild hypokalemia so this will be replaced as well. This is particularly important is not he will be on Lasix. proBNP was 2220. He will be discharged in good health. I will also hold his metformin at least temporarily as his creatinine is now 1.5 and he will be on a diuretic. There is concern that his creatinine continue to rise and increase his chance of lactic acidosis. History of Present Illness History of Present Illness Chief Complaint: shortness of breath Narrative: Vance Doe is a 74 year old man presenting in the ED April 27 with shortness of breath worsening for a week. March 04 CABGx3 and Maze at [facility] with pre-operative EF 25% and post-operative EF 50%, started on apixaban. Patient reports that he noticed difficulty breathing while ambulating, which got worse daily until he felt he could not catch his breath while walking and was unable to lie flat. He also is noticing swelling in both legs, which he has not had in a while and reports that his lasix was stopped at [facility]. No recent illness, no sick contacts. He has been participating in cardiac rehab and going to clinic visits. No chest pain, no abdominal pain, no N/V/D. PMH: CAD with NH in 1988 and CABGx3 in 2024, paroxysmal afib s/p 2024 Maze and IAIN closure, former tobacco smoker, DM on insulin and tirzepatide, HTN, HLD, CKD Mitral valve regurgitation seen on post-CABG RAZ. Last EF 53% Tirzepatide, glipizide, losartan discontinued at [facility] February 2025 Off furosemide and amiodarone as of April 13 [facility] clinic visit. Small bilateral pleural effusions noted on CXR at that visit. Continuing apixaban per Dr Stein's April 16 clinic note. He was able to walk to clinic from the parking lot on that date. Restarted tirzepatide per PCP April 16 clinic note In the ED he was afebrile and on room air, tachycardic to 101, hypertensive to 174/100, tachypneic to 41. EKG with sinus rhythm, no STEMI. POCUS showed no pericardial effusion, no RV dilation. CXR with small bilateral pleural effusions and bilateral bibasilar opacities. Negative troponin. BNP 2220. Ddimer 3614. BG 353, Mg 1.4. Mild anemia. CTA showed no PE, no major artery defects; large left pleural effusion, moderate right pleural effusion, bibasilar atelectasis, air trapping. [facility] cardiology was consulted and advised hospitalization for echo and diuresis. Assessment and Plan Assessment and plan (1) Acute on chronic heart failure with preserved ejection fraction (HFpEF): Status: Acute Assessment and plan: February 20 TTE here had EF 25% prior to [facility] transfer for CABG February 25 pre-op limited TTE showed EF 53% March 03 RAZ showed EF 50%. Moderate to severe mitral regurgitation noted. Small pleural effusions noted in post-op clinic visits, mild SOB Now with large left and moderate right pleural effusions and bilateral 3+ pitting edema in both legs. Per [facility] advise, will diurese and do echo Patient given furosemide 40 mg IV in ED Giving another furosemide 40 mg IV on admission, will order 3rd dose for the morning Continue beta kevin, statin, aspirin Echo and repeat CXR ordered for the morning (2) Bilateral pleural effusion: Status: Acute Assessment and plan: Thoracentesis deferred in ED and on admission pending diuresis Consider pulmonology consult pending improvement (3) Paroxysmal A-fib: Status: Chronic Assessment and plan: S/p Maze and IAIN closure during CABG hospitalization Continue apixaban (4) Uncontrolled diabetes mellitus with hyperglycemia, with long-term current use of insulin: Status: Chronic Assessment and plan: Last known A1C 8.4 on February 20. Poor control. Will defer recheck of A1C to the outpatient setting Home regimen: basal insulin 50u daily, metformin, tirzepatide Continue basal 50u with resistant correctional. Hold metformin, tirzepatide. (5) Hypertension: Status: Chronic Assessment and plan: Continue home metoprolol succinate Losartan stopped during CABG hospitalization (6) Hyperlipidemia: Status: Chronic Assessment and plan: Continue home statin (7) Major depressive disorder, recurrent: Status: Chronic Assessment and plan: Continue home paroxetine History of Present Illness History of Present Illness Chief Complaint: Pleural effusions Narrative: Patient is a 74 yo with a history of CAD and valvular heart disease who was admitted for increased dyspnea. Underwent CABG in 02/2025 at [facility]. Reported having chest tubes in for ~ 1 week post-op due to bloody output. Denied any history of pleural effusion prior to CABG. Denied any fevers or chest pain. Has had gradually worsening dyspnea with exertion over the past week. Has had increased LE swelling as well. Chest imaging showed bialteral pleural effusions (left > right). He has been diuresed since admission with improved dyspnea. Currently on 1 L O2. Denied significant cough. No purulent sputum production or hemotpysis. No chest pain overnight. Family history: Mother - lung cancer Smoking history: 66 pack year. Quit 1988 ROS: 10 pt ROS negative except as in HPI PULM Date of service: 04/28/25 Time of Service: 08:00 Requesting physician: Jose Morales Reason for Consult: Pleural effusions Recommendations: Assessment: 1. Bilateral pleural effusions - cardiogenic vs post-operative from recent CABG. No clinical evidence of active pneumonia at this time. Had mod-severe MR on recent RAZ 2. Dyspnea - suspect due to pleural effusions and pulmonary edema - improved with diuresis 3. Pulmonary infiltrates - suspect due to atelectasis and pulmonary edema. Low suspicion for active pneumonia 4. CAD - s/p CABG 5. SEPIDEH - normally on CPAP 6. Afib - on eliquis - last dose 04/26. Left atrial appendage closed during CABG 7. CKD - baseline Cr ~1.4 Recommendations: - agree with continued duresis - plan for POCUS US in the AM. If significant pleural effusions are still present, will plan for thoracentesis tomorrow - do not see any clinical evidence of active pneumonia, so can hold off on antibiotics from a pulmonary standpoint - can use Home CPAP if available - hold anticoagulation for now for possible thoracentesis in the AM Discussed with Dr. Zamarripa IMPRESSION-CT scan w contrast 1. There is no evidence of a pulmonary embolism. 2. The ascending thoracic aorta measures 4.4 x 4.4 cm. 3. Cardiomegaly, ground-glass opacities and bilateral pleural effusions suspicious for congestive heart failure/fluid overload. 4. Bilateral basilar opacities. Superimposed pneumonia should also be considered. 5. The preliminary [facility] report was reviewed Recommendations for Follow Up Recommended tests to be ordered by follow up provider: repeat cbc in 1-2 weeks repeat cmp in 1-2 weeks Home Meds and New Rx's Prescriptions: New potassium chloride 20 mEq packet 20 meq PO BID 30 Days Qty: 60 0RF furosemide [Lasix] 40 mg tablet 40 mg PO DAILY Qty: 30 0RF Continued insulin glargine [Basaglar KwikPen U-100 Insulin] 100 unit/mL (3 mL) insulin pen 50 unit subcut DAILY Qty: 15 3RF Mounjaro 5 mg/0.5 mL pen injector 5 mg subcut QWEEK Qty: 2 0RF apixaban 5 mg tablet 5 mg PO BID Qty: 180 3RF aspirin 81 mg tablet,chewable 81 mg PO DAILY atorvastatin 80 mg tablet 80 mg PO DAILY Qty: 90 3RF (DME) lancets [OneTouch Delica Lancets] 33 gauge misc See Rx Instructions Miscellaneous AC& HS Qty: 400 Rx Instructions: For blood glucose checks metoprolol succinate 25 mg tablet extended release 24 hr 25 mg PO DAILY Qty: 90 3RF paroxetine HCl 20 mg tablet 20 mg PO DAILY Qty: 90 3RF nitroglycerin 0.4 mg tablet, sublingual 0.4 mg sublingual ONCE Qty: 30 8RF Rx Instructions: as a single dose; administer 5-10 minutes before situation known to precipitate angina attack multivitamin [One Daily Multivitamin] Tablet 1 tab PO DAILY (DME) Dexcom G7 Coordinate Measuring Machine Programmer Misc See Rx Instructions .Route Qty: 3 3RF Rx Instructions: Continuous glucose monitor (DME) Dexcom G7 Sensor Device See Rx Instructions .Route Qty: 9 3RF Rx Instructions: Continuous glucose monitor ketoconazole 2 % cream 1 applic topical DAILY Qty: 120 6RF Rx Instructions: Apply to toenails once daily (DME) OneTouch Ultra Test Strip 1 strip Miscellaneous AC&HS Qty: 200 3RF Rx Instructions: Check blood sugar twice a day mometasone 0.1 % ointment 1 applic topical DAILY PRN (Reason: ear eczema) Qty: 45 0RF (DME) pen needle, diabetic 32 gauge x 5/32 needle See Rx Instructions .Route Qty: 500 4RF Rx Instructions: Use with insulin pen daily and mounjaro pen weekly urea 40 % lotion 1 applic topical ONCE glipizide 10 mg tablet extended release 24hr 20 mg PO DAILY Discontinued metformin 1,000 mg tablet 1,000 mg PO BID Qty: 180 3RF Discharge Instructions Stand Alone Forms: Nursing Discharge Form Referrals: CARDIOLOGY,[facility] [OTHER, Cardiology] Heather Randolph NP [Primary Care Provider, Medicine] - 05/11/25 10:40 am Robyn Hilario MD [ [facility] STAFF PHYSICIAN, Cardiology] - 05/15/25 9:40 am Activity:: Activity as Tolerated Equipment/Supplies:: No Equipment Needed Diet:: As Tolerated Discharge Orders Discharge Orders: Discharge Order (Routine); Ordered 04/29/25 Ordered By: Yoseph Zamarripa DS: Summary Time Spent with Patient providing and/or coordinating discharge services: Greater than 30 minutes Status at Discharge Functional status at discharge: independent ambulation Overall status at discharge: patient is back to baseline Mental Status: mental status grossly normal Speech and Movement: speech and movement normal Mood: congruent mood Affect: normal affect Quality:SDOH Health Related Social Needs: Health related social needs risk of homeless Health related social needs details pt doesn't need it Health related social needs details: pt doesn't need it Exam Narrative Exam Narrative: General: alert, no acute distress Head: normocephalic ENT: no stridor, trachea midline CV: normal rate, regular rhythm Respiratory: no wheezing, no crackles, no rhonchi, no prolonged expiration GI: abd soft, non-tender, non-distended Skin: no rashes Extremities: +1 edema, no digital clubbing Psych: normal affect Psych Mental Status: mental status grossly normal Speech and Movement: speech and movement normal Mood: congruent mood Affect: normal affect DS: Data Vitals/I&O Vitals and I&O: Vital Signs Temperature 37.0 C 04/29/25 07:45 Temperature Source Temporal Artery Scan 04/29/25 07:45 Pulse 86 04/29/25 07:45 Pulse Rhythm Regular 04/27/25 21:16 Pulse 91 H 04/27/25 20:50 Respiratory Rate 17 04/29/25 07:45 Respiratory Effort Normal, Non-Labored, Short of Breath 04/27/25 21:16 Respiratory Depth Normal 04/27/25 21:16 Respiratory Pattern Normal 04/27/25 21:16 Blood Pressure 150/88 H 04/29/25 07:45 Blood Pressure Mean 108 04/29/25 07:45 Blood Pressure Position Sitting 04/27/25 11:16 Pulse Oximetry 96 04/29/25 08:01 Oxygen Delivery Method Room Air 04/29/25 08:01 Oxygen Flow Rate 0 04/29/25 08:01 Pain Level 0 04/29/25 08:01 Intake & Output 04/28/25 04/28/25 04/29/25 11:59 23:59 11:59 Intake Total 2300 / 2300 Output Total 2650 / 4425 1775 / 4425 1150 / 1150 Balance -2650 / -2125 525 / -2125 -1138 / -1138 Weight 110 kg Intake: Oral 2300 / 2300 Output: Urine 2650 / 4425 1775 / 4425 1150 / 1150 Other: Urine Color Pale Yellow Yellow Yellow Urine Appearance Clear Clear Clear Urine Odor Normal Normal Normal Comment Pt voids in toilet and urinal ind. Data Completed and Pending Labs on day of discharge: Labs from last 24 hours 04/29/25 06:03 WBC 6.20 RBC 3.93 L Hgb 10.0 L Hct 32.9 L MCV 84 MCH 25.4 L MCHC 30.4 L RDW 19.9 H Plt Count 128 L MPV 10.6 Immature Gran % 0.3 Neutrophils % 40.6 Lymphocytes % 29.7 Monocytes % 26.3 Eosinophils % 1.3 Basophils % 1.8 Nucleated RBC % 0.0 Absolute Neutrophils 2.52 Absolute Lymphocytes 1.84 Absolute Monocytes 1.63 H Absolute Eosinophils 0.08 Absolute Basophils 0.11 RBC Morphology Normal Sodium 140 Potassium 3.3 L Chloride 102 Carbon Dioxide 31.9 Anion Gap 6.1 BUN 25 H Creatinine 1.5 H Est GFR (CKD-EPI 2020) 48.25 Glucose 120 H Calcium 8.9 Magnesium 1.9 Total Bilirubin 0.6 AST 25 ALT 21 Alkaline Phosphatase 90 Total Protein 7.2 Albumin 2.8 L PFSH All Active Problems (Updated 04/28/25 @ 02:05 by Jose Morales MD) Paroxysmal A-fib (Chronic) Uncontrolled diabetes mellitus with hyperglycemia, with long-term current use of insulin (Chronic) History of left atrial appendage closure (Acute) History of coronary artery bypass graft x 3 (Acute) Bilateral pleural effusion (Acute) Acute on chronic heart failure with preserved ejection fraction (HFpEF) (Acute) CHF exacerbation (Acute) Coronary artery disease (Chronic) NH 1988, NSTEMI 2024 s/p CABG X 3 Atrial fibrillation (Chronic) S/p MAZE 03/04/25 Mitral valve regurgitation (Chronic) Moderate to severe on RAZ 2024 Obstructive sleep apnea (Chronic) CPAP CKD (chronic kidney disease) stage 3, GFR 30-59 ml/min (Chronic) Type 2 diabetes mellitus with retinopathy (Chronic) Diabetic nephropathy (Chronic) Hypertension (Chronic) Peripheral artery disease (Chronic) Mild on ABIs Thrombocytopenia (Chronic) Anemia of chronic disease (Chronic) Major depressive disorder, recurrent (Chronic) Hyperlipidemia (Chronic) Ulcer of left foot with fat layer exposed (Chronic) Obesity (BMI 30-39.9) (Chronic) Tremor of both hands (Chronic) [facility] neurology consulted 05/2023, CTM Nail dystrophy (Chronic) Sigmoid diverticulosis (Chronic) Medical History Non-ST elevation NH (NSTEMI) (~01/2025) Tubular adenoma of colon On 2020 colonoscopy Myocardial infarction (01/30/89) Surgical History S/P Maze operation for atrial fibrillation (03/04/25) and IAIN S/P CABG x 3 (03/04/25) S/P colonoscopic polypectomy (03/02/25) History of cataract surgery Status post ORIF of fracture of ankle Left ankle S/P trigger finger release x4 S/P tonsillectomy S/P appendectomy Family History Mother Essential hypertension Lung cancer Father Alcohol abuse Essential hypertension Heart disease Hyperlipidemia Stroke Asthma Sister Essential hypertension Stroke Sister Essential hypertension Depression Hyperlipidemia Sister Substance abuse Essential hypertension Depression Hyperlipidemia Sister No problems noted. Sister Essential hypertension Hyperlipidemia Brother Substance abuse Alcohol abuse Essential hypertension Heart disease Hyperlipidemia Brother Substance abuse Alcohol abuse Hyperlipidemia Lung cancer Brother Substance abuse Essential hypertension Hyperlipidemia Maternal Grandfather , TRAIN ACCIDENT at age 55. Heart disease Hyperlipidemia Asthma Paternal Grandfather Heart disease Asthma Maternal Grandmother Diabetes Essential hypertension Heart disease Hyperlipidemia Paternal Grandmother Colon cancer Pancreatic cancer Son Essential hypertension Hyperlipidemia Son Essential hypertension Hyperlipidemia Sister Essential hypertension Brother No problems noted. Social History Smoking/Tobacco Use Status: Former Tobacco Use tobacco type: cigarettes Quit Date: 01/30/89 Pack-years: 66 Tobacco: How many years used: 22 Second Hand Exposure: Yes Smoking risk assessment performed?: Yes Alcohol Intake: current Alcohol Intake frequency: holidays/special occasions only Alcohol type: beer Details: non recently Drug use: Never Substance use type: does not use Caregiver/Support person: No Household members: spouse Housing: house Communication Needs: None Do you need help understanding health information?: Never Pets and animals: Yes Pets and animals: dog(s) Sexually active: No Do you think of yourself as: straight/heterosexual Current gender identity: male and decline to answer What is your relationship status?: How often do you talk on the phone with friends or family?: three or more times per week How often do you get together with friends or relatives?: once per week How often do you attend judaism or zoroastrianism services?: decline to answer Do you belong to any clubs or organized social groups?: yes Panel score (0-1 are the most socially isolated patients): 3 What type of physical activity do you participate in: walking Duration: 15-30 minutes/day Frequency: 3-4 times per week Chuyita/Baptism: None Special chuyita needs: No Seatbelt use: always Helmet use: Yes Helmet use: always Drive intox or ride w/intox milk pickup driver: No Do you feel safe at home: Yes Do you feel safe in your relationship?: Yes Additional Social history: Lives with Mary on [address] in [facility] Time Spent with Patient Time Spent with Patient: 45-69 minutes Time was spent: preparing to see the patient(eg.review tests), obtaining and/or reviewing separately otained hiistory, ordering medications,tests, procedures, referring, communicating with other health career guidance counselor, indepentently interpreting results, counseling the patient and care coordination
--- NOTE | 2025-04-29 10:22 | PDOC.CMDIS ---
Date of service: 04/29/25 Time of Service: 10:22 LACE Index Scoring Tool Questions: Length of Stay (in days): 2 Was the patient admitted via the E.D.?: Yes Comorbidities: Previous M.I., Diabetes w/o Complication, Congestive Heart Failure and Liver or Renal Disease E.D. Visits: 4 Answers: Total Score: 14 Risk of Readmission: High Risk Care Management Discharge Plan Reason for Hospitalization: bilateral pleural effusions Discharge Plan: Shamar is discharged today with no new services. He will f/u with his PCP on 05/11, with cardiology on 05/15 and also with pulmonology - office will call with appointment. Shamar is fully aware of all of these appointments. Shamar will return to cardiac rehab on 05/01. Shamar will transport home with his later today. Patient/Family Education Needs: Review of discharge instructions, activity, limitations, and discuss Ask me 3. SDOH Health Related Social Needs: Health related social needs risk of homeless Health related social needs details pt doesn't need it Health related social needs details: pt doesn't need it
--- NOTE | 2025-04-30 16:43 | W.NUTRFU ---
Date of service: 04/29/25 Time of Service: 13:00 Nutrition Note NOTE: was able to briefly meet with Vance twice today as I was filling in for kitchen staff obtaining patient menus for meals. insulin use at home - takes 50 units basal insulin along with glipizide and weekly tirzepatide. doesn;t tolerate jardiance. He seems to like his insulin order simple with basal insulin but seems like there could be better control if mealtime insulin were considered (pt would like to avoid if poss) Encouraged weight loss and increases in fiber and plant sources of protein. GAve card to contact if desiring guidance on weight loss. D/c anticipated shortly. Time Spent in Nutritional Counseling and Treatment: 10 min
== END 2025-04-29 12:23 | disposition home or self-care (01) | DRG 291 ==
LOC: ER 20:25 → MS 20:36
PROVIDERS: Physician Assistant; Admitting Provider Family Medicine; Emergency Provider Physician Assistant; PCP Nurse Practitioner Family; Responsible Provider Hospitalist; Visit Provider Family Medicine
DX: I13.0 Hypertensive heart and chronic kidney disease with heart failure and stage 1 through stage 4 chronic kidney disease, or unspecified chronic kidney disease (principal); I50.33 Acute on chronic diastolic (congestive) heart failure; I48.0 Paroxysmal atrial fibrillation; N18.30 Chronic kidney disease, stage 3 unspecified; E11.65 Type 2 diabetes mellitus with hyperglycemia; Z79.4 Long term (current) use of insulin; E78.5 Hyperlipidemia, unspecified; F33.40 Major depressive disorder, recurrent, in remission, unspecified; Z95.1 Presence of aortocoronary bypass graft; I25.10 Atherosclerotic heart disease of native coronary artery without angina pectoris; I25.2 Old myocardial infarction; I34.0 Nonrheumatic mitral (valve) insufficiency; G47.33 Obstructive sleep apnea (adult) (pediatric); E11.22 Type 2 diabetes mellitus with diabetic chronic kidney disease; D69.6 Thrombocytopenia, unspecified; D63.8 Anemia in other chronic diseases classified elsewhere; E66.9 Obesity, unspecified; G25.9 Extrapyramidal and movement disorder, unspecified; Z68.33 Body mass index [BMI] 33.0-33.9, adult; J98.11 Atelectasis; R79.1 Abnormal coagulation profile; Z79.01 Long term (current) use of anticoagulants; I73.9 Peripheral vascular disease, unspecified; K57.30 Diverticulosis of large intestine without perforation or abscess without bleeding; E11.319 Type 2 diabetes mellitus with unspecified diabetic retinopathy without macular edema; E87.6 Hypokalemia
CPT/HCPCS: 00123; 36415; 71275; 80053; 93005; 93306; 93308; 96365; 96366; 96375; 99285; 71045; 71046; 83735; 83880; 84484; 85025; 85379; 93010; 99222; 99231; 99239; J1815; J1938; J3475

== ENCOUNTER 2025-05-07 09:38 | Outpatient (CLI) | payer MEDICARE, BC, SELFPAY ==
[2025-05-07 09:36] LABS: Abs Immature Grans 0.06 10^3/uL (0.0-0.06); HCT 34.4 % (40.0-50.0); HGB 10.5 g/dL (13.5-17.5); Immature Grans % 0.8 %; MCH 26.3 pg (27.0-33.0); MCHC 30.5 % (32.0-36.0); MCV 86 fL (80-95); MPV 10.6 fL (8.0-11.0); Platelet Count 153 10^3/uL (130-400); RBC 3.99 10^6/uL (4.36-5.78); RDW 20.3 % (11.8-14.1); RDW-SD 63.8 fL; WBC 7.97 10^3/uL (4.4-10.8)
[2025-05-07 09:41] LABS: Glucose 250 mg/dL (Negative)
[2025-05-07 09:48] LABS: C & S Indicated? No; WBC 0-2 HPF (0-5)
[2025-05-07 10:03] LABS: Hemoglobin A1C 9.3 % (<5.7)
[2025-05-07 10:30] LABS: PROTEIN 216.3 mg/dL; Prot/Crea Ur Ratio 7.74
[2025-05-07 10:41] LABS: COMMENT (LAB VIEW ONLY) 28.44 mg/dL
[2025-05-07 10:57] LABS: Iron 47 ug/dL (65-175); Total Iron Binding Capacity 350 ug/dL (250-450); Transferrin Sat 13 % (20-55)
[2025-05-07 11:13] LABS: ALT 28 U/L (16-63); AST 28 U/L (15-37); Albumin 3.1 g/dL (3.4-5.0); Alkaline Phosphatase 108 U/L (46-116); Anion Gap 4.2 mmol/L (3-11); BUN 25 mg/dL (7-18); Bilirubin, Total 0.7 mg/dL (0.2-1.0); CO2 31.8 mmol/L (21.0-32.0); Calcium 9.2 mg/dL (8.5-10.1); Chloride 99 mmol/L (98-107); Estimated GFR 36.33 (mL/min/1.73m2); Ferritin 60 ng/mL (26-388); Glucose 293 mg/dL (74-106); Potassium 4.7 mmol/L (3.5-5.1); Sodium 135 mmol/L (136-145); Total Protein 7.9 g/dL (6.4-8.2); Vitamin B12 870 pg/mL (193-986); Vitamin D 25 Total 15 ng/mL (30-100)
[2025-05-07 11:15] LABS: Folate > 20.0 ng/mL (8.6-20.0)
[2025-05-07 22:13] LABS: Total Protein 7.1 g/dL (6.3-8.2)
[2025-05-08 10:13] LABS: Kappa Free Light Chain 6.60 mg/dL (0.33-1.94); Lambda Free Light Chain 6.39 mg/dL (0.57-2.63); Transferrin 251 mg/dL (201-352)
[2025-05-08 14:21] LABS: Albumin 48.4 % (55.8-66.1); Albumin g/dL 3.4 g/dL (3.6-5.2); Alpha 1 g/dL 0.30 g/dL (0.15-0.40); Alpha 2 g/dL 1.00 g/dL (0.50-1.00); Beta g/dL 1.20 g/dL (0.60-1.20); Gamma g/dL 1.10 g/dL (0.60-1.60)
[2025-05-08 18:45] LABS: Cystatin C, S 2.14 mg/L
== END 2025-05-07 09:39 | disposition home or self-care (01) ==
PROVIDERS: PCP Nurse Practitioner Family; Visit Provider Nurse Practitioner Family
DX: D64.9 Anemia, unspecified (principal); N18.30 Chronic kidney disease, stage 3 unspecified; E11.319 Type 2 diabetes mellitus with unspecified diabetic retinopathy without macular edema; E11.21 Type 2 diabetes mellitus with diabetic nephropathy
CPT/HCPCS: 36415; 80053; 82306; 82610; 81003; 81015; 82043; 82565; 82570; 82607; 82728; 82746; 83036; 83540; 83550; 83883; 83970; 84100; 84156; 84165; 84466; 85025; 86320

== ENCOUNTER → 2025-05-15 09:41 | Outpatient (BNVA) | payer MEDICARE, BC, SELFPAY | PROVIDERS: PCP Nurse Practitioner Family; Referring Provider Nurse Practitioner Family; Visit Provider Internal Medicine Cardiovascular Disease | DX: I25.810 Atherosclerosis of coronary artery bypass graft(s) without angina pectoris (principal); I34.0 Nonrheumatic mitral (valve) insufficiency; I10 Essential (primary) hypertension; I50.33 Acute on chronic diastolic (congestive) heart failure | CPT/HCPCS: 99214 ==

== ENCOUNTER 2025-05-25 13:00 | Outpatient (RCR) | payer MEDICARE, BC, SELFPAY | END 2025-05-26 23:59 | disposition home or self-care (01) | LOC: CR 13:00 | PROVIDERS: PCP Nurse Practitioner Family; Visit Provider Internal Medicine Cardiovascular Disease | DX: I25.810 Atherosclerosis of coronary artery bypass graft(s) without angina pectoris (principal); I21.4 Non-ST elevation (NSTEMI) myocardial infarction; Z51.89 Encounter for other specified aftercare | CPT/HCPCS: S9472 ==

== ENCOUNTER 2025-05-28 08:20 | Outpatient (CLI) | payer MEDICARE, BC, SELFPAY ==
[2025-05-28 14:14] LABS: Anion Gap 7.5 mmol/L (3-11); BUN 26 mg/dL (7-18); CO2 30.5 mmol/L (21.0-32.0); Calcium 9.3 mg/dL (8.5-10.1); Chloride 97 mmol/L (98-107); Estimated GFR 48.25 (mL/min/1.73m2); Glucose 405 mg/dL (74-106); Potassium 4.5 mmol/L (3.5-5.1); Sodium 135 mmol/L (136-145)
== END 2025-05-28 08:21 | disposition home or self-care (01) ==
LOC: LOS 08:21
PROVIDERS: PCP Nurse Practitioner Family; Referring Provider Nurse Practitioner Family; Visit Provider Nurse Practitioner Family
DX: E11.319 Type 2 diabetes mellitus with unspecified diabetic retinopathy without macular edema (principal)
CPT/HCPCS: 36415; 80048

== ENCOUNTER 2025-05-28 18:17 | Outpatient (REF) | payer MEDICARE, BC, SELFPAY ==
[2025-05-28 18:00] LABS: Glucose 500 mg/dL (Negative)
[2025-05-28 18:06] LABS: C & S Indicated? No; WBC Negative HPF (0-5)
== END 2025-05-28 18:18 | disposition home or self-care (01) ==
LOC: LBN 18:17
PROVIDERS: PCP Nurse Practitioner Family; Visit Provider Nurse Practitioner Family
DX: R31.9 Hematuria, unspecified (principal)
CPT/HCPCS: 81003; 81015

== ENCOUNTER 2025-06-11 05:20 | Outpatient (CLI) | payer MEDICARE, BC, SELFPAY ==
[2025-06-11 12:03] LABS: Anion Gap 10.7 mmol/L (3-11); BUN 24 mg/dL (7-18); CO2 27.3 mmol/L (21.0-32.0); Calcium 8.8 mg/dL (8.5-10.1); Chloride 92 mmol/L (98-107); Estimated GFR 52.41 (mL/min/1.73m2); Glucose 400 mg/dL (74-106); Potassium 4.3 mmol/L (3.5-5.1); Sodium 130 mmol/L (136-145)
[2025-06-11 12:13] LABS: Glucose >=1000 mg/dL (Negative)
[2025-06-11 12:25] LABS: C & S Indicated? No; WBC Negative HPF (0-5)
== END 2025-06-11 05:21 | disposition home or self-care (01) ==
LOC: LBO 05:20
PROVIDERS: PCP Nurse Practitioner Family; Visit Provider Nurse Practitioner Family
DX: E11.319 Type 2 diabetes mellitus with unspecified diabetic retinopathy without macular edema (principal); R31.9 Hematuria, unspecified
CPT/HCPCS: 36415; 80048; 81003; 81015

== ENCOUNTER 2025-06-18 03:45 | Outpatient (CLI) | payer MEDICARE, BC, SELFPAY ==
--- NOTE | 2025-06-18 08:36 | DI.CT_ITS ---
Exam(s) CT ABDOMEN PELVIS WO EXAM: CT ABDOMEN PELVIS WO CLINICAL HISTORY: hematuria,R31.9. TECHNIQUE: Imaging Protocol: Axial computed tomography images with coronal and sagittal reformatted images were created and reviewed. COMPARISON: US ABDOMEN ULTRASOUND (P) from 04/10/[address] CHEST PE CTA from 04/27/2025 US POCUS EXAM from 04/29/2025 FINDINGS: ABDOMEN: Lung Bases: Coronary artery calcifications are present. There is mild cardiomegaly. Since the prior examination there has been resolution of the bilateral pleural effusions and near complete clearing of the left basilar infiltrate. The right lung base is clear. Liver: Normal density. No measurable mass. Gallbladder and biliary tract: No radiodense calculus or biliary ductal dilation. Pancreas: Normal density, no abnormal calcifications or inflammatory process. Spleen: Normal. Kidneys: Normal size, contour and axis.There is a 2 mm nonobstructing stone in the lower pole of the right kidney. There are 2 stones seen in the lower pole of the left kidney. They are nonobstructing. The largest measures 3 mm. There is no hydronephrosis. No masses seen. Adrenal glands: No mass is seen. Lymph nodes: Within normal limits. Abdominal Aorta: Abdominal portion non-dilated. The sclerotic calcification is present. PELVIS: Bladder:There is mild diffuse thickening of the wall of the urinary bladder. Bowel: There is diverticulosis of the colon without evidence of acute diverticulitis. There is stool seen throughout the colon suggesting constipation. There is no bowel wall thickening or obstruction present. There is no evidence of an appendicitis. Peritoneal cavity: No ascites, collection or mesenteric inflammatory response. No free air. Reproductive organs: Unremarkable as visualized. Bones: Within normal limits. Soft Tissues: There is a fat containing umbilical hernia. Small bilateral fat containing inguinal hernias. IMPRESSION: 1. Bilateral nephrolithiasis. No evidence of hydronephrosis. 2. Interval resolution of the bilateral pleural effusions and near complete resolution of the left basilar infiltrate. 3. Colonic diverticulosis without evidence of acute diverticulitis. 4. Mild thickening of the wall of the urinary bladder. This may be due to underdistention, however, cystitis or chronic bladder outlet obstruction cannot be excluded. Please correlate clinically. RADIATION DOSE DELIVERED: 848.14mGy.cm Total DLP DATA REPOSITORY: All CT scans at this facility are submitted to the National Radiology Data Registry (NRDR) Dose Index Registry (DIR) with the [employer] (A[employer]). RADIATION OPTIMIZATION: All CT scans at this facility use at least one of these dose optimization techniques: automated exposure control; mA and/or kV adjustment per patient size (includes targeted exams where dose is matched to clinical indication); or iterative reconstruction.
== END 2025-06-18 04:05 ==
LOC: DI 03:45
PROVIDERS: PCP Nurse Practitioner Family; Visit Provider Nurse Practitioner Family
DX: R31.9 Hematuria, unspecified (principal)
CPT/HCPCS: 74176

== ENCOUNTER 2025-06-26 13:00 | Outpatient (RCR) | payer MEDICARE, BC, SELFPAY | END 2025-06-26 23:59 | disposition home or self-care (01) | LOC: CR 13:00 | PROVIDERS: PCP Nurse Practitioner Family; Visit Provider Internal Medicine Cardiovascular Disease | DX: I21.4 Non-ST elevation (NSTEMI) myocardial infarction (principal); I25.810 Atherosclerosis of coronary artery bypass graft(s) without angina pectoris; Z51.89 Encounter for other specified aftercare | CPT/HCPCS: S9472 ==

== ENCOUNTER → 2025-07-09 13:50 | Outpatient (BNVA) | payer MEDICARE, BC, SELFPAY | PROVIDERS: PCP Nurse Practitioner Family; Referring Provider Nurse Practitioner Family; Visit Provider Nurse Practitioner Gerontology | DX: N40.1 Benign prostatic hyperplasia with lower urinary tract symptoms (principal); N13.8 Other obstructive and reflux uropathy; N20.0 Calculus of kidney; R31.9 Hematuria, unspecified; R39.9 Unspecified symptoms and signs involving the genitourinary system | CPT/HCPCS: 99215; 81002; 51798 ==

== ENCOUNTER 2025-07-13 13:00 | Outpatient (RCR) | payer MEDICARE, BC, SELFPAY ==
--- NOTE | 2025-06-29 13:15 | RT.EKG_ITS ---
APPROVED REPORT Exam: Resting ECG Reason for Exam: EKG changes Patient Location: O HR:84 bpm ECG Measurements Heart Rate 84 AXIS WV 208 P -43 QRSd 105 QRS 65 QT 383 T -62 QTc 453 Conclusion Sinus rhythm...normal P axis, V-rate 50- 99 Inferior infarct, age indeterminate...Q>35mS, T neg, II III aVF Anterior infarct, old...Q >40mS, abnormal ST-T, V2-V5
== END 2025-07-26 23:59 | disposition home or self-care (01) ==
LOC: CR 13:00
PROVIDERS: PCP Nurse Practitioner Family; Visit Provider Internal Medicine Cardiovascular Disease
DX: I21.4 Non-ST elevation (NSTEMI) myocardial infarction (principal); I25.10 Atherosclerotic heart disease of native coronary artery without angina pectoris; Z51.89 Encounter for other specified aftercare
CPT/HCPCS: S9472

== ENCOUNTER 2025-07-17 02:03 | Outpatient (CLI) | payer MEDICARE, BC, SELFPAY ==
--- NOTE | 2025-07-17 12:14 | TELEFU_ITS ---
Documented by User: Genesis Gus 07/17/25 12:41 Date of service: 07/17/25 Time of Service: 11:00 Nutrition Note NOTE: Met with pt for nutrition counseling. Pt is a 74 yr old male who presents with desire for nutrition guidance on managing type 2 DM. Per pt he's had a PMH of a recent heart attack, falls, CKD 3, bilateral pleural effusion. Reports a current wt of 242 #, would like to be at 180-190#. Said his wt fluctuated a lot when he was hospitalized and on diuretics. In the past he lost 50# on a high protein diet, but wt came back after stopping the diet. Currently attends cardiac rehab and physical therapy. Measuring his BG with a dexcom. Pt reports he is currently on atorvastatin, basaglar, eliquis, furosemide, glipizide, lorsatin potassium, metformin, metropol, mounjaro, MVI, nitro glycerin, paroxetine, potassium chloride, tamsulosin, Vit D3. Reports his average BG has been 250 and recent a1c reading of 9.3%. Past couple of mornings his fasting BG was down to about 60-80, and pt would wake up at 4am to eat 2 granola bars that would bring BG back up to 85. Pt usually has 2 meals with snacks in between. He usually doesn't have breakfast, w/ his first meal starting at noon. He says his carb foods are mainly large bagels from [employer], kazakh muffins, potatoes and lots of pasta. Not a picky eater; he eats a lot of vegetables, fish, shellfish, not much fruit. Admits to having butter with every meal, whether it's used to cook something or to add to food like toast. His dinner is his biggest meal. Likes to snack on radishes, cucumbers, mini peppers, cabbage. For fluid intake, he mainly has water, coffee with splenda and light cream and an occasional diet sloan jairo every 2 weeks. He'll also have lettuce wrap sandwiches w/o bread to reduce carbs. Reviewed w/ pt some basics of carb counting and going over the types of carbs that would benefit him, animal vs plant protein. Pt also has CKD 3, so we discussed importance of getting protein from plant sources compared to animal protein. Recommended pt get 2000 calories, 150 gm protein (at least 50 gm of it from plant protein), at least 35 gm fiber, limit added sugars to <40 gm. Will send pt a sample menu with those calculations that will also be kidney friendly. Discussed w/ pt the importance of having well-balanced meals w/ nonstarchy veg making up half the plate, lean protein, carbs to slow the rise of his BG. Also provided pt some handouts w/ a carb choice list he could reference to for serving sizes. Pt plans to be exercising 5x/week with 2x cardiac rehab and 3x his own walking routine. Pt is aware he can contact the dietitian if he has any questions. Says he plans to schedule a follow-up once he's received a msg with the sample menu/after he looks at his calendar. Documented by User: Joel Jerome RDN 07/17/25 13:22 Nutrition Note NOTE: Met with pt for nutrition counseling. Pt is a 74 yr old male who presents with desire for nutrition guidance on managing type 2 DM. Per pt he's had a PMH of a recent heart attack, falls, CKD 3, bilateral pleural effusion. Reports a current wt of 242 #, would like to be at 180-190#. Said his wt fluctuated a lot when he was hospitalized and on diuretics. In the past he lost 50# on a high protein diet, but wt came back after stopping the diet. Currently attends cardiac rehab and physical therapy. Measuring his BG with a dexcom. Pt reports he is currently on atorvastatin, basaglar, eliquis, furosemide, glipizide, lorsatin potassium, metformin, metropol, mounjaro, MVI, nitro glycerin, paroxetine, potassium chloride, tamsulosin, Vit D3. Reports his average BG has been 250 and recent a1c reading of 9.3%. Past couple of mornings his fasting BG was down to about 60-80, and pt would wake up at 4am to eat 2 granola bars that would bring BG back up to 85. Pt usually has 2 meals with snacks in between. He usually doesn't have breakfast, w/ his first meal starting at noon. He says his carb foods are mainly large bagels from [employer], kazakh muffins, potatoes and lots of pasta. Not a picky eater; he eats a lot of vegetables, fish, shellfish, not much fruit. Admits to having butter with every meal, whether it's used to cook something or to add to food like toast. His dinner is his biggest meal. Likes to snack on radishes, cucumbers, mini peppers, cabbage. For fluid intake, he mainly has water, coffee with splenda and light cream and an occasional diet sloan jairo every 2 weeks. He'll also have lettuce wrap sandwiches w/o bread to reduce carbs. Reviewed w/ pt some basics of carb counting and going over the types of carbs that would benefit him, animal vs plant protein. Patient with no current total carb goal - suggested 200grams total carbs (~13 servings per day) and reviewed carb counting resources given. Pt also has CKD 3, so we discussed importance of getting protein from plant sources compared to animal protein. Recommended pt get 2000 calories, 150 gm protein (at least 50 gm of it from plant protein), at least 35 gm fiber, limit added sugars to <40 gm. Will send pt a sample menu with those calculations that will also be kidney friendly. Discussed w/ pt the importance of having well-balanced meals w/ nonstarchy veg making up half the plate, lean protein, carbs to slow the rise of his BG. Also provided pt some handouts w/ a carb choice list he could reference to for serving sizes. Pt plans to be exercising 5x/week with 2x cardiac rehab and 3x his own walking routine. Pt is aware he can contact the dietitian if he has any questions. Says he plans to schedule a follow-up once he's received a msg with the sample menu/after he looks at his calendar. Time Spent in Nutritional Counseling and Treatment: 60
== END 2025-07-17 02:04 | disposition home or self-care (01) ==
PROVIDERS: PCP Nurse Practitioner Family; Visit Provider Dietitian, Registered
DX: Z71.3 Dietary counseling and surveillance (principal); E11.319 Type 2 diabetes mellitus with unspecified diabetic retinopathy without macular edema; N18.30 Chronic kidney disease, stage 3 unspecified
CPT/HCPCS: 00123; 97802

== ENCOUNTER 2025-07-31 02:26 | Outpatient (CLI) | payer MEDICARE, BC, SELFPAY ==
[2025-07-31 12:41] LABS: Glucose 100 mg/dL (Negative)
[2025-07-31 12:53] LABS: C & S Indicated? No; RBC 0-2 HPF (0-2); WBC Negative HPF (0-5)
[2025-07-31 13:28] LABS: Anion Gap 9 mmol/L (3-11); BUN 39 mg/dL (9-23); CO2 30.0 mmol/L (20.0-31.0); Calcium 9.4 mg/dL (8.3-10.6); Chloride 100 mmol/L (98-107); Glucose 199 mg/dL (74-106); Potassium 4.9 mmol/L (3.5-5.1); Sodium 139 mmol/L (136-145)
== END 2025-07-31 02:27 | disposition home or self-care (01) ==
PROVIDERS: PCP Nurse Practitioner Family; Visit Provider Nurse Practitioner Family
DX: E87.1 Hypo-osmolality and hyponatremia (principal); R31.9 Hematuria, unspecified
CPT/HCPCS: 36415; 80048; 81003; 81015

== ENCOUNTER → 2025-08-03 00:51 | Outpatient (CLI) | payer MEDICARE, SELFPAY ==
--- NOTE | 2025-08-03 09:30 | DI.US_ITS ---
APPROVED REPORT EXAM: Comprehensive 2D, Doppler, and color-flow Echocardiogram Patient Location: Out-Patient Check Totaler: Juliet Villanueva RDCS (AE) Indications: LV function and MR, CAD Other Information Study Quality: Fair Conclusion Mildly dilated left ventricle. Ejection fraction is 50 to 55%. There appeared to be inferior and posterior wall motion abnormalities Normal right ventricular size and function Both atria are moderately enlarged Aortic valve is trileaflet and mildly sclerotic with trace regurgitation Mitral annular calcification. Mild mitral regurgitation Mild tricuspid regurgitation. Estimated right ventricular systolic pressure is 39 mmHg Mildly dilated ascending aorta Echocardiogram is similar to 1 from January 2025 Wall motion Left Ventricle Left ventricle is mildly dilated. Left ventricular systolic function is borderline. There is normal left ventricular wall thickness. Regional wall motion is not well visualized but grossly normal. There is no ventricular septal defect visualized. LVEF is 50-55%. Right Ventricle The right ventricle is normal size. The right ventricular systolic function is normal. Atria Left atrium is moderately dilated. Right atrium is moderately dilated. The interatrial septum is intact with no evidence for an atrial septal defect. Aortic Valve The aortic valve is mildly sclerotic Aortic valve is trileaflet. There is no aortic valvular stenosis. Trace aortic regurgitation. Mitral Valve Mild mitral annular calcification. No evidence of mitral valve stenosis. Mild mitral regurgitation. Tricuspid Valve The tricuspid valve is normal in structure. There is no tricuspid valve stenosis. Mild tricuspid regurgitation. The RVSP is 39.4_ mmHg. Pulmonic Valve The pulmonary valve is normal in structure. There is no pulmonic valvular stenosis. Trace pulmonic regurgitation. Great Vessels The aortic root is normal in size. The ascending aorta is mildly dilated. Aortic arch is not well visualized. IVC is normal in size and collapses >50% with inspiration. Pericardium There is no pericardial effusion. 2D Dimensions IVSD d PLAX 1.20 cm M: 0.6-1.2 Ao Root d 3.80 cm M: 3.1 - 3.7 LVPW d PLAX 1.22 cm M: 0.6 - 1.2 Ao Asc Diam d 3.94 cm M: 2.6 - 3.4 LVID d PLAX 5.90 cm M: 4.2 - 5.8 LVDs 4.40 cm M: 2.5 - 4.0 LV EF Teichholz 49.9 % FS 25.77 % LV EDV (Teich) 171.6 mL LV ESV (Teich) 85.9 mL Auto EF LV EDV A4C 143.6 mL LV EDV A2C 210.6 mL LV EDV BP 175.4 mL LV ESV A4C 71.5 mL LV ESV A2C 108.1 mL LV ESV BP 89.5 mL LVEF(%) A4C 50.2 % LVEF(%) A2C 48.7 % LVEF(%) BP 49.0 % LV SV A4C 72.1 ml LV SV A2C 102.5 ml LV SV BP 86.0 ml LV CO A4C 5.6 L/min LV CO A2C 8.1 L/min LV CO BP 6.9 L/min HR A4C 78.09 BPM HR A2C 79.30 BPM LV EDV Index (BP) LA Volume LA Length A4C 6.6 cm LA Length A2C 7.1 cm LA Area A4C s 31.24 cm2 LA Area A2C s 31.87 cm2 LA Vol A4C A-L 124.94 mL LA Vol A2C A-L 121.77 mL LA Vol Biplane A-L 127.5 mL LA Vol/BSA A4C A-L LA Vol/BSA A2C A-L LA Vol/BSA BP A-L 55.7 mL/m2 LA Vol A4C MOD 116.1 mL LA Vol A2C MOD 112.2 mL LA Vol BP MOD 116.0 mL RA Volume RA Area A4C 15.9 cm2 RA ESV A4C (A-L) 45.7mL RA Vol/BSA A4C A-L RA Length A4C 4.7 cm RA ESV A4C (MOD) 43.0mL LV Diastology MV E Vmax 1.23 (0.4-1.3 m/s) Aortic Valve AoV Vmax 1.33 m/s LVOT Vmax 0.90 m/s AoV Peak Grad 25.1 mmHg LVOT Peak Grad 3.2 mmHg AoV Area (Vmax) 2.40 cm2 LVOT VTI 0.200 m AoV VTI 0.275 m LVOT Mean Grad 1.5 mmHg AoV Mean Selvin. 0.90 m/s LVOT SV 71.24 mL AoV Mean Grad 3.8 mmHg LVOT Diam s 2.10 cm AoV Area (VTI) 2.59 cm2 AV Regurg Peak Gr. 7.07 mmHg Velocity Ratio 0.68 AR Decel [place] 0.8m/sec2 AR DT 3946 msec AR PHT 1144 msec AR Vmax 3.28 m/s Mitral Valve MV DT 202 (160-240 msec) MR Vmax 4.99 m/s MV Vmax TIPS 1.15 m/s MR VTI 1.604 m MV Mean Grad 2.0 (<2mmHg) MR Peak Grad 99.7 mmHg MV VTI 0.239 m MR Mean Grad 70.0 mmHg Pulmonary Valve PV Vmax 0.75 (0.5-1.5 m/s) RVOT Vmax 0.57 m/s PV Peak Grad 2.2 mmHg RVOT Peak Gr. 1.3 mmHg PV Mean Selvin 0.54 m/s RVOT VTI 0.116 m PV Mean Grad 1.3 mmHg RVOT Mean Gr. 0.8 mmHg Tricuspid Valve RA Pressure 3.00 mmHg TR Vmax 3.02 m/s TR Peak Grad 36.4 mmHg RVSP (TR) 39.4 mmHg
== END ==
LOC: DI 00:58
PROVIDERS: PCP Nurse Practitioner Family; Visit Provider Internal Medicine Cardiovascular Disease
DX: I25.10 Atherosclerotic heart disease of native coronary artery without angina pectoris (principal)
CPT/HCPCS: 93306

== ENCOUNTER → 2025-08-13 00:11 | Outpatient (CLI) | payer MEDICARE, BC, SELFPAY ==
--- NOTE | 2025-08-13 | DI.US_ITS ---
Exam(s) US RENAL EXAM: US RENAL CLINICAL HISTORY: STAGE 3 B CHRONIC KIDNEY DISEASE, N18.32. TECHNIQUE: [place]emayor scale, color and spectral Doppler were used. COMPARISON: US ABDOMEN ULTRASOUND (P) from 04/10/[address] ABDOMEN PELVIS WO from 06/18/2025 FINDINGS: Renal size in cm: Right: 11.2. Left: 11.6. Echogenicity: Normal. Hydronephrosis: No. Cyst or mass: No. Nephrolithiasis: There is an echogenic focus in the upper pole of the left kidney which may represent a vascular calcification. There is no hydronephrosis. Other findings: The renal cortex appears within normal limits. Bladder:Normal. Ureteral jets: Right: Visualized and unremarkable. Left: Visualized and unremarkable. Prevoid vol:218 cc Postvoid vol:98 cc Prostate: 17 cc Renal color flow: Symmetric and within normal limits. IMPRESSION: 1. The kidneys are of normal echogenicity with an unremarkable renal cortex. 2. No hydronephrosis. 3. Large postvoid urinary bladder residual. DATA REPOSITORY:
== END ==
LOC: DI 00:12
PROVIDERS: PCP Nurse Practitioner Family; Visit Provider Registered Nurse Nephrology
DX: N18.32 Chronic kidney disease, stage 3b (principal)
CPT/HCPCS: 76770

== ENCOUNTER 2025-08-26 11:00 | Outpatient (RCR) | payer SELFPAY ==
[2025-07-29 11:23] VITALS: BP 148/76; PULSE 85
[2025-07-31 11:00] VITALS: BP 148/84; PULSE 90
[2025-08-07 11:14] VITALS: BP 165/78; PULSE 82
[2025-08-12 12:48] VITALS: BP 133/71; PULSE 78
[2025-08-14 13:17] VITALS: BP 144/83; PULSE 80
[2025-08-21 11:00] VITALS: BP 130/70; PULSE 79
[2025-08-26 10:58] VITALS: BP 154/84; PULSE 86
== END 2025-08-26 23:59 | disposition home or self-care (01) ==
LOC: CR 11:00
PROVIDERS: PCP Nurse Practitioner Family; Visit Provider Internal Medicine Cardiovascular Disease
DX: R69 Illness, unspecified (principal)